=== PATIENT | male | born 1975 ===

== ENCOUNTER 2025-06-23 18:39 | Outpatient (REF) | payer MEDICAID, SELFPAY ==
--- OUTSIDE RECORDS SUMMARY | 2025-06-17 12:46 | XMS_ITS | Encounter Summary ---
Author Organization [facility] Address [address] [place] [address] Care Team Providers Care Industrial Electrical Technician Name Role Phone Roger Walker MD Primary Care Provider [phone] Reason for Visit * Diagnostic Imaging (Routine) - Authorized Specialty Diagnoses / Procedures Referred By Issa t Referred To Contact Radiology Diagnoses Acute hematogenous osteomyelitis of left foot (HCC) 06/15- Bkd apt w/pt. Confirmed camille/ Elmo @ [phone] that [address] services are in place-dd Procedures IR PICC IR PICC Agustín Chauhan MD [address] [place] [address] Phone: tel: fax: [facility] [address] [place] [address] Phone: tel: fax: Referral ID Status Reason Start Date Expiration Date V isits Requested Visits Authorized [id number] Authorized 06/17/2025 12/17/2026 6 6 Encounter Details Date Type Department Care Team (Latest Contact Info) Description 06/17/2025 12:46 PM EDT - 06/17/2025 11:59 PM EDT Hospital Encounter [facility] [address] [place] [address] Acute hematogenous osteomyelitis of left foot (HCC) Discharge Disposition: Home or Self Care () Social History Tobacco Use Types Packs/Day Years Used Date Smoking Tobacco: Never Smokeless Tobacco: Never Alcohol Use Standard Drinks/Week Comments Never 0 (1 standard drink = 0.6 oz pur e alcohol) [facility] Utilities Answer Date Recorded In the past 12 months has th e electric, gas, oil, or water company threatened to shut off services in your home? No 11/12/2024 Hunger Vital Sign Answer Date Recorded Within the past 12 months, y ou worried that your food would run out before you got the money to buy more. Never true 11/12/19 25 Within the past 12 months, t he food you bought just didn't last and you didn't have money to get more. Never true 11/12/2024 Transportation Answer Date Recorded In the past 12 months, has l ack of reliable transportation kept you from medical appointments, meetings, work or from getting things needed for daily living? No 11/12/2024 Housing Answer Date Recorded Housing Risk Low 2 11/12/2024 Housing Risk Medium Not on file 11/12/2024 Housing Risk High Not on file 11/12/2024 What is your living situation today? LSSTEADY 11/12/2024 Sex and Gender Information Value Date Recorded Sex Assigned at Male 11/11/2024 2:37 PM EST Legal Sex Male 8:23 AM EDT Gender Identity Not on file Sexual Orientation Not on file documented as of this encounter Discharge Instructions * Attachments The following attachments cannot be sent through Care Everywhere. * How to care for a peripherally inserted central catheter (PICC) (Persian) documented in this encounter Medications at Time of Discharge acetaminophen (TYLENOL) 325 mg tablet Take 2 tablets (650 mg total) by mouth every 6 hours as needed for fever or pain. 11/19/2024 amLODIPine (NORVASC) 10 mg tablet Take 0.5 tablets (5 mg total) by mouth once a day. 03/10/2025 rrwbm-wdpj-MqMHE- xgjcex-hx-gso (JASON WITH COLLAGEN) 7-7-1.5 gram powder in packet Take 1 packet by mouth 2 times a day. 03/10/2025 ascorbic acid (VITAMIN C) 500 mg tablet Take 1 tablet (500 mg total) by mouth 2 times a day. 11/19/2024 clopidogreL (PLAVIX) 75 mg tablet Take 75 mg by mouth once a day. clopidogreL (PLAVIX) 75 mg tablet 1 tablet DAILY (route: oral) 12/29/2024 collagenase (SantyL) ointment Apply topically to the affected area once a day. Wound dimensions: 0.8 x 0.6 x 0.5 cm 30 g 3 05/22/2025 dextrose (GLUTOSE) 40% gel Take 37.5 mL (15 g total) by mouth every 15 minutes as needed (For a blood glucose less than 70, in a conscious patient taking PO; May alternatively give 4 oz of non-diabetic juice.). 11/19/2024 enoxaparin (LOVENOX) 40 mg/0.4 mL subcutaneous injection Inject 0.4 mL (40 mg total) under the skin daily. 11/19/2024 ferrous sulfate 325 mg (65 mg iron) EC tablet Take 1 tablet (325 mg total) by mouth every other day. 03/11/2025 hydrALAZINE (APRESOLINE) 25 mg tablet Take 1 tablet (25 mg total) by mouth every 8 hours. 03/10/2025 insulin glargine-yfgn (SEMGLEE) injection 100 units/mL vial Inject 18 Units under the skin nightly. 03/10/2025 insulin lispro injection 100 units/mL vial Inject 1-4 Units under the skin nightly. 03/10/2025 insulin lispro injection 100 units/mL vial Inject 1-5 Units under the skin 3 times a day with meals. 03/10/2025 insulin lispro injection 100 units/mL vial Inject 3 Units under the skin 3 times a day with meals. 03/10/2025 labetaloL (NORMODYNE) 300 mg tablet Take 1 tablet (300 mg total) by mouth every 8 hours. 11/19/2024 labetaloL (NORMODYNE) 300 mg tablet Take 300 mg by mouth 3 times daily. 01/28/2025 lactobacillus acidophilus-L. bulgaricus (FLORANEX) 1 million cell tablet Take 1 tablet by mouth 3 times a day. 11/19/2024 loperamide (IMODIUM) 2 mg capsule Take 1 capsule (2 mg total) by mouth 4 times a day as needed for diarrhea. 03/10/2025 losartan (COZAAR) 100 mg tablet Take 1 tablet (100 mg total) by mouth once a day. 11/19/2024 multivitamin tablet Take 1 tablet by mouth once a day. 11/20/2024 sodium chloride 0.9% injection Infuse 10-20 mL intravenously See admin instructions. 03/10/2025 sodium chloride 0.9% injection Infuse 10-20 mL intravenously once a day. 03/11/2025 sodium chloride 0.9% injection Infuse 10-30 mL intravenously See admin instructions. 03/10/2025 sodium chloride 0.9% injection Infuse 10-30 mL intravenously once a day. 03/11/2025 documented as of this encounter Nursing Notes * Martha Cox RN - 06/17/2025 1:34 PM EDT Double Lumen Power PICC placed to right basilic by Tania CAICEDO. Pt tolerated well. Pt stating he has VNA set up already to help w/ PICC care. Both ports flushed w/ NS w/ out difficulty w/ + bloodreturn. CHG DSG applied to site & remains CDI. 2 wires on table pre & post procedure.Site ready to be used. AVS given to Pt & all questions answered.Pt denies pain/ discomfort 2 site. Pt d enies feeling light headed or dizzy@ dc to home. documented in this encounter Miscellaneous Notes * Post-Procedure Note - SASCHA Schmid - 06/17/2025 1:00 PM EDT PROCEDURE: Placement of peripherally inserted central venous catheter (PICC) under sonographic and fluoroscopic guidance. INDICATION: 50-year-old male presenting with osteomyelitis. Central venous access requested for long-term IV antibiotics. INSIGHT LEADER: Tania Mcmanus PA-C ATTENDING: Dr. Valeriano Mcgraw MEDICATIONS: Local anesthesia with 1% lidocaine. CONTRAST: No. Fluoro Time: 0.4 minutes CD: 2.2 mGy DEVICE: Nexsan PowerPICC 5 Fr x 36 cm double lumen polyurethane catheter, lot #[id number]. COMPLICATIONS: None. TECHNIQUE: Informed consent was obtained from the patient/proxy after discussion of risks, benefits, and alternatives. The patient was prepped and draped in a sterile fashion. Maximal Sterile Barrierand Sterile Ultrasound Techniques were utilized. A timeout was performed. After local anesthesia with 1% lidocaine, the right basilic vein was accessed with a 21 gauge needle under sonographic guidanc e. An ultrasound image was stored for the permanent record. Access needle was exchanged for a peel-away sheath over a 0.018 marking wire, which was used to measure appropriate catheter length. The PICC was cut to length and inserted through the sheath into the superior vena cava. After confirming proper placement of the catheter tip under fluoroscopy, the peel-away sheath was removed. The lumensaspirated blood briskly and were terminally flushed. Catheter was secured with a StatLock adhesive device and covered with a sterile dressing. The patient tolerated the procedure well. FINDINGS: 1. Patent right basilic vein accessed under sonographic guidance. 2. Placement of Bard 5 Fr x 36 cm double lumen polyurethane catheter 3. Postprocedure chest radiograph showed the catheter tip overlying the distal SVC and no kinks along the course of the catheter. IMPRESSION: Successful placement of double lumen power PICC. Catheter is ready for use. documented in this encounter Plan of Treatment Upcoming Encounters Date Type Department Care Team (Late st Contact Info) Description 06/24/2025 11:40 AM EDT Follow-Up [facility] [address] [place] [address] Emily Toussaint PA [address] [place] [address] 08/16/2025 11:15 AM EST Office Visit [address] Medical [facility] [place] [address] Josh Kraft MD [address] [place] [address] documented as of this encounter Procedures * Due to [place] [employer] law, this organization might not be sharing negative HIV tests. Procedure Name Priority Date/Time Associated Diagnosis Comments IR PICC Routine 06/17/2025 1:47 PM EDT Acute hematogenous osteomyelitis of left foot (HCC) documented in this encounter Results * Due to [place] [employer] law, this organization might not be sharing negative HIV tests. * IR PICC (06/17/2025 1:47 PM EDT) Anatomical Region Laterality Modality Lower Extremities, Upper Extremities Radio Fluoroscopy Impressions 06/20/2025 3:52 PM EDT Successful placement of double lumen power PICC. Catheter is ready for use. Narrative 06/20/2025 3:52 PM EDT PROCEDURE: Placement of peripherally inserted central venous catheter (PICC) under sonographic and fluoroscopic guidance. INDICATION: 50-year-old male presenting with osteomyelitis. Central venous access requested for long-term IV antibiotics. INSIGHT LEADER: Tania Mcmanus PA-C ATTENDING: Dr. Valeriano Mcgraw MEDICATIONS: Local anesthesia with 1% lidocaine. CONTRAST: No. Fluoro Time: 0.4 minutes CD: 2.2 mGy DEVICE: Bard PowerPICC 5 Fr x 36 cm double lumen polyurethane catheter, lot #[id number]. COMPLICATIONS: None. TECHNIQUE: Informed consent was obtained from the patient/proxy after discussion of risks, benefits, and alternatives. The patient was prepped and draped in a sterile fashion. Maximal Sterile Barrier and Sterile Ultrasound Techniques were utilized. A timeout was performed. After local anesthesia with 1% lidocaine, the right basilic vein was accessed with a 21 gauge needle under sonographic guidance. An ultrasound image was stored for the permanent record. Access needle was exchanged for a peel-away sheath over a 0.018 marking wire, which was used to measure appropriate catheter length. The PICC was cut to length and inserted through the sheath into the superior vena cava. After confirming proper placement of the catheter tip under fluoroscopy, the peel-away sheath was removed. The lumens aspirated blood briskly and were terminally flushed. Catheter was secured with a StatLock adhesive device and covered with a sterile dressing. The patient tolerated the procedure well. FINDINGS: 1. Patent right basilic vein accessed under sonographic guidance. 2. Placement of Bard 5 Fr x 36 cm double lumen polyurethane catheter 3. Postprocedure chest radiograph showed the catheter tip overlying the distal SVC and no kinks along the course of the catheter. Agustín Chauhan MD IMG IR PROCEDURES Final Result documented in this encounter Visit Diagnoses Diagnosis Acute hematogenous osteomyelitis of left foot (HCC) documented in this encounter Administered Medications Inactive Administered Medications - up to 3 most recent administrations Medication Order MAR Action Action Date Dose Rate Site lidocaine PF (XYLOCAINE) 1% (10 mg/mL) injection As needed, Starting on Fri06/17/25 at 1323, Until Fri06/17/25 at 1323, Intra-op Given 06/17/2025 1:23 PM EDT 4 mL Right Upper Arm documented in this encounter Additional Health Concerns Infection Onset Date Last Indicated Resolved Time 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2024 documented as of this encounter Care Teams Industrial Electrical Technician Relationship Specialty Start Date End Date Roger Walker MD [address] [place] [address] PCP - General Family Medicine 05/04/25 documented as of this encounter
[2025-06-23 18:45] LABS: MANUAL DIFF FLAG NO
--- OUTSIDE RECORDS SUMMARY | 2025-06-23 19:03 | XMS_ITS | Encounter Summary ---
Author Organization [facility] Address [address] [place] [address] Care Team Providers Care Fur Remodeler Name Role Phone Maria Dolores Shearer MD Primary Care Provider [phone] Andreea Herron OD Unavailable Roger Walker MD Primary Care Provider [phone] Encounter Details Date Type Department Care Team (Late st Contact Info) Description 11/27/2012 Orders Only [facility] Endocrinology [address] [place] [address] Stacy Mora MSN HELMET COVERER Social History Tobacco Use Types Packs/Day Years Used Date Smoking Tobacco: Never Smokeless Tobacco: Never Comments:nonsmoker Alcohol Use Standard Drinks/Week Comments No 0 (1 standard drink = 0.6 oz pur e alcohol) Sex and Gender Information Value Date Recorded Sex Assigned at Not on file Legal Sex Male 7:05 PM EDT Gender Identity Not on file Sexual Orientation Not on file documented as of this encounter Plan of Treatment Upcoming Encounters Date Type Department Care Team (Latest Contact Info) Description 07/15/2025 12:25 PM EDT Consult (Initial) [facility] [address] [place] [address] Edi Flaherty MD [address] [place] [address] - consult for Hypertension, benign 07/19/2025 1:30 PM EDT Office Visit [facility] [address] [place] [address] Roger Walker MD [address] [place] [address] diabetic follow up 10/24/2025 9:00 AM EST Office Visit [facility]. Optometry [address] [place] [address] Olya Schultz, OD [address] [place] [address] new pt,DM,noCL,verifie d via EM,elig 10/13/24,10/24,$0copa y,aodv,aoir 01/17/2026 2:00 PM EDT CPE - Comprehensive Physical Exam [address] [address] Roger Walker MD [address] [place] [address] CPE documented as of this encounter Procedures * Due to [place] [employer] law, this organization might not be sharing negative HIV tests. Procedure Name Priority Date/Time Associated Diagnosis Comments ALANINE AMINOTRANSFERASE (ALT), SERUM Routine 11/27/2012 7:10 AM EST Uncontrolled type II diabetes mellitus Elevated blood pressure Mixed hyperlipidemia Overweight ASPARTATE AMINOTRANSFERASE (AST), SERUM Routine 11/27/2012 7:10 AM EST Uncontrolled type II diabetes mellitus Elevated blood pressure Mixed hyperlipidemia Overweight documented in this encounter Results * Due to [place] [employer] law, this organization might not be sharing negative HIV tests. * ALANINE AMINOTRANSFERASE (ALT), SERUM (11/27/2012 7:10 AM EST) ALT (SGPT) 39 9 - 60 U/L [facility] Comment:{ALT {[id number]) 11/27/2012 7:10 AM EST 11/27/2012 12:04 PM EST Narrative Resulting Agency Comment [id number] us Stacy Mora MSN HELMET COVERER LAB SAME DAY RESULT Final Res ult Performing Organization Address City/[facility]/ZIP Co de Phone Number [facility] [address] [place] [address] * ASPARTATE AMINOTRANSFERASE (AST), SERUM (11/27/2012 7:10 AM EST) AST (SGOT) 22 10 - 40 U/L [facility] Comment:{AST {[id number]) 11/27/2012 7:10 AM EST 11/27/2012 12:04 PM EST Narrative Resulting Agency Comment [id number] us Stacy Mora MSN HELMET COVERER LAB SAME DAY RESULT Final Res ult Performing Organization Address [facility] Co de Phone Number [facility] [address] [place] [address] documented in this encounter Visit Diagnoses Diagnosis Uncontrolled type II diabetes mellitus Type II or unspecified type diabetes mellitus without mention of complication, uncontrolled Elevated blood pressure Elevated blood pressure reading without diagnosis of hypertension Mixed hyperlipidemia Overweight(278.02) Overweight documented in this encounter Additional Health Concerns Infection Onset Date Last Indicated Resolved Time COVID-19 Rule-Out 07/18/2020 07/18/2020 07/20/2020 11:31 AM EDT COVID-19 Rule-Out 09/18/2020 09/18/2020 09/21/2020 1:43 PM EST COVID-19 Confirmed 09/18/2020 09/18/2020 1 8:12 PM EST documented as of this encounter Care Teams Fur Remodeler Relationship Specialty Start Date End Date Maria Dolores Shearer MD PCP - General Internal Medicine 10/25/12 10/29/23 Roger Walker MD [address] [place] [address] PCP - General Family Medicine 10/30/23 Andreea Herron OD Subsea Engineer Optometry 02/20/17 documented as of this encounter
--- OUTSIDE RECORDS SUMMARY | 2025-06-23 19:04 | XMS_ITS | Encounter Summary ---
Author Organization [facility] Address [address] [place] [address] Care Team Providers Care Pulper Name Role Phone Maria Dolores Shearer MD Primary Care Provider [phone] Gopal Andreea OD Unavailable Roger Walker MD Primary Care Provider [phone] Encounter Details Date Type Department Care Team (Late Contact Info) Description 12/05/2018 Orders Only [facility] [address] [place] [address] Maria Dolores Shearer MD [address] [place] [address] Medications Social History Tobacco Use Types Packs/Day Years Used Date Smoking Tobacco: Never Smokeless Tobacco: Never Comments:nonsmoker Alcohol Use Standard Drinks/Week Comments Yes 0 (1 standard drink = 0.6 oz pure alcohol) Very very rarely - only 1 if drinking Sex and Gender Information Value Date Recorded Sex Assigned at Not on file Legal Sex Male 7:05 PM EDT Gender Identity Not on file Sexual Orientation Not on file documented as of this encounter Progress Notes * Lela Saxena LPN - 12/09/2018 9:36 AM EST See TM from 12/09/18 * Maria Dolores Shearer - 12/09/2018 8:11 AM EST Pls let pt know that hormone check was normal, I will start Viagra PRN. Thanks. documented in this encounter Plan of Treatment Upcoming Encounters Date Type Department Care Team (Latest Contact Info) Description 07/15/2025 12:25 PM EDT Consult (Initial) [facility] [address] [place] [address] Edi Flaherty MD [address] [address] - consult for Hypertension, benign 07/19/2025 1:30 PM EDT Office Visit [address] [address] Roger Walker MD [address] [place] [address] diabetic follow up 10/24/2025 9:00 AM EST Office Visit [facility]. Optometry [address] [place] [phone] Olya Schultz, OD [address] [place] [address] new pt,DM,noCL,verifie d via EM,elig 10/13/24,10/24,$0copa y,aodv,aoir 01/17/2026 2:00 PM EDT CPE - Comprehensive Physical Exam [address] [phone] Roger Walker MD [address] [place] [address] CPE documented as of this encounter Goals Goal Patient Goal Type Associated Problems Recent Progress Patient-Stated? Author Blood Pressure < 140/80 Blood Pressure 94/62( 025 11:51 AM EDT) No Maria Dolores Shearer HEMOGLOBIN A1C % < 7 Result Component 8.6( 5 1:13 PM EDT) No Jolene Tristan CMA documented as of this encounter Procedures * Due to [place] [employer] law, this organization might not be sharing negative HIV tests. Procedure Name Priority Date/Time Associated Diagnosis Comments THYROID STIMULATING HORMONE (TSH) WITH FREE T4 REFLEX, SERUM Routine 12/05/2018 9:07 AM EST Erectile dysfunction, unspecified erectile dysfunction type TESTOSTERONE, FREE(DIALYSIS) AND TOTAL, MS Routine 12/05/2018 9:07 AM EST Erectile dysfunction, unspecified erectile dysfunction type SEX HORMONE BINDING GLOBULIN Routine 12/05/2018 9:07 AM EST Erectile dysfunction, unspecified erectile dysfunction type PROLACTIN Routine 12/05/2018 9:07 AM EST Erectile dysfunction, unspecified erectile dysfunction type LUTEINIZING HORMONE (LH), SERUM Routine 12/05/2018 9:07 AM EST Erectile dysfunction, unspecified erectile dysfunction type FSH Routine 12/05/2018 9:07 AM EST Erectile dysfunction, unspecified erectile dysfunction type documented in this encounter Results * Due to [place] [employer] law, this organization might not be sharing negative HIV tests. * TESTOSTERONE, FREE AND TOTAL, LC/MS/MS (12/05/2018 9:07 AM EST) Testosterone 502 250 - 1100 ng/dL [facility] Comment: For additional information, please refer to http://education.[employer]Summize/faq/ [email or web address] (This link is being provided for informational/ educational purposes only.) This test was developed and its analytical performance characteristics have been determined by [employer] [place], [place]. It has not been cleared or approved by the U.S. Food and Drug Administration. This assay has been validated pursuant to the CLIA regulations and is used for clinical purposes. Testosterone, Free 71.8 35.0 - 155.0 pg/mL [facility] Comment: This test was developed and its analytical performance characteristics have been determined by [employer] [place], [place]. It has not been cleared or approved by the U.S. Food and Drug Administration. This assay has been validated pursuant to the CLIA regulations and is used for clinical purposes. 12/05/2018 9:07 AM EST 12/05/2018 5:42 PM EST Narrative Resulting Agency Comment [id number] Maria Dolores Shearer MD LABORATORY Final Result Performing Organization Address [facility] Co de Phone Number [facility] [address] [place] [address] * SEX HORMONE BINDING GLOBULIN (12/05/2018 9:07 AM EST) Sex hormone binding globulin 31 10 - 50 nmol/L [facility] 12/05/2018 9:07 AM EST 12/05/2018 5:42 PM EST Narrative Resulting Agency Comment [id number] Maria Dolores Shearer MD LABORATORY Final Result Performing Organization Address [facility] de Phone Number [facility] [address] [place] [phone] * FSH (12/05/2018 9:07 AM EST) FSH 4.1 1.6 - 8.0 mIU/mL [facility] 12/05/2018 9:07 AM EST 12/05/2018 5:42 PM EST Narrative Resulting Agency Comment [id number] Maria Dolores Shearer MD LAB SAME DAY RESULT Final Result Performing Organization Address [facility] Co de Phone Number [facility] [address] [place] [address] * LUTEINIZING HORMONE (LH), SERUM (12/05/2018 9:07 AM EST) Luteinizing Hormone (LH) 2.1 1.5 - 9.3 mIU/mL [facility] 12/05/2018 9:07 AM EST 12/05/2018 5:42 PM EST Narrative Resulting Agency Comment [id number] us Maria Dolores Shearer MD LAB SAME DAY RESULT Final Result Performing Organization Address [facility] Co de Phone Number [facility] [address] [place] [address] * PROLACTIN (12/05/2018 9:07 AM EST) Prolactin 5.2 2.0 - 18.0 ng/mL [facility] 12/05/2018 9:07 AM EST 12/05/2018 5:42 PM EST Narrative Resulting Agency Comment [id number] Maria Dolores Shearer MD LAB SAME DAY RESULT Final Result Performing Organization Address [facility] Co de Phone Number [facility] [address] [place] [address] * THYROID STIMULATING HORMONE (TSH) WITH FREE T4 REFLEX, SERUM (12/05/2018 9:07 AM EST) TSH 0.65 0.40 - 4.50 mIU/L [facility] 12/05/2018 9:07 AM EST 12/05/2018 5:42 PM EST Narrative Resulting Agency Comment [id number] Result [facility] Maria Dolores Shearer MD LABORATORY Final Result Performing Organization Address [facility] de Phone Number [facility] [address] [place] [address] documented in this encounter Visit Diagnoses Diagnosis Erectile dysfunction, unspecified erectile dysfunction type documented in this encounter Additional Health Concerns Infection Onset Date Last Indicated Resolved Time COVID-19 Rule-Out 07/18/2020 07/18/2020 07/20/2020 11:31 AM EDT COVID-19 Rule-Out 09/18/2020 09/18/2020 09/21/2020 1:43 PM EST COVID-19 Confirmed 09/18/2020 09/18/2020 1 8:12 PM EST documented as of this encounter Care Teams Pulper Relationship Specialty Start Date End Date Maria Dolores Shearer MD PCP - General Internal Medicine 10/25/12 10/29/23 Roger Walker MD [address] [place] [phone] PCP - General Family Medicine 10/30/23 Andreea Herron OD Bulldozer Engineer Optometry 02/20/17 documented as of this encounter
--- OUTSIDE RECORDS SUMMARY | 2025-06-23 19:04 | XMS_ITS | Encounter Summary ---
Author Organization [facility] Address [address] [place] [address] Care Team Providers Care Business Rules Analyst Name Role Phone Huber Acosta DO Primary Care Provider [phone] Maria Dolores Shearer MD Primary Care Provider Andreea Herron OD Unavailable Roger Walker MD Primary Care Provider [phone] Encounter Details Date Type Department Care Team (Late st Contact Info) Description 05/14/2007 Orders Only [facility] [address] [place] [phone] Huber Acosta DO [facility] [address] [place] [address] Social History Tobacco Use Types Packs/Day Years Used Date Smoking Tobacco: Never Comments:nonsmoker Alcohol Use Standard Drinks/Week [...] Description 07/15/2025 12:25 PM EDT Consult (Initial) [facility] [address] [place] [address] Edi Flaherty MD [address] [address] - consult for Hypertension, benign 07/19/2025 1:30 PM EDT Office Visit [address] [address] Roger Walker MD [address] [place] [address] diabetic follow up 10/24/2025 9:00 AM EST Office Visit [facility]. Optometry [address] [place] [address] UnderOlya carlton, OD [address] [place] [address] new pt,DM,noCL,verifie d via EM,elig 10/13/24,10/24,$0copa y,aodv,aoir 01/17/2026 2:00 PM EDT CPE - Comprehensive Physical Exam [address] [address] Roger Walker MD [address] [place] [address] CPE documented as of this encounter Procedures * Due to [place] state law, this organization might not be sharing negative HIV tests. Procedure Name Priority Date/Time Associated Diagnosis Comments COMP METABOLIC PANEL Routine 05/14/2007 HYPERLIPIDEMIA MICROALBUMIN (RANDOM URINE) Routine 05/14/2007 HYPERLIPIDEMIA CBC 5 PART DIFF Routine 05/14/2007 HYPERLIPIDEMIA HEMOGLOBIN A1C Routine 05/14/2007 HYPERLIPIDEMIA CK, CREATINE KINASE (CPK, TOTAL) Routine 05/14/2007 HYPERLIPIDEMIA CARDIAC RISK/LIPID PROFILE I Routine 05/14/2007 HYPERLIPIDEMIA documented in this encounter Results * Due to [place] state law, this organization might not be sharing negative HIV tests. * (ABNORMAL) CARDIAC RISK/LIPID PROFILE I (05/14/2007) CHOLESTEROL, TOTAL 229(H) 125 - 200 MG/DL [facility] (CLIA# [id number]) TRIGLYCERIDES 167(H) 30 - 149 MG/DL [facility] (CLIA# [id number]) HDL-CHOLESTEROL 34(L) 40 - 77 MG/DL [facility] (CLIA# [id number]) LDL-CHOLESTEROL 162(H) 62 - 130 MG/DL [facility] (CLIA# [id number]) Comment: RISK CATEGORY: LDL-CHOLESTEROL GOAL CHD AND CHD RISK EQUIVALENTS: <100 MULTIPLE (2+) FACTORS: <130 ZERO TO ONE RISK FACTOR: <160 CHD RELATIVE RISK RATIO (TOTAL/HDL) 6.74(H) 0.0 - 5.0 [facility] (CL[facility]# [id number]) Comment:(1.4 X AVERAGE) 05/14/2007 05/14/2007 2:5 5 PM EDT us Huber Acosta DO LABORATORY Final Result [facility] (CLIA# [id number]) [address] [place] [address] * (ABNORMAL) COMP METABOLIC PANEL (05/14/2007) CALCIUM 9.7 8.6 - 10.2 MG/DL [facility] (CLIA# [id number]) BUN 17 7 - 25 MG/DL [facility] (CLIA# [id number]) CREATININE 1.2 0.5 - 1.3 MG/DL [facility] (CLIA# [id number]) BUN/Creatinine Ratio 14 6 - 25 [facility] (CLIA# [id number]) Total Protein 6.9 6.2 - 8.3 G/DL [facility] (CLIA# [id number]) ALBUMIN 4.6 3.7 - 5.1 G/DL [facility] (CLIA# [id number]) GLOBULIN 2.3 2.1 - 3.7 G/DL [facility] (CLIA# [id number]) ALBUMIN/GLOBULIN RATIO 2.0 1.0 - 2.1 [facility] (CLIA# [id number]) BILIRUBIN TOTAL 0.4 0.2 - 1.2 MG/DL [facility] (CLIA# [id number]) Glucose 118(H) 65 - 99 MG/DL [facility] (CLIA# [id number]) ALKALINE PHOSPHATASE 54 40 - 115 U/L [facility] (CLIA# [id number]) AST (SGOT) 16 10 - 40 U/L [facility] (CLIA# [id number]) ALT (SGPT) 16 9 - 60 U/L [facility] (CLIA# [id number]) SODIUM 138 135 - 146 MMOL/L [facility] (CLIA# [id number]) POTASSIUM 4.1 3.5 - 5.3 MMOL/L [facility] (CLIA# [id number]) CHLORIDE 104 98 - 110 MMOL/L [facility] (CLIA# [id number]) CARBON DIOXIDE 26 21 - 33 MMOL/L [facility] (CLIA# [id number]) 05/14/2007 05/14/2007 2:5 5 PM EDT us Huber Acosta DO LABORATORY Final Result [facility] (CLIA# [id number]) [address] [place] [address] * MICROALBUMIN (RANDOM URINE) (05/14/2007) CREATININE (URINE) 142 20 - 370 MG/DL [facility] (CLIA# [id number]) Microalbumin (Urine) < 5 0 - 29 UG/ML [facility] (CLIA# [id number]) MICROALBUMIN/CREA T RATIO (URINE) SEE TEXT 0 - 29 [facility] (CLIA# [id number]) Comment: UNITS: UG/MG CREATININE MICROALBUMIN <5, CANNOT CALCULATE RATIO 05/14/2007 05/14/2007 2:5 5 PM EDT us Huber G Farb DO LABORATORY Final Result Performing Organization Address [facility] Co de Phone Number [facility] (CLIA# [id number]) [address] [place] [address] * CK, CREATINE KINASE (CPK, TOTAL) (05/14/2007) CK (CREATINE KINASE) 197 0 - 200 IU/L [facility] (CLIA# [id number]) 05/14/2007 05/14/2007 2:5 5 PM EDT us Huber G Farb DO LAB SAME DAY RESULT Final Result Performing Organization Address [facility] de Phone Number [facility] (CLIA# [id number]) [address] [place] [address] * (ABNORMAL) HEMOGLOBIN A1C (05/14/2007) Pathologist [facility] Hemoglobin A1C 8.9(H) 0.0 - 5.9 % [facility] (CLIA# [id number]) Comment: WELL-CONTROLLED OR NON-DIABETIC: < 6.0% DIABETIC HEMOGLOBIN A1C: THERAPEUTIC GOAL: < 7% RE-EVALUATE THERAPY: > 8% GLUCOSE MEAN VALUE 240 MG/DL [facility] (CLIA# [id number]) 05/14/2007 05/14/2007 2:5 5 PM EDT us Huber G Farb DO LABORATORY Final Result Performing Organization Address [facility] Co de Phone Number [facility] (CLIA# [id number]) [address] [place] [address] * (ABNORMAL) CBC 5 PART DIFF (05/14/2007) WHITE BLOOD COUNT 5.7 3.8 - 10.8 THOUS/UL [facility] (CLIA# [id number]) RBC 5.29 4.20 - 5.80 MIL/UL [facility] (CLIA# [id number]) Hemoglobin 13.0(L) 13.2 - 17.1 G/DL [facility] (CLIA# [id number]) HCT (HEMATOCRIT) 40 38.5 - 50.0 % [facility] (CLIA# [id number]) MCV 76(L) 80.0 - 100.0 FL [facility] (CLIA# [id number]) MCH 25(L) 27.0 - 33.0 PG [facility] (CLIA# [id number]) MCHC 32 32.0 - 36.0 G/DL [facility] (CLIA# [id number]) BAND % 0 0 - 5 % [facility] (CLIA# [id number]) NEUTROPHIL % 58 48 - 75 % [facility] (CLIA# [id number]) LYMPHOCYTE % 30 17 - 40 % [facility] (CLIA# [id number]) MONOCYTE % 8 0 - 14 % [facility] (CLIA# [id number]) EOSINOPHIL % 4 0 - 5 % [facility] (CLIA# [id number]) BASOPHIL % 0 0 - 3 % [facility] (CLIA# [id number]) ATYPICAL LYMPHOCYTE % 0 0 - 5 % [facility] (CLIA# [id number]) PLATELETS 242 140 - 400 THOUS/UL [facility] (CLIA# [id number]) BANDS # 0 0 - 750 CELLS/MCL [facility] (CLIA# [id number]) NEUTROPHILS # 3306 1500 - 7800 CELLS/MCL [facility] (CLIA# [id number]) LYMPHOCYTES # 1710 850 - 3900 CELLS/MCL [facility] (CLIA# [id number]) MONOCYTES # 456 200 - 950 CELLS/MCL [facility] (CLIA# [id number]) EOSINOPHILS # 228 15 - 550 CELLS/MCL [facility] (CLIA# [id number]) BASOPHILS # 0 0 - 200 CELLS/MCL [facility] (CLIA# [id number]) ATYPICAL LYMPHOCYTES # 0 0 - 200 /UL [facility] (CLIA# [id number]) RDW 15.1(H) 11.0 - 15.0 % [facility] (CLIA# [id number]) MPV 9.2 7.5 - 11.5 FL [facility] (CLIA# [id number]) 05/14/2007 05/14/2007 2:5 5 PM EDT us Huber Acosta DO LAB SAME DAY RESULT Final Result [facility] (CLIA# [id number]) [address] [place] [address] documented in this encounter Visit Diagnoses Diagnosis HYPERLIPIDEMIA Other and unspecified hyperlipidemia documented in this encounter Additional Health Concerns Infection Onset Date Last Indicated Resolved Time COVID-19 Rule-Out 07/18/2020 07/18/2020 07/20/2020 11:31 AM EDT COVID-19 Rule-Out 09/18/2020 09/18/2020 09/21/2020 1:43 PM EST COVID-19 Confirmed 09/18/2020 09/18/2020 1 8:12 PM EST documented as of this encounter Care Teams Business Rules Analyst Relationship Specialty Start Date End Date Huber Acosta DO PCP - General 07/08/06 10/24/12 Maria Dolores Shearer MD PCP - General Internal Medicine 10/25/12 10/29/23 Roger Walker MD [address] [place] [address] PCP - General Family Medicine 10/30/23 Andreea Herron OD [employer] [facility] 02/20/17 documented as of this encounter
--- OUTSIDE RECORDS SUMMARY | 2025-06-23 19:04 | XMS_ITS | Encounter Summary ---
Author Organization [facility] Address [address] [place] [address] Care Team Providers Care Pairer Substandard Name Role Phone Huber Acosta DO Primary Care Provider [phone] Maria Dolores Shearer MD Primary Care Provider [phone] Andreea Herron OD Unavailable Roger Walker MD Primary Care Provider [phone] Encounter Details Date Type Department Care Team (Late st Contact Info) Description 06/02/2008 Orders Only [facility] Endocrinology [address] [place] [phone] Mariangel Lou MD Social History Tobacco Use Types Packs/Day Years [...] Description 07/15/2025 12:25 PM EDT Consult (Initial) [facility] [address] [place] [address] Edi Flaherty MD [address] [address] - consult for Hypertension, benign 07/19/2025 1:30 PM EDT Office Visit [address] [address] Roger Walker MD [address] [place] [address] diabetic follow up 10/24/2025 9:00 AM EST Office Visit [facility]. Optometry [address] [place] [address] UnderOlya carlton, OD [address] [place] [address] new pt,DM,noCL,verifie d via EM,elig 10/13/24,10/24,$0copa y,aodv,aoir 01/17/2026 2:00 PM EDT CPE - Comprehensive Physical Exam [address] [address] Roger Walker MD [address] [place] [address] CPE documented as of this encounter Procedures * Due to [place] state law, this organization might not be sharing negative HIV tests. Procedure Name Priority Date/Time Associated Diagnosis Comments HEMOGLOBIN A1C Routine 06/02/2008 DM w/o Complication Type II DM w/o Complication Type II BASIC METABOLIC PANEL Routine 06/02/2008 DM w/o Complication Type II DM w/o Complication Type II MICROALBUMIN (RANDOM URINE) Routine 06/02/2008 DM w/o Complication Type II DM w/o Complication Type II ALANINE AMINOTRANSFERASE (ALT), SERUM Routine 06/02/2008 DM w/o Complication Type II DM w/o Complication Type II ASPARTATE AMINOTRANSFERASE (AST), SERUM Routine 06/02/2008 DM w/o Complication Type II DM w/o Complication Type II documented in this encounter Results * Due to [place] state law, this organization might not be sharing negative HIV tests. * MICROALBUMIN (RANDOM URINE) (06/02/2008) CREATININE (URINE) 231 20 - 370 MG/DL Microalbumin (Urine) 13 0 - 29 UG/ML MICROALBUMIN/CREA T RATIO (URINE) 6 0 - 29 Comment:UNITS: UG/MG CREATIN INE 06/02/2008 06/02/2008 3:4 3 PM EDT Mariangel Lou MD LABORATORY Final Result * (ABNORMAL) HEMOGLOBIN A1C (06/02/2008) Pathologist [facility] Hemoglobin A1C 6.5(H) 0.0 - 5.9 % GLUCOSE MEAN VALUE 154 MG/DL 06/02/2008 06/02/2008 3:4 3 PM EDT Mariangel Lou MD LABORATORY Final Result * (ABNORMAL) BASIC METABOLIC PANEL (06/02/2008) Pathologist [facility] CALCIUM 9.7 8.6 - 10.2 MG/DL BUN 18 7 - 25 MG/DL CREATININE 1.19 0.50 - 1.30 MG/DL Glucose 109(H) 65 - 99 MG/DL SODIUM 139 135 - 146 MMOL/L POTASSIUM 4.1 3.5 - 5.3 MMOL/L CHLORIDE 103 98 - 110 MMOL/L CARBON DIOXIDE 25 21 - 33 MMOL/L 06/02/2008 06/02/2008 3:4 3 PM EDT Mariangel Lou MD LAB SAME DAY RESULT Final Result * ASPARTATE AMINOTRANSFERASE (AST), SERUM (06/02/2008) Pathologist [facility] AST (SGOT) 19 10 - 40 U/L 06/02/2008 06/02/2008 3:4 3 PM EDT Mariangel Lou MD LAB SAME DAY RESULT Final Result * ALANINE AMINOTRANSFERASE (ALT), SERUM (06/02/2008) ALT (SGPT) 23 9 - 60 U/L 06/02/2008 06/02/2008 3:4 3 PM EDT us Mariangel Lou MD LAB SAME DAY RESULT Final Result documented in this encounter Visit Diagnoses Diagnosis Type II or unspecified type diabetes mellitus without mention of complication, not stated as uncontrolled documented in this encounter Additional Health Concerns Infection Onset Date Last Indicated Resolved Time COVID-19 Rule-Out 07/18/2020 07/18/2020 07/20/2020 11:31 AM EDT COVID-19 Rule-Out 09/18/2020 09/18/2020 09/21/2020 1:43 PM EST COVID-19 Confirmed 09/18/2020 09/18/2020 1 8:12 PM EST documented as of this encounter Care Teams Pairer Substandard Relationship Specialty Start Date End Date Huber Acosta DO PCP - General 07/08/06 10/24/12 Maria Dolores Shearer MD PCP - General Internal Medicine 10/25/12 10/29/23 Roger Walker MD [address] [place] [address] PCP - General Family Medicine 10/30/23 Andreea Herron OD [facility] [employer] [facility] 02/20/17 documented as of this encounter
--- OUTSIDE RECORDS SUMMARY | 2025-06-23 19:04 | XMS_ITS | Encounter Summary ---
Author Organization [facility] Address [address] [place] [address] Care Team Providers Care Composition Roofer Name Role Phone Andreea Herron OD Unavailable Roger Walker MD Primary Care Provider [phone] Encounter Details Date Type Department Care Team ([facility] Contact Info) Description 05/26/2025 Orders Only [facility] Practice [address] [place] [address] Roger Walker MD [address] [place] [address] Social History Tobacco Use Types Packs/Day Years Used Date Smoking Tobacco: Never Passive Smoke Exposure: Never Smokeless Tobacco: Never Comments:nonsmoker Alcohol Use Standard Drinks/Week Comments Yes 0 (1 standard drink = 0.6 oz pure alcohol) Very very rarely - only 1 if drinking PHQ-2 Answer Date Recorded Patient Health Questionnaire-2 Score 0 01/25/2025 [facility] - Occupational Stress Questionnaire Answer Date Recorded Do you feel stress - tense, restless, nervous, or anxious, or unable to sleep at night because your mind is troubled all the time - these days? Only a little 01/25/2025 Exercise Vital Sign Answer Date Recorde d On average, how many days pe r week do you engage in moderate to strenuous exercise (like a brisk walk)? 0 days 01/25/2025 On average, how many minutes do you engage in exercise at this level? 0 min 01/25/2025 Intimate Partner Violence Answer Date R ecorded Fear of Current or Ex-Partner Not on file Emotionally Abused Not on file 01/25/2025 Physically Abused Not on file 01/25/2025 Sexually Abused Not on file 01/25/2025 Do you feel physically and e motionally safe where you currently live? Yes 01/25/2025 Social Connections Answer Date Recorded Phone Communication More than three times a week 01/25/2025 Get together with friends / family More than thr ee times a week 01/25/2025 Attend hoahaoism services Never 2024 Club Membership No 01/25/2025 Club Attendance Never 01/25/2025 Marital Status Not on file 01/25/2025 Financial Resource Strain Answer Date R ecorded Difficulty paying for basics Not very hard How hard is it for you to pa y for utilities (electricity, gas, water)? Not very hard 01/25/2025 Food Insecurity Answer Date Recorded Worry that food will run out Never true Inability to get food Never true 01/25/2025 Transportation Needs Answer Date Record ed Lacking transport to medical appts No 01/25/2025 Lacking transport to non-medical No 01/25/2025 Housing Stability Answer Date Recorded Unable to Pay for Housing in the Last Year No 01/25/2025 Number of Places Lived in the Last Year 1 01/25/2025 Unstable Housing in the Last Year No 01/25/2025 Do you have housing? Not on file 01/25/2025 Are you worried about losing your housing? Not o n file 01/25/2025 Are you worried about losing your housing? Not o n file 01/25/2025 Adolescent Education and Socialization Answer Date Recorded Getting School Help Needed Not on file 01/25 How often do you get together with friends or re latives? 5 01/25/2025 Do you belong to any clubs o r organizations such as zoroastrian groups, unions, athletic groups, or school groups? 2 How often do you attend meet ings of the clubs or organizations you belong to? 1 01/25/2025 Sex and Gender Information Value Date Recorded Sex Assigned at Not on file Legal Sex Male 7:05 PM EDT Gender Identity Not on file Sexual Orientation Not on file documented as of this encounter Plan of Treatment Upcoming Encounters Date Type Department Care Team (Latest Contact Info) Description 07/15/2025 12:25 PM EDT Consult (Initial) [facility] [address] [place] [address] Edi Flaherty MD 123 [facility] [address] [place] [address] - consult for Hypertension, benign 07/19/2025 1:30 PM EDT Office Visit [address] [phone] Rogre Walker MD [address] [place] [address] diabetic follow up 10/24/2025 9:00 AM EST Office Visit [facility]. Optometry [address] [place] [address] UnderOlya carlton, OD [address] [place] [address] new pt,DM,noCL,verifie d via EM,elig 10/13/24,10/24,$0copa y,aodv,aoir 01/17/2026 2:00 PM EDT CPE - Comprehensive Physical Exam [address] [phone] Roger Walker MD [address] [place] [address] CPE documented as of this encounter Goals Goal Patient Goal Type Associated Problems Recent Progress Patient-Stated? Author Blood Pressure < 140/80 Blood Pressure 94/62( 025 11:51 AM EDT) Maria Dolores Mcmanus HEMOGLOBIN A1C % < 7 Result Component 8.6( 1:13 PM EDT) No Jolene Tristan CMA documented as of this encounter Procedures * Due to [place] state law, this organization might not be sharing negative HIV tests. 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, with long-term current use of insulin (HCC) FOLATE, SERUM Routine 05/26/2025 1:13 PM EDT Weakness Microcytic anemia FERRITIN Routine 05/26/2025 1:13 PM EDT Weakness Microcytic anemia VITAMIN B12 (CYANOCOBALAMIN), SERUM Routine 05/26/2025 1:13 PM EDT Weakness VITAMIN D, 25-HYDROXY, TOTAL, IMMUNOASSAY Routine 05/26/2025 1:13 PM EDT Weakness ALBUMIN (MICROALBUMIN), RANDOM URINE, WITH CREATININE Routine 05/26/2025 1:13 PM EDT Diabetes mellitus, stable (HCC) LIPID PANEL WITH REFLEX TO DIRECT LDL Routine 05/26/2025 1:13 PM EDT 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 * VITAMIN D, 25-HYDROXY, TOTAL, IMMUNOASSAY (05/26/2025 1:13 PM EDT) Vitamin D, 25-OH, Total 34 30 - 100 ng/mL [facility] Comment: Vitamin D Status 25-OH Vitamin D: Deficiency: <20 ng/mL Insufficiency: 20 - 29 ng/mL Optimal: > or = 30 ng/mL For 25-OH Vitamin D testing on patients on D2-supplementation and patients for whom quantitation of D2 and D3 fractions is required, the QuestAssureD(TM) 25-OH VIT D, (D2,D3), LC/MS/MS is recommended: order code [id number] (patients >2yrs). See Note 1 Note 1 For additional information, please refer to http://education.[employer]/faq/JOT309 (This link is being provided for informational/ educational purposes only.) 05/26/2025 1:13 PM EDT 05/27/2025 2:10 AM EDT Narrative Resulting Agency Comment [id number] Roger Walker MD LABORATORY Final Resu lt Performing Organization Address [facility] Co de Phone Number [facility] [address] [place] [address] * VITAMIN B12 (CYANOCOBALAMIN), SERUM (05/26/2025 1:13 PM EDT) Vitamin B12 (Cobalamins) 428 200 - 1100 pg/mL [facility] 05/26/2025 1:13 PM EDT 05/27/2025 2:10 AM EDT Narrative Resulting Agency Comment [id number] Roger Walker MD LABORATORY Final Resu lt Performing Organization Address [facility] Co de Phone Number [facility] [address] [place] [address] * THYROID CASCADING REFLEX (05/26/2025 1:13 PM EDT) TSH 1.06 0.40 - 4.50 mIU/L [facility] 05/26/2025 1:13 PM EDT 05/27/2025 2:10 AM EDT Narrative Resulting Agency Comment [id number] Roger Walker MD LABORATORY Final Resu lt Performing Organization Address [facility] Co de Phone Number [facility] [address] [place] [address] * (ABNORMAL) RETICULOCYTE COUNT (05/26/2025 1:13 PM EDT) [facility] Reticulocytes/100 erythrocytes (RBC) 0.5 % [facility] Reticulocytes (RBC) 89902(L) 14577 - 82298 cells/uL [facility] 05/26/2025 1:13 PM EDT 05/27/2025 2:10 AM EDT Narrative Resulting Agency Comment [id number] Roger Walker MD LABORATORY Final Resu lt Performing Organization Address [facility] de Phone Number [facility] [address] [place] [address] * (ABNORMAL) LIPID PANEL WITH REFLEX TO DIRECT LDL (05/26/2025 1:13 PM EDT) Pathologist [facility] Cholesterol 174 <200 mg/dL [facility] HDL Cholesterol 47 > OR = 40 mg/dL [facility] Triglyceride 170(H) <150 mg/dL [facility] LDL Cholesterol 100(H) mg/dL (calc) [facility] Comment: Reference range: <100 Desirable range <100 mg/dL for primary prevention; <70 mg/dL for patients with CHD or diabetic patients with > or = 2 CHD risk factors. LDL-C is now calculated using the Eliazar calculation, which is a validated novel method providing better accuracy than the Friedewald equation in the estimation of LDL-C. Surya FARLEY et al. MIYA. 2013;310(19): 6982-5261 (http://education.[employer]/faq/JBK137) CHOL/HDL Ratio 3.7 <5.0 (calc) [facility] Cholesterol Non-HDL 127 <130 mg/dL (calc) [facility] Comment: For patients with diabetes plus 1 major ASCVD risk factor, treating to a non-HDL-C goal of <100 mg/dL (LDL-C of <70 mg/dL) is considered a therapeutic option. 05/26/2025 1:13 PM EDT 05/27/2025 2:10 AM EDT Narrative Resulting Agency Comment [id number] Roger Walker MD LABORATORY Final Resu lt Performing Organization Address [facility] de Phone Number [facility] [address] [place] [address] * IRON PROFILE (IRON/TIBC), SERUM (05/26/2025 1:13 PM EDT) Iron 113 50 - 180 mcg/dL [facility] Iron binding capacity 286 250 - 425 mcg/dL (calc) [facility] Iron saturation 40 20 - 48 % (calc) [facility] 05/26/2025 1:13 PM EDT 05/27/2025 2:10 AM EDT Narrative Resulting Agency Comment [id number] Roger Walker MD LABORATORY Final Resu lt Performing Organization Address [facility] de Phone Number [facility] [address] [place] [address] * (ABNORMAL) HEMOGLOBIN A1C (05/26/2025 1:13 PM EDT) Hemoglobin A1C 8.6(H) <5.7 % [facility] Comment: For someone without known diabetes, a hemoglobin A1c value of 6.5% or greater indicates that they may have diabetes and this should be confirmed with a follow-up test. For someone with known diabetes, a value <7% indicates that their diabetes is well controlled and a value greater than or equal to 7% indicates suboptimal control. A1c targets should be individualized based on duration of diabetes, age, comorbid conditions, and other considerations. Currently, no consensus exists regarding use of hemoglobin A1c for diagnosis of diabetes for children. Estimated Average Glucose 229 mg/dL (calc) [facility] 05/26/2025 1:13 PM EDT 05/27/2025 2:10 AM EDT Narrative Resulting Agency Comment [id number] Roger Walker MD LABORATORY Final Resu lt Performing Organization Address [facility] de Phone Number [facility] [address] [place] [address] * FOLATE, SERUM (05/26/2025 1:13 PM EDT) Pathologist [facility] Folate 12.9 ng/mL [facility] Comment: Reference Range Low: <3.4 Borderline: 3.4-5.4 Normal: >5.4 05/26/2025 1:13 PM EDT 05/27/2025 2:10 AM EDT Narrative Resulting Agency Comment [id number] Roger Walker MD LABORATORY Final Resu lt Performing Organization Address [facility] de Phone Number [facility] [address] [place] [address] * FERRITIN (05/26/2025 1:13 PM EDT) Pathologist [facility] Ferritin 169 38 - 380 ng/mL [facility] 05/26/2025 1:13 PM EDT 05/27/2025 2:10 AM EDT Narrative Resulting Agency Comment [id number] Roger Walker MD LABORATORY Final Resu lt Performing Organization Address [facility] de Phone Number [facility] [address] [place] [address] * (ABNORMAL) COMPREHENSIVE METABOLIC PANEL WITH GFR (05/26/2025 1:13 PM EDT) Glucose 249(H) 65 - 99 mg/dL [facility] Comment: Fasting reference interval For someone without known diabetes, a glucose value >125 mg/dL indicates that they may have diabetes and this should be confirmed with a follow-up test. Urea Nitrogen Blood (BUN) 25 7 - 25 mg/dL [facility] Creatinine 1.54(H) 0.70 - 1.30 mg/dL [facility] EGFR 55(L) > OR = 60 mL/min/1. 73m2 [facility] BUN/Creatinine Ratio 16 6 - 22 (calc) [facility] Sodium 134(L) 135 - 146 mmol/L [facility] Potassium 5.1 3.5 - 5.3 mmol/L [facility] Chloride 102 98 - 110 mmol/L [facility] Carbon dioxide 26 20 - 32 mmol/L [facility] Calcium 10.2 8.6 - 10.3 mg/dL [facility] Protein Total (Serum) 7.5 6.1 - 8.1 g/dL [facility] Albumin 4.4 3.6 - 5.1 g/dL [facility] Globulin 3.1 1.9 - 3.7 g/dL (calc) [facility] Albumin/Globulin 1.4 1.0 - 2.5 (calc) [facility] Bilirubin Total 0.3 0.2 - 1.2 mg/dL [facility] Alkaline phosphatase 87 35 - 144 U/L [facility] AST (SGOT) 14 10 - 35 U/L [facility] ALT (SGPT) 18 9 - 46 U/L [facility] 05/26/2025 1:13 PM EDT 05/27/2025 2:10 AM EDT Narrative [facility] - 05/27/2025 4:49 PM EDT Please note that this estimated GFR does not include an adjustment for the patient's height or weight, and can therefore, be viewed as reliable only for patients with heights between 60 and 72 . More precise quantification using a 24-hour urine sample or height-based algorithm is recommended for patients outside of this range of height and for those individuals with more precise needs for GFR calculation. Resulting Agency Comment [id number] Roger Walker MD LABORATORY Final Resu lt [facility] [address] [place] [address] * (ABNORMAL) CBC INCLUDES DIFFERENTIAL AND PLATELET COUNT (05/26/2025 1:13 PM EDT) WBC 7.5 3.8 - 10.8 Thousand/ uL [facility] RBC 4.71 4.20 - 5.80 Million/u L [facility] Hemoglobin 10.5(L) 13.2 - 17.1 g/dL [facility] Hematocrit 36.1(L) 38.5 - 50.0 % [facility] MCV 76.6(L) 80.0 - 100.0 fL [facility] MCH 22.3(L) 27.0 - 33.0 pg [facility] MCHC 29.1(L) 32.0 - 36.0 g/dL [facility] Comment: For adults, a slight decrease in the calculated MCHC value (in the range of 30 to 32 g/dL) is most likely not clinically significant; however, it should be interpreted with caution in correlation with other red cell parameters and the patient's clinical condition. RDW 17.1(H) 11.0 - 15.0 % [facility] PLT 258 140 - 400 Thousand/ uL [facility] MPV 10.3 7.5 - 12.5 fL [facility] Neutrophils # 5460 1500 - 7800 cells/uL [facility] Lymphocytes # 1515 850 - 3900 cells/uL [facility] Monocytes # 480 200 - 950 cells/uL [facility] Eosinophils # 38 15 - 500 cells/uL [facility] Basophils # 8 0 - 200 cells/uL [facility] Neutrophils % 72.8 % [facility] Lymphocytes % 20.2 % [facility] Monocytes % 6.4 % [facility] Eosinophils % 0.5 % [facility] Basophils % 0.1 % [facility] 05/26/2025 1:13 PM EDT 05/27/2025 2:10 AM EDT Narrative Resulting Agency Comment [id number] Roger Walker MD LAB SAME DAY RESULT Final Result Performing Organization Address City/State/[facility] Co de Phone Number [facility] [address] [place] [address] * (ABNORMAL) ALBUMIN (MICROALBUMIN), RANDOM URINE, WITH CREATININE (05/26/2025 1:13 PM EDT) Creatinine (Urine) 105 20 - 320 mg/dL [facility] Albumin (Urine) 3.1 mg/dL [facility] Comment: Reference Range Not established Albumin/Creatinine (Urine) 30(H) <30 mg/g creat [facility] Comment: The ADA defines abnormalities in albumin excretion as follows: Albuminuria Category Result (mg/g creatinine) Normal to Mildly increased <30 Moderately increased 30-299 Severely increased > OR = 300 The ADA recommends that at least two of three specimens collected within a 3-6 month period be abnormal before considering a patient to be within a diagnostic category. 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
--- OUTSIDE RECORDS SUMMARY | 2025-06-23 19:04 | XMS_ITS | Encounter Summary ---
Author Organization [facility] Address [address] [place] [address] Care Team Providers Care Quarantine Officer Name Role Phone Huber Acosta DO Primary Care Provider Maria Dolores Shearer MD Primary Care Provider [phone] Andreea Herron OD Unavailable Roger Walker MD Primary Care Provider [phone] Encounter Details Date Type Department Care Team (Late st Contact Info) Description 03/15/2009 Orders Only [facility] Endocr[facility]ology [address] [place] [id number] Stacy Mora MSN NP Social History Tobacco Use Types Packs/Day Years [...] Description 07/15/2025 12:25 PM EDT Consult (Initial) [facility] [address] [place] [address] Edi Flaherty MD [address] [address] - consult for Hypertension, benign 07/19/2025 1:30 PM EDT Office Visit [address] [phone] Roger Walker MD [address] [place] [address] diabetic follow up 10/24/2025 9:00 AM EST Office Visit [facility]. Optometry [address] [place] [address] UnderOlya carlton, OD [address] [place] [address] new pt,DM,noCL,verifie d via EM,elig 10/13/24,10/24,$0copa y,aodv,aoir 01/17/2026 2:00 PM EDT CPE - Comprehensive Physical Exam [address] [address] Roger Walker MD [address] [place] [address] CPE documented as of this encounter Procedures * Due to [email or web address] law, this organization might not be sharing negative HIV tests. Procedure Name Priority Date/Time Associated Diagnosis Comments HEMOGLOBIN A1C Routine 03/15/2009 DM w/o Complication Type II BASIC METABOLIC PANEL Routine 03/15/2009 DM w/o Complication Type II MICROALBUMIN (RANDOM URINE) Routine 03/15/2009 DM w/o Complication Type II documented in this encounter Results * Due to [email or web address] law, this organization might not be sharing negative HIV tests. * MICROALBUMIN (RANDOM URINE) (03/15/2009) CREATININE (URINE) 360 20 - 370 MG/DL Microalbumin (Urine) 14 NOT ESTABLISHED MICROALBUMIN/CRE AT RATIO (URINE) 4 0 - 29 Comment:UNITS: MCG/MG CREATI NINE 03/15/2009 03/15/2009 4:5 7 PM EDT tSacy Mora [facility] Final Result * (ABNORMAL) HEMOGLOBIN A1C (03/15/2009) Hemoglobin A1C 7.4(H) 0.0 - 5.9 % GLUCOSE MEAN VALUE 186 MG/DL 03/15/2009 03/15/2009 4:5 7 PM EDT Stacy Mora [facility] Final Result * (ABNORMAL) BASIC METABOLIC PANEL (03/15/2009) Pathologist [facility] CALCIUM 9.7 8.6 - 10.2 MG/DL BUN 14 7 - 25 MG/DL CREATININE 1.19 0.79 - 1.33 MG/DL Glucose 118(H) 65 - 99 MG/DL SODIUM 139 135 - 146 MMOL/L POTASSIUM 4.2 3.5 - 5.3 MMOL/L CHLORIDE 103 98 - 110 MMOL/L CARBON DIOXIDE 28 21 - 33 MMOL/L 03/15/2009 03/15/2009 4:5 7 PM EDT Satcy Mora [facility] SAME DAY RESULT Final Res ult documented in this encounter Visit Diagnoses Diagnosis [...] documented as of this encounter Care Teams Quarantine Officer Relationship Specialty Start Date End Date Huber Acosta DO PCP - General 07/08/06 10/24/12 Maria Dolores Shearer MD PCP - General Internal Medicine 10/25/12 10/29/23 Roger Walker MD [address] [place] [address] PCP - General Family Medicine 10/30/23 Andreea Herron OD [facility] 02/20/17 documented as of this encounter
--- OUTSIDE RECORDS SUMMARY | 2025-06-23 19:04 | XMS_ITS | Encounter Summary ---
Author Organization [facility] Address [address] [place] [address] Care Team Providers Care White Goods Appliance Tech Name Role Phone Maria Dolores Shearer MD Primary Care Provider [phone] Andreea Herron OD Unavailable Roger Walker MD Primary Care Provider [phone] Encounter Details Date Type Department Care Team (Late st Contact Info) Description 07/21/2014 Orders Only [facility] Endocrinology [address] [place] [phone] Stacy Mora, ABEL CABLE WORKER HELPER Social History Tobacco Use Types Packs/Day Years [...] as of this encounter Progress Notes * Angela Joe - 08/05/2014 8:15 AM EDTQuick Note: lmom for pt to return call. Sent unable to reach letter. * Angela Joe - 08/01/2014 3:27 PM EDTQuick Note: lmom for pt to return call. * Micki Rolon - 07/26/2014 11:53 AM EDTQuick Note: Lmom for pt to return call. Pt was placed on wait list for sooner appointment. * Stacy Mora - 07/26/2014 10:35 AM EDTQuick Note: Please put pt on cxl list for a sooner appt w/ me & remind him to bring sugars to appt w/ DNE next month. documented in this encounter Plan of Treatment Upcoming Encounters Date Type Department Care Team (Latest Contact Info) Description 07/15/2025 12:25 PM EDT Consult (Initial) [facility] [address] [place] [address] Edi Flaherty MD 123 [facility] [address] [place] [address] - consult for Hypertension, benign 07/19/2025 1:30 PM EDT Office Visit [address] [phone] Roger Walker MD [address] [place] [address] diabetic follow up 10/24/2025 9:00 AM EST Office Visit [facility]. Optometry [address] [place] [address] Olya Schultz, OD [address] [place] [address] new pt,DM,noCL,verifie d via EM,elig 10/13/24,10/24,$0copa y,aodv,aoir 01/17/2026 2:00 PM EDT CPE - Comprehensive Physical Exam [address] [address] Roger Walker MD [address] [place] [address] CPE documented as of this encounter Goals Goal Patient Goal Type Associated Problems Recent Progress Patient-Stated? Author Blood Pressure < 140/80 Blood Pressure 94/62( 025 11:51 AM EDT) No Maria Dolores Shearer HEMOGLOBIN A1C % < 7 Result Component 8.6( 5 1:13 PM EDT) No Jolene Tristan, OWEN documented as of this encounter Procedures * Due to [place] [employer] law, this organization might not be sharing negative HIV tests. Procedure Name Priority Date/Time Associated Diagnosis Comments ALANINE AMINOTRANSFERASE (ALT), SERUM Routine 07/21/2014 7:14 AM EDT Uncontrolled type II diabetes mellitus Dysmetabolic syndrome X Hypertension Mixed hyperlipidemia Overweight(278.02) ASPARTATE AMINOTRANSFERASE (AST), SERUM Routine 07/21/2014 7:14 AM EDT Uncontrolled type II diabetes mellitus Dysmetabolic syndrome X Hypertension Mixed hyperlipidemia Overweight(278.02) HEMOGLOBIN A1C Routine 07/21/2014 7:14 AM EDT Uncontrolled type II diabetes mellitus Dysmetabolic syndrome X Hypertension Mixed hyperlipidemia Overweight(278.02) FRUCTOSAMINE, SERUM Routine 07/21/2014 7 :14 AM EDT Type 1 diabetes mellitus CREATININE WITH GLOMERULAR FILTRATION RATE, ESTIMATED (EGFR) Routine 07/21/2014 7:14 AM EDT Uncontrolled type II diabetes mellitus Dysmetabolic syndrome X Hypertension Mixed hyperlipidemia Overweight(278.02) documented in this encounter Results * Due to [place] [employer] law, this organization might not be sharing negative HIV tests. * (ABNORMAL) FRUCTOSAMINE, SERUM (07/21/2014 7:14 AM EDT) Fructosamine 386(H) 190 - 270 umol/L [facility] Comment:{FRUCTOSAMINE {[id number]) 07/21/2014 7:14 AM EDT 07/21/2014 1:51 PM EDT Narrative Resulting Agency Comment [id number] Stacy Mora MSN CABLE WORKER HELPER LABORATORY Final Result Performing Organization Address [facility] Co de Phone Number [facility] [address] [place] [address] * ALANINE AMINOTRANSFERASE (ALT), SERUM (07/21/2014 7:14 AM EDT) ALT (SGPT) 43 9 - 46 U/L [facility] Comment:{ALT {[id number]) 07/21/2014 7:14 AM EDT 07/21/2014 1:51 PM EDT Narrative Resulting Agency Comment [id number] Stacy ROMAN CABLE WORKER HELPER LAB SAME DAY RESULT Final Res ult Performing Organization Address [facility] de Phone Number [facility] [address] [place] [address] * ASPARTATE AMINOTRANSFERASE (AST), SERUM (07/21/2014 7:14 AM EDT) AST (SGOT) 34 10 - 40 U/L [facility] Comment:{AST {[id number]) 07/21/2014 7:14 AM EDT 07/21/2014 1:51 PM EDT Narrative Resulting Agency Comment [id number] Stacy Mora MSN CABLE WORKER HELPER LAB SAME DAY RESULT Final Res ult Performing Organization Address [facility] de Phone Number [facility] [address] [place] [address] * CREATININE WITH GLOMERULAR FILTRATION RATE, ESTIMATED (EGFR) (07/21/2014 7:14 AM EDT) Creatinine 1.01 0.60 - 1.35 mg/dL [facility] Comment:{CREATININE {[id number]) GFR 93 > OR = 60 mL/min/1.7 3m2 [facility] Comment:{eGFR NON-AFR. AMERI CAN {[id number]) GFR () 108 > OR = 60 mL/min/1.7 3m2 [facility] Comment:{eGFR AMERIC AN {[id number]) 07/21/2014 7:14 AM EDT 07/21/2014 1:51 PM EDT Narrative [facility] - 07/22/2014 12:47 AM EDT Please note that this estimated GFR [...] needs for GFR calculation. Resulting Agency Comment [id number] us Stacy ROMAN CABLE WORKER HELPER LAB SAME DAY RESULT Final Res ult Performing Organization Address City/State/[facility] Co de Phone Number [facility] [address] [place] [address] * (ABNORMAL) HEMOGLOBIN A1C (07/21/2014 7:14 AM EDT) Hemoglobin A1C 10.1(H) <5.7 % of total Hgb [facility] Comment: {HEMOGLOBIN A1c {[id number]) According to ADA guidelines, hemoglobin A1c <7.0% represents optimal control in non- diabetic patients. Different metrics may apply to specific patient populations. Standards of Medical Care in Diabetes-2013. Diabetes Care. 2013;36:s11-s66 For the purpose of screening for the presence of diabetes <5.7% Consistent with the absence of diabetes 5.7-6.4% Consistent with increased risk for diabetes (prediabetes) >or=6.5% Consistent with diabetes This assay result is consistent with diabetes mellitus. Currently, no consensus exists for use of hemoglobin A1c for diagnosis of diabetes for children. Estimated Average Glucose 282 mg/dL (calc) [facility] Comment:{MEAN PLASMA GLUCOSE {[id number]) 07/21/2014 7:14 AM EDT 07/21/2014 1:51 PM EDT Narrative Resulting Agency Comment [id number] us Stacy ROMAN CABLE WORKER HELPER LABORATORY Final Result [facility] [address] [place] [address] documented in this encounter Visit Diagnoses Diagnosis Uncontrolled type II diabetes mellitus- Primary Type II or unspecified type diabetes mellitus without mention of complication, uncontrolled Dysmetabolic syndrome X Dysmetabolic Syndrome X Hypertension Unspecified essential hypertension Mixed hyperlipidemia Overweight(278.02) Overweight Type 1 diabetes mellitus (HCC) Type I (juvenile type) diabetes mellitus without mention of complication, not stated as uncontrolled documented in this encounter Additional Health Concerns Infection Onset Date Last Indicated Resolved Time COVID-19 Rule-Out 07/18/2020 07/18/2020 07/20/2020 11:31 AM EDT COVID-19 Rule-Out 09/18/2020 09/18/2020 09/21/2020 1:43 PM EST COVID-19 Confirmed 09/18/2020 09/18/2020 1 8:12 PM EST documented as of this encounter Care Teams White Goods Appliance Tech Relationship Specialty Start Date End Date Maria Dolores Shearer MD PCP - General Internal Medicine 10/25/12 10/29/23 Roger Walker MD [address] [place] [address] PCP - General Family Medicine 10/30/23 Andreea Herron OD Car Framer Optometry 02/20/17 documented as of this encounter
--- OUTSIDE RECORDS SUMMARY | 2025-06-23 19:04 | XMS_ITS | Encounter Summary ---
Author Organization [facility] Address [address] [place] [address] Care Team Providers Care Database Marketing Analyst Name Role Phone Maria Dolores Shearer MD Primary Care Provider [phone] Andreea Herron OD Unavailable Roger Walker MD Primary Care Provider [phone] Encounter Details Date Type Department Care Team (Late st Contact Info) Description 01/03/2014 Orders Only [facility] Endocrinology [address] [place] [address] Stacy Mora MSN SOFTWARE QUALITY TEST ENGINEER Social History Tobacco Use Types Packs/Day Years [...] Description 07/15/2025 12:25 PM EDT Consult (Initial) [facility] [address] [place] [address] Edi Flaherty MD [address] [place] [address] - consult for Hypertension, benign 07/19/2025 1:30 PM EDT Office Visit [facility] [address] [place] [address] Roger Walker MD [address] [place] [address] diabetic follow up 10/24/2025 9:00 AM EST Office Visit [facility]. Optometry [address] [place] [address] UnderOlya carlton, OD [address] [place] [address] new pt,DM,noCL,verifie d via EM,elig 10/13/24,10/24,$0copa y,aodv,aoir 01/17/2026 2:00 PM EDT CPE - Comprehensive Physical Exam [address] [address] Roger Walker MD [address] [place] [address] CPE documented as of this encounter Results * Due to [place] state law, this organization might not be sharing negative HIV tests. * (ABNORMAL) FRUCTOSAMINE, SERUM (07/21/2014 7:14 AM EDT) Fructosamine 386(H) 190 - 270 umol/L [facility] Comment:{FRUCTOSAMINE {[id number]) 07/21/2014 7:14 AM EDT 07/21/2014 1:51 PM EDT Narrative Resulting Agency Comment [id number] us Stacy Mora MSN SOFTWARE QUALITY TEST ENGINEER LABORATORY Final Result [facility] [address] [place] [address] documented in this encounter Visit Diagnoses Diagnosis Type 1 diabetes mellitus (HCC)- Primary Type I (juvenile type) diabetes mellitus without mention of complication, not stated as uncontrolled documented in this encounter Additional Health Concerns Infection Onset Date Last Indicated Resolved Time COVID-19 Rule-Out 07/18/2020 07/18/2020 07/20/2020 11:31 AM EDT COVID-19 Rule-Out 09/18/2020 09/18/2020 09/21/2020 1:43 PM EST COVID-19 Confirmed 09/18/2020 09/18/2020 1 8:12 PM EST documented as of this encounter Care Teams Database Marketing Analyst Relationship Specialty Start Date End Date Maria Dolores Shearer MD PCP - General Internal Medicine 10/25/12 10/29/23 Roger Walker MD [address] [place] [address] PCP - General Family Medicine 10/30/23 Andreea Herron OD Operational Test Mechanic Optometry 02/20/17 documented as of this encounter
--- OUTSIDE RECORDS SUMMARY | 2025-06-23 19:04 | XMS_ITS | Encounter Summary ---
Author Organization [facility] Address [address] [place] [address] Care Team Providers Care Traffic Expert Name Role Phone Andreea Herron OD Unavailable Roger Walker MD Primary Care Provider [phone] Reason for Visit * Reason Comments Med Change Request Encounter Details Date Type Department Care Team (Late st Contact Info) Description 12/27/2024 Refill [facility] [address] [place] [phone] Digna Estrada, NESTOR Med Change Request Social History Tobacco Use Types Packs/Day Years Used Date Smoking Tobacco: Never Smokeless Tobacco: Never Comments:nonsmoker Alcohol Use Standard Drinks/Week Comments Yes 0 (1 standard drink = 0.6 oz pure alcohol) Very very rarely - only 1 if drinking Intimate Partner Violence Answer Date R ecorded Fear of Current or Ex-Partner Not on file Emotionally Abused Not on file 05/28/2023 Physically Abused Not on file 05/28/2023 Sexually Abused Not on file 05/28/2023 Feel Safe at Home Not on file 05/28/2023 Sex and Gender Information Value Date Recorded Sex Assigned at Not on file Legal Sex Male 7:05 PM EDT Gender Identity Not on file Sexual Orientation Not on file documented as of this encounter Miscellaneous Notes * Telephone Encounter - Hortencia Kilgore LVN LPN - 12/30/2024 4:36 PM EDT New patient, not seen in office, has new patient visit coming up. Has not seen an Rock Wool Applicator in some time. * Telephone Encounter - Roger Walker MD - 12/30/2024 4:15 PM EDT Who is the customer service teller? This patient has never been seen in pneumonia and has an customer service teller on complex insulin regimen why they are not doing their own orders. They should be reaching out in general for the customer service teller for this reason for diabetes medications. * Telephone Encounter - Kia Ortiz, Pharmacy Navigator - 12/30/2024 2:49 PM EDT Provider: SNF provider called in [facility] diabetic testing supplies for patient. [facility] not covered, insurance prefers [employer]. [facility] supplies pended, please review, add frequency, and send. documented in this encounter Plan of Treatment Upcoming Encounters Date Type Department Care Team (Latest Contact Info) Description 07/15/2025 12:25 PM EDT Consult (Initial) [facility] [address] [place] [address] Edi Flaherty MD 123 [facility] [address] [place] [address] - consult for Hypertension, benign 07/19/2025 1:30 PM EDT Office Visit [facility] [address] [place] [phone] Roger Walker MD [address] [place] [address] diabetic follow up 10/24/2025 9:00 AM EST Office Visit [facility]. Optometry [address] [place] [address] Olya Schultz OD [address] [place] [address] new pt,DM,noCLcésar via EM,elig 10/13/24,10/24,$0copa y,aodv,aoir 01/17/2026 2:00 PM EDT CPE - Comprehensive Physical Exam [facility] [address] [place] [address] Roger Walker MD [address] [place] [address] CPE documented as of this encounter Goals Goal Patient Goal Type Associated Problems Recent Progress Patient-Stated? 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
--- OUTSIDE RECORDS SUMMARY | 2025-06-23 19:04 | XMS_ITS | Encounter Summary ---
Author Organization [facility] Address [address] [place] [address] Care Team Providers Care Education Spec Name Role Phone Andreea Herron OD Unavailable Roger Walker MD Primary Care Provider [phone] Encounter Details Date Type Department Care Team ( Contact Info) Description 12/27/2024 Orders Only [facility] [address] [place] [address] Digna Estrada, BIOFUELS PLANT OPERATIONS ENGINEER Medications Social History Tobacco Use Types Packs/Day [...] Description 07/15/2025 12:25 PM EDT Consult (Initial) [facility] [address] [place] [address] Edi Flaherty MD [address] [place] [address] - consult for Hypertension, benign 07/19/2025 1:30 PM EDT Office Visit [address] [address] Roger Walker MD [address] [place] [address] diabetic follow up 10/24/2025 9:00 AM EST Office Visit [facility]. Optometry [address] [place] [phone] UnderOlya carlton, OD [address] [place] [address] new pt,DM,noCL,verifie d via EM,elig 10/13/24,10/24,$0copa y,aodv,aoir 01/17/2026 2:00 PM EDT CPE - Comprehensive Physical Exam [address] [phone] Roger Walker MD [address] [place] [address] CPE documented as of this encounter Goals Goal Patient Goal Type Associated Problems Recent Progress Patient-Stated? Author Blood Pressure < 140/80 Blood Pressure 94/62( 025 11:51 AM EDT) No Maria Dolores Shearer HEMOGLOBIN A1C % < 7 Result Component 8.6( 1:13 PM EDT) No Jolene Tristan CMA documented as of this encounter Visit Diagnoses Not on filedocumented in this encounter Care Teams Education Spec Relationship Specialty Start Date End Date Roger Walker MD [address] [place] [address] PCP - General Family Medicine 10/30/23 Andreea Herron OD Canvas Goods Supervisor Optometry 02/20/17 documented as of this encounter
--- OUTSIDE RECORDS SUMMARY | 2025-06-23 19:04 | XMS_ITS | Encounter Summary ---
Author Organization [facility] Address [address] [place] [address] Care Team Providers Care Trip Follower Name Role Phone Huber Acosta DO Primary Care Provider [phone] Maria Dolores Shearer MD Primary Care Provider [phone] Andreea Herron OD Unavailable Roger Walker MD Primary Care Provider [phone] Encounter Details Date Type Department Care Team (Late st Contact Info) Description 12/04/2007 Orders Only [facility] Endocrinology [address] [place] [phone] Mariangel Lou MD Social History Tobacco Use [...] Description 07/15/2025 12:25 PM EDT Consult (Initial) [facility] [address] [place] [address] Edi Flaherty MD [address] [address] - consult for Hypertension, benign 07/19/2025 1:30 PM EDT Office Visit [address] [address] Roger Walker MD [address] [place] [address] diabetic follow up 10/24/2025 9:00 AM EST Office Visit [facility]. Optometry [address] [place] [address] UnderOlya carlton, OD [address] [place] [address] new pt,DM,noCL,verifie d via EM,elig 10/13/24,10/24,$0copa y,aodv,aoir 01/17/2026 2:00 PM EDT CPE - Comprehensive Physical Exam [address] [address] Roger Walker MD [address] [place] [address] CPE documented as of this encounter Procedures * Due to [place] [employer]' law, this organization might not be sharing negative HIV tests. Procedure Name Priority Date/Time Associated Diagnosis Comments HEMOGLOBIN A1C Routine 12/04/2007 MIXED HYPERLIPIDEMIA DM W/O COMPLICATION TYPE II, UNCONTROLLED CARDIAC RISK/LIPID PROFILE I Routine 12/04/2007 MIXED HYPERLIPIDEMIA DM W/O COMPLICATION TYPE II, UNCONTROLLED MICROALBUMIN (RANDOM URINE) Routine 12/04/2007 MIXED HYPERLIPIDEMIA DM W/O COMPLICATION TYPE II, UNCONTROLLED ALBUMIN Routine 12/04/2007 MIXED HYPERLIPIDEMIA DM W/O COMPLICATION TYPE II, UNCONTROLLED documented in this encounter Results * Due to [place] SNAPP' law, this organization might not be sharing negative HIV tests. * MICROALBUMIN (RANDOM URINE) (12/04/2007) CREATININE (URINE) 167 20 - 370 MG/DL [facility] (CLIA# [id number]) Microalbumin (Urine) 17 0 - 29 UG/ML [facility] (CLIA# [id number]) MICROALBUMIN/CREA T RATIO (URINE) 10 0 - 29 [facility] (CLIA# [id number]) Comment:UNITS: UG/MG CREATIN INE 12/04/2007 12/04/2007 3:4 4 PM EST us Mariangel Lou MD LABORATORY Final Result Performing Organization Address City/[facility]/ZIP Co de Phone Number [facility] (CLIA# [id number]) [address] [place] [address] * ALBUMIN (12/04/2007) Pathologist [facility] ALBUMIN 4.7 3.7 - 5.1 G/DL [facility] (CLIA# [id number]) 12/04/2007 12/04/2007 3:4 4 PM EST us Mariangel Lou MD LAB SAME DAY RESULT Final Result Performing Organization Address [facility] Co de Phone Number [facility] (CLIA# [id number]) [address] [place] [address] * (ABNORMAL) HEMOGLOBIN A1C (12/04/2007) Pathologist [facility] Hemoglobin A1C 7.0(H) 0.0 - 5.9 % [facility] (CLIA# [id number]) GLUCOSE MEAN VALUE 172 MG/DL [facility] (CLIA# [id number]) 12/04/2007 12/04/2007 3:4 4 PM EST Mariangel Lou MD LABORATORY Final Result Performing Organization Address City/[facility]/ZIP Co de Phone Number [facility] (CLIA# [id number]) [address] [place] [address] * (ABNORMAL) CARDIAC RISK/LIPID PROFILE I (12/04/2007) CHOLESTEROL, TOTAL 220(H) 125 - 200 MG/DL [facility] (CLIA# [id number]) TRIGLYCERIDES 205(H) 30 - 149 MG/DL [facility] (CLIA# [id number]) HDL-CHOLESTEROL 40 40 - 77 MG/DL [facility] (CLIA# [id number]) LDL-CHOLESTEROL 139(H) 62 - 130 MG/DL [facility] (CLIA# [id number]) Comment: RISK CATEGORY: LDL-CHOLESTEROL GOAL CHD AND CHD RISK EQUIVALENTS: <100 MULTIPLE (2+) FACTORS: <130 ZERO TO ONE RISK FACTOR: <160 CHD RELATIVE RISK RATIO (TOTAL/HDL) 5.50(H) 0.0 - 5.0 [facility] (CLIA# [id number]) Comment:(1.1 X AVERAGE) 12/04/2007 12/04/2007 3:4 4 PM EST Mariangel Lou MD LABORATORY Final Result [facility] (CLIA# [id number]) [address] [place] [address] documented in this encounter Visit Diagnoses Diagnosis MIXED HYPERLIPIDEMIA Mixed hyperlipidemia DM W/O COMPLICATION TYPE II, UNCONTROLLED Type II or unspecified type diabetes mellitus without mention of complication, uncontrolled documented in this encounter Additional Health Concerns Infection Onset Date Last Indicated Resolved Time COVID-19 Rule-Out 07/18/2020 07/18/2020 07/20/2020 11:31 AM EDT COVID-19 Rule-Out 09/18/2020 09/18/2020 09/21/2020 1:43 PM EST COVID-19 Confirmed 09/18/2020 09/18/2020 1 8:12 PM EST documented as of this encounter Care Teams Trip Follower Relationship Specialty Start Date End Date Huber Acosta DO PCP - General 07/08/06 10/24/12 Maria Dolores Shearer MD PCP - General Internal Medicine 10/25/12 10/29/23 Roger Walker MD [address] [place] [address] PCP - General Family Medicine 10/30/23 Andreea Herron OD Manager Language Optometry 02/20/17 documented as of this encounter
--- OUTSIDE RECORDS SUMMARY | 2025-06-23 19:04 | XMS_ITS | Encounter Summary ---
Author Organization [facility] Address [address] [place] [address] Care Team Providers Care Handkerchief Folder Name Role Phone Huber Acosta DO Primary Care Provider [phone] Maria Dolores Shearer MD Primary Care Provider [phone] Andreea Herron OD Unavailable Roger Walker MD Primary Care Provider [phone] Encounter Details Date Type Department Care Team (Late st Contact Info) Description 01/09/2011 Orders Only [facility] [address] [place] [phone] Huber Acosta DO [facility] [address] [place] [address] Social History Tobacco Use Types Packs/Day Years [...] as of this encounter Progress Notes * Eva Rowley - 01/10/2011 9:05 AM EDTQuick Note: Letter printed * Juana Ríos CRNP - 01/10/2011 7:59 AM EDTQuick Note: PCP to discuss at appt today- note triglycerides and glucose documented in this encounter Plan of Treatment Upcoming Encounters Date Type Department Care Team (Latest Contact Info) Description 07/15/2025 12:25 PM EDT Consult (Initial) [facility] [address] [place] [address] Edi Flaherty MD [address] [address] - consult for Hypertension, benign 07/19/2025 1:30 PM EDT Office Visit [address] [phone] Roger Walker MD [address] [place] [address] diabetic follow up 10/24/2025 9:00 AM EST Office Visit [facility]. Optometry [address] [place] [phone] Olya Schultz, OD [address] [place] [address] new pt,DM,noCL,verifie d via EM,elig 10/13/24,10/24,$0copa y,aodv,aoir 01/17/2026 2:00 PM EDT CPE - Comprehensive Physical Exam [address] [phone] Roger Walker MD [address] [place] [address] CPE documented as of this encounter Procedures * Due to [place] state law, this organization might not be sharing negative HIV tests. Procedure Name Priority Date/Time Associated Diagnosis Comments BASIC METABOLIC PANEL W/GLOMERULAR FILTRATION RATE (EGFR) Routine 01/09/2011 Hyperlipidemia HEMOGLOBIN A1C Routine 01/09/2011 Diabetes mellitus type I CHOLESTEROL, LDL (DIRECT) Routine 01/09/2011 LIPID PANEL + CARDIAC RISK WITH REFLEX TO LDL DIRECT Routine 01/09/2011 Hyperlipidemia CBC 5 PART DIFF Routine 01/09/2011 Hyperlipidemia CK, CREATINE KINASE (CPK, TOTAL) Routine 01/09/2011 Hyperlipidemia VITAMIN D, 25-HYDROXY, LC/MS/MS Routine 01/09/2011 Hypovitaminosis D HEPATIC FUNCTION PANEL Routine 01/09/2011 Hyperlipidemia documented in this encounter Results * Due to [place] state law, this organization might not be sharing negative HIV tests. * (ABNORMAL) CHOLESTEROL, LDL (DIRECT) (01/09/2011) LDL Cholesterol, Direct 45(L) 62 - 130 MG/DL [facility] 01/09/2011 01/09/2011 4:3 5 PM EDT us Huber Acosta DO LABORATORY Final Result Performing Organization Address City/State/[facility] Co de Phone Number [facility] [address] [place] [address] * VITAMIN D, 25-HYDROXY, LC/MS/MS (01/09/2011) Vitamin D, 25-OH, Total 37 30 - 100 NG/ML [facility] VITAMIN D, 25-OH, D3 (CHOLECALCIFEROL ) 6 NG/ML [facility] VITAMIN D, 25-OH, D2 (CALCIFEROL) 31 NG/ML [facility] Comment: 25-OHD3 INDICATES BOTH ENDOGENOUS PRODUCTION AND SUPPLEMENTATION. 25-OHD2 IS AN INDICATOR OF EXOGENOUS SOURCES SUCH DIET OR SUPPLEMENTATION. THERAPY IS BASED ON MEASUREMENT OF TOTAL 25-OHD, WITH LEVELS <20 NG/ML INDICATIVE OF VITAMIN D DEFICIENCY WHILE LEVELS BETWEEN 20 NG/ML AND 30 NG/ML SUGGEST INSUFFICIENCY. OPTIMAL LEVELS ARE > OR = 30NG/ML. 01/09/2011 01/09/2011 4:3 5 PM EDT us Huber G Farb DO LABORATORY Final Result Performing Organization Address [facility] de Phone Number [facility] [address] [place] [address] * HEPATIC FUNCTION PANEL (01/09/2011) Total Protein 7.3 6.2 - 8.3 G/DL [facility] ALBUMIN 4.9 3.7 - 5.1 G/DL [facility] GLOBULIN 2.4 2.1 - 3.7 G/DL [facility] ALBUMIN/GLOBULIN RATIO 2.0 1.0 - 2.1 [facility] BILIRUBIN TOTAL 0.6 0.2 - 1.2 MG/DL [facility] BILIRUBIN DIRECT 0.1 0 - 0.3 MG/DL [facility] ALKALINE PHOSPHATASE 73 40 - 115 U/L [facility] AST (SGOT) 30 10 - 40 U/L [facility] ALT (SGPT) 47 9 - 60 U/L [facility] 01/09/2011 01/09/2011 4:3 5 PM EDT us Huber G Fernandob DO LABORATORY Final Result Performing Organization Address [facility] de Phone Number [facility] [address] [place] [address] * (ABNORMAL) CK, CREATINE KINASE (CPK, TOTAL) (01/09/2011) Pathologist [facility] CK (CREATINE KINASE) 221(H) 44 - 196 U/L [facility] 01/09/2011 01/09/2011 4:3 5 PM EDT us Huber G Farb DO LAB SAME DAY RESULT Final Result Performing Organization Address [facility] de Phone Number [facility] [address] [place] [address] * (ABNORMAL) CBC 5 PART DIFF (01/09/2011) WHITE BLOOD COUNT 5.2 3.8 - 10.8 THOUS/UL [facility] RBC 5.55 4.20 - 5.80 MIL/UL [facility] Hemoglobin 13.3 13.2 - 17.1 G/DL [facility] HCT (HEMATOCRIT) 42.3 38.5 - 50.0 % [facility] MCV 76.3(L) 80.0 - 100.0 FL [facility] MCH 24.0(L) 27.0 - 33.0 PG [facility] MCHC 31.5(L) 32.0 - 36.0 G/DL [facility] BAND % 0 0 - 5 % [facility] NEUTROPHIL % 61 48 - 75 % [facility] LYMPHOCYTE % 30 17 - 40 % [facility] MONOCYTE % 7 0 - 14 % [facility] EOSINOPHIL % 2 0 - 5 % [facility] BASOPHIL % 0 0 - 3 % [facility] ATYPICAL LYMPHOCYTE % 0 0 - 5 % [facility] PLATELETS 184 140 - 400 THOUS/UL [facility] BANDS # 0 0 - 750 CELLS/MCL [facility] NEUTROPHILS # 3172 1500 - 7800 CELLS/MCL [facility] LYMPHOCYTES # 1560 850 - 3900 CELLS/MCL [facility] MONOCYTES # 364 200 - 950 CELLS/MCL [facility] EOSINOPHILS # 104 15 - 550 CELLS/MCL [facility] BASOPHILS # 0 0 - 200 CELLS/MCL [facility] ATYPICAL LYMPHOCYTES # 0 0 - 200 CELLS/MCL [facility] RDW 13.6 11.0 - 15.0 % [facility] MPV 10.3 7.5 - 11.5 FL [facility] 01/09/2011 01/09/2011 4:3 5 PM EDT us Huber Acosta DO LAB SAME DAY RESULT Final Result Performing Organization Address City/State/[facility] Co de Phone Number [facility] [address] [place] [address] * (ABNORMAL) BASIC METABOLIC PANEL W/GLOMERULAR FILTRATION RATE (EGFR) (01/09/2011) CALCIUM 10.1 8.6 - 10.2 MG/DL [facility] BUN 11 7 - 25 MG/DL [facility] CREATININE 1.02 0.79 - 1.33 MG/DL [facility] Glucose 285(H) 65 - 99 MG/DL [facility] SODIUM 139 135 - 146 MMOL/L [facility] POTASSIUM 4.1 3.5 - 5.3 MMOL/L [facility] CHLORIDE 100 98 - 110 MMOL/L [facility] CARBON DIOXIDE 29 21 - 33 MMOL/L [facility] GFR > 60 60 AND ABOVE [facility] Comment:UNITS: ML/MIN/1.73 S Q METERS EGFR > 60 60 AND ABOVE [facility] Comment:UNITS: ML/MIN/1.73 S Q METERS 01/09/2011 01/09/2011 4:3 5 PM EDT Narrative [facility] - 01/10/2011 4:54 AM EDT Please note that this estimated [...] with more precise needs for GFR calculation. us Huber Acosta DO LABORATORY Final Result Performing Organization Address [facility] de Phone Number [facility] [address] [place] [address] * (ABNORMAL) LIPID PANEL + CARDIAC RISK WITH REFLEX TO LDL DIRECT (01/09/2011) CHOLESTEROL, TOTAL 178 125 - 200 MG/DL [facility] TRIGLYCERIDES 557(H) 30 - 149 MG/DL [facility] HDL-CHOLESTEROL 26(L) 40 - 77 MG/DL [facility] LDL-CHOLESTEROL SEE TEXT 62 - 130 MG/DL [facility] Comment: INVALID, TRIG GREATER THAN 400 RISK CATEGORY: LDL-CHOLESTEROL GOAL CHD AND CHD RISK EQUIVALENTS: <100 MULTIPLE (2+) FACTORS: <130 ZERO TO ONE RISK FACTOR: <160 CHD RELATIVE RISK RATIO (TOTAL/HDL) 6.85(H) 0.0 - 5.0 [facility] Comment:(1.4 X AVERAGE) 01/09/2011 01/09/2011 4:3 5 PM EDT us Huber Acosta DO LABORATORY Final Result Performing Organization Address [facility] Co de Phone Number [facility] [address] [place] [address] * (ABNORMAL) HEMOGLOBIN A1C (01/09/2011) Hemoglobin A1C 11.7(H) 0.0 - 5.7 % [facility] GLUCOSE MEAN VALUE 339 MG/DL [facility] 01/09/2011 01/09/2011 4:3 5 PM EDT us Huber Acosta DO LABORATORY Final Result [facility] [address] [place] [address] documented in this encounter Visit Diagnoses Diagnosis Diabetes mellitus type I (HCC) Type I (juvenile type) diabetes mellitus without mention of complication, not stated as uncontrolled Hyperlipidemia Other and unspecified hyperlipidemia Hypovitaminosis D Unspecified vitamin D deficiency documented in this encounter Additional Health Concerns Infection Onset Date Last Indicated Resolved Time COVID-19 Rule-Out 07/18/2020 07/18/2020 07/20/2020 11:31 AM EDT COVID-19 Rule-Out 09/18/2020 09/18/2020 09/21/2020 1:43 PM EST COVID-19 Confirmed 09/18/2020 09/18/2020 1 8:12 PM EST documented as of this encounter Care Teams Handkerchief Folder Relationship Specialty Start Date End Date Huber Acosta DO PCP - General 07/08/06 10/24/12 Maria Dolores Shearer MD PCP - General Internal Medicine 10/25/12 10/29/23 Roger Walker MD [address] [place] [address] PCP - General Family Medicine 10/30/23 Andreea Herron OD Steam [employer] Supervisor Optometry 02/20/17 documented as of this encounter
--- OUTSIDE RECORDS SUMMARY | 2025-06-23 19:04 | XMS_ITS | Encounter Summary ---
Author Organization [facility] Address [address] [place] [address] Care Team Providers Care Mainframe Systems Programmer Name Role Phone Maria Dolores Shearer MD Primary Care Provider Andreea Herron OD Unavailable Roger Walker MD Primary Care Provider [phone] Encounter Details Date Type Department Care Team (Late st Contact Info) Description 12/27/2013 Orders Only [facility] Endocrinology [address] [place] [address] Stacy Mora MSN [facility] Social History Tobacco Use Types Packs/Day Years [...] as of this encounter Progress Notes * Venessa Shah - 01/07/2014 9:31 AM EDTQuick Note: Pt returned call and informed of the message. Pt accepts * Venessa Shah - 01/06/2014 1:36 PM EDTQuick Note: lmom for pt to return call Sent pt unable to reach letter * Micki Pineda - 01/05/2014 10:47 AM EDTQuick Note: Lmom for pt to return call. * Talisha Way - 01/04/2014 10:40 AM EDTQuick Note: LMOM for pt to return call. * Sherry Jose - 01/03/2014 1:48 PM EDTQuick Note: LMOM for pt to return phone call. Fructosamine has been ordered. * Stacy Mora - 01/03/2014 10:11 AM EDTQuick Note: Please have pt redrawn. * Sherry Jose - 01/03/2014 9:12 AM EDTQuick Note: Spoke with [facility], they are unable to add on the lab as the specimen has already been discarded. * Stacy Mora - 12/31/2013 4:55 PM EDTQuick Note: Please add on a fructosamine. documented in this encounter Plan of Treatment Upcoming Encounters Date Type Department Care Team (Latest Contact Info) Description 07/15/2025 12:25 PM EDT Consult (Initial) [facility] [address] [place] [address] Eid Flaherty MD [address] [place] [address] - consult for Hypertension, benign 07/19/2025 1:30 PM EDT Office Visit [address] [address] Roger Walker MD [address] [place] [address] diabetic follow up 10/24/2025 9:00 AM EST Office Visit [facility]. Optometry [address] [place] [address] UnderOlya carlton, OD [address] [place] [address] new pt,DM,noCL,verifie d via EM,elig 10/13/24,10/24,$0copa y,aodv,aoir 01/17/2026 2:00 PM EDT CPE - Comprehensive Physical Exam [address] [address] Roger Walker MD [address] [place] [address] CPE documented as of this encounter Procedures * Due to [place] state law, this organization might not be sharing negative HIV tests. Procedure Name Priority Date/Time Associated Diagnosis Comments ALANINE AMINOTRANSFERASE (ALT), SERUM Routine 12/27/2013 7:20 AM EDT Uncontrolled type II diabetes mellitus Dysmetabolic syndrome X Hypertension Mixed hyperlipidemia Overweight(278.02) ASPARTATE AMINOTRANSFERASE (AST), SERUM Routine 12/27/2013 7:20 AM EDT Uncontrolled type II diabetes mellitus Dysmetabolic syndrome X Hypertension Mixed hyperlipidemia Overweight(278.02) HEMOGLOBIN A1C Routine 12/27/2013 7:20 AM EDT Uncontrolled type II diabetes mellitus Dysmetabolic syndrome X Hypertension Mixed hyperlipidemia Overweight(278.02) HEMOGLOBINOPATHY EVALUATION, BLOOD Routine 12/27/2013 7:20 AM EDT Uncontrolled type II diabetes mellitus Dysmetabolic syndrome X Hypertension Mixed hyperlipidemia Overweight(278.02) CREATININE WITH GLOMERULAR FILTRATION RATE, ESTIMATED (EGFR) Routine 12/27/2013 7:20 AM EDT Uncontrolled type II diabetes mellitus Dysmetabolic syndrome X Hypertension Mixed hyperlipidemia Overweight(278.02) documented in this encounter Results * Due to [place] state law, this organization might not be sharing negative HIV tests. * (ABNORMAL) HEMOGLOBINOPATHY EVALUATION, BLOOD (12/27/2013 7:20 AM EDT) RBC 5.52 4.20 - 5.80 Million/u L [facility] Comment:{RED BLOOD CELL COUN T {[id number]) Hemoglobin 12.6(L) 13.2 - 17.1 g/dL [facility] Comment:{HEMOGLOBIN {[id number]) Hematocrit 41.0 38.5 - 50.0 % [facility] Comment:{HEMATOCRIT {[id number]) MCV 74.4(L) 80.0 - 100.0 fL [facility] Comment:{MCV {[id number]) MCH 22.9(L) 27.0 - 33.0 pg [facility] Comment:{MCH {[id number]) RDW 14.3 11.0 - 15.0 % [facility] Comment:{RDW {[id number]) Hemoglobin A/Hemoglobin.to morena 96.8 >96.0 % [facility] Comment:{HEMOGLOBIN A {[id number]) Hemoglobin F % <1.0 <2.0 % [facility] Comment:{HEMOGLOBIN F {[id number]) Hemoglobin A2 % 2.2 1.8 - 3.5 % [facility] Comment:{HEMOGLOBIN A2 (TAMIKA T) {[id number]) Hemoglobin pattern SEE NOTE [facility] Comment: {INTERPRETATION {[id number]) Possible alpha thalassemia trait. Rule out iron deficiency anemia. 12/27/2013 7:20 AM EDT 12/27/2013 12:39 PM EDT Narrative Resulting Agency Comment [id number] Stacy Mora MSN [facility] LABORATORY Final Result Performing Organization Address [facility] Co de Phone Number [facility] [address] [place] [address] * ALANINE AMINOTRANSFERASE (ALT), SERUM (12/27/2013 7:20 AM EDT) ALT (SGPT) 21 9 - 46 U/L [facility] Comment:{ALT {[id number]) 12/27/2013 7:20 AM EDT 12/27/2013 12:39 PM EDT Narrative Resulting Agency Comment [id number] Stacy ROMAN [facility] LAB SAME DAY RESULT Final Res ult Performing Organization Address [facility] de Phone Number [facility] [address] [place] [address] * ASPARTATE AMINOTRANSFERASE (AST), SERUM (12/27/2013 7:20 AM EDT) AST (SGOT) 16 10 - 40 U/L [facility] Comment:{AST {[id number]) 12/27/2013 7:20 AM EDT 12/27/2013 12:39 PM EDT Narrative Resulting Agency Comment [id number] Stacy Mora MSN [facility] LAB SAME DAY RESULT Final Res ult Performing Organization Address [facility] de Phone Number [facility] [address] [place] [address] * CREATININE WITH GLOMERULAR FILTRATION RATE, ESTIMATED (EGFR) (12/27/2013 7:20 AM EDT) Creatinine 1.05 0.60 - 1.35 mg/dL [facility] Comment:{CREATININE {[id number]) GFR 90 > OR = 60 mL/min/1.7 3m2 [facility] Comment:{eGFR NON-AFR. AMERI CAN {[id number]) GFR () 104 > OR = 60 mL/min/1.7 3m2 [facility] Comment:{eGFR AMERIC AN {[id number]) 12/27/2013 7:20 AM EDT 12/27/2013 12:39 PM EDT Narrative [facility] - 12/27/2013 2:37 PM EDT Please note that this estimated [...] needs for GFR calculation. Resulting Agency Comment [id number] Stacy ROMAN [facility] LAB SAME DAY RESULT Final Res ult Performing Organization Address [facility] Co de Phone Number [facility] [address] [place] [address] * (ABNORMAL) HEMOGLOBIN A1C (12/27/2013 7:20 AM EDT) Hemoglobin A1C 13.2(H) <5.7 % of total Hgb [facility] Comment: {HEMOGLOBIN A1c {[id number]) According to ADA guidelines, hemoglobin A1c <7.0% [...] of diabetes for children. Estimated Average Glucose 393 mg/dL (calc) [facility] Comment:{MEAN PLASMA GLUCOSE {[id number]) 12/27/2013 7:20 AM EDT 12/27/2013 12:39 PM EDT Narrative Resulting Agency Comment [id number] us Stacy ROMAN [facility] LABORATORY Final Result Performing Organization Address [facility] Co de Phone Number [facility] [address] [place] [address] documented in this encounter Visit Diagnoses Diagnosis Uncontrolled type II diabetes mellitus Type II or unspecified type diabetes mellitus without mention of complication, uncontrolled Dysmetabolic syndrome X Dysmetabolic Syndrome X Hypertension Unspecified essential hypertension Mixed hyperlipidemia Overweight(278.02) Overweight documented in this encounter Additional Health Concerns Infection Onset Date Last Indicated Resolved Time COVID-19 Rule-Out 07/18/2020 07/18/2020 07/20/2020 11:31 AM EDT COVID-19 Rule-Out 09/18/2020 09/18/2020 09/21/2020 1:43 PM EST COVID-19 Confirmed 09/18/2020 09/18/2020 1 8:12 PM EST documented as of this encounter Care Teams Mainframe Systems Programmer Relationship Specialty Start Date End Date Maria Dolores Shearer MD PCP - General Internal Medicine 10/25/12 10/29/23 Roger Walker MD [address] [place] [address] PCP - General Family Medicine 10/30/23 Andreea Herron OD Sales Floor Manager Optometry 02/20/17 documented as of this encounter
--- OUTSIDE RECORDS SUMMARY | 2025-06-23 19:04 | XMS_ITS | Encounter Summary ---
Author Organization [facility] Address [address] [place] [address] Care Team Providers Care Drapery Rod Assembler Name Role Phone Huber Acosta DO Primary Care Provider [phone] Maria Dolores Shearer MD Primary Care Provider [phone] Andreea Herron OD Unavailable Roger Walker MD Primary Care Provider [phone] Encounter Details Date Type Department Care Team (Late st Contact Info) Description 02/22/2011 Orders Only [facility] Endocrinology [address] [place] [phone] Stacy Mora MSN NP Social History Tobacco [...] Description 07/15/2025 12:25 PM EDT Consult (Initial) [facility] [address] [place] [address] Edi Flaherty MD [address] [address] - consult for Hypertension, benign 07/19/2025 1:30 PM EDT Office Visit [address] [phone] Roger Walker MD [address] [place] [address] diabetic follow up 10/24/2025 9:00 AM EST Office Visit [facility]. Optometry [address] [place] [address] UnderOlya carlton, OD [address] [place] [address] new pt,DM,noCL,verifie d via EM,elig 10/13/24,10/24,$0copa y,aodv,aoir 01/17/2026 2:00 PM EDT CPE - Comprehensive Physical Exam [address] [address] Roger Walker MD [address] [place] [address] CPE documented as of this encounter Procedures * Due to [place] law, this organization might not be sharing negative HIV tests. Procedure Name Priority Date/Time Associated Diagnosis Comments HEMOGLOBIN A1C Routine 02/22/2011 DM w/o complication type II, uncontrolled (HCC) CREATININE WITH GLOMERULAR FILTRATION RATE, ESTIMATED (EGFR) Routine 02/22/2011 DM w/o complication type II, uncontrolled (HCC) ALANINE AMINOTRANSFERASE (ALT), SERUM Routine 02/22/2011 DM w/o complication type II, uncontrolled (HCC) ASPARTATE AMINOTRANSFERASE (AST), SERUM Routine 02/22/2011 DM w/o complication type II, uncontrolled (HCC) documented in this encounter Results * Due to [place] law, this organization might not be sharing negative HIV tests. * CREATININE WITH GLOMERULAR FILTRATION RATE, ESTIMATED (EGFR) (02/22/2011) CREATININE 1.16 0.79 - 1.33 MG/DL [facility] GFR > 60 60 AND ABOVE [facility] Comment:UNITS: ML/MIN/1.73 S Q METERS EGFR > 60 60 AND ABOVE [facility] Comment:UNITS: ML/MIN/1.73 S Q METERS 02/22/2011 02/22/2011 4:1 7 PM EDT Narrative [facility] - 02/23/2011 3:26 AM EDT Please note that this estimated [...] with more precise needs for GFR calculation. Report Comments: UNABLE TO VOID us Stacy Mora [facility] SAME DAY RESULT Final Res ult Performing Organization Address [facility] [[email or web address]] Co de Phone Number [facility] [address] [place] [address] * ASPARTATE AMINOTRANSFERASE (AST), SERUM (02/22/2011) AST (SGOT) 19 10 - 40 U/L [facility] 02/22/2011 02/22/2011 4:1 7 PM EDT Narrative [facility] - 02/23/2011 3:26 AM EDT Report Comments: UNABLE TO VOID Stacy Mora [facility] SAME DAY RESULT Final Res ult Performing Organization Address [facility] [[email or web address]] Co de Phone Number [facility] [address] [place] [address] * ALANINE AMINOTRANSFERASE (ALT), SERUM (02/22/2011) ALT (SGPT) 32 9 - 60 U/L [facility] 02/22/2011 02/22/2011 4:1 7 PM EDT Narrative [facility] - 02/23/2011 3:26 AM EDT Report Comments: UNABLE TO VOID Stacy Mora MSN CALL CENTER RECRUITER LAB SAME DAY RESULT Final Res ult [facility] [address] [place] [address] * (ABNORMAL) HEMOGLOBIN A1C (02/22/2011) Hemoglobin A1C 12.7(H) 0.0 - 5.7 % [facility] GLUCOSE MEAN VALUE 375 MG/DL [facility] 02/22/2011 02/22/2011 4:1 7 PM EDT Narrative [facility] - 02/23/2011 4:03 PM EDT Report Comments: UNABLE TO VOID Stacy Mora MSN CALL CENTER RECRUITER LABORATORY Final Result Performing Organization Address [facility] [[email or web address]] Co de Phone Number [facility] [address] [place] [address] documented in this encounter Visit Diagnoses Diagnosis [...] documented as of this encounter Care Teams Drapery Rod Assembler Relationship Specialty Start Date End Date Huber Acosta DO PCP - General 07/08/06 10/24/12 Maria Dolores Shearer MD PCP - General Internal Medicine 10/25/12 10/29/23 Roger Walker MD [address] [place] [address] PCP - General Family Medicine 10/30/23 Andreea Herron OD Home Service Consultant Optometry 02/20/17 documented as of this encounter
--- OUTSIDE RECORDS SUMMARY | 2025-06-23 19:04 | XMS_ITS | Encounter Summary ---
Author Organization [facility] Address [address] [place] [address] Care Team Providers Care Survey Questionnaire Designer Name Role Phone Huber Acosta DO Primary Care Provider [phone] Maria Dolores Shearer MD Primary Care Provider [phone] Andreea Herron OD Unavailable Roger Walker MD Primary Care Provider [phone] Encounter Details Date Type Department Care Team (Late st Contact Info) Description 08/21/2007 Orders Only [facility] Endocrinology [address] [place] [id number] Mariangel Lou MD Social History Tobacco Use [...] Description 07/15/2025 12:25 PM EDT Consult (Initial) [facility] [address] [place] [address] Edi Flaherty MD [address] [address] - consult for Hypertension, benign 07/19/2025 1:30 PM EDT Office Visit [address] [address] Roger Walker MD [address] [place] [address] diabetic follow up 10/24/2025 9:00 AM EST Office Visit [facility]. Optometry 5 [place] [address] UnderOlya carlton, OD [address] [place] [address] new pt,DM,noCL,verifie d via EM,elig 10/13/24,10/24,$0copa y,aodv,aoir 01/17/2026 2:00 PM EDT CPE - Comprehensive Physical Exam [address] [address] Roger Walker MD [address] [place] [address] CPE documented as of this encounter Procedures * Due to [place] state law, this organization might not be sharing negative HIV tests. Procedure Name Priority Date/Time Associated Diagnosis Comments BASIC METABOLIC PANEL Routine 08/21/2007 DM W/O COMPLICATION TYPE II MICROALBUMIN (RANDOM URINE) Routine 08/21/2007 DM W/O COMPLICATION TYPE II HEMOGLOBIN ELECTROPHORESIS Routine 08/21/2007 DM W/O COMPLICATION TYPE II DM W/O COMPLICATION TYPE II, UNCONTROLLED ALANINE AMINOTRANSFERASE (ALT), SERUM Routine 08/21/2007 DM W/O COMPLICATION TYPE II ASPARTATE AMINOTRANSFERASE (AST), SERUM Routine 08/21/2007 DM W/O COMPLICATION TYPE II THYROID CASCADE Routine 08/21/2007 DM W/O COMPLICATION TYPE II HEMOGLOBIN A1C Routine 08/21/2007 DM W/O COMPLICATION TYPE II GLYCATED ALBUMIN Routine 08/21/2007 DM W/O COMPLICATION TYPE II documented in this encounter Results * Due to [place] state law, this organization might not be sharing negative HIV tests. * GLYCATED ALBUMIN (08/21/2007) GLYCATED ALBUMIN 1.2 % [facility] (CLIA# [id number]) Comment: REFERENCE RANGE: CHILDREN AND ADULTS: 0.8-1.4 08/21/2007 08/21/2007 2:5 9 PM EST us Mariangel Lou MD LABORATORY Final Result [facility] (CLIA# [id number]) [address] [place] [address] * (ABNORMAL) HEMOGLOBIN ELECTROPHORESIS (08/21/2007) RBC 5.56 4.20 - 5.80 MIL/UL [facility] (CLIA# [id number]) Hemoglobin 13.2 13.2 - 17.1 G/DL [facility] (CLIA# [id number]) HCT (HEMATOCRIT) 40.6 38.5 - 50.0 % [facility] (CLIA# [id number]) MCV 72.9(L) 80.0 - 100.0 FL FC [facility] (CLIA# [id number]) MCH 23.8(L) 27.0 - 33.0 PG FC [facility] (CLIA# [id number]) RDW 14.4 11.0 - 15.0 % [facility] (CLIA# [id number]) HEMOGLOBIN A1 % 97.7 96.1 - 100 % [facility] ([facility]# [id number]) Comment:NOTE: HEMOGLOBIN A R EFERENCE RANGE IS FOR NORMAL ADULT. HEMOGLOBIN A2 % 2.1 1.8 - 3.5 % [facility] (CLIA# [id number]) HEMOGLOBIN F % 0.2 0 - 1.9 % [facility] (CLIA# [id number]) HGB PHENOTYPE A [facility] (CLIA# [id number]) INTERPRETATION: SEE TEXT [facility] (CLIA# [id number]) Comment:POSSIBLE ALPHA-THALA SSEMIA TRAIT. 08/21/2007 08/21/2007 2:5 9 PM EST us Mariangel Lou MD LABORATORY Final Result [facility] (CLIA# [id number]) [address] [place] [address] * ALANINE AMINOTRANSFERASE (ALT), SERUM (08/21/2007) ALT (SGPT) 21 9 - 60 U/L [facility] (CLIA# [id number]) 08/21/2007 08/21/2007 2:5 9 PM EST us Mariangel Lou MD LAB SAME DAY RESULT Final Result Performing Organization Address [facility] Co de Phone Number [facility] (CLIA# [id number]) [address] [place] [address] * ASPARTATE AMINOTRANSFERASE (AST), SERUM (08/21/2007) AST (SGOT) 17 10 - 40 U/L [facility] (CLIA# [id number]) 08/21/2007 08/21/2007 2:5 9 PM EST us Mariangel Lou MD LAB SAME DAY RESULT Final Result Performing Organization Address City/[facility] Co de Phone Number [facility] (CLIA# [id number]) [address] [place] [address] * (ABNORMAL) BASIC METABOLIC PANEL (08/21/2007) CALCIUM 9.7 8.6 - 10.2 MG/DL [facility] (CLIA# [id number]) BUN 17 7 - 25 MG/DL [facility] (CLIA# [id number]) CREATININE 1.2 0.5 - 1.3 MG/DL [facility] (CLIA# [id number]) BUN/Creatinine Ratio 14 6 - 25 [facility] (CLIA# [id number]) Glucose 114(H) 65 - 99 MG/DL [facility] (CLIA# [id number]) SODIUM 140 135 - 146 MMOL/L [facility] (CLIA# [id number]) POTASSIUM 4.3 3.5 - 5.3 MMOL/L [facility] (CLIA# [id number]) CHLORIDE 103 98 - 110 MMOL/L [facility] (CLIA# [id number]) CARBON DIOXIDE 24 21 - 33 MMOL/L [facility] (CLIA# [id number]) 08/21/2007 08/21/2007 2:5 9 PM EST us Mariangel Lou MD LAB SAME DAY RESULT Final Result [facility] (CLIA# [id number]) [address] [place] [address] * (ABNORMAL) HEMOGLOBIN A1C (08/21/2007) Hemoglobin A1C 7.6(H) 0.0 - 5.9 % [facility] (CLIA# [id number]) Comment: WELL-CONTROLLED OR NON-DIABETIC: < 6.0% DIABETIC HEMOGLOBIN A1C: THERAPEUTIC GOAL: < 7% RE-EVALUATE THERAPY: > 8% GLUCOSE MEAN VALUE 193 MG/DL [facility] (CLIA# [id number]) 08/21/2007 08/21/2007 2:5 9 PM EST us Mariangel Lou MD LABORATORY Final Result [facility] (CLIA# [id number]) [address] [place] [address] * THYROID CASCADE (08/21/2007) TSH, THYROTROPIN 1.33 0.40 - 4.50 UIU/ML [facility] (CLIA# [id number]) 08/21/2007 08/21/2007 2:5 9 PM EST Mariangel Lou MD LABORATORY Final Result Performing Organization Address [facility] de Phone Number [facility] (CLIA# [id number]) [address] [place] [address] * MICROALBUMIN (RANDOM URINE) (08/21/2007) CREATININE (URINE) 155 20 - 370 MG/DL [facility] (CLIA# [id number]) Microalbumin (Urine) < 5 0 - 29 UG/ML [facility] (CLIA# [id number]) MICROALBUMIN/CREA T RATIO (URINE) SEE TEXT 0 - 29 [facility] (CLIA# [id number]) Comment: UNITS: UG/MG CREATININE MICROALBUMIN <5, CANNOT CALCULATE RATIO 08/21/2007 08/21/2007 2:5 9 PM EST Mariangel Lou MD LABORATORY Final Result Performing Organization Address [facility] de Phone Number [facility] (CLIA# [id number]) [address] [place] [address] documented in this encounter Visit Diagnoses Diagnosis DM W/O COMPLICATION TYPE II Type II or unspecified type diabetes mellitus without mention of complication, not stated as uncontrolled DM W/O COMPLICATION TYPE II, UNCONTROLLED Type II or unspecified type diabetes mellitus without mention of complication, uncontrolled documented in this encounter Additional Health Concerns Infection Onset Date Last Indicated Resolved Time COVID-19 Rule-Out 07/18/2020 07/18/2020 07/20/2020 11:31 AM EDT COVID-19 Rule-Out 09/18/2020 09/18/2020 09/21/2020 1:43 PM EST COVID-19 Confirmed 09/18/2020 09/18/2020 1 8:12 PM EST documented as of this encounter Care Teams Survey Questionnaire Designer Relationship Specialty Start Date End Date Huber Acosta DO PCP - General 07/08/06 10/24/12 Maria Dolores Shearer MD PCP - General Internal Medicine 10/25/12 10/29/23 Roger Walker MD [address] [place] [address] PCP - General Family Medicine 10/30/23 Andreea Herron OD Foundry Finisher Optometry 02/20/17 documented as of this encounter
--- OUTSIDE RECORDS SUMMARY | 2025-06-23 19:04 | XMS_ITS | Encounter Summary ---
Author Organization [facility] Address [address] [place] [address] Care Team Providers Care Technical Delivery Manager Name Role Phone Maria Dolores Shearer MD Primary Care Provider [phone] Andreea Herron OD Unavailable Roger Walker MD Primary Care Provider [phone] Encounter Details Date Type Department Care Team (Late st Contact Info) Description 06/01/2013 Orders Only [facility] [address] [place] [address] Maria Dolores Shearer MD [address] [place] [address] Social History Tobacco Use Types Packs/Day Years [...] as of this encounter Progress Notes * Maria Dolores Shearer - 06/01/2013 9:08 PM EDTQuick Note: Please send a stable blood work to pt. documented in this encounter Plan of Treatment Upcoming Encounters Date Type Department Care Team (Latest Contact Info) Description 07/15/2025 12:25 PM EDT Consult (Initial) [facility] [address] [place] [address] Edi Flaherty MD [address] [place] [address] - consult for Hypertension, benign 07/19/2025 1:30 PM EDT Office Visit [address] [address] Roger Walker MD [address] [place] [address] diabetic follow up 10/24/2025 9:00 AM EST Office Visit [facility]. Optometry [address] [place] [address] UnderOlya carlton, OD [address] [place] [address] new pt,DM,noCL,verifie d via EM,elig 10/13/24,10/24,$0copa y,aodv,aoir 01/17/2026 2:00 PM EDT CPE - Comprehensive Physical Exam [address] [address] Roger Walker MD [address] [place] [address] CPE documented as of this encounter Procedures * Due to [place] state law, this organization might not be sharing negative HIV tests. Procedure Name Priority Date/Time Associated Diagnosis Comments IRON PROFILE (IRON/TIBC), SERUM Routine 06/01/2013 7:11 AM EDT Microcytosis FERRITIN Routine 06/01/2013 7:11 AM EDT Microcytosis LIPID PANEL WITH REFLEX TO DIRECT LDL Routine 06/01/2013 7:11 AM EDT Mixed hyperlipidemia documented in this encounter Results * Due to [place] state law, this organization might not be sharing negative HIV tests. * FERRITIN (06/01/2013 7:11 AM EDT) Ferritin 261 20 - 345 ng/mL [facility] Comment:{FERRITIN {[id number]) 06/01/2013 7:11 AM EDT 06/01/2013 12:02 PM EDT Narrative Resulting Agency Comment [id number] us Maria Dolores Shearer MD LABORATORY Final Result Performing Organization Address City/[facility]/ZIP Co de Phone Number [facility] [address] [place] [address] * IRON PROFILE (IRON/TIBC), SERUM (06/01/2013 7:11 AM EDT) Iron 80 45 - 170 mcg/dL [facility] Comment:{IRON, TOTAL {[id number]) Iron binding capacity 286 250 - 425 mcg/dL [facility] Comment:{IRON BINDING CAPACI TY {[id number]) Iron saturation 28 20 - 50 % (calc) [facility] Comment:{% SATURATION {[id number]) 06/01/2013 7:11 AM EDT 06/01/2013 12:02 PM EDT Narrative Resulting Agency Comment [id number] us Maria Dolores Shearer MD LABORATORY Final Result Performing Organization Address City/[facility] Co de Phone Number [facility] [address] [place] [address] * (ABNORMAL) LIPID PANEL WITH REFLEX TO DIRECT LDL (06/01/2013 7:11 AM EDT) Cholesterol 162 125 - 200 mg/dL [facility] Comment:{CHOLESTEROL, TOTAL {[id number]) HDL Cholesterol 25(L) > OR = 40 mg/dL [facility] Comment:{HDL CHOLESTEROL {[id number]) Triglyceride 236(H) <150 mg/dL [facility] Comment:{TRIGLYCERIDES {[id number]) LDL Cholesterol 90 <130 mg/dL (calc) [facility] Comment: {LDL-CHOLESTEROL {[id number]) Desirable range <100 mg/dL for patients with CHD or diabetes and <70 mg/dL for diabetic patients with known heart disease. CHOL/HDL Ratio 6.5(H) < OR = 5.0 (calc) [facility] Comment:{CHOL/HDLC RATIO {[id number]) Cholesterol Non-HDL 137 mg/dL (calc) [facility] Comment: {NON HDL CHOLESTEROL {[id number]) Target for non-HDL cholesterol is 30 mg/dL higher than LDL cholesterol target. 06/01/2013 7:11 AM EDT 06/01/2013 12:02 PM EDT Narrative Resulting Agency Comment [id number] us Maria Dolores Shearer MD LABORATORY Final Result Performing Organization Address City/State/[facility] Co de Phone Number [facility] [address] [place] [address] documented in this encounter Visit Diagnoses Diagnosis Mixed hyperlipidemia Microcytosis Other abnormality of red blood cells documented in this encounter Additional Health Concerns Infection Onset Date Last Indicated Resolved Time COVID-19 Rule-Out 07/18/2020 07/18/2020 07/20/2020 11:31 AM EDT COVID-19 Rule-Out 09/18/2020 09/18/2020 09/21/2020 1:43 PM EST COVID-19 Confirmed 09/18/2020 09/18/2020 1 8:12 PM EST documented as of this encounter Care Teams Technical Delivery Manager Relationship Specialty Start Date End Date Maria Dolores Shearer MD PCP - General Internal Medicine 10/25/12 10/29/23 Roger Walker MD [address] [place] [address] PCP - General Family Medicine 10/30/23 Andreea Herron OD Hearing Aid Mechanic Optometry 02/20/17 documented as of this encounter
--- OUTSIDE RECORDS SUMMARY | 2025-06-23 19:04 | XMS_ITS | Encounter Summary ---
Author Organization [facility] Address [address] [place] [address] Care Team Providers Care Hop Trainer Name Role Phone Maria Dolores Shearer MD Primary Care Provider [phone] Andreea Herron OD Unavailable Roger Walker MD Primary Care Provider [phone] Encounter Details Date Type Department Care Team (Late st Contact Info) Description 06/01/2013 Orders Only [facility] Endocrinology [address] [place] [address] Stacy Mora MSN LEVELER Social History Tobacco Use Types Packs/Day Years [...] Description 07/15/2025 12:25 PM EDT Consult (Initial) [facility] [address] [place] [address] Edi Flaherty MD [address] [place] [address] - consult for Hypertension, benign 07/19/2025 1:30 PM EDT Office Visit [facility] [address] [place] [address] Roger Walker MD [address] [place] [address] diabetic follow up 10/24/2025 9:00 AM EST Office Visit [facility]. Optometry [address] [place] [address] Olya Schultz, OD [address] [place] [address] new pt,DM,noCL,verifie d via EM,elig 10/13/24,10/24,$0copa y,aodv,aoir 01/17/2026 2:00 PM EDT CPE - Comprehensive Physical Exam [address] [address] oRger Walker MD [address] [place] [address] CPE documented as of this encounter Procedures * Due to [place] law, this organization might not be sharing negative HIV tests. Procedure Name Priority Date/Time Associated Diagnosis Comments ALANINE AMINOTRANSFERASE (ALT), SERUM Routine 06/01/2013 7:11 AM EDT Uncontrolled type II diabetes mellitus Dysmetabolic syndrome X Hypertension Mixed hyperlipidemia Overweight ASPARTATE AMINOTRANSFERASE (AST), SERUM Routine 06/01/2013 7:11 AM EDT Uncontrolled type II diabetes mellitus Dysmetabolic syndrome X Hypertension Mixed hyperlipidemia Overweight HEMOGLOBIN A1C Routine 06/01/2013 7:11 AM EDT Uncontrolled type II diabetes mellitus Dysmetabolic syndrome X Hypertension Mixed hyperlipidemia Overweight CREATININE WITH GLOMERULAR FILTRATION RATE, ESTIMATED (EGFR) Routine 06/01/2013 7:11 AM EDT Uncontrolled type II diabetes mellitus Dysmetabolic syndrome X Hypertension Mixed hyperlipidemia Overweight documented in this encounter Results * Due to [place] state law, this organization might not be sharing negative HIV tests. * ALANINE AMINOTRANSFERASE (ALT), SERUM (06/01/2013 7:11 AM EDT) ALT (SGPT) 35 9 - 46 U/L [facility] Comment:{ALT {[id number]) 06/01/2013 7:11 AM EDT 06/01/2013 12:02 PM EDT Narrative Resulting Agency Comment [id number] Stacy Mora MSN LEVELER LAB SAME DAY RESULT Final Res ult Performing Organization Address City/[facility]/ZIP Co de Phone Number [facility] [address] [place] [address] * ASPARTATE AMINOTRANSFERASE (AST), SERUM (06/01/2013 7:11 AM EDT) AST (SGOT) 22 10 - 40 U/L [facility] Comment:{AST {[id number]) 06/01/2013 7:11 AM EDT 06/01/2013 12:02 PM EDT Narrative Resulting Agency Comment [id number] Stacy Mora MSN LEVELER LAB SAME DAY RESULT Final Res ult Performing Organization Address [facility] Co de Phone Number [facility] [address] [place] [address] * CREATININE WITH GLOMERULAR FILTRATION RATE, ESTIMATED (EGFR) (06/01/2013 7:11 AM EDT) Creatinine 0.98 0.60 - 1.35 mg/dL [facility] Comment:{CREATININE {[id number]) GFR 97 > OR = 60 mL/min/1.7 3m2 [facility] Comment:{eGFR NON-AFR. AMERI CAN {[id number]) GFR () 113 > OR = 60 mL/min/1.7 3m2 [facility] Comment:{eGFR AMERIC AN {[id number]) 06/01/2013 7:11 AM EDT 06/01/2013 12:02 PM EDT Narrative [facility] - 06/01/2013 1:45 PM EDT Please note that this estimated [...] needs for GFR calculation. Resulting Agency Comment [id number] Stacy ROMAN LEVELER LAB SAME DAY RESULT Final Res ult Performing Organization Address [facility] Co de Phone Number [facility] [address] [place] [address] * (ABNORMAL) HEMOGLOBIN A1C (06/01/2013 7:11 AM EDT) Hemoglobin A1C 9.4(H) <5.7 % of total Hgb [facility] Comment: {HEMOGLOBIN A1c {[id number]) Consistent with diabetes <5.7 Decreased risk of diabetes 5.7-6.0 Increased risk of diabetes 6.1-6.4 Higher risk of diabetes > or = 6.5 Consistent with diabetes These Reference Intervals are supported by the current Standards of Medical Care in Diabetes published in October of the current year in Diabetes Care, the Journal of the [place] Diabetes Association. Estimated Average Glucose 257 mg/dL (calc) [facility] Comment:{MEAN PLASMA GLUCOSE {[id number]) 06/01/2013 7:11 AM EDT 06/01/2013 12:02 PM EDT Narrative Resulting Agency Comment [id number] Stacy ROMAN LEVELER LABORATORY Final Result Performing Organization Address [facility] Co de Phone Number [facility] [address] [place] [address] documented in this encounter Visit Diagnoses Diagnosis [...] documented as of this encounter Care Teams Hop Trainer Relationship Specialty Start Date End Date Maria Dolores Shearer MD PCP - General Internal Medicine 10/25/12 10/29/23 Roger Walker MD [address] [place] [address] PCP - General Family Medicine 10/30/23 Andreea Herron OD Quitline Counselor Optometry 02/20/17 documented as of this encounter
--- OUTSIDE RECORDS SUMMARY | 2025-06-23 19:04 | XMS_ITS | Encounter Summary ---
Author Organization [facility] Address [address] [place] [address] Care Team Providers Care Customer Service Sales Consultant Name Role Phone Maria Dolores Shearer MD Primary Care Provider [phone] Andreea Herron OD Unavailable Roger Walker MD Primary Care Provider [phone] Encounter Details Date Type Department Care Team (Late st Contact Info) Description 02/26/2013 Orders Only [facility] Endocrinology [address] [place] [address] Stacy Mora MSN EMBOSSING MACHINE OPERATOR Social History Tobacco Use Types Packs/Day Years [...] Description 07/15/2025 12:25 PM EDT Consult (Initial) [facility] [address] [place] [address] Edi Flaherty MD [address] [place] [address] - consult for Hypertension, benign 07/19/2025 1:30 PM EDT Office Visit [facility] [address] [place] [address] Roger Walker MD [address] [place] [address] diabetic follow up 10/24/2025 9:00 AM EST Office Visit [facility]. Optometry [address] [place] [address] Olya Schultz, OD [address] [place] [address] new pt,DM,noCL,verifie d via EM,elig 10/13/24,10/24,$0copa y,aodv,aoir 01/17/2026 2:00 PM EDT CPE - Comprehensive Physical Exam [address] [address] Roger Walker MD [address] [place] [address] CPE documented as of this encounter Procedures * Due to [facility] law, this organization might not be sharing negative HIV tests. Procedure Name Priority Date/Time Associated Diagnosis Comments HEMOGLOBIN A1C Routine 02/26/2013 7:10 AM EDT Uncontrolled type II diabetes mellitus Mixed hyperlipidemia Overweight documented in this encounter Results * Due to [facility] law, this organization might not be sharing negative HIV tests. * (ABNORMAL) HEMOGLOBIN A1C (02/26/2013 7:10 AM EDT) Hemoglobin A1C 8.0(H) <5.7 % of total Hgb [facility] Comment: {HEMOGLOBIN A1c {[id number]) Consistent with diabetes <5.7 Decreased risk of diabetes 5.7-6.0 Increased risk of diabetes 6.1-6.4 Higher risk of diabetes > or = 6.5 Consistent with diabetes Standards of Medical Care in Diabetes-2010. Diabetes Care, 33(Supp 1): S1-S61,2010. Estimated Average Glucose 208 mg/dL (calc) [facility] Comment:{MEAN PLASMA GLUCOSE {[id number]) 02/26/2013 7:10 AM EDT 02/26/2013 12:28 PM EDT Narrative Resulting Agency Comment [id number] us Stacy Mora MSN EMBOSSING MACHINE OPERATOR LABORATORY Final Result Performing Organization Address City/State/[facility] Co de Phone Number [facility] [address] [place] [address] documented in this encounter Visit Diagnoses Diagnosis Uncontrolled type II diabetes mellitus- Primary Type II or unspecified type diabetes mellitus without mention of complication, uncontrolled Mixed hyperlipidemia Overweight(278.02) Overweight documented in this encounter Additional Health Concerns Infection Onset Date Last Indicated Resolved Time COVID-19 Rule-Out 07/18/2020 07/18/2020 07/20/2020 11:31 AM EDT COVID-19 Rule-Out 09/18/2020 09/18/2020 09/21/2020 1:43 PM EST COVID-19 Confirmed 09/18/2020 09/18/2020 1 8:12 PM EST documented as of this encounter Care Teams Customer Service Sales Consultant Relationship Specialty Start Date End Date Maria Dolores Shearer MD PCP - General Internal Medicine 10/25/12 10/29/23 Roger Walker MD [address] [place] [address] PCP - General Family Medicine 10/30/23 Andreea Herron OD Squash Centre Manager Optometry 02/20/17 documented as of this encounter
--- OUTSIDE RECORDS SUMMARY | 2025-06-23 19:04 | XMS_ITS | Encounter Summary ---
Author Organization [facility] Address [address] [place] [address] Care Team Providers Care Premium Representative Name Role Phone Maria Dolores Shearer MD Primary Care Provider [phone] Andreea Herron OD Unavailable Roger Walker MD Primary Care Provider [phone] Encounter Details Date Type Department Care Team (Late st Contact Info) Description 11/27/2012 Orders Only [facility] [address] [place] [phone] Temitope Nagel NP Social History Tobacco Use Types Packs/Day [...] as of this encounter Progress Notes * Temitope Wade NP - 02/26/2013 9:46 AM EDTQuick Note: Forwarded to Dr. Shearer for upcoming appointment. Temitope Wade NP * Judie Johnston DNP - 12/25/2012 10:17 AM EDTQuick Note: Will refer back to Temitope-has been working to have patient schedule appt and PSS has not been able to get in touch with him. Osmar culver * Jolene Tristan - 12/25/2012 9:21 AM EDTQuick Note: [place] [id number] in basket. * Temitope Wade NP - 12/03/2012 11:07 AM ESTQuick Note: Patient has no followup. TMS to PSS pool to advise reschedule Temitope Wade NP . documented in this encounter Plan of Treatment Upcoming Encounters Date Type Department Care Team (Latest Contact Info) Description 07/15/2025 12:25 PM EDT Consult (Initial) [facility] [address] [place] [address] Edi Flaherty MD 123 [facility] [address] [place] [address] - consult for Hypertension, benign 07/19/2025 1:30 PM EDT Office Visit [address] [phone] Roger Walker MD [address] [place] [address] diabetic follow up 10/24/2025 9:00 AM EST Office Visit [facility]. Optometry [address] [place] [address] Olya Schultz, OD [address] [place] [address] new pt,DM,noCL,verifie d via EM,elig 10/13/24,10/24,$0copa y,aodv,aoir 01/17/2026 2:00 PM EDT CPE - Comprehensive Physical Exam [facility] [address] [place] [address] Roger Walker MD [address] [place] [address] CPE documented as of this encounter Procedures * Due to [facility] law, this organization might not be sharing negative HIV tests. Procedure Name Priority Date/Time Associated Diagnosis Comments CHOLESTEROL, LDL (DIRECT) Routine 11/27/2012 7:09 AM EST CBC INCLUDES DIFFERENTIAL AND PLATELET COUNT Routine 11/27/2012 7:09 AM EST Other and unspecified hyperlipidemia HEMOGLOBIN A1C Routine 11/27/2012 7:09 AM EST Type I (juvenile type) diabetes mellitus without mention of complication, not stated as uncontrolled (HCC) CREATINE KINASE (CK), SERUM Routine 11/27/2012 7:09 AM EST Other and unspecified hyperlipidemia VITAMIN D, 25-HYDROXY, TOTAL, IMMUNOASSAY Routine 11/27/2012 7:09 AM EST Unspecified vitamin D deficiency HEPATIC FUNCTION PANEL (ALT,AST,ALK PH,BILI'S,TP,ALB) Routine 11/27/2012 7:09 AM EST Other and unspecified hyperlipidemia LIPID PANEL WITH REFLEX TO DIRECT LDL Routine 11/27/2012 7:09 AM EST Other and unspecified hyperlipidemia BASIC METABOLIC PANEL WITH (GFR) Routine 11/27/2012 7:09 AM EST Other and unspecified hyperlipidemia documented in this encounter Results * Due to [place] [employer] law, this organization might not be sharing negative HIV tests. * CHOLESTEROL, LDL (DIRECT) (11/27/2012 7:09 AM EST) LDL, Direct Measure 100 <130 mg/dL [facility] Comment: {DIRECT LDL {[id number]) Desirable range <100 mg/dL for patients with CHD or diabetes and <70 mg/dL for diabetic patients with known heart disease. 11/27/2012 7:09 AM EST 11/27/2012 12:06 PM EST Temitope Ngael NP LABORATORY Final Result Performing Organization Address [facility]/ZIP Co de Phone Number [facility] [address] [place] [address] * (ABNORMAL) HEMOGLOBIN A1C (11/27/2012 7:09 AM EST) Hemoglobin A1C 9.7(H) <5.7 % of total Hgb [facility] Comment: {HEMOGLOBIN A1c {[id number]) Consistent with diabetes <5.7 Decreased risk of diabetes 5.7-6.0 Increased risk of diabetes 6.1-6.4 Higher risk of diabetes > or = 6.5 Consistent with diabetes Standards of Medical Care in Diabetes-2010. Diabetes Care, 33(Supp 1): S1-S61,2010. Estimated Average Glucose 268 mg/dL (calc) [facility] Comment:{MEAN PLASMA GLUCOSE {[id number]) 11/27/2012 7:09 AM EST 11/27/2012 12:06 PM EST Narrative Resulting Agency Comment [id number] Temitope Nagel NP LABORATORY Final Result Performing Organization Address City/[facility]/ZIP Co de Phone Number [facility] [address] [place] [address] * (ABNORMAL) VITAMIN D, 25-HYDROXY, LC/MS/MS (11/27/2012 7:09 AM EST) Vitamin D, 25-OH, Total 18(L) 30 - 100 ng/mL [facility] Comment:{VITAMIN D, 25 OH, T OTAL {[id number]) Vitamin D, D3 (Cholecalciferol ) 9 ng/mL [facility] Comment:{VITAMIN D, 25 OH, D 3 {[id number]) Vitamin D, 25-OH, D2 (Calciferol) 9 ng/mL [facility] Comment: {VITAMIN D, 25 OH, D2 {[id number]) 25-OHD3 indicates both endogenous production and supplementation. 25-OHD2 is an indicator of exogenous sources such as diet or supplementation. Therapy is based on measurement of Total 25-OHD, with levels <20 ng/mL indicative of Vitamin D deficiency, while levels between 20 ng/mL and 30 ng/mL suggest insufficiency. Optimal levels are > or = 30 ng/mL. 11/27/2012 7:09 AM EST 11/27/2012 12:06 PM EST Narrative Resulting Agency Comment [id number] us Temitope Nagel NP LABORATORY Final Result [facility] [address] [place] [address] * HEPATIC FUNCTION PANEL (11/27/2012 7:09 AM EST) Protein Total (Serum) 7.1 6.1 - 8.1 g/dL [facility] Comment:{PROTEIN, TOTAL {[id number]) Albumin 4.6 3.6 - 5.1 g/dL [facility] Comment:{ALBUMIN {[id number]) Globulin 2.5 1.9 - 3.7 g/dL (calc) [facility] Comment:{GLOBULIN {[id number]) Albumin/Globulin 1.8 1.0 - 2.5 (calc) [facility] Comment:{ALBUMIN/GLOBULIN RA ROSALINA {[id number]) Bilirubin Total 0.4 0.2 - 1.2 mg/dL [facility] Comment:{BILIRUBIN, TOTAL {[id number]) Bilirubin Direct 0.1 < OR = 0.2 mg/dL [facility] Comment:{BILIRUBIN, DIRECT { [id number]) Bilirubin Indirect 0.3 0.2 - 1.2 mg/dL (calc) [facility] Comment:{BILIRUBIN, INDIRECT {[id number]) Alkaline phosphatase 62 40 - 115 U/L [facility] Comment:{ALKALINE PHOSPHATAS E {[id number]) AST (SGOT) 23 10 - 40 U/L [facility] Comment:{AST {[id number]) ALT (SGPT) 40 9 - 60 U/L [facility] Comment:{ALT {[id number]) 11/27/2012 7:09 AM EST 11/27/2012 12:06 PM EST Narrative Resulting Agency Comment [id number] Temitope Robe RESEARCH CLERK LABORATORY Final Result Performing Organization Address City/[facility]/ZIP Co de Phone Number [facility] [address] [place] [address] * CREATINE KINASE (CK), SERUM (11/27/2012 7:09 AM EST) CPK 186 44 - 196 U/L [facility] Comment:{CREATINE KINASE, TO LU {[id number]) 11/27/2012 7:09 AM EST 11/27/2012 12:06 PM EST Narrative Resulting Agency Comment [id number] Temitope Nagel RESEARCH CLERK LAB SAME DAY RESULT Final Re sult Performing Organization Address [facility] Co de Phone Number [facility] [address] [place] [address] * (ABNORMAL) CBC INCLUDES DIFFERENTIAL AND PLATELET COUNT (11/27/2012 7:09 AM EST) WBC 5.1 3.8 - 10.8 Thousand/ uL [facility] Comment:{WHITE BLOOD CELL CO UNT {[id number]) RBC 5.76 4.20 - 5.80 Million/u L [facility] Comment:{RED BLOOD CELL COUN T {[id number]) Hemoglobin 13.4 13.2 - 17.1 g/dL [facility] Comment:{HEMOGLOBIN {[id number]) Hematocrit 43.2 38.5 - 50.0 % [facility] Comment:{HEMATOCRIT {[id number]) MCV 75.0(L) 80.0 - 100.0 fL [facility] Comment:{MCV {[id number]) MCH 23.2(L) 27.0 - 33.0 pg [facility] Comment:{MCH {[id number]) MCHC 30.9(L) 32.0 - 36.0 g/dL [facility] Comment:{MCHC {[id number]) RDW 14.6 11.0 - 15.0 % [facility] Comment:{RDW {[id number]) PLT 230 140 - 400 Thousand/ uL [facility] Comment:{PLATELET COUNT {[id number]) MPV 9.5 7.5 - 11.5 fL [facility] Comment:{MPV {[id number]) Neutrophils # 2718 1500 - 7800 cells/uL [facility] Comment:{ABSOLUTE NEUTROPHIL S {[id number]) Lymphocytes # 1673 850 - 3900 cells/uL [facility] Comment:{ABSOLUTE LYMPHOCYTE S {[id number]) Monocytes # 638 200 - 950 cells/uL [facility] Comment:{ABSOLUTE MONOCYTES {[id number]) Eosinophils # 51 15 - 500 cells/uL [facility] Comment:{ABSOLUTE EOSINOPHIL S {[id number]) Basophils # 20 0 - 200 cells/uL [facility] Comment:{ABSOLUTE BASOPHILS {[id number]) Neutrophils % 53.3 % [facility] Comment:{NEUTROPHILS {[id number]) Lymphocytes % 32.8 % [facility] Comment:{LYMPHOCYTES {[id number]) Monocytes % 12.5 % [facility] Comment:{MONOCYTES {[id number]) Eosinophils % 1.0 % [facility] Comment:{EOSINOPHILS {[id number]) Basophils % 0.4 % [facility] Comment:{BASOPHILS {[id number]) 11/27/2012 7:09 AM EST 11/27/2012 12:06 PM EST Narrative Resulting Agency Comment [id number] us Temitope Nagel RESEARCH CLERK LAB SAME DAY RESULT Final Re sult [facility] [address] [place] [address] * (ABNORMAL) BASIC METABOLIC PANEL WITH (GFR) (11/27/2012 7:09 AM EST) Glucose 142(H) 65 - 99 mg/dL [facility] Comment: {GLUCOSE {[id number]) Fasting reference interval Urea Nitrogen Blood (BUN) 14 7 - 25 mg/dL [facility] Comment:{UREA NITROGEN (BUN) {[id number]) Creatinine 0.93 0.60 - 1.35 mg/dL [facility] Comment:{CREATININE {[id number]) GFR 105 > OR = 60 mL/min/1. 73m2 [facility] Comment:{eGFR NON-AFR. AMERI CAN {[id number]) GFR () 121 > OR = 60 mL/min/1. 73m2 [facility] Comment:{eGFR AMERIC AN {[id number]) BUN/Creatinine Ratio NOT APPLICABLE 6 - (calc) [facility] Comment:{BUN/CREATININE RATI O {[id number]) Sodium 136 135 - 146 mmol/L [facility] Comment:{SODIUM {[id number]) Potassium 4.2 3.5 - 5.3 mmol/L [facility] Comment:{POTASSIUM {[id number]) Chloride 100 98 - 110 mmol/L [facility] Comment:{CHLORIDE {[id number]) Carbon dioxide 28 19 - 30 mmol/L [facility] Comment:{CARBON DIOXIDE {[id number]) Calcium 9.7 8.6 - 10.3 mg/dL [facility] Comment:{CALCIUM {[id number]) 11/27/2012 7:09 AM EST 11/27/2012 12:06 PM EST Narrative [facility] - 11/27/2012 1:52 PM EST Please note that this estimated GFR does [...] needs for GFR calculation. Resulting Agency Comment [id number] us Temitope Nagel NP LABORATORY Final Result [facility] [address] [place] [address] * (ABNORMAL) LIPID PANEL WITH REFLEX TO DIRECT LDL (11/27/2012 7:09 AM EST) Cholesterol 252(H) 125 - 200 mg/dL [facility] Comment:{CHOLESTEROL, TOTAL {[id number]) HDL Cholesterol 28(L) > OR = 40 mg/dL [facility] Comment:{HDL CHOLESTEROL {[id number]) Triglyceride 497(H) <150 mg/dL [facility] Comment:{TRIGLYCERIDES {[id number]) LDL Cholesterol SEE NOTE <130 mg/dL (calc) [facility] Comment: {LDL-CHOLESTEROL {[id number]) LDL cholesterol not calculated. Triglyceride levels greater than 400 mg/dL invalidate calculated LDL results. Desirable range <100 mg/dL for patients with CHD or diabetes and <70 mg/dL for diabetic patients with known heart disease. CHOL/HDL Ratio 9.0(H) < OR = 5.0 (calc) [facility] Comment:{CHOL/HDLC RATIO {[id number]) Cholesterol Non-HDL 224(H) mg/dL (calc) [facility] Comment: {NON HDL CHOLESTEROL {[id number]) Target for non-HDL cholesterol is 30 mg/dL higher than LDL cholesterol target. 11/27/2012 7:09 AM EST 11/27/2012 12:06 PM EST Narrative Resulting Agency Comment [id number] us Temitope Nagel NP LABORATORY Final Result Performing Organization Address City/State/[facility] Co de Phone Number [facility] [address] [place] [address] documented in this encounter Visit Diagnoses Diagnosis Other and unspecified hyperlipidemia Unspecified vitamin D deficiency Type I (juvenile type) diabetes mellitus without mention of complication, not stated as uncontrolled documented in this encounter Additional Health Concerns Infection Onset Date Last Indicated Resolved Time COVID-19 Rule-Out 07/18/2020 07/18/2020 07/20/2020 11:31 AM EDT COVID-19 Rule-Out 09/18/2020 09/18/2020 09/21/2020 1:43 PM EST COVID-19 Confirmed 09/18/2020 09/18/2020 1 8:12 PM EST documented as of this encounter Care Teams Premium Representative Relationship Specialty Start Date End Date Maria Dolores Shearer MD PCP - General Internal Medicine 10/25/12 10/29/23 Roger Walker MD [address] [place] [address] PCP - General Family Medicine 10/30/23 Andreea Herron OD Supply Service Worker Optometry 02/20/17 documented as of this encounter
--- OUTSIDE RECORDS SUMMARY | 2025-06-23 19:04 | XMS_ITS | Encounter Summary ---
Author Organization [facility] Address [address] [place] [address] Care Team Providers Care Paint Mixer Name Role Phone Andreea Herron OD Unavailable Roger Walker MD Primary Care Provider [phone]- [phone] Encounter Details Date Type Department Care Team ([facility] Contact Info) Description 01/24/2025 Orders Only [facility] [address] [place] [address] Roger Walker MD [address] [place] [address] Social History Tobacco Use Types Packs/Day Years Used Date Smoking Tobacco: Never Smokeless Tobacco: Never Comments:nonsmoker Alcohol Use Standard Drinks/Week Comments Yes 0 (1 standard drink = 0.6 oz pure alcohol) Very very rarely - only 1 if drinking PHQ-2 Answer Date Recorded Patient Health Questionnaire-2 Score 0 01/25/2025 [facility] [place] of Occupat ional Health - Occupational Stress [...] thr ee times a week 01/25/2025 Attend christianity services Never 2024 Club Membership No 01/25/2025 [...] any clubs o r organizations such as buddhism groups, unions, athletic groups, or school groups? 2 How often do you attend meet ings of the clubs or organizations you belong to? 1 01/25/2025 Sex and Gender Information Value Date Recorded Sex Assigned at Not on file Legal Sex Male 7:05 PM EDT Gender Identity Not on file Sexual Orientation Not on file documented as of this encounter Functional Status * Over the past 2 weeks, how often have you been bothered by any of the following problems? Question Answer Date of Assessment Author Little interest or pleasure in doing things Not at all 01/25/2025 10:05 AM EDT Anna Stuart i, ELIZABETH Feeling down, depressed, or hopeless Not at all 01/25/2025 10:05 AM EDT Jenna Nuñez RN Patient Health Questionnaire-2 Score 0 01/25/2025 10:05 AM EDT Anna Nuñez, ELIZABETH documented as of this encounter Plan of Treatment Upcoming Encounters Date Type Department Care Team (Latest Contact Info) Description 07/15/2025 12:25 PM EDT Consult (Initial) [facility] [address] [place] [address] Edi Flaherty MD [address] [address] - consult for Hypertension, benign 07/19/2025 1:30 PM EDT Office Visit [address] [phone] Roger Walker MD [address] [place] [address] diabetic follow up 10/24/2025 9:00 AM EST Office Visit [facility]. Optometry [address] [place] [address] Olya Schultz, OD [address] [place] [address] new pt,DM,noCL,verruperto d via EM,elig 10/13/24,10/24,$0copa y,aodv,aoir 01/17/2026 2:00 PM EDT CPE - Comprehensive Physical Exam [address] [phone] Roger Walker MD [address] [place] [address] CPE documented as of this encounter Goals Goal Patient Goal Type Associated Problems Recent Progress Patient-Stated? Author Blood Pressure < 140/80 Blood Pressure 94/62( 025 11:51 AM EDT) No Maria Dolores Shearer HEMOGLOBIN A1C % < 7 Result Component 8.6( 1:13 PM EDT) No Jolene Tristan CMA documented as of this encounter Procedures * Due to [place] [employer] law, this organization might not be sharing negative HIV tests. Procedure Name Priority Date/Time Associated Diagnosis Comments HEPATITIS C AB WITH REFLEX TO RNA PCR, SERUM Routine 01/24/2025 10:56 AM EDT Need for hepatitis C screening test HEMOGLOBIN A1C Routine 01/24/2025 10:56 AM EDT Diabetes mellitus, stable (HCC) VITAMIN D, 25-HYDROXY, TOTAL, IMMUNOASSAY Routine 01/24/2025 10:56 AM EDT Vitamin D deficiency LIPID PANEL WITH REFLEX TO DIRECT LDL Routine 01/24/2025 10:56 AM EDT Lipids blood increased documented in this encounter Results * Due to [place] [employer] law, this organization might not be sharing negative HIV tests. * (ABNORMAL) ALBUMIN (MICROALBUMIN), RANDOM URINE, WITH [...] 2:10 AM EDT Narrative Resulting Agency Comment [id number] Roger Walker MD LABORATORY Final Resu lt Performing Organization Address [facility] de Phone Number [facility] [address] [place] [address] * HEPATITIS C AB WITH REFLEX TO RNA PCR, SERUM (01/24/2025 10:56 AM EDT) Pathologist [facility] Hepatitis C virus Ab NON-REACT MATTHEW NON-REACT MATTHEW [facility] Comment: HCV antibody was non-reactive. There is no laboratory evidence of HCV infection. In most cases, no further action is required. However, if recent HCV exposure is suspected, a test for HCV RNA (test code 94197) is suggested. For additional information please refer to http://[employer]faq/YFG25c2 (This link is being provided for informational/ educational purposes only.) 01/24/2025 10:5 6 AM EDT 01/25/2025 2:08 AM EDT Narrative Resulting Agency Comment [id number] Roger Walker MD LABORATORY Final Resu lt Performing Organization Address [facility] de Phone Number [facility] [address] [place] [address] * (ABNORMAL) LIPID PANEL WITH REFLEX TO DIRECT LDL (01/24/2025 10:56 AM EDT) Pathologist [facility] Cholesterol 169 <200 mg/dL [facility] HDL Cholesterol 34(L) > OR = 40 mg/dL [facility] Triglyceride 112 <150 mg/dL [facility] LDL Cholesterol 113(H) mg/dL (calc) [facility] Comment: Reference range: <100 Desirable range <100 mg/dL for primary prevention; <70 mg/dL for patients with CHD or diabetic patients with > or = 2 CHD risk factors. LDL-C is now calculated using the Surya-Jasmyne calculation, which is a validated novel method providing better accuracy than the Friedewald equation in the estimation of LDL-C. Surya FARLEY et al. MIYA. 2013;310(19): 8221-2185 (http://education.[employer]/faq/NEY400) CHOL/HDL Ratio 5.0(H) <5.0 (calc) [facility] Cholesterol Non-HDL 135(H) <130 mg/dL (calc) [facility] Comment: For patients with diabetes plus 1 major ASCVD risk factor, treating to a non-HDL-C goal of <100 mg/dL (LDL-C of <70 mg/dL) is considered a therapeutic option. 01/24/2025 10:5 6 AM EDT 01/25/2025 2:08 AM EDT Narrative Resulting Agency Comment [id number] Roger Walker MD LABORATORY Final Resu lt Performing Organization Address City/[facility] Co de Phone Number [facility] [address] [place] [address] * (ABNORMAL) HEMOGLOBIN A1C (01/24/2025 10:56 AM EDT) Hemoglobin A1C 11.1(H) <5.7 % [facility] Comment: For someone [...] of diabetes for children. Estimated Average Glucose 318 mg/dL (calc) [facility] 01/24/2025 10:5 6 AM EDT 01/25/2025 2:08 AM EDT Narrative Resulting Agency Comment [id number] Roger Walker MD LABORATORY Final Resu lt Performing Organization Address City/[facility]/ZIP Co de Phone Number [facility] [address] [place] [address] * VITAMIN D, 25-HYDROXY, TOTAL, IMMUNOASSAY (01/24/2025 10:56 AM EDT) Vitamin D, 25-OH, Total 34 30 - 100 ng/mL [facility] Comment: Vitamin D Status 25-OH Vitamin D: Deficiency: <20 ng/mL Insufficiency: 20 - 29 ng/mL Optimal: > or = 30 ng/mL For 25-OH Vitamin D testing on patients on D2-supplementation and patients for whom quantitation of D2 and D3 fractions is required, the [facility](TM) 25-OH VIT D, (D2,D3), LC/MS/MS is recommended: order code 04859 (patients >2yrs). See Note 1 Note 1 For additional information, please refer to http://education.eBuddy/faq/EGQ164 (This link is being provided for informational/ educational purposes only.) 01/24/2025 10:5 6 AM EDT 01/25/2025 2:08 AM EDT Narrative Resulting Agency Comment [id number] Roger Walker MD LABORATORY Final Resu lt Performing Organization Address City/State/[facility] Co de Phone Number [facility] [address] [place] [address] documented in this encounter Visit Diagnoses Diagnosis Vitamin D deficiency Diabetes mellitus, stable (HCC) Type II or unspecified type diabetes mellitus without mention of complication, not stated as uncontrolled Lipids blood increased Other and unspecified hyperlipidemia Need for hepatitis C screening test Special screening examination for other specified viral diseases documented in this encounter Care Teams Paint Mixer Relationship Specialty Start Date End Date Roger Walker MD [address] [place] [address] PCP - General Family Medicine 10/30/23 Andreea Herron OD Watch Repairer Optometry 02/20/17 documented as of this encounter
--- OUTSIDE RECORDS SUMMARY | 2025-06-23 19:04 | XMS_ITS | Encounter Summary ---
Author Organization [facility] Address [address] [place] [address] Care Team Providers Care Marine Underwriter Name Role Phone Maria Dolores Shearer MD Primary Care Provider [phone] Andreea Herron OD Unavailable Roger Walker MD Primary Care Provider [phone] Encounter Details Date Type Department Care Team (Late st Contact Info) Description 11/06/2012 Orders Only [facility] [address] [place] [phone] Temitope Nagel NP Social History Tobacco Use [...] Description 07/15/2025 12:25 PM EDT Consult (Initial) [facility] [address] [place] [address] Edi Flaherty MD [address] [address] - consult for Hypertension, benign 07/19/2025 1:30 PM EDT Office Visit [facility] [address] [place] [address] Roger Walker MD [address] [place] [address] diabetic follow up 10/24/2025 9:00 AM EST Office Visit [facility]. Optometry [address] [place] [address] Olya Schultz, OD [address] [place] [address] new pt,DM,noCL,verifie d via EM,elig 10/13/24,10/24,$0copa y,aodv,aoir 01/17/2026 2:00 PM EDT CPE - Comprehensive Physical Exam [facility] [address] [place] [phone] Roger Walker MD [address] [place] [address] CPE documented as of this encounter Results * Due to [place] state law, this organization might not be sharing negative HIV tests. * (ABNORMAL) VITAMIN D, 25-HYDROXY, LC/MS/MS (11/27/2012 7:09 AM EST) Vitamin D, 25-OH, Total 18(L) 30 - 100 ng/mL [facility] Comment:{VITAMIN D, 25 OH, T OTAL {[id number]) Vitamin D, D3 (Cholecalciferol ) 9 ng/mL [facility] Comment:{VITAMIN D, 25 OH, D 3 {[id number]) Vitamin D, 25-OH, D2 (Calciferol) 9 ng/mL [facility] Comment: {VITAMIN D, 25 OH, D2 {[id number]) 25-OHD3 indicates both endogenous production and supplementation. [...] 12:06 PM EST Narrative Resulting Agency Comment [id number] us Temitope Nagel NP LABORATORY Final Result Performing Organization Address City/State/[facility] Co de Phone Number [facility] [address] [place] [address] * HEPATIC FUNCTION PANEL (11/27/2012 7:09 AM EST) Protein Total (Serum) 7.1 6.1 - 8.1 g/dL [facility] Comment:{PROTEIN, TOTAL {[id number]) Albumin 4.6 3.6 - 5.1 g/dL [facility] Comment:{ALBUMIN {[id number]) Globulin 2.5 1.9 - 3.7 g/dL (calc) [facility] Comment:{GLOBULIN {[id number]) Albumin/Globulin 1.8 1.0 - 2.5 (calc) [facility] Comment:{ALBUMIN/GLOBULIN RA ROSALINA {[id number]) Bilirubin Total 0.4 0.2 - 1.2 mg/dL [facility] Comment:{BILIRUBIN, TOTAL {[id number]) Bilirubin Direct 0.1 < OR = 0.2 mg/dL [facility] Comment:{BILIRUBIN, DIRECT { [id number]) Bilirubin Indirect 0.3 0.2 - 1.2 mg/dL (calc) [facility] Comment:{BILIRUBIN, INDIRECT {[id number]) Alkaline phosphatase 62 40 - 115 U/L [facility] Comment:{ALKALINE PHOSPHATAS E {[id number]) AST (SGOT) 23 10 - 40 U/L [facility] Comment:{AST {[id number]) ALT (SGPT) 40 9 - 60 U/L [facility] Comment:{ALT {[id number]) 11/27/2012 7:09 AM EST 11/27/2012 12:06 PM EST Narrative Resulting Agency Comment [id number] Temitope Nagel REGISTERED NURSE MATERNAL CHILD LABORATORY Final Result [facility] [address] [place] [id number] * CREATINE KINASE (CK), SERUM (11/27/2012 7:09 AM EST) CPK 186 44 - 196 U/L [facility] Comment:{CREATINE KINASE, TO LU {[id number]) 11/27/2012 7:09 AM EST 11/27/2012 12:06 PM EST Narrative Resulting Agency Comment [id number] Temitope Nagel REGISTERED NURSE MATERNAL CHILD LAB SAME DAY RESULT Final Re sult Performing Organization Address [facility] Co de Phone Number [facility] [address] [place] [address] * (ABNORMAL) CBC INCLUDES DIFFERENTIAL AND PLATELET COUNT (11/27/2012 7:09 AM EST) WBC 5.1 3.8 - 10.8 Thousand/ uL [facility] Comment:{WHITE BLOOD CELL CO UNT {[id number]) RBC 5.76 4.20 - 5.80 Million/u L [facility] Comment:{RED BLOOD CELL COUN T {[id number]) Hemoglobin 13.4 13.2 - 17.1 g/dL [facility] Comment:{HEMOGLOBIN {[id number]) Hematocrit 43.2 38.5 - 50.0 % [facility] Comment:{HEMATOCRIT {[id number]) MCV 75.0(L) 80.0 - 100.0 fL [facility] Comment:{MCV {[id number]) MCH 23.2(L) 27.0 - 33.0 pg [facility] Comment:{MCH {[id number]) MCHC 30.9(L) 32.0 - 36.0 g/dL [facility] Comment:{MCHC {[id number]) RDW 14.6 11.0 - 15.0 % [facility] Comment:{RDW {[id number]) PLT 230 140 - 400 Thousand/ uL [facility] Comment:{PLATELET COUNT {[id number]) MPV 9.5 7.5 - 11.5 fL [facility] Comment:{MPV {[id number]) Neutrophils # 2718 1500 - 7800 cells/uL [facility] Comment:{ABSOLUTE NEUTROPHIL S {[id number]) Lymphocytes # 1673 850 - 3900 cells/uL [facility] Comment:{ABSOLUTE LYMPHOCYTE S {[id number]) Monocytes # 638 200 - 950 cells/uL [facility] Comment:{ABSOLUTE MONOCYTES {[id number]) Eosinophils # 51 15 - 500 cells/uL [facility] Comment:{ABSOLUTE EOSINOPHIL S {[id number]) Basophils # 20 0 - 200 cells/uL [facility] Comment:{ABSOLUTE BASOPHILS {[id number]) Neutrophils % 53.3 % [facility] Comment:{NEUTROPHILS {[id number]) Lymphocytes % 32.8 % [facility] Comment:{LYMPHOCYTES {[id number]) Monocytes % 12.5 % [facility] Comment:{MONOCYTES {[id number]) Eosinophils % 1.0 % [facility] Comment:{EOSINOPHILS {[id number]) Basophils % 0.4 % [facility] Comment:{BASOPHILS {[id number]) 11/27/2012 7:09 AM EST 11/27/2012 12:06 PM EST Narrative Resulting Agency Comment [id number] us Temitope Nagel REGISTERED NURSE MATERNAL CHILD LAB SAME DAY RESULT Final Re sult [facility] [address] [place] [address] * (ABNORMAL) BASIC METABOLIC PANEL WITH (GFR) (11/27/2012 7:09 AM EST) Glucose 142(H) 65 - 99 mg/dL [facility] Comment: {GLUCOSE {[id number]) Fasting reference interval Urea Nitrogen Blood (BUN) 14 7 - 25 mg/dL [facility] Comment:{UREA NITROGEN (BUN) {[id number]) Creatinine 0.93 0.60 - 1.35 mg/dL [facility] Comment:{CREATININE {[id number]) GFR 105 > OR = 60 mL/min/1. 73m2 [facility] Comment:{eGFR NON-AFR. AMERI CAN {[id number]) GFR () 121 > OR = 60 mL/min/1. 73m2 [facility] Comment:{eGFR AMERIC AN {[id number]) BUN/Creatinine Ratio NOT APPLICABLE (calc) [facility] Comment:{BUN/CREATININE RATI O {[id number]) Sodium 136 135 - 146 mmol/L [facility] Comment:{SODIUM {[id number]) Potassium 4.2 3.5 - 5.3 mmol/L [facility] Comment:{POTASSIUM {[id number]) Chloride 100 98 - 110 mmol/L [facility] Comment:{CHLORIDE {[id number]) Carbon dioxide 28 19 - 30 mmol/L [facility] Comment:{CARBON DIOXIDE {[id number]) Calcium 9.7 8.6 - 10.3 mg/dL [facility] Comment:{CALCIUM {[id number]) 11/27/2012 7:09 AM EST 11/27/2012 12:06 [...] needs for GFR calculation. Resulting Agency Comment [id number] us Temitope Nagel NP LABORATORY Final Result [facility] [address] [place] [address] * (ABNORMAL) LIPID PANEL WITH REFLEX TO DIRECT LDL (11/27/2012 7:09 AM EST) Cholesterol 252(H) 125 - 200 mg/dL [facility] Comment:{CHOLESTEROL, TOTAL {[id number]) HDL Cholesterol 28(L) > OR = 40 mg/dL [facility] Comment:{HDL CHOLESTEROL {[id number]) Triglyceride 497(H) <150 mg/dL [facility] Comment:{TRIGLYCERIDES {[id number]) LDL Cholesterol SEE NOTE <130 mg/dL (calc) [facility] Comment: {LDL-CHOLESTEROL {[id number]) LDL cholesterol not calculated. Triglyceride levels greater than 400 mg/dL invalidate calculated LDL results. Desirable range <100 mg/dL for patients with CHD or diabetes and <70 mg/dL for diabetic patients with known heart disease. CHOL/HDL Ratio 9.0(H) < OR = 5.0 (calc) [facility] Comment:{CHOL/HDLC RATIO {[id number]) Cholesterol Non-HDL 224(H) mg/dL (calc) [facility] Comment: {NON HDL CHOLESTEROL {[id number]) Target for non-HDL cholesterol is 30 mg/dL higher than LDL cholesterol target. 11/27/2012 7:09 AM EST 11/27/2012 12:06 PM EST Narrative Resulting Agency Comment [id number] Temitope Nagel NP LABORATORY Final Result [facility] [address] [place] [address] documented in this encounter Visit Diagnoses Diagnosis Type I (juvenile type) diabetes mellitus without mention of complication, not stated as uncontrolled Other and unspecified hyperlipidemia Unspecified vitamin D deficiency Other and unspecified hyperlipidemia Unspecified vitamin D [...] documented as of this encounter Care Teams Marine Underwriter Relationship Specialty Start Date End Date Maria Dolores Shearer MD PCP - General Internal Medicine 10/25/12 10/29/23 Roger Walker MD [address] [place] [address] PCP - General Family Medicine 10/30/23 Andreea Herron OD Applied Anthropologist Optometry 02/20/17 documented as of this encounter
--- OUTSIDE RECORDS SUMMARY | 2025-06-23 19:04 | XMS_ITS | Encounter Summary ---
Author Organization [facility] Address [address] [place] [address] Care Team Providers Care Shell Shop Supervisor Name Role Phone Maria Dolores Shearer MD Primary Care Provider [phone] Andreea Herron OD Unavailable Roger Walker MD Primary Care Provider [phone] Encounter Details Date Type Department Care Team (Late st Contact Info) Description 11/24/2018 Orders Only [facility] [address] [place] [address] Maria Dolores Shearer MD [address] [place] [phone] Social History Tobacco Use Types Packs/Day Years [...] Progress Notes * Maria Dolores Shearer - 12/04/2018 9:20 AM EST Discussed at visit documented in this encounter Plan of Treatment Upcoming Encounters Date Type Department Care Team (Latest Contact Info) Description 07/15/2025 12:25 PM EDT Consult (Initial) [facility] [address] [place] [address] Edi Flaherty MD [address] [place] [address] - consult for Hypertension, benign 07/19/2025 1:30 PM EDT Office Visit [address] [phone] Roger Walker MD [address] [place] [address] diabetic follow up 10/24/2025 9:00 AM EST Office Visit [facility] [address] [place] [phone] Olya Schultz, OD [address] [place] [address] new pt,DM,noCL,verifie d via EM,elig 10/13/24,10/24,$0copa y,aodv,aoir 01/17/2026 2:00 PM EDT CPE - Comprehensive Physical Exam [address] [phone] Roger Walker MD [address] [place] [address] CPE documented as of this encounter Goals Goal Patient Goal Type Associated Problems Recent Progress Patient-Stated? Author Blood Pressure < 140/80 Blood Pressure 94/62( 025 11:51 AM EDT) No Maria Dolores Shearer HEMOGLOBIN A1C % < 7 Result Component 8.6( 1:13 PM EDT) No Jolene Tristan CMA documented as of this encounter Procedures * Due to [place] state law, this organization might not be sharing negative HIV tests. Procedure Name Priority Date/Time Associated Diagnosis Comments HEMOGLOBIN A1C Routine 11/24/2018 7:18 AM EST Type 2 diabetes mellitus with complication, with long-term current use of insulin ALBUMIN (MICROALBUMIN), RANDOM URINE, WITH CREATININE Routine 11/24/2018 7:18 AM EST Diabetes mellitus without complication HEPATIC FUNCTION PANEL (ALT,AST,ALK PH,BILI'S,TP,ALB) Routine 11/24/2018 7:18 AM EST Mixed hyperlipidemia LIPID PANEL WITH REFLEX TO DIRECT LDL Routine 11/24/2018 7:18 AM EST Mixed hyperlipidemia BASIC METABOLIC PANEL WITH (GFR) Routine 11/24/2018 7:18 AM EST HTN (hypertension) documented in this encounter Results * Due to [place] state law, this organization might not be sharing negative HIV tests. * ALBUMIN (MICROALBUMIN), RANDOM URINE, WITH CREATININE (11/24/2018 7:18 AM EST) Creatinine (Urine) 192 20 - 320 mg/dL [facility] Albumin (Urine) 0.9 mg/dL [facility] Comment: Reference Range Not established Albumin/Creatinine (Urine) 5 <30 mcg/mg creat [facility] Comment: The ADA defines abnormalities in albumin excretion as follows: Category Result (mcg/mg creatinine) Normal <30 Microalbuminuria 30-299 Clinical albuminuria > OR = 300 The ADA recommends that at least two of three specimens collected within a 3-6 month period be abnormal before considering a patient to be within a diagnostic category. 11/24/2018 7:18 AM EST 11/24/2018 4:09 PM EST Narrative Resulting Agency Comment [id number] us Maria Dolores Shearer MD LABORATORY Final Result [facility] [address] [place] [address] * HEPATIC FUNCTION PANEL (ALT,AST,ALK PH,BILI'S,TP,ALB) (11/24/2018 7:18 AM EST) Protein Total (Serum) 6.9 6.1 - 8.1 g/dL [facility] Albumin 4.7 3.6 - 5.1 g/dL [facility] Globulin 2.2 1.9 - 3.7 g/dL (calc) [facility] Albumin/Globulin 2.1 1.0 - 2.5 (calc) [facility] Bilirubin Total 0.5 0.2 - 1.2 mg/dL [facility] Bilirubin Direct 0.1 < OR = 0.2 mg/dL [facility] Bilirubin Indirect 0.4 0.2 - 1.2 mg/dL (calc) [facility] Alkaline phosphatase 54 40 - 115 U/L [facility] AST (SGOT) 15 10 - 40 U/L [facility] ALT (SGPT) 14 9 - 46 U/L [facility] 11/24/2018 7:18 AM EST 11/24/2018 4:09 PM EST Narrative Resulting Agency Comment [id number] us Maria Dolores Shearer MD LABORATORY Final Result Performing Organization Address [facility] de Phone Number [facility] [address] [place] [address] * (ABNORMAL) HEMOGLOBIN A1C (11/24/2018 7:18 AM EST) Hemoglobin A1C 7.4(H) <5.7 % of total Hgb [facility] Comment: For someone without known [...] of diabetes for children. Estimated Average Glucose 186 mg/dL (calc) [facility] 11/24/2018 7:18 AM EST 11/24/2018 4:09 PM EST Narrative Resulting Agency Comment [id number] us Maria Dolores Shearer MD LABORATORY Final Result Performing Organization Address [facility] de Phone Number [facility] [address] [place] [address] * (ABNORMAL) LIPID PANEL WITH REFLEX TO DIRECT LDL (11/24/2018 7:18 AM EST) Cholesterol 194 <200 mg/dL [facility] HDL Cholesterol 42 >40 mg/dL [facility] Triglyceride 120 <150 mg/dL [facility] LDL Cholesterol 129(H) mg/dL (calc) [facility] Comment: Reference range: <100 Desirable range <100 mg/dL for primary prevention; <70 mg/dL for patients with CHD or diabetic patients with > or = 2 CHD risk factors. LDL-C is now calculated using the Surya-Medley calculation, which is a validated novel method providing better accuracy than the Friedewald equation in the estimation of LDL-C. Surya SS et al. MIYA. 2013;310(19): 2522-6582 (http://education.AFreeze/faq/WUG651) CHOL/HDL Ratio 4.6 <5.0 (calc) [facility] Cholesterol Non-HDL 152(H) <130 mg/dL (calc) [facility] Comment: For patients with diabetes plus 1 major ASCVD risk factor, treating to a non-HDL-C goal of <100 mg/dL (LDL-C of <70 mg/dL) is considered a therapeutic option. 11/24/2018 7:18 AM EST 11/24/2018 4:09 PM EST Narrative Resulting Agency Comment [id number] us Maria Dolores Shearer MD LABORATORY Final Result [facility] [address] [place] [address] * (ABNORMAL) BASIC METABOLIC PANEL WITH (GFR) (11/24/2018 7:18 AM EST) Glucose 136(H) 65 - 99 mg/dL [facility] Comment: Fasting reference interval For someone without known diabetes, a glucose value >125 mg/dL indicates that they may have diabetes and this should be confirmed with a follow-up test. Urea Nitrogen Blood (BUN) 14 7 - 25 mg/dL [facility] Creatinine 0.85 0.60 - 1.35 mg/dL [facility] EGFR 107 > OR = 60 mL/min/1. 73m2 [facility] GFR () 124 > OR = 60 mL/min/1. 73m2 [facility] BUN/Creatinine Ratio NOT APPLICABLE 6 - 22 (calc) [facility] Sodium 141 135 - 146 mmol/L [facility] Potassium 4.1 3.5 - 5.3 mmol/L [facility] Chloride 102 98 - 110 mmol/L [facility] Carbon dioxide 27 20 - 32 mmol/L [facility] Calcium 9.6 8.6 - 10.3 mg/dL [facility] 11/24/2018 7:18 AM EST 11/24/2018 4:09 PM EST Narrative [facility] - 11/24/2018 5:59 PM EST Please note that this estimated [...] needs for GFR calculation. Resulting Agency Comment [id number] us Maria Dolores Shearer MD LABORATORY Final Result Performing Organization Address City/State/[facility] Co de Phone Number [facility] [address] [place] [address] documented in this encounter Visit Diagnoses Diagnosis HTN (hypertension) Essential hypertension, benign Mixed hyperlipidemia Type 2 diabetes mellitus with complication, with long-term current use of insulin (HCC) Diabetes mellitus without complication (HCC) Type II or unspecified type diabetes mellitus without mention of complication, not stated as uncontrolled documented in this encounter Additional Health Concerns Infection Onset Date Last Indicated Resolved Time COVID-19 Rule-Out 07/18/2020 07/18/2020 07/20/2020 11:31 AM EDT COVID-19 Rule-Out 09/18/2020 09/18/2020 09/21/2020 1:43 PM EST COVID-19 Confirmed 09/18/2020 09/18/2020 1 8:12 PM EST documented as of this encounter Care Teams Shell Shop Supervisor Relationship Specialty Start Date End Date Maria Dolores Shearer MD PCP - General Internal Medicine 10/25/12 10/29/23 Roger Walker MD [address] [place] [address] PCP - General Family Medicine 10/30/23 Andreea Herron OD Manager Store Optometry 02/20/17 documented as of this encounter
--- OUTSIDE RECORDS SUMMARY | 2025-06-23 19:04 | XMS_ITS | Clinical Summary ---
Author Organization [facility] Address [address] [place] [address] Care Team Providers Care Commercial Food Instructor Name Role Phone Roger Walker MD Primary Care Provider + [phone] Allergies No known active allergies Medications acetaminophen (TYLENOL) 325 mg tablet Take 2 tablets (650 mg total) by mouth every 6 hours as needed for fever or pain. 11/19/19 Active dextrose (GLUTOSE) 40% gel Take 37.5 mL (15 g total) by mouth every 15 minutes as needed (For a blood glucose less than 70, in a conscious patient taking PO; May alternatively give 4 oz of non-diabetic juice.). 11/19/19 Active Additional Information Patient not taking.Reported on 06/03/2025 enoxaparin (LOVENOX) 40 mg/0.4 mL subcutaneous injection Inject 0.4 mL (40 mg total) under the skin daily. 11/19/19 25 Active Additional Information Patient not taking.Reported on 06/03/2025 labetaloL (NORMODYNE) 300 mg tablet Take 1 tablet (300 mg total) by mouth every 8 hours. 11/19/19 25 Active lactobacillus acidophilus-L. bulgaricus (FLORANEX) 1 million cell tablet Take 1 tablet by mouth 3 times a day. 11/19/19 25 Active losartan (COZAAR) 100 mg tablet Take 1 tablet (100 mg total) by mouth once a day. 11/19/19 Active Additional Information Patient not taking.Reported on 06/03/2025 ascorbic acid (VITAMIN C) 500 mg tablet Take 1 tablet (500 mg total) by mouth 2 times a day. 11/19/19 Active Additional Information Patient not taking.Reported on 06/03/2025 multivitamin tablet Take 1 tablet by mouth once a day. 11/20/19 Active clopidogreL (PLAVIX) 75 mg tablet Take 75 mg by mouth once a day. Active amLODIPine (NORVASC) 10 mg tablet Take 0.5 tablets (5 mg total) by mouth once a day. 03/10/20 Active spucp-flbn-LfOXV -rqqokl-cc-yqh (JASON WITH COLLAGEN) 7-7-1.5 gram powder in packet Take 1 packet by mouth 2 times a day. 03/10/20 Active Additional Information Patient not taking.Reported on 06/03/2025 ferrous sulfate 325 mg (65 mg iron) EC tablet Take 1 tablet (325 mg total) by mouth every other day. 03/11/20 Active hydrALAZINE (APRESOLINE) 25 mg tablet Take 1 tablet (25 mg total) by mouth every 8 hours. 03/10/20 Active insulin glargine-yfgn (SEMGLEE) injection 100 units/mL vial Inject 18 Units under the skin nightly. 03/10/20 Active insulin lispro injection 100 units/mL vial Inject 1-4 Units under the skin nightly. 03/10/20 Active insulin lispro injection 100 units/mL vial Inject 1-5 Units under the skin 3 times a day with meals. 03/10/20 Active insulin lispro injection 100 units/mL vial Inject 3 Units under the skin 3 times a day with meals. 03/10/20 Active loperamide (IMODIUM) 2 mg capsule Take 1 capsule (2 mg total) by mouth 4 times a day as needed for diarrhea. 03/10/20 Active Additional Information Patient not taking.Reported on 06/03/2025 sodium chloride 0.9% injection Infuse 10-20 mL intravenously See admin instructions. 03/10/20 Active sodium chloride 0.9% injection Infuse 10-20 mL intravenously once a day. 03/11/20 Active sodium chloride 0.9% injection Infuse 10-30 mL intravenously See admin instructions. 03/10/20 Active sodium chloride 0.9% injection Infuse 10-30 mL intravenously once a day. 03/11/20 Active clopidogreL (PLAVIX) 75 mg tablet 1 tablet DAILY (route: oral) 12/30/19 Active labetaloL (NORMODYNE) 300 mg tablet Take 300 mg by mouth 3 times daily. 01/29/20 Active collagenase (SantyL) ointment Apply topically to the affected area once a day. Wound dimensions: 0.8 x 0.6 x 0.5 cm 30 g 3 05/22/20 Active Additional Information Patient not taking.Reported on 06/03/2025 sulfamethoxazole -trimethoprim (BACTRIM DS) 800-160 mg tablet Take 1 tablet by mouth 2 times a day. 60 tablet 05/05/20 025 Additional Information Patient not taking.Reported on 06/03/2025 levoFLOXacin (LEVAQUIN) 500 mg tablet Take 1 tablet (500 mg total) by mouth once a day. 30 tablet 05/05/20 025 Active Problems Problem Noted Date Diagnosed Date MRSA (methicillin resistant Staphylococcus aureus) infection 03/23/2025 Enterococcus faecalis infection 03/23/2025 Sequela of Corynebacterium infection 03/23/2025 Polymicrobial bacterial infection 03/23/2025 Acute hematogenous osteomyelitis of left foot Assessment & Plan (03/10/2025 3:03 PM EDT): Patient with history of longstanding poorly controlled type diabetes mellitus with recent amputation of 4th and 5th left foot metatarsals who presented with discoloration of the left third toe. Left foot x-ray status post transmetatarsal amputation for the fifth digits. Irregularity of the fourth metatarsal osteotomy as well as erosion of the 2nd and 3rd metatarsal head, the third digit and the base of second digit concerning for osteomyelitis. He was evaluated by vascular surgery who recommended CTA left lower extremity and MRI of the left foot. CTA showed osseous erosions of third metatarsal head and third proximal phalanx with soft tissue gas, subtle erosion of 2nd metatarsal head. MRI left foot not yet performed. S/p 1st metatarsal toe amputation on 5/5 with podiatry. MRSA positive 02/13. X-ray foot and ankle left 3+ views on 02/15. GRETEL/TBI 02/16 wnl. -Continue vancomycin and Zosyn IV to complete 6 week course -vascular surgery and podiatry consulted, discussed with the team 02/23 daily wound dressing by nursing and follow up as outpatient. Please schedule follow up appt within next 1-2 weeks. - blood cultures x2 02/12, 02/13 negative. - 02/14 intra-op cultures, +MRSA and +arcanobacterium haemolyticum,anaerococcus enterococcus faecalis and corynebacterium striatum -ID consulted for Abx guidance, given intra op Bone biopsy showing acute osteomyelitis of the bone proximal to the 3rd digit -> recc 6 wk IV abx - monitor vanco trough weekly on Friday, monitor renal function weekly on Friday DISCHARGE INSTRUCTIONS: Indication for IV/PO antibiotics: Foot Osteo Continue Parenteral Piperacillin/Tazobactam 4.5 g three times daily & Parenteral Vancomycin with target trough of 15-20 Plan is to complete 6 weeks of antimicrobial therapy from 02/21. Pending results: None End date of antimicrobial therapy: 04/04 Suppressive antibiotic therapy?: No Line: It can be removed at the completion of therapy unless necessary for another speciality. Please remove PICC line after completion of antibiotic therapy, if not needed by other services. Please call to verify removal beforehand. Outpatient labs to be drawn weekly (Please have results faxed attention outpatient ID team CBC w/ diff, CMP, and Vanco Trough every Friday Assessment & Plan (03/09/2025 7:15 PM EDT): Patient with history of longstanding poorly controlled type diabetes mellitus with recent amputation of 4th and 5th left foot metatarsals who presented with discoloration of the left third toe. Left foot x-ray status post transmetatarsal amputation for the fifth digits. Irregularity of the fourth metatarsal osteotomy as well as erosion of the 2nd and 3rd metatarsal head, the third digit and the base of second digit concerning for osteomyelitis. He was evaluated by vascular surgery who recommended CTA left lower extremity and MRI of the left foot. CTA showed osseous erosions of third metatarsal head and third proximal phalanx with soft tissue gas, subtle erosion of 2nd metatarsal head. MRI left foot not yet performed. S/p 1st metatarsal toe amputation on 02/14 with podiatry. MRSA positive 02/13. X-ray foot and ankle left 3+ views on 02/15. GRETEL/TBI 02/16 wnl. -Continue vancomycin and Zosyn IV to complete 6 week course -vascular surgery and podiatry consulted, discussed with the team 02/23 daily wound dressing by nursing and follow up as outpatient - blood cultures x2 02/12, 02/13 negative. - 02/14 intra-op cultures, +MRSA and +arcanobacterium haemolyticum,anaerococcus enterococcus faecalis and corynebacterium striatum -ID consulted for Abx guidance, given intra op Bone biopsy showing acute osteomyelitis of the bone proximal to the 3rd digit -> recc 6 wk IV abx - monitor vanco trough weekly on Friday, monitor renal function weekly on Friday DISCHARGE INSTRUCTIONS: Indication for IV/PO antibiotics: Foot Osteo Continue Parenteral Piperacillin/Tazobactam 4.5 g three times daily & Parenteral Vancomycin with target trough of 15-20 Plan is to complete 6 weeks of antimicrobial therapy from 02/21. Pending results: None End date of antimicrobial therapy: 04/04 Suppressive antibiotic therapy?: No Line: It can be removed at the completion of therapy unless necessary for another speciality. Please remove PICC line after completion of antibiotic therapy, if not needed by other services. Please call to verify removal beforehand. Outpatient labs to be drawn weekly (Please have results faxed attention outpatient ID team CBC w/ diff, CMP, and Vanco Trough every Friday Assessment & Plan (2025 11:03 AM EDT): Patient with history of longstanding poorly controlled type diabetes mellitus with recent amputation of 4th and 5th left foot metatarsals who presented with discoloration of the left third toe. Left foot x-ray status post transmetatarsal amputation for the fifth digits. Irregularity of the fourth metatarsal osteotomy as well as erosion of the 2nd and 3rd metatarsal head, the third digit and the base of second digit concerning for osteomyelitis. He was evaluated by vascular surgery who recommended CTA left lower extremity and MRI of the left foot. CTA showed osseous erosions of third metatarsal head and third proximal phalanx with soft tissue gas, subtle erosion of 2nd metatarsal head. MRI left foot not yet performed. S/p 1st metatarsal toe amputation on 02/14 with podiatry. MRSA positive 02/13. X-ray foot and ankle left 3+ views on 02/15. GRETEL/TBI 02/16 wnl. -monitor CBC closely -Continue vancomycin and Zosyn IV -vascular surgery and podiatry consulted, discussed with the team 02/23 daily wound dressing by nursing and follow up as outpatient -Follow-up blood cultures x2 02/12, 02/13 negative. -Follow up 02/14 intra-op cultures, +MRSA and +arcanobacterium haemolyticum,anaerococcus enterococcus faecalis and corynebacterium striatum -ID consulted for Abx guidance, with recommendation to continue IV vanc and IV zosyn and if surgical pathology show resection margins free of inflammation, then Abx could be stopped. Bone biopsy showing acute osteomyelitis of the bone proximal to the 3rd digit - monitor vanco trough, monitor renal function closely. Vanco trough scheduled for 03/07. s/p TMP amputation 1-4 on 02/21 and secondary closure of surgical wound. Biopsy from 02/21 showed osteomyelitis. PICC line ordered and since podiatry does not plan for any surgical intervention, ID recommended total of 6 weeks of vancomycin and zosyn.. DISCHARGE INSTRUCTIONS: Indication for IV/PO antibiotics: Foot Osteo Continue Parenteral Piperacillin/Tazobactam 4.5 g three times daily & Parenteral Vancomycin with target trough of 15-20 Plan is to complete 6 weeks of antimicrobial therapy from 02/21. Pending results: None End date of antimicrobial therapy: 04/04 Suppressive antibiotic therapy?: No Line: It can be removed at the completion of therapy unless necessary for another speciality. Please remove PICC line after completion of antibiotic therapy, if not needed by other services. Please call to verify removal beforehand. Is follow-up imaging/EKG indicated?: No follow-up imaging indicated. Outpatient labs to be drawn weekly (Please have results faxed attention outpatient team identified below). CBC w/ diff, CMP, and Vanco Trough Last Creatinine: 1.22 mg/dL Assessment & Plan (03/07/2025 11:30 AM EDT): Patient with history of longstanding poorly controlled type diabetes mellitus with recent amputation of 4th and 5th left foot metatarsals who presented with discoloration of the left third toe. Left foot x-ray status post transmetatarsal amputation for the fifth digits. Irregularity of the fourth metatarsal osteotomy as well as erosion of the 2nd and 3rd metatarsal head, the third digit and the base of second digit concerning for osteomyelitis. He was evaluated by vascular surgery who recommended CTA left lower extremity and MRI of the left foot. CTA showed osseous erosions of third metatarsal head and third proximal phalanx with soft tissue gas, subtle erosion of 2nd metatarsal head. MRI left foot not yet performed. S/p 1st metatarsal toe amputation on 02/14 with podiatry. MRSA positive 02/13. X-ray foot and ankle left 3+ views on 02/15. GRETEL/TBI 02/16 wnl. -monitor CBC closely -Continue vancomycin and Zosyn IV -vascular surgery and podiatry consulted, discussed with the team 02/23 daily wound dressing by nursing and follow up as outpatient -Follow-up blood cultures x2 02/12, 02/13 negative. -Follow up 02/14 intra-op cultures, +MRSA and +arcanobacterium haemolyticum,anaerococcus enterococcus faecalis and corynebacterium striatum -ID consulted for Abx guidance, with recommendation to continue IV vanc and IV zosyn and if surgical pathology show resection margins free of inflammation, then Abx could be stopped. Bone biopsy showing acute osteomyelitis of the bone proximal to the 3rd digit - monitor vanco trough, monitor renal function closely. Vanco trough scheduled for 03/07. s/p TMP amputation 1-4 on 02/21 and secondary closure of surgical wound. Biopsy from 02/21 showed osteomyelitis. PICC line ordered and since podiatry does not plan for any surgical intervention, ID recommended total of 6 weeks of vancomycin and zosyn.. DISCHARGE INSTRUCTIONS: Indication for IV/PO antibiotics: Foot Osteo Continue Parenteral Piperacillin/Tazobactam 4.5 g three times daily & Parenteral Vancomycin with target trough of 15-20 Plan is to complete 6 weeks of antimicrobial therapy from 02/21. Pending results: None End date of antimicrobial therapy: 04/04 Suppressive antibiotic therapy?: No Line: It can be removed at the completion of therapy unless necessary for another speciality. Please remove PICC line after completion of antibiotic therapy, if not needed by other services. Please call to verify removal beforehand. Is follow-up imaging/EKG indicated?: No follow-up imaging indicated. Outpatient labs to be drawn weekly (Please have results faxed attention outpatient team identified below). CBC w/ diff, CMP, and Vanco Trough Assessment & Plan (03/06/2025 5:01 PM EDT): Patient with history of longstanding poorly controlled type diabetes mellitus with recent amputation of 4th and 5th left foot metatarsals who presented with discoloration of the left third toe. Left foot x-ray status post transmetatarsal amputation for the fifth digits. Irregularity of the fourth metatarsal osteotomy as well as erosion of the 2nd and 3rd metatarsal head, the third digit and the base of second digit concerning for osteomyelitis. He was evaluated by vascular surgery who recommended CTA left lower extremity and MRI of the left foot. CTA showed osseous erosions of third metatarsal head and third proximal phalanx with soft tissue gas, subtle erosion of 2nd metatarsal head. MRI left foot not yet performed. S/p 1st metatarsal toe amputation on 02/14 with podiatry. MRSA positive 02/13. X-ray foot and ankle left 3+ views on 02/15. GRETEL/TBI 02/16 wnl. -monitor CBC closely -Continue vancomycin and Zosyn IV -vascular surgery and podiatry consulted, discussed with the team 02/23 daily wound dressing by nursing and follow up as outpatient -Follow-up blood cultures x2 02/12, 02/13 negative. -Follow up 02/14 intra-op cultures, +MRSA and +arcanobacterium haemolyticum,anaerococcus enterococcus faecalis and corynebacterium striatum -ID consulted for Abx guidance, with recommendation to continue IV vanc and IV zosyn and if surgical pathology show resection margins free of inflammation, then Abx could be stopped. Bone biopsy showing acute osteomyelitis of the bone proximal to the 3rd digit - monitor vanco trough, monitor renal function closely. Vanco trough scheduled for 03/07. s/p TMP amputation 1-4 on 02/21 and secondary closure of surgical wound. Biopsy from 02/21 showed osteomyelitis. PICC line ordered and since podiatry does not plan for any surgical intervention, ID recommended total of 6 weeks of vancomycin and zosyn.. DISCHARGE INSTRUCTIONS: Indication for IV/PO antibiotics: Foot Osteo Continue Parenteral Piperacillin/Tazobactam 4.5 g three times daily & Parenteral Vancomycin with target trough of 15-20 Plan is to complete 6 weeks of antimicrobial therapy from 02/21. Pending results: None End date of antimicrobial therapy: 04/04 Suppressive antibiotic therapy?: No Line: It can be removed at the completion of therapy unless necessary for another speciality. Please remove PICC line after completion of antibiotic therapy, if not needed by other services. Please call to verify removal beforehand. Is follow-up imaging/EKG indicated?: No follow-up imaging indicated. Outpatient labs to be drawn weekly (Please have results faxed attention outpatient team identified below). CBC w/ diff, CMP, and Vanco Trough Assessment & Plan (03/05/2025 3:44 PM EDT): Assessment & Plan (03/04/2025 3:42 PM EDT): Assessment & Plan (03/03/2025 2:30 PM EDT): Assessment & Plan (03/02/2025 3:08 PM EDT): Assessment & Plan (03/01/2025 4:06 PM EDT): Assessment & Plan (02/28/2025 5:11 PM EDT): Assessment & Plan (02/27/2025 2:22 PM EDT): Assessment & Plan (02/26/2025 12:09 PM EDT): Assessment & Plan (02/25/2025 12:42 PM EDT): Assessment & Plan (02/24/2025 2:51 PM EDT): Assessment & Plan (02/23/2025 4:08 PM EDT): Assessment & Plan (02/22/2025 2:32 PM EDT): Diabetic infection of left foot 02/13/2025 Assessment & Plan (03/10/2025 3:03 PM EDT): Patient with history of longstanding poorly controlled type diabetes mellitus with recent amputation of 4th and 5th left foot metatarsals who presented with discoloration of the left third toe. Left foot x-ray status post transmetatarsal amputation for the fifth digits. Irregularity of the fourth metatarsal osteotomy as well as erosion of the 2nd and 3rd metatarsal head, the third digit and the base of second digit concerning for osteomyelitis. He was evaluated by vascular surgery who recommended CTA left lower extremity and MRI of the left foot. CTA showed osseous erosions of third metatarsal head and third proximal phalanx with soft tissue gas, subtle erosion of 2nd metatarsal head. MRI left foot not yet performed. S/p 1st metatarsal toe amputation on 02/14 with podiatry. MRSA positive 02/13. X-ray foot and ankle left 3+ views on 02/15. GRETEL/TBI 02/16 wnl. -Continue vancomycin and Zosyn IV to complete 6 week course -vascular surgery and podiatry consulted, discussed with the team 02/23 daily wound dressing by nursing and follow up as outpatient. Please schedule follow up appt within next 1-2 weeks. - blood cultures x2 02/12, 02/13 negative. - 02/14 intra-op cultures, +MRSA and +arcanobacterium haemolyticum,anaerococcus enterococcus faecalis and corynebacterium striatum -ID consulted for Abx guidance, given intra op Bone biopsy showing acute osteomyelitis of the bone proximal to the 3rd digit -> recc 6 wk IV abx - monitor vanco trough weekly on Friday, monitor renal function weekly on Friday DISCHARGE INSTRUCTIONS: Indication for IV/PO antibiotics: Foot Osteo Continue Parenteral Piperacillin/Tazobactam 4.5 g three times daily & Parenteral Vancomycin with target trough of 15-20 Plan is to complete 6 weeks of antimicrobial therapy from 02/21. Pending results: None End date of antimicrobial therapy: 04/04 Suppressive antibiotic therapy?: No Line: It can be removed at the completion of therapy unless necessary for another speciality. Please remove PICC line after completion of antibiotic therapy, if not needed by other services. Please call to verify removal beforehand. Outpatient labs to be drawn weekly (Please have results faxed attention outpatient ID team CBC w/ diff, CMP, and Vanco Trough every Friday Assessment & Plan (03/09/2025 7:15 PM EDT): Patient with history of longstanding poorly controlled type diabetes mellitus with recent amputation of 4th and 5th left foot metatarsals who presented with discoloration of the left third toe. Left foot x-ray status post transmetatarsal amputation for the fifth digits. Irregularity of the fourth metatarsal osteotomy as well as erosion of the 2nd and 3rd metatarsal head, the third digit and the base of second digit concerning for osteomyelitis. He was evaluated by vascular surgery who recommended CTA left lower extremity and MRI of the left foot. CTA showed osseous erosions of third metatarsal head and third proximal phalanx with soft tissue gas, subtle erosion of 2nd metatarsal head. MRI left foot not yet performed. S/p 1st metatarsal toe amputation on 02/14 with podiatry. MRSA positive 02/13. X-ray foot and ankle left 3+ views on 02/15. GRETEL/TBI 02/16 wnl. -Continue vancomycin and Zosyn IV to complete 6 week course -vascular surgery and podiatry consulted, discussed with the team 02/23 daily wound dressing by nursing and follow up as outpatient - blood cultures x2 02/12, 02/13 negative. - 02/14 intra-op cultures, +MRSA and +arcanobacterium haemolyticum,anaerococcus enterococcus faecalis and corynebacterium striatum -ID consulted for Abx guidance, given intra op Bone biopsy showing acute osteomyelitis of the bone proximal to the 3rd digit -> recc 6 wk IV abx - monitor vanco trough weekly on Friday, monitor renal function weekly on Friday DISCHARGE INSTRUCTIONS: Indication for IV/PO antibiotics: Foot Osteo Continue Parenteral Piperacillin/Tazobactam 4.5 g three times daily & Parenteral Vancomycin with target trough of 15-20 Plan is to complete 6 weeks of antimicrobial therapy from 02/21. Pending results: None End date of antimicrobial therapy: 04/04 Suppressive antibiotic therapy?: No Line: It can be removed at the completion of therapy unless necessary for another speciality. Please remove PICC line after completion of antibiotic therapy, if not needed by other services. Please call to verify removal beforehand. Outpatient labs to be drawn weekly (Please have results faxed attention outpatient ID team CBC w/ diff, CMP, and Vanco Trough every Friday Assessment & Plan (2025 11:03 AM EDT): Patient with history of longstanding poorly controlled type diabetes mellitus with recent amputation of 4th and 5th left foot metatarsals who presented with discoloration of the left third toe. Left foot x-ray status post transmetatarsal amputation for the fifth digits. Irregularity of the fourth metatarsal osteotomy as well as erosion of the 2nd and 3rd metatarsal head, the third digit and the base of second digit concerning for osteomyelitis. He was evaluated by vascular surgery who recommended CTA left lower extremity and MRI of the left foot. CTA showed osseous erosions of third metatarsal head and third proximal phalanx with soft tissue gas, subtle erosion of 2nd metatarsal head. MRI left foot not yet performed. S/p 1st metatarsal toe amputation on 02/14 with podiatry. MRSA positive 02/13. X-ray foot and ankle left 3+ views on 02/15. GRETEL/TBI 02/16 wnl. -monitor CBC closely -Continue vancomycin and Zosyn IV -vascular surgery and podiatry consulted, discussed with the team 02/23 daily wound dressing by nursing and follow up as outpatient -Follow-up blood cultures x2 02/12, 02/13 negative. -Follow up 02/14 intra-op cultures, +MRSA and +arcanobacterium haemolyticum,anaerococcus enterococcus faecalis and corynebacterium striatum -ID consulted for Abx guidance, with recommendation to continue IV vanc and IV zosyn and if surgical pathology show resection margins free of inflammation, then Abx could be stopped. Bone biopsy showing acute osteomyelitis of the bone proximal to the 3rd digit - monitor vanco trough, monitor renal function closely. Vanco trough scheduled for 03/07. s/p TMP amputation 1-4 on 02/21 and secondary closure of surgical wound. Biopsy from 02/21 showed osteomyelitis. PICC line ordered and since podiatry does not plan for any surgical intervention, ID recommended total of 6 weeks of vancomycin and zosyn.. DISCHARGE INSTRUCTIONS: Indication for IV/PO antibiotics: Foot Osteo Continue Parenteral Piperacillin/Tazobactam 4.5 g three times daily & Parenteral Vancomycin with target trough of 15-20 Plan is to complete 6 weeks of antimicrobial therapy from 02/21. Pending results: None End date of antimicrobial therapy: 04/04 Suppressive antibiotic therapy?: No Line: It can be removed at the completion of therapy unless necessary for another speciality. Please remove PICC line after completion of antibiotic therapy, if not needed by other services. Please call to verify removal beforehand. Is follow-up imaging/EKG indicated?: No follow-up imaging indicated. Outpatient labs to be drawn weekly (Please have results faxed attention outpatient team identified below). CBC w/ diff, CMP, and Vanco Trough Last Creatinine: 1.22 mg/dL Assessment & Plan (03/07/2025 11:30 AM EDT): Patient with history of longstanding poorly controlled type diabetes mellitus with recent amputation of 4th and 5th left foot metatarsals who presented with discoloration of the left third toe. Left foot x-ray status post transmetatarsal amputation for the fifth digits. Irregularity of the fourth metatarsal osteotomy as well as erosion of the 2nd and 3rd metatarsal head, the third digit and the base of second digit concerning for osteomyelitis. He was evaluated by vascular surgery who recommended CTA left lower extremity and MRI of the left foot. CTA showed osseous erosions of third metatarsal head and third proximal phalanx with soft tissue gas, subtle erosion of 2nd metatarsal head. MRI left foot not yet performed. S/p 1st metatarsal toe amputation on 02/14 with podiatry. MRSA positive 02/13. X-ray foot and ankle left 3+ views on 02/15. GRETEL/TBI 02/16 wnl. -monitor CBC closely -Continue vancomycin and Zosyn IV -vascular surgery and podiatry consulted, discussed with the team 02/23 daily wound dressing by nursing and follow up as outpatient -Follow-up blood cultures x2 02/12, 02/13 negative. -Follow up 02/14 intra-op cultures, +MRSA and +arcanobacterium haemolyticum,anaerococcus enterococcus faecalis and corynebacterium striatum -ID consulted for Abx guidance, with recommendation to continue IV vanc and IV zosyn and if surgical pathology show resection margins free of inflammation, then Abx could be stopped. Bone biopsy showing acute osteomyelitis of the bone proximal to the 3rd digit - monitor vanco trough, monitor renal function closely. Vanco trough scheduled for 03/07. s/p TMP amputation 1-4 on 02/21 and secondary closure of surgical wound. Biopsy from 02/21 showed osteomyelitis. PICC line ordered and since podiatry does not plan for any surgical intervention, ID recommended total of 6 weeks of vancomycin and zosyn.. DISCHARGE INSTRUCTIONS: Indication for IV/PO antibiotics: Foot Osteo Continue Parenteral Piperacillin/Tazobactam 4.5 g three times daily & Parenteral Vancomycin with target trough of 15-20 Plan is to complete 6 weeks of antimicrobial therapy from 02/21. Pending results: None End date of antimicrobial therapy: 04/04 Suppressive antibiotic therapy?: No Line: It can be removed at the completion of therapy unless necessary for another speciality. Please remove PICC line after completion of antibiotic therapy, if not needed by other services. Please call to verify removal beforehand. Is follow-up imaging/EKG indicated?: No follow-up imaging indicated. Outpatient labs to be drawn weekly (Please have results faxed attention outpatient team identified below). CBC w/ diff, CMP, and Vanco Trough Assessment & Plan (03/06/2025 5:01 PM EDT): Patient with history of longstanding poorly controlled type diabetes mellitus with recent amputation of 4th and 5th left foot metatarsals who presented with discoloration of the left third toe. Left foot x-ray status post transmetatarsal amputation for the fifth digits. Irregularity of the fourth metatarsal osteotomy as well as erosion of the 2nd and 3rd metatarsal head, the third digit and the base of second digit concerning for osteomyelitis. He was evaluated by vascular surgery who recommended CTA left lower extremity and MRI of the left foot. CTA showed osseous erosions of third metatarsal head and third proximal phalanx with soft tissue gas, subtle erosion of 2nd metatarsal head. MRI left foot not yet performed. S/p 1st metatarsal toe amputation on 02/14 with podiatry. MRSA positive 02/13. X-ray foot and ankle left 3+ views on 02/15. GRETEL/TBI 02/16 wnl. -monitor CBC closely -Continue vancomycin and Zosyn IV -vascular surgery and podiatry consulted, discussed with the team 02/23 daily wound dressing by nursing and follow up as outpatient -Follow-up blood cultures x2 02/12, 02/13 negative. -Follow up 02/14 intra-op cultures, +MRSA and +arcanobacterium haemolyticum,anaerococcus enterococcus faecalis and corynebacterium striatum -ID consulted for Abx guidance, with recommendation to continue IV vanc and IV zosyn and if surgical pathology show resection margins free of inflammation, then Abx could be stopped. Bone biopsy showing acute osteomyelitis of the bone proximal to the 3rd digit - monitor vanco trough, monitor renal function closely. Vanco trough scheduled for 03/07. s/p TMP amputation 1-4 on 02/21 and secondary closure of surgical wound. Biopsy from 02/21 showed osteomyelitis. PICC line ordered and since podiatry does not plan for any surgical intervention, ID recommended total of 6 weeks of vancomycin and zosyn.. DISCHARGE INSTRUCTIONS: Indication for IV/PO antibiotics: Foot Osteo Continue Parenteral Piperacillin/Tazobactam 4.5 g three times daily & Parenteral Vancomycin with target trough of 15-20 Plan is to complete 6 weeks of antimicrobial therapy from 02/21. Pending results: None End date of antimicrobial therapy: 04/04 Suppressive antibiotic therapy?: No Line: It can be removed at the completion of therapy unless necessary for another speciality. Please remove PICC line after completion of antibiotic therapy, if not needed by other services. Please call to verify removal beforehand. Is follow-up imaging/EKG indicated?: No follow-up imaging indicated. Outpatient labs to be drawn weekly (Please have results faxed attention outpatient team identified below). CBC w/ diff, CMP, and Vanco Trough Assessment & Plan (03/05/2025 3:44 PM EDT): Patient with history of longstanding poorly controlled type diabetes mellitus with recent amputation of 4th and 5th left foot metatarsals who presented with discoloration of the left third toe. Left foot x-ray status post transmetatarsal amputation for the fifth digits. Irregularity of the fourth metatarsal osteotomy as well as erosion of the 2nd and 3rd metatarsal head, the third digit and the base of second digit concerning for osteomyelitis. He was evaluated by vascular surgery who recommended CTA left lower extremity and MRI of the left foot. CTA showed osseous erosions of third metatarsal head and third proximal phalanx with soft tissue gas, subtle erosion of 2nd metatarsal head. MRI left foot not yet performed. S/p 1st metatarsal toe amputation on 02/14 with podiatry. MRSA positive 02/13. X-ray foot and ankle left 3+ views on 02/15. GRETEL/TBI 02/16 wnl. -monitor CBC closely -Continue vancomycin and Zosyn IV -vascular surgery and podiatry consulted, discussed with the team 02/23 daily wound dressing by nursing and follow up as outpatient -Follow-up blood cultures x2 02/12, 02/13 negative. -Follow up 02/14 intra-op cultures, +MRSA and +arcanobacterium haemolyticum,anaerococcus enterococcus faecalis and corynebacterium striatum -ID consulted for Abx guidance, with recommendation to continue IV vanc and IV zosyn and if surgical pathology show resection margins free of inflammation, then Abx could be stopped. Bone biopsy showing acute osteomyelitis of the bone proximal to the 3rd digit - monitor vanco trough, monitor renal function closely s/p TMP amputation 1-4 on 02/21 and secondary closure of surgical wound. Biopsy from 02/21 showed osteomyelitis. PICC line ordered and since podiatry does not plan for any surgical intervention, ID recommended total of 6 weeks of vancomycin and zosyn.. DISCHARGE INSTRUCTIONS: Indication for IV/PO antibiotics: Foot Osteo Continue Parenteral Piperacillin/Tazobactam 4.5 g three times daily & Parenteral Vancomycin with target trough of 15-20 Plan is to complete 6 weeks of antimicrobial therapy from 02/21. Pending results: None End date of antimicrobial therapy: 04/04 Suppressive antibiotic therapy?: No Line: It can be removed at the completion of therapy unless necessary for another speciality. Please remove PICC line after completion of antibiotic therapy, if not needed by other services. Please call to verify removal beforehand. Is follow-up imaging/EKG indicated?: No follow-up imaging indicated. Outpatient labs to be drawn weekly (Please have results faxed attention outpatient team identified below). CBC w/ diff, CMP, and Vanco Trough Assessment & Plan (03/04/2025 3:42 PM EDT): Patient with history of longstanding poorly controlled type diabetes mellitus with recent amputation of 4th and 5th left foot metatarsals who presented with discoloration of the left third toe. Left foot x-ray status post transmetatarsal amputation for the fifth digits. Irregularity of the fourth metatarsal osteotomy as well as erosion of the 2nd and 3rd metatarsal head, the third digit and the base of second digit concerning for osteomyelitis. He was evaluated by vascular surgery who recommended CTA left lower extremity and MRI of the left foot. CTA showed osseous erosions of third metatarsal head and third proximal phalanx with soft tissue gas, subtle erosion of 2nd metatarsal head. MRI left foot not yet performed. S/p 1st metatarsal toe amputation on 02/14 with podiatry. MRSA positive 02/13. X-ray foot and ankle left 3+ views on 02/15. GRETEL/TBI 02/16 wnl. -monitor CBC closely -Continue vancomycin and Zosyn IV -vascular surgery and podiatry consulted, discussed with the team 02/23 daily wound dressing by nursing and follow up as outpatient -Follow-up blood cultures x2 02/12, 02/13 negative. -Follow up 02/14 intra-op cultures, +MRSA and +arcanobacterium haemolyticum,anaerococcus enterococcus faecalis and corynebacterium striatum -ID consulted for Abx guidance, with recommendation to continue IV vanc and IV zosyn and if surgical pathology show resection margins free of inflammation, then Abx could be stopped. Bone biopsy showing acute osteomyelitis of the bone proximal to the 3rd digit - monitor vanco trough, monitor renal function closely s/p TMP amputation 1-4 on 02/21 and secondary closure of surgical wound. Biopsy from 02/21 showed osteomyelitis. PICC line ordered and since podiatry does not plan for any surgical intervention, ID recommended total of 6 weeks of vancomycin and zosyn.. DISCHARGE INSTRUCTIONS: Indication for IV/PO antibiotics: Foot Osteo Continue Parenteral Piperacillin/Tazobactam 4.5 g three times daily & Parenteral Vancomycin with target trough of 15-20 Plan is to complete 6 weeks of antimicrobial therapy from 02/21. Pending results: None End date of antimicrobial therapy: 04/04 Suppressive antibiotic therapy?: No Line: It can be removed at the completion of therapy unless necessary for another speciality. Please remove PICC line after completion of antibiotic therapy, if not needed by other services. Please call to verify removal beforehand. Is follow-up imaging/EKG indicated?: No follow-up imaging indicated. Outpatient labs to be drawn weekly (Please have results faxed attention outpatient team identified below). CBC w/ diff, CMP, and Vanco Trough Assessment & Plan (03/03/2025 2:30 PM EDT): Patient with history of longstanding poorly controlled type diabetes mellitus with recent amputation of 4th and 5th left foot metatarsals who presented with discoloration of the left third toe. Left foot x-ray status post transmetatarsal amputation for the fifth digits. Irregularity of the fourth metatarsal osteotomy as well as erosion of the 2nd and 3rd metatarsal head, the third digit and the base of second digit concerning for osteomyelitis. He was evaluated by vascular surgery who recommended CTA left lower extremity and MRI of the left foot. CTA showed osseous erosions of third metatarsal head and third proximal phalanx with soft tissue gas, subtle erosion of 2nd metatarsal head. MRI left foot not yet performed. S/p 1st metatarsal toe amputation on 02/14 with podiatry. MRSA positive 02/13. X-ray foot and ankle left 3+ views on 02/15. GRETEL/TBI 02/16 wnl. -monitor CBC closely -Continue vancomycin and Zosyn IV -vascular surgery and podiatry consulted, discussed with the team 02/23 daily wound dressing by nursing and follow up as outpatient -Follow-up blood cultures x2 02/12, 02/13 negative. -Follow up 02/14 intra-op cultures, +MRSA and +arcanobacterium haemolyticum,anaerococcus enterococcus faecalis and corynebacterium striatum -ID consulted for Abx guidance, with recommendation to continue IV vanc and IV zosyn and if surgical pathology show resection margins free of inflammation, then Abx could be stopped. Bone biopsy showing acute osteomyelitis of the bone proximal to the 3rd digit - monitor vanco trough, monitor renal function closely s/p TMP amputation 1-4 on 02/21 and secondary closure of surgical wound. Biopsy from 02/21 showed osteomyelitis. PICC line ordered and since podiatry does not plan for any surgical intervention, ID recommended total of 6 weeks of vancomycin and zosyn.. DISCHARGE INSTRUCTIONS: Indication for IV/PO antibiotics: Foot Osteo Continue Parenteral Piperacillin/Tazobactam 4.5 g three times daily & Parenteral Vancomycin with target trough of 15-20 Plan is to complete 6 weeks of antimicrobial therapy from 02/21. Pending results: None End date of antimicrobial therapy: 04/04 Suppressive antibiotic therapy?: No Line: It can be removed at the completion of therapy unless necessary for another speciality. Please remove PICC line after completion of antibiotic therapy, if not needed by other services. Please call to verify removal beforehand. Is follow-up imaging/EKG indicated?: No follow-up imaging indicated. Outpatient labs to be drawn weekly (Please have results faxed attention outpatient team identified below). CBC w/ diff, CMP, and Vanco Trough Assessment & Plan (03/02/2025 3:08 PM EDT): Patient with history of longstanding poorly controlled type diabetes mellitus with recent amputation of 4th and 5th left foot metatarsals who presented with discoloration of the left third toe. Left foot x-ray status post transmetatarsal amputation for the fifth digits. Irregularity of the fourth metatarsal osteotomy as well as erosion of the 2nd and 3rd metatarsal head, the third digit and the base of second digit concerning for osteomyelitis. He was evaluated by vascular surgery who recommended CTA left lower extremity and MRI of the left foot. CTA showed osseous erosions of third metatarsal head and third proximal phalanx with soft tissue gas, subtle erosion of 2nd metatarsal head. MRI left foot not yet performed. S/p 1st metatarsal toe amputation on 02/14 with podiatry. MRSA positive 02/13. X-ray foot and ankle left 3+ views on 02/15. GRETEL/TBI 02/16 wnl. -monitor CBC closely -Continue vancomycin and Zosyn IV -vascular surgery and podiatry consulted, discussed with the team 02/23 daily wound dressing by nursing and follow up as outpatient -Follow-up blood cultures x2 02/12, 02/13 negative. -Follow up 02/14 intra-op cultures, +MRSA and +arcanobacterium haemolyticum,anaerococcus enterococcus faecalis and corynebacterium striatum -ID consulted for Abx guidance, with recommendation to continue IV vanc and IV zosyn and if surgical pathology show resection margins free of inflammation, then Abx could be stopped. Bone biopsy showing acute osteomyelitis of the bone proximal to the 3rd digit - monitor vanco trough, monitor renal function closely s/p TMP amputation 1-4 on 02/21 and secondary closure of surgical wound. Biopsy from 02/21 showed osteomyelitis. PICC line ordered and since podiatry does not plan for any surgical intervention, ID recommended total of 6 weeks of vancomycin and zosyn.. DISCHARGE INSTRUCTIONS: Indication for IV/PO antibiotics: Foot Osteo Continue Parenteral Piperacillin/Tazobactam 4.5 g three times daily & Parenteral Vancomycin with target trough of 15-20 Plan is to complete 6 weeks of antimicrobial therapy from 02/21. Pending results: None End date of antimicrobial therapy: 04/04 Suppressive antibiotic therapy?: No Line: It can be removed at the completion of therapy unless necessary for another speciality. Please remove PICC line after completion of antibiotic therapy, if not needed by other services. Please call to verify removal beforehand. Is follow-up imaging/EKG indicated?: No follow-up imaging indicated. Outpatient labs to be drawn weekly (Please have results faxed attention outpatient team identified below). CBC w/ diff, CMP, and Vanco Trough Assessment & Plan (03/01/2025 4:06 PM EDT): Patient with history of longstanding poorly controlled type diabetes mellitus with recent amputation of 4th and 5th left foot metatarsals who presented with discoloration of the left third toe. Left foot x-ray status post transmetatarsal amputation for the fifth digits. Irregularity of the fourth metatarsal osteotomy as well as erosion of the 2nd and 3rd metatarsal head, the third digit and the base of second digit concerning for osteomyelitis. He was evaluated by vascular surgery who recommended CTA left lower extremity and MRI of the left foot. CTA showed osseous erosions of third metatarsal head and third proximal phalanx with soft tissue gas, subtle erosion of 2nd metatarsal head. MRI left foot not yet performed. S/p 1st metatarsal toe amputation on 02/14 with podiatry. MRSA positive 02/13. X-ray foot and ankle left 3+ views on 02/15. GRETEL/TBI 02/16 wnl. -monitor CBC closely -Continue vancomycin and Zosyn IV -vascular surgery and podiatry consulted, discussed with the team 02/23 daily wound dressing by nursing and follow up as outpatient -Follow-up blood cultures x2 02/12, 02/13 negative. -Follow up 02/14 intra-op cultures, +MRSA and +arcanobacterium haemolyticum,anaerococcus enterococcus faecalis and corynebacterium striatum -ID consulted for Abx guidance, with recommendation to continue IV vanc and IV zosyn and if surgical pathology show resection margins free of inflammation, then Abx could be stopped. Bone biopsy showing acute osteomyelitis of the bone proximal to the 3rd digit - monitor vanco trough, monitor renal function closely -s/p TMP amputation 1-4 on 02/21 and secondary closure of surgical wound/ - Biopsy from 02/21 showed osteomyelitis -PT consult recommending inpatient rehab -PICC line ordered and since podiatry does not plan for any surgical intervention, ID recommended total of 6 weeks of vancomycin and zosyn. Assessment & Plan (02/28/2025 5:11 PM EDT): Patient with history of longstanding poorly controlled type diabetes mellitus with recent amputation of 4th and 5th left foot metatarsals who presented with discoloration of the left third toe. Left foot x-ray status post transmetatarsal amputation for the fifth digits. Irregularity of the fourth metatarsal osteotomy as well as erosion of the 2nd and 3rd metatarsal head, the third digit and the base of second digit concerning for osteomyelitis. He was evaluated by vascular surgery who recommended CTA left lower extremity and MRI of the left foot. CTA showed osseous erosions of third metatarsal head and third proximal phalanx with soft tissue gas, subtle erosion of 2nd metatarsal head. MRI left foot not yet performed. S/p 1st metatarsal toe amputation on 02/14 with podiatry. MRSA positive 02/13. X-ray foot and ankle left 3+ views on 02/15. GRETEL/TBI 02/16 wnl. -monitor CBC closely -Continue vancomycin and Zosyn IV -vascular surgery and podiatry consulted, discussed with the team 02/23 daily wound dressing by nursing and follow up as outpatient -Follow-up blood cultures x2 02/12, 02/13 negative. -Follow up 02/14 intra-op cultures, +MRSA and +arcanobacterium haemolyticum,anaerococcus enterococcus faecalis and corynebacterium striatum -ID consulted for Abx guidance, with recommendation to continue IV vanc and IV zosyn and if surgical pathology show resection margins free of inflammation, then Abx could be stopped. Bone biopsy showing acute osteomyelitis of the bone proximal to the 3rd digit - monitor vanco trough, monitor renal function closely -s/p TMP amputation 1-4 on 02/21 and secondary closure of surgical wound/ - Biopsy from 02/21 showed osteomyelitis - discussed with ID 02/26 to continue IV antibiotics and podiatry follow up -PT consult recommending inpatient rehab -PICC line ordered Assessment & Plan (02/27/2025 2:22 PM EDT): Patient with history of longstanding poorly controlled type diabetes mellitus with recent amputation of 4th and 5th left foot metatarsals who presented with discoloration of the left third toe. Left foot x-ray status post transmetatarsal amputation for the fifth digits. Irregularity of the fourth metatarsal osteotomy as well as erosion of the 2nd and 3rd metatarsal head, the third digit and the base of second digit concerning for osteomyelitis. He was evaluated by vascular surgery who recommended CTA left lower extremity and MRI of the left foot. CTA showed osseous erosions of third metatarsal head and third proximal phalanx with soft tissue gas, subtle erosion of 2nd metatarsal head. MRI left foot not yet performed. S/p 1st metatarsal toe amputation on 02/14 with podiatry. MRSA positive 02/13. X-ray foot and ankle left 3+ views on 02/15. GRETEL/TBI 02/16 wnl. -monitor CBC closely -Continue vancomycin and Zosyn IV -vascular surgery and podiatry consulted, discussed with the team 02/23 daily wound dressing by nursing and follow up as outpatient -Follow-up blood cultures x2 02/12, 02/13 negative. -Follow up 02/14 intra-op cultures, +MRSA and +arcanobacterium haemolyticum,anaerococcus enterococcus faecalis and corynebacterium striatum -ID consulted for Abx guidance, with recommendation to continue IV vanc and IV zosyn and if surgical pathology show resection margins free of inflammation, then Abx could be stopped. Bone biopsy showing acute osteomyelitis of the bone proximal to the 3rd digit - monitor vanco trough, monitor renal function closely -s/p TMP amputation 1-4 on 02/21 and secondary closure of surgical wound/ - Biopsy from 02/21 showed osteomyelitis - discussed with ID 02/26 to continue IV antibiotics and podiatry follow up -PT consult recommending inpatient rehab -PICC line ordered Assessment & Plan (02/26/2025 12:09 PM EDT): Patient with history of longstanding poorly controlled type diabetes mellitus with recent amputation of 4th and 5th left foot metatarsals who presented with discoloration of the left third toe. Left foot x-ray status post transmetatarsal amputation for the fifth digits. Irregularity of the fourth metatarsal osteotomy as well as erosion of the 2nd and 3rd metatarsal head, the third digit and the base of second digit concerning for osteomyelitis. He was evaluated by vascular surgery who recommended CTA left lower extremity and MRI of the left foot. CTA showed osseous erosions of third metatarsal head and third proximal phalanx with soft tissue gas, subtle erosion of 2nd metatarsal head. MRI left foot not yet performed. S/p 1st metatarsal toe amputation on 02/14 with podiatry. MRSA positive 02/13. X-ray foot and ankle left 3+ views on 02/15. GRETEL/TBI 02/16 wnl. -monitor CBC closely -Continue vancomycin and Zosyn IV -vascular surgery and podiatry consulted, discussed with the team 02/23 daily wound dressing by nursing and follow up as outpatient -Follow-up blood cultures x2 02/12, 02/13 negative. -Follow up 02/14 intra-op cultures, +MRSA and +arcanobacterium haemolyticum,anaerococcus enterococcus faecalis and corynebacterium striatum -ID consulted for Abx guidance, with recommendation to continue IV vanc and IV zosyn and if surgical pathology show resection margins free of inflammation, then Abx could be stopped. Bone biopsy showing acute osteomyelitis of the bone proximal to the 3rd digit - monitor vanco trough, monitor renal function closely -s/p TMP amputation 1-4 on 02/21 and secondary closure of surgical wound/ - Biopsy from 02/21 showed osteomyelitis - discussed with ID 02/26 to continue IV antibiotics and podiatry follow up -PT consult recommending inpatient rehab Assessment & Plan (02/25/2025 12:42 PM EDT): Patient with history of longstanding poorly controlled type diabetes mellitus with recent amputation of 4th and 5th left foot metatarsals who presented with discoloration of the left third toe. Left foot x-ray status post transmetatarsal amputation for the fifth digits. Irregularity of the fourth metatarsal osteotomy as well as erosion of the 2nd and 3rd metatarsal head, the third digit and the base of second digit concerning for osteomyelitis. He was evaluated by vascular surgery who recommended CTA left lower extremity and MRI of the left foot. CTA showed osseous erosions of third metatarsal head and third proximal phalanx with soft tissue gas, subtle erosion of 2nd metatarsal head. MRI left foot not yet performed. S/p 1st metatarsal toe amputation on 02/14 with podiatry. MRSA positive 02/13. X-ray foot and ankle left 3+ views on 02/15. GRETEL/TBI 02/16 wnl. -monitor CBC closely -Continue vancomycin and Zosyn IV -vascular surgery and podiatry consulted, discussed with the team 02/23 daily wound dressing by nursing and follow up as outpatient -Follow-up blood cultures x2 02/12, 02/13 negative. -Follow up 02/14 intra-op cultures, +MRSA and +arcanobacterium haemolyticum,anaerococcus enterococcus faecalis and corynebacterium striatum -ID consulted for Abx guidance, with recommendation to continue IV vanc and IV zosyn and if surgical pathology show resection margins free of inflammation, then Abx could be stopped. Bone biopsy showing acute osteomyelitis of the bone proximal to the 3rd digit - monitor vanco trough, monitor renal function closely -s/p TMP amputation 1-4 on 02/21 and secondary closure of surgical wound/ - Biopsy from 02/21 pending report and culture - discussed with ID 02/23 to continue IV antibiotics for now and wait for biopsy report -PT consulted Assessment & Plan (02/24/2025 2:51 PM EDT): Patient with history of longstanding poorly controlled type diabetes mellitus with recent amputation of 4th and 5th left foot metatarsals who presented with discoloration of the left third toe. Left foot x-ray status post transmetatarsal amputation for the fifth digits. Irregularity of the fourth metatarsal osteotomy as well as erosion of the 2nd and 3rd metatarsal head, the third digit and the base of second digit concerning for osteomyelitis. He was evaluated by vascular surgery who recommended CTA left lower extremity and MRI of the left foot. CTA showed osseous erosions of third metatarsal head and third proximal phalanx with soft tissue gas, subtle erosion of 2nd metatarsal head. MRI left foot not yet performed. S/p 1st metatarsal toe amputation on 02/14 with podiatry. MRSA positive 02/13. X-ray foot and ankle left 3+ views on 02/15. GRETEL/TBI 02/16 wnl. -monitor CBC closely -Continue vancomycin and Zosyn IV -vascular surgery and podiatry consulted, discussed with the team 02/23 daily wound dressing by nursing and follow up as outpatient -Follow-up blood cultures x2 02/12, 02/13 negative. -Follow up 02/14 intra-op cultures, +MRSA and +arcanobacterium haemolyticum,anaerococcus enterococcus faecalis and corynebacterium striatum -ID consulted for Abx guidance, with recommendation to continue IV vanc and IV zosyn and if surgical pathology show resection margins free of inflammation, then Abx could be stopped. Bone biopsy showing acute osteomyelitis of the bone proximal to the 3rd digit - monitor vanco trough, monitor renal function closely -s/p TMP amputation 1-4 on 02/21 and secondary closure of surgical wound/ - Biopsy from 02/21 pending report and culture - discussed with ID 02/23 to continue IV antibiotics for now and wait for biopsy report -PT consulted Assessment & Plan (02/23/2025 4:08 PM EDT): Patient with history of longstanding poorly controlled type diabetes mellitus with recent amputation of 4th and 5th left foot metatarsals who presented with discoloration of the left third toe. Left foot x-ray status post transmetatarsal amputation for the fifth digits. Irregularity of the fourth metatarsal osteotomy as well as erosion of the 2nd and 3rd metatarsal head, the third digit and the base of second digit concerning for osteomyelitis. He was evaluated by vascular surgery who recommended CTA left lower extremity and MRI of the left foot. CTA showed osseous erosions of third metatarsal head and third proximal phalanx with soft tissue gas, subtle erosion of 2nd metatarsal head. MRI left foot not yet performed. S/p 1st metatarsal toe amputation on 02/14 with podiatry. MRSA positive 02/13. X-ray foot and ankle left 3+ views on 02/15. GRETEL/TBI 02/16 wnl. -monitor CBC closely -Continue vancomycin and Zosyn IV -vascular surgery and podiatry consulted, discussed with the team 02/23 daily wound dressing by nursing and follow up as outpatient -Follow-up blood cultures x2 02/12, 02/13 negative. -Follow up 02/14 intra-op cultures, +MRSA and +arcanobacterium haemolyticum,anaerococcus enterococcus faecalis and corynebacterium striatum -ID consulted for Abx guidance, with recommendation to continue IV vanc and IV zosyn and if surgical pathology show resection margins free of inflammation, then Abx could be stopped. Bone biopsy showing acute osteomyelitis of the bone proximal to the 3rd digit -s/p TMP amputation 1-4 on 02/21 and secondary closure of surgical wound/ - Biopsy from 02/21 pending report and culture - discussed with ID 02/23 to continue IV antibiotics for now and wait for biopsy report -PT consulted Assessment & Plan (02/22/2025 2:32 PM EDT): Patient with history of longstanding poorly controlled type diabetes mellitus with recent amputation of 4th and 5th left foot metatarsals who presented with discoloration of the left third toe. Left foot x-ray status post transmetatarsal amputation for the fifth digits. Irregularity of the fourth metatarsal osteotomy as well as erosion of the 2nd and 3rd metatarsal head, the third digit and the base of second digit concerning for osteomyelitis. He was evaluated by vascular surgery who recommended CTA left lower extremity and MRI of the left foot. CTA showed osseous erosions of third metatarsal head and third proximal phalanx with soft tissue gas, subtle erosion of 2nd metatarsal head. MRI left foot not yet performed. S/p 1st metatarsal toe amputation on 02/14 with podiatry. MRSA positive 02/13. X-ray foot and ankle left 3+ views on 02/15. GRETEL/TBI 02/16 wnl. -monitor CBC closely -Continue vancomycin and Zosyn IV -vascular surgery and podiatry consulted, appreciate recommendations -Follow-up blood cultures x2 02/12, 02/13 negative. -Follow up 02/14 intra-op cultures, prelim +MRSA and +arcanobacterium haemolyticum, enterococcus faecalis and corynebacterium striatum -ID consulted for Abx guidance, with recommendation to continue IV vanc and IV zosyn and if surgical pathology show resection margins free of inflammation, then Abx could be stopped. Bone biopsy showing acute osteomyelitis of the bone proximal to the 3rd digit -Podiatry to clarify with Pathology about the results. -s/p TMP amputation 1-4 on 02/21 and secondary closure of surgical wound/ - Biopsy from 02/21 pending report -PT consulted Assessment & Plan (02/21/2025 1:01 PM EDT): Patient with history of longstanding poorly controlled type diabetes mellitus with recent amputation of 4th and 5th left foot metatarsals who presented with discoloration of the left third toe. Left foot x-ray status post transmetatarsal amputation for the fifth digits. Irregularity of the fourth metatarsal osteotomy as well as erosion of the 2nd and 3rd metatarsal head, the third digit and the base of second digit concerning for osteomyelitis. He was evaluated by vascular surgery who recommended CTA left lower extremity and MRI of the left foot. CTA showed osseous erosions of third metatarsal head and third proximal phalanx with soft tissue gas, subtle erosion of 2nd metatarsal head. MRI left foot not yet performed. S/p 1st metatarsal toe amputation on 02/14 with podiatry. MRSA positive 02/13. X-ray foot and ankle left 3+ views on 02/15. GRETEL/TBI 02/16 wnl. -CBC w/ diff daily -Continue vancomycin and Zosyn IV -vascular surgery and podiatry consulted, appreciate recommendations -Follow-up blood cultures x2 02/12, 02/13 negative. -Follow up 02/14 intra-op cultures, prelim +MRSA and +arcanobacterium haemolyticum, enterococcus faecalis and corynebacterium striatum -ID consulted for Abx guidance, with recommendation to continue IV vanc and IV zosyn and if surgical pathology show resection margins free of inflammation, then Abx could be stopped. Bone biopsy showing acute osteomyelitis of the bone proximal to the 3rd digit -Podiatry to clarify with Pathology about the results. -Podiatry plans to perform secondary closure of surgical wound/dehiscence surgery of left foot on 02/21 - will keep npo after midnight -PT consulted Assessment & Plan (02/19/2025 2:08 PM EDT): Patient with history of longstanding poorly controlled type diabetes mellitus with recent amputation of 4th and 5th left foot metatarsals who presented with discoloration of the left third toe. Left foot x-ray status post transmetatarsal amputation for the fifth digits. Irregularity of the fourth metatarsal osteotomy as well as erosion of the 2nd and 3rd metatarsal head, the third digit and the base of second digit concerning for osteomyelitis. He was evaluated by vascular surgery who recommended CTA left lower extremity and MRI of the left foot. CTA showed osseous erosions of third metatarsal head and third proximal phalanx with soft tissue gas, subtle erosion of 2nd metatarsal head. MRI left foot not yet performed. S/p 1st metatarsal toe amputation on 02/14 with podiatry. MRSA positive 02/13. X-ray foot and ankle left 3+ views on 02/15. GRETEL/TBI 02/16 wnl. -CBC w/ diff daily -Continue vancomycin and Zosyn IV -vascular surgery and podiatry consulted, appreciate recommendations -Follow-up blood cultures x2 02/12, 02/13 negative. -Follow up 02/14 intra-op cultures, prelim +MRSA and +arcanobacterium haemolyticum -ID consulted for Abx guidance, with recommendation to continue IV vanc and IV zosyn and if surgical pathology show resection margins free of inflammation, then Abx could be stopped. Podiatry will clarify with Pathology on 02/21 about the results. -Podiatry plans to perform secondary closure of surgical wound/dehiscence surgery of left foot on 02/21 -wound care consulted Assessment & Plan (02/18/2025 2:20 PM EDT): Patient with history of longstanding poorly controlled type diabetes mellitus with recent amputation of 4th and 5th left foot metatarsals who presented with discoloration of the left third toe. Left foot x-ray status post transmetatarsal amputation for the fifth digits. Irregularity of the fourth metatarsal osteotomy as well as erosion of the 2nd and 3rd metatarsal head, the third digit and the base of second digit concerning for osteomyelitis. He was evaluated by vascular surgery who recommended CTA left lower extremity and MRI of the left foot. CTA showed osseous erosions of third metatarsal head and third proximal phalanx with soft tissue gas, subtle erosion of 2nd metatarsal head. MRI left foot not yet performed. S/p 1st metatarsal toe amputation on 02/14 with podiatry. MRSA positive 02/13. X-ray foot and ankle left 3+ views on 02/15. GRETEL/TBI 02/16 wnl. -CBC w/ diff daily -Continue vancomycin and Zosyn IV, OR culture +MRSA -vascular surgery and podiatry consulted, appreciate recommendations -Follow-up blood cultures x2 02/12- NGTD -Follow up 02/14 intra-op cultures, + MRSA -ID consulted for Abx guidance -wound care consulted Assessment & Plan (02/17/2025 10:18 AM EDT): Patient with history of longstanding poorly controlled type diabetes mellitus with recent amputation of 4th and 5th left foot metatarsals who presented with discoloration of the left third toe. Left foot x-ray status post transmetatarsal amputation for the fifth digits. Irregularity of the fourth metatarsal osteotomy as well as erosion of the 2nd and 3rd metatarsal head, the third digit and the base of second digit concerning for osteomyelitis. He was evaluated by vascular surgery who recommended CTA left lower extremity and MRI of the left foot. CTA showed osseous erosions of third metatarsal head and third proximal phalanx with soft tissue gas, subtle erosion of 2nd metatarsal head. MRI left foot not yet performed. S/p 1st metatarsal toe amputation on 02/14 with podiatry. MRSA positive 02/13. X-ray foot and ankle left 3+ views on 02/15. GRETEL/TBI 02/16 wnl. -CBC w/ diff daily -Continue vancomycin and Zosyn IV -vascular surgery and podiatry consulted, appreciate recommendations -Follow-up blood cultures x2 02/12- NGTD -Follow up 02/14 intra-op cultures- Staph aureus -ID consulted for Abx guidance -wound care consulted Assessment & Plan (02/16/2025 4:14 PM EDT): Patient with history of longstanding poorly controlled type diabetes mellitus with recent amputation of 4th and 5th left foot metatarsals who presented with discoloration of the left third toe. Left foot x-ray status post transmetatarsal amputation for the fifth digits. Irregularity of the fourth metatarsal osteotomy as well as erosion of the 2nd and 3rd metatarsal head, the third digit and the base of second digit concerning for osteomyelitis. He was evaluated by vascular surgery who recommended CTA left lower extremity and MRI of the left foot. CTA showed osseous erosions of third metatarsal head and third proximal phalanx with soft tissue gas, subtle erosion of 2nd metatarsal head. MRI left foot not yet performed. S/p 1st metatarsal toe amputation on 02/14 with podiatry. MRSA positive 02/13. X-ray foot and ankle left 3+ views on 02/15. GRETEL/TBI 02/16 wnl. -CBC w/ diff daily -Continue vancomycin and Zosyn IV -vascular surgery and podiatry consulted, appreciate recommendations -Follow-up blood cultures x2 02/12- NGTD -Follow up intra-op cultures -ID consulted for Abx guidance -wound care consulted Assessment & Plan (02/15/2025 2:09 PM EDT): Patient with history of longstanding poorly controlled type diabetes mellitus with recent amputation of 4th and 5th left foot metatarsals who presented with discoloration of the left third toe. Left foot x-ray status post transmetatarsal amputation for the fifth digits. Irregularity of the fourth metatarsal osteotomy as well as erosion of the 2nd and 3rd metatarsal head, the third digit and the base of second digit concerning for osteomyelitis. He was evaluated by vascular surgery who recommended CTA left lower extremity and MRI of the left foot. CTA showed osseous erosions of third metatarsal head and third proximal phalanx with soft tissue gas, subtle erosion of 2nd metatarsal head. MRI left foot not yet performed. S/p 1st metatarsal toe amputation on 02/14 with podiatry. MRSA positive 02/13. X-ray foot and ankle left 3+ views on 02/15. -CBC w/ diff daily -Continue vancomycin and Zosyn IV -vascular surgery and podiatry consulted, appreciate recommendations -Follow-up blood cultures x2 02/12- NGTD -Follow up intra-op cultures -ID consulted for Abx guidance PVD (peripheral vascular disease) 02/13/2025 Assessment & Plan (03/10/2025 3:03 PM EDT): Patient underwent angiogram with arthrectomy with balloon angioplasty to the left proximal popliteal artery and left posterior tibial artery on 12/14/24 and was started on Plavix for 45 days postprocedure. He was evaluated by vascular surgery, no acute vascular intervention. -GRETEL/TBI 5/7 wnl -per podiatry, pt to follow up in clinic and no vascular consult needed at this time. -PT consult recommend inpatient rehab Assessment & Plan (03/09/2025 7:15 PM EDT): Patient underwent angiogram with arthrectomy with balloon angioplasty to the left proximal popliteal artery and left posterior tibial artery on 12/14/24 and was started on Plavix for 45 days postprocedure. He was evaluated by vascular surgery, no acute vascular intervention. -GRETEL/TBI 5/7 wnl -per podiatry, pt to follow up in clinic and no vascular consult needed at this time. -PT consult recommend inpatient rehab Assessment & Plan (2025 11:03 AM EDT): Patient underwent angiogram with arthrectomy with balloon angioplasty to the left proximal popliteal artery and left posterior tibial artery on 12/14/24 and was started on Plavix for 45 days postprocedure. He was evaluated by vascular surgery, no acute vascular intervention. -GRETEL/TBI 5/7 wnl -per podiatry, pt to follow up in clinic and no vascular consult needed at this time. -PT consult recommend inpatient rehab Assessment & Plan (03/07/2025 11:30 AM EDT): Patient underwent angiogram with arthrectomy with balloon angioplasty to the left proximal popliteal artery and left posterior tibial artery on 12/14/24 and was started on Plavix for 45 days postprocedure. He was evaluated by vascular surgery, no acute vascular intervention. -GRETEL/TBI 5/7 wnl -per podiatry, pt to follow up in clinic and no vascular consult needed at this time. -PT consult recommend inpatient rehab Assessment & Plan (03/06/2025 5:01 PM EDT): Patient underwent angiogram with arthrectomy with balloon angioplasty to the left proximal popliteal artery and left posterior tibial artery on 12/14/24 and was started on Plavix for 45 days postprocedure. He was evaluated by vascular surgery, no acute vascular intervention. -GRETEL/TBI 5/7 wnl -per podiatry, pt to follow up in clinic and no vascular consult needed at this time. -PT consult recommend inpatient rehab Assessment & Plan (03/05/2025 3:44 PM EDT): Patient underwent angiogram with arthrectomy with balloon angioplasty to the left proximal popliteal artery and left posterior tibial artery on 12/14/24 and was started on Plavix for 45 days postprocedure. He was evaluated by vascular surgery, no acute vascular intervention. -GRETEL/TBI 5/7 wnl -per podiatry, pt to follow up in clinic and no vascular consult needed at this time. -PT consult recommend inpatient rehab Assessment & Plan (03/04/2025 3:42 PM EDT): Patient underwent angiogram with arthrectomy with balloon angioplasty to the left proximal popliteal artery and left posterior tibial artery on 12/14/24 and was started on Plavix for 45 days postprocedure. He was evaluated by vascular surgery, no acute vascular intervention. -GRETEL/TBI 5/7 wnl -per podiatry, pt to follow up in clinic and no vascular consult needed at this time. -PT consult recommend inpatient rehab Assessment & Plan (03/03/2025 2:30 PM EDT): Patient underwent angiogram with arthrectomy with balloon angioplasty to the left proximal popliteal artery and left posterior tibial artery on 12/14/24 and was started on Plavix for 45 days postprocedure. He was evaluated by vascular surgery, no acute vascular intervention. -GRETEL/TBI 5/7 wnl -per podiatry, pt to follow up in clinic and no vascular consult needed at this time. -PT consult recommend inpatient rehab Assessment & Plan (03/02/2025 3:08 PM EDT): Patient underwent angiogram with arthrectomy with balloon angioplasty to the left proximal popliteal artery and left posterior tibial artery on 12/14/24 and was started on Plavix for 45 days postprocedure. He was evaluated by vascular surgery, no acute vascular intervention. -GRETEL/TBI 5/7 wnl -per podiatry, pt to follow up in clinic and no vascular consult needed at this time. -PT consult recommend inpatient rehab Assessment & Plan (03/01/2025 4:06 PM EDT): Patient underwent angiogram with arthrectomy with balloon angioplasty to the left proximal popliteal artery and left posterior tibial artery on 12/14/24 and was started on Plavix for 45 days postprocedure. He was evaluated by vascular surgery, no acute vascular intervention. -GRETEL/TBI 5/7 wnl -per podiatry, pt to follow up in clinic and no vascular consult needed at this time. -PT consult recommend inpatient rehab Assessment & Plan (02/28/2025 5:11 PM EDT): Patient underwent angiogram with arthrectomy with balloon angioplasty to the left proximal popliteal artery and left posterior tibial artery on 12/14/24 and was started on Plavix for 45 days postprocedure. He was evaluated by vascular surgery, no acute vascular intervention. -GRETEL/TBI 5/7 wnl -per podiatry, pt to follow up in clinic and no vascular consult needed at this time. -PT consult recommend inpatient rehab Assessment & Plan (02/27/2025 2:22 PM EDT): Patient underwent angiogram with arthrectomy with balloon angioplasty to the left proximal popliteal artery and left posterior tibial artery on 12/14/24 and was started on Plavix for 45 days postprocedure. He was evaluated by vascular surgery, no acute vascular intervention. -GRETEL/TBI 5/7 wnl -per podiatry, pt to follow up in clinic and no vascular consult needed at this time. -PT consult recommend inpatient rehab Assessment & Plan (02/26/2025 12:09 PM EDT): Patient underwent angiogram with arthrectomy with balloon angioplasty to the left proximal popliteal artery and left posterior tibial artery on 12/14/24 and was started on Plavix for 45 days postprocedure. He was evaluated by vascular surgery, no acute vascular intervention. -GRETEL/TBI 5/7 wnl -per podiatry, pt to follow up in clinic and no vascular consult needed at this time. -PT consult recommend inpatient rehab Assessment & Plan (02/25/2025 12:42 PM EDT): Patient underwent angiogram with arthrectomy with balloon angioplasty to the left proximal popliteal artery and left posterior tibial artery on 12/14/24 and was started on Plavix for 45 days postprocedure. He was evaluated by vascular surgery, no acute vascular intervention. -GRETEL/TBI 5/7 wnl -per podiatry, pt to follow up in clinic and no vascular consult needed at this time. -PT consult recommend inpatient rehab Assessment & Plan (02/24/2025 2:51 PM EDT): Patient underwent angiogram with arthrectomy with balloon angioplasty to the left proximal popliteal artery and left posterior tibial artery on 12/14/24 and was started on Plavix for 45 days postprocedure. He was evaluated by vascular surgery, no acute vascular intervention. -GRETEL/TBI 5/7 wnl -per podiatry, pt to follow up in clinic and no vascular consult needed at this time. -PT consult recommend inpatient rehab Assessment & Plan (02/23/2025 4:08 PM EDT): Patient underwent angiogram with arthrectomy with balloon angioplasty to the left proximal popliteal artery and left posterior tibial artery on 12/14/24 and was started on Plavix for 45 days postprocedure. He was evaluated by vascular surgery, no acute vascular intervention. -GRETEL/TBI 5/7 wnl -per podiatry, pt to follow up in clinic and no vascular consult needed at this time. -PT consult recommend inpatient rehab Assessment & Plan (02/22/2025 2:32 PM EDT): Patient underwent angiogram with arthrectomy with balloon angioplasty to the left proximal popliteal artery and left posterior tibial artery on 12/14/24 and was started on Plavix for 45 days postprocedure. He was evaluated by vascular surgery, no acute vascular intervention. -GRETEL/TBI 5/7 wnl -per podiatry, pt to follow up in clinic and no vascular consult needed at this time. -PT consult Assessment & Plan (02/21/2025 1:01 PM EDT): Patient underwent angiogram with arthrectomy with balloon angioplasty to the left proximal popliteal artery and left posterior tibial artery on 12/14/24 and was started on Plavix for 45 days postprocedure. He was evaluated by vascular surgery, no acute vascular intervention. -GRETEL/TBI 5/7 wnl -per podiatry, pt to follow up in clinic and no vascular consult needed at this time. -PT consulted Assessment & Plan (02/19/2025 2:08 PM EDT): Patient underwent angiogram with arthrectomy with balloon angioplasty to the left proximal popliteal artery and left posterior tibial artery on 12/14/24 and was started on Plavix for 45 days postprocedure. He was evaluated by vascular surgery, no acute vascular intervention. -GRETEL/TBI 5/7 wnl -per podiatry, pt to follow up in clinic and no vascular consult needed at this time. -PT consulted Assessment & Plan (02/18/2025 2:20 PM EDT): Patient underwent angiogram with arthrectomy with balloon angioplasty to the left proximal popliteal artery and left posterior tibial artery on 12/14/24 and was started on Plavix for 45 days postprocedure. He was evaluated by vascular surgery, no acute vascular intervention. -GRETEL/TBI 5/7 wnl -per podiatry, pt to follow up in clinic and no vascular consult needed at this time. Assessment & Plan (02/17/2025 10:26 AM EDT): Patient underwent angiogram with arthrectomy with balloon angioplasty to the left proximal popliteal artery and left posterior tibial artery on 12/14/24 and was started on Plavix for 45 days postprocedure. He was evaluated by vascular surgery, no acute vascular intervention. -GRETEL/TBI 5/7 wnl -per podiatry, pt to follow up in clinic and no vascular consult needed at this time. Assessment & Plan (02/16/2025 4:14 PM EDT): Patient underwent angiogram with arthrectomy with balloon angioplasty to the left proximal popliteal artery and left posterior tibial artery on 12/14/24 and was started on Plavix for 45 days postprocedure. He was evaluated by vascular surgery, no acute vascular intervention. -GRETEL/TBI 02/16 wnl -per podiatry, pt to follow up in clinic and no vascular consult needed at this time. Assessment & Plan (02/15/2025 9:10 AM EDT): Patient underwent angiogram with arthrectomy with balloon angioplasty to the left proximal popliteal artery and left posterior tibial artery on 12/14/24 and was started on Plavix for 45 days postprocedure. He was evaluated by vascular surgery, no acute vascular intervention. -Continue to monitor Primary hypertension 02/13/2025 Assessment & Plan (03/10/2025 3:03 PM EDT): Home medications : Labetalol 300 mg every 8 hours, hydralazine 25 mg every 8 hours, losartan 100 mg daily and amlodipine 5 mg daily. Continued and BP has remained stable. Monitor. Assessment & Plan (03/09/2025 7:15 PM EDT): Home medications : Labetalol 300 mg every 8 hours, hydralazine 25 mg every 8 hours, losartan 100 mg daily and amlodipine 5 mg daily. Continued and BP has remained stable. Monitor. Assessment & Plan (2025 11:03 AM EDT): Home medications : Labetalol 300 mg every 8 hours, hydralazine 25 mg every 8 hours, losartan 100 mg daily and amlodipine 5 mg daily. Continued Monitor. Assessment & Plan (03/07/2025 11:30 AM EDT): Home medications : Labetalol 300 mg every 8 hours, hydralazine 25 mg every 8 hours, losartan 100 mg daily and amlodipine 5 mg daily. Continued Monitor. Assessment & Plan (03/06/2025 5:01 PM EDT): Home medications labetalol 300 mg every 8 hours, hydralazine 25 mg every 8 hours, losartan 100 mg daily and amlodipine 5 mg daily. -Continue hydralazine 25 mg every 8 hours, labetalol 300 mg every 8 hours -Continue home amlodipine 5 mg -continue losartan, renal function has been stable Assessment & Plan (03/05/2025 3:44 PM EDT): Home medications labetalol 300 mg every 8 hours, hydralazine 25 mg every 8 hours, losartan 100 mg daily and amlodipine 5 mg daily. -Continue hydralazine 25 mg every 8 hours, labetalol 300 mg every 8 hours -Continue home amlodipine 5 mg -continue losartan, renal function has been stable Assessment & Plan (03/04/2025 3:42 PM EDT): Home medications labetalol 300 mg every 8 hours, hydralazine 25 mg every 8 hours, losartan 100 mg daily and amlodipine 5 mg daily. -Continue hydralazine 25 mg every 8 hours, labetalol 300 mg every 8 hours -Continue home amlodipine 5 mg -continue losartan, renal function has been stable Assessment & Plan (03/03/2025 2:30 PM EDT): Home medications labetalol 300 mg every 8 hours, hydralazine 25 mg every 8 hours, losartan 100 mg daily and amlodipine 5 mg daily. -Continue hydralazine 25 mg every 8 hours, labetalol 300 mg every 8 hours -Continue home amlodipine 5 mg -continue losartan, renal function has been stable Assessment & Plan (03/02/2025 3:08 PM EDT): Home medications labetalol 300 mg every 8 hours, hydralazine 25 mg every 8 hours, losartan 100 mg daily and amlodipine 5 mg daily. -Continue hydralazine 25 mg every 8 hours, labetalol 300 mg every 8 hours -Continue home amlodipine 5 mg -continue losartan, renal function has been stable Assessment & Plan (03/01/2025 4:06 PM EDT): Home medications labetalol 300 mg every 8 hours, hydralazine 25 mg every 8 hours, losartan 100 mg daily and amlodipine 5 mg daily. -Continue hydralazine 25 mg every 8 hours, labetalol 300 mg every 8 hours -Continue home amlodipine 5 mg -continue losartan, renal function has been stable Assessment & Plan (02/28/2025 5:11 PM EDT): Home medications labetalol 300 mg every 8 hours, hydralazine 25 mg every 8 hours, losartan 100 mg daily and amlodipine 5 mg daily. -Continue hydralazine 25 mg every 8 hours, labetalol 300 mg every 8 hours -Continue home amlodipine 5 mg -continue losartan, renal function has been stable Assessment & Plan (02/27/2025 2:22 PM EDT): Home medications labetalol 300 mg every 8 hours, hydralazine 25 mg every 8 hours, losartan 100 mg daily and amlodipine 5 mg daily. -Continue hydralazine 25 mg every 8 hours, labetalol 300 mg every 8 hours -Continue home amlodipine 5 mg -continue losartan, renal function has been stable Assessment & Plan (02/26/2025 12:09 PM EDT): Home medications labetalol 300 mg every 8 hours, hydralazine 25 mg every 8 hours, losartan 100 mg daily and amlodipine 5 mg daily. -Continue hydralazine 25 mg every 8 hours, labetalol 300 mg every 8 hours -Continue home amlodipine 5 mg -continue losartan, renal function has been stable Assessment & Plan (02/25/2025 12:42 PM EDT): Home medications labetalol 300 mg every 8 hours, hydralazine 25 mg every 8 hours, losartan 100 mg daily and amlodipine 5 mg daily. -Continue hydralazine 25 mg every 8 hours, labetalol 300 mg every 8 hours -Continue home amlodipine 5 mg -continue losartan, renal function has been stable Assessment & Plan (02/24/2025 2:51 PM EDT): Home medications labetalol 300 mg every 8 hours, hydralazine 25 mg every 8 hours, losartan 100 mg daily and amlodipine 5 mg daily. -Continue hydralazine 25 mg every 8 hours, labetalol 300 mg every 8 hours -Continue home amlodipine 5 mg - restart losartan, renal function has been stable Assessment & Plan (02/23/2025 4:08 PM EDT): Home medications labetalol 300 mg every 8 hours, hydralazine 25 mg every 8 hours, losartan 100 mg daily and amlodipine 5 mg daily. -Continue hydralazine 25 mg every 8 hours, labetalol 300 mg every 8 hours -Hold home losartan 100 mg daily, serum creatinine elevated -Continue home amlodipine 5 mg Assessment & Plan (02/22/2025 2:32 PM EDT): Home medications labetalol 300 mg every 8 hours, hydralazine 25 mg every 8 hours, losartan 100 mg daily and amlodipine 5 mg daily. -Continue hydralazine 25 mg every 8 hours, labetalol 300 mg every 8 hours -Hold home losartan 100 mg daily, serum creatinine elevated -Continue home amlodipine 5 mg Assessment & Plan (02/21/2025 1:01 PM EDT): Patient apparently has history of untreated hypertension and during recent hospitalization at [facility] he was started on antihypertensive which was titrated at rehab. His regimen at discharge from rehab was labetalol 300 mg every 8 hours, hydralazine 25 mg every 8 hours, losartan 100 mg daily and amlodipine 5 mg daily. On arrival, pt states he was not taking any of his antihypertensives for the past few days. On arrival, he was initially hypotensive but then normotensive. After fluid resuscitation he was noted to be hypertensive with systolic between 180 and 190. -Continue hydralazine 25 mg every 8 hours, labetalol 300 mg every 8 hours -Hold home losartan 100 mg daily -Continue home amlodipine 5 mg Assessment & Plan (02/19/2025 7:15 AM EDT): Patient apparently has history of untreated hypertension and during recent hospitalization at [facility] he was started on antihypertensive which was titrated at rehab. His regimen at discharge from rehab was labetalol 300 mg every 8 hours, hydralazine 25 mg every 8 hours, losartan 100 mg daily and amlodipine 5 mg daily. On arrival, pt states he was not taking any of his antihypertensives for the past few days. On arrival, he was initially hypotensive but then normotensive. After fluid resuscitation he was noted to be hypertensive with systolic between 180 and 190. -Continue hydralazine 25 mg every 8 hours, labetalol 300 mg every 8 hours -Hold home losartan 100 mg daily -Continue home amlodipine 5 mg Assessment & Plan (02/18/2025 2:20 PM EDT): Patient apparently has history of untreated hypertension and during recent hospitalization at [facility] he was started on antihypertensive which was titrated at rehab. His regimen at discharge from rehab was labetalol 300 mg every 8 hours, hydralazine 25 mg every 8 hours, losartan 100 mg daily and amlodipine 5 mg daily. On arrival, pt states he was not taking any of his antihypertensives for the past few days. On arrival, he was initially hypotensive but then normotensive. After fluid resuscitation he was noted to be hypertensive with systolic between 180 and 190. -Continue hydralazine 25 mg every 8 hours, labetalol 300 mg every 8 hours -Hold home losartan 100 mg daily -Continue home amlodipine 5 mg Assessment & Plan (02/17/2025 10:26 AM EDT): Patient apparently has history of untreated hypertension and during recent hospitalization at [facility] he was started on antihypertensive which was titrated at rehab. His regimen at discharge from rehab was labetalol 300 mg every 8 hours, hydralazine 25 mg every 8 hours, losartan 100 mg daily and amlodipine 5 mg daily. On arrival, pt states he was not taking any of his antihypertensives for the past few days. On arrival, he was initially hypotensive but then normotensive. After fluid resuscitation he was noted to be hypertensive with systolic between 180 and 190. -Continue hydralazine 25 mg every 8 hours, labetalol 300 mg every 8 hours -Hold home losartan 100 mg daily -Continue home amlodipine 5 mg Assessment & Plan (02/16/2025 10:12 AM EDT): Patient apparently has history of untreated hypertension and during recent hospitalization at [facility] he was started on antihypertensive which was titrated at rehab. His regimen at discharge from rehab was labetalol 300 mg every 8 hours, hydralazine 25 mg every 8 hours, losartan 100 mg daily and amlodipine 5 mg daily. On arrival, pt states he was not taking any of his antihypertensives for the past few days. On arrival, he was initially hypotensive but then normotensive. After fluid resuscitation he was noted to be hypertensive with systolic between 180 and 190. -Continue hydralazine 25 mg every 8 hours, labetalol 300 mg every 8 hours -Hold home losartan 100 mg daily -resume home amlodipine 5 mg Assessment & Plan (02/15/2025 9:50 AM EDT): Patient apparently has history of untreated hypertension and during recent hospitalization at [facility] he was started on antihypertensive which was titrated at rehab. His regimen at discharge from rehab was labetalol 300 mg every 8 hours, hydralazine 25 mg every 8 hours, losartan 100 mg daily and amlodipine 5 mg daily. On arrival, pt states he was not taking any of his antihypertensives for the past few days. On arrival, he was initially hypotensive but then normotensive. After fluid resuscitation he was noted to be hypertensive with systolic between 180 and 190. -Continue hydralazine 25 mg every 8 hours, labetalol 300 mg every 8 hours -Hold losartan 100 mg daily -resume home amlodipine 5 mg Type 2 diabetes mellitus wit h diabetic polyneuropathy, with long-term current use of insulin 02/13/2025 Assessment & Plan (03/10/2025 3:03 PM EDT): Home medications Lantus 30 units nightly, lispro 3- 4 units with meals and metformin 500 mg BID. . A1c 02/16/25 was 10.2 -home metformin stopped outpatient prior to community [facility] due to side effect of diarrhea. Metformin removed from home med list. -diabetes team followed patient during admission. On discharge: - continue glargine 18 units nightly - continue lispro 3 units before meals - low dose insulin sliding scale - low carb diet Assessment & Plan (03/09/2025 7:15 PM EDT): Home medications Lantus 30 units nightly, lispro 3- 4 units with meals and metformin 500 mg BID. . A1c 02/16/25 was 10.2. -HOLDING home metformin -> restarted 03/09 -diabetes team appreciate recs - continue glargine 18 units nightly - continue lispro 3 units before meals - low dose insulin sliding scale - low carb diet Assessment & Plan (2025 11:03 AM EDT): Home medications Lantus 30 units nightly, lispro 3- 4 units with meals and metformin 500 mg BID. . A1c 02/16/25 was 10.2. -HOLDING metformin -diabetes team appreciate recs - continue glargine 18 units nightly - continue lispro 3 units before meals - low dose insulin sliding scale - low carb diet Assessment & Plan (03/07/2025 11:30 AM EDT): Home medications Lantus 30 units nightly, lispro 3- 4 units with meals and metformin 500 mg BID. . A1c 02/16/25 was 10.2. -HOLDING metformin -diabetes team appreciate recs - continue glargine 18 units nightly - continue lispro 3 units before meals - low dose insulin sliding scale - low carb diet Assessment & Plan (03/06/2025 5:01 PM EDT): Home medications Lantus 30 units nightly, lispro 3- 4 units with meals and metformin 500 mg BID. . A1c 02/16/25 was 10.2. -HOLDING metformin -diabetes team appreciate recs - continue glargine 18 units nightly - continue lispro 5 units before meals - low dose insulin sliding scale - low carb diet Assessment & Plan (03/05/2025 3:44 PM EDT): Home medications Lantus 30 units nightly, lispro 3- 4 units with meals and metformin 500 mg BID. . A1c 02/16/25 was 10.2. -HOLDING metformin -diabetes team appreciate recs - continue glargine 18 units nightly - continue lispro 5 units before meals - low dose insulin sliding scale - low carb diet Assessment & Plan (03/04/2025 3:42 PM EDT): Home medications Lantus 30 units nightly, lispro 3- 4 units with meals and metformin 500 mg BID. . A1c 02/16/25 was 10.2. -HOLDING metformin -diabetes team appreciate recs - continue glargine 18 units nightly - continue lispro 5 units before meals - low dose insulin sliding scale - low carb diet Assessment & Plan (03/03/2025 2:30 PM EDT): Home medications Lantus 30 units nightly, lispro 3- 4 units with meals and metformin 500 mg BID. . A1c 02/16/25 was 10.2. -HOLDING metformin -diabetes team appreciate recs - continue glargine 18 units nightly - continue lispro 5 units before meals - low dose insulin sliding scale - low carb diet Assessment & Plan (03/02/2025 3:08 PM EDT): Home medications Lantus 30 units nightly, lispro 3- 4 units with meals and metformin 500 mg BID. . A1c 02/16/25 was 10.2. -HOLDING metformin -diabetes team appreciate recs - continue glargine 18 units nightly - continue lispro 5 units before meals - low dose insulin sliding scale - low carb diet Assessment & Plan (03/01/2025 4:06 PM EDT): Home medications Lantus 30 units nightly, lispro 3- 4 units with meals and metformin 500 mg BID. . A1c 02/16/25 was 10.2. -HOLDING metformin -diabetes team appreciate recs - continue glargine 22 units nightly - continue lispro 6 units before meals - low dose insulin sliding scale - low carb diet Assessment & Plan (02/28/2025 5:11 PM EDT): Home medications Lantus 30 units nightly, lispro 3- 4 units with meals and metformin 500 mg BID. . A1c 02/16/25 was 10.2. -HOLDING metformin -diabetes team appreciate recs - continue glargine 24 units nightly - continue lispro 7 units before meals - low dose insulin sliding scale - low carb diet Assessment & Plan (02/27/2025 2:22 PM EDT): Home medications Lantus 30 units nightly, lispro 3- 4 units with meals and metformin 500 mg BID. . A1c 02/16/25 was 10.2. -HOLDING metformin -diabetes team appreciate recs - continue glargine 24 units nightly - continue lispro 7 units before meals - low dose insulin sliding scale - low carb diet Assessment & Plan (02/26/2025 12:09 PM EDT): Home medications Lantus 30 units nightly, lispro 3- 4 units with meals and metformin 500 mg BID. . A1c 02/16/25 was 10.2. -HOLDING metformin -diabetes team appreciate recs - continue glargine 24 units nightly - continue lispro 7 units before meals - low dose insulin sliding scale - low carb diet Assessment & Plan (02/25/2025 12:42 PM EDT): Home medications Lantus 30 units nightly, lispro 3- 4 units with meals and metformin 500 mg BID. . A1c 02/16/25 was 10.2. -HOLDING metformin -diabetes team appreciate recs - continue glargine 24 units nightly - continue lispro 7 units before meals - low dose insulin sliding scale - low carb diet Assessment & Plan (02/24/2025 2:51 PM EDT): Home medications Lantus 30 units nightly, lispro 3- 4 units with meals and metformin 500 mg BID. . A1c 02/16/25 was 10.2. -HOLDING metformin -diabetes team appreciate recs - continue glargine 24 units nightly - continue lispro 7 units before meals - low dose insulin sliding scale - low carb diet Assessment & Plan (02/23/2025 4:08 PM EDT): Home medications Lantus 30 units nightly, lispro 3- 4 units with meals and metformin 500 mg BID. . A1c 02/16/25 was 10.2. -HOLDING metformin -diabetes team appreciate recs - increase glargine 24 units nightly - increase lispro 7 units before meals - low dose insulin sliding scale - low carb diet Assessment & Plan (02/22/2025 2:32 PM EDT): Home medications Lantus 30 units nightly, lispro 3- 4 units with meals and metformin 500 mg BID. . A1c 02/16/25 was 10.2. -HOLDING metformin -diabetes team appreciate recs - continue glargine 22 units nightly - continue lispro 6 units before meals - low dose insulin sliding scale - low carb diet Assessment & Plan (02/21/2025 1:01 PM EDT): At the time of discharge from rehab patient was on Lantus 20 units nightly, lispro 4 units with meals and metformin 500 mg BID. He states he currently takes Lantus 30 units nightly and lispro 3 to 4 units with meals. A1c 02/16/25 was 10.2. -HOLDING metformin -diabetes consulted, appreciate recs - glargine 22 units nightly - lispro 6 units before meals - ldiss -nutrition consulted on 02/15, appreciate recs -carb consistent diet ordered -pt will need endocrinology follow up outpatient, he does not currently have an computer operations technician. Assessment & Plan (02/19/2025 2:08 PM EDT): At the time of discharge from rehab patient was on Lantus 20 units nightly, lispro 4 units with meals and metformin 500 mg BID. He states he currently takes Lantus 30 units nightly and lispro 3 to 4 units with meals. A1c 02/16/25 was 10.2. -HOLDING metformin -diabetes consulted, appreciate recs - glargine 22 units nightly - lispro 6 units before meals - ldiss -nutrition consulted on 02/15, appreciate recs -carb consistent diet ordered -pt will need endocrinology follow up outpatient, he does not currently have an computer operations technician. Assessment & Plan (02/18/2025 2:20 PM EDT): At the time of discharge from rehab patient was on Lantus 20 units nightly, lispro 4 units with meals and metformin 500 mg BID. He states he currently takes Lantus 30 units nightly and lispro 3 to 4 units with meals. A1c 02/16/25 was 10.2. -HOLDING metformin -diabetes consulted, appreciate recs - glargine 22 units nightly - lispro 6 units with meals - ldiss -nutrition consulted on 02/15, appreciate recs -post-op on 02/15, carb consistent diet ordered -pt will need endocrinology follow up outpatient, he does not currently have an computer operations technician. Assessment & Plan (02/17/2025 10:18 AM EDT): At the time of discharge from rehab patient was on Lantus 20 units nightly, lispro 4 units with meals and metformin 500 mg BID. He states he currently takes Lantus 30 units nightly and lispro 3 to 4 units with meals. A1c 02/16/25 was 10.2. -HOLDING metformin -diabetes consulted, appreciate recs - glargine 18 units daily - lispro 6 units with meals - ldiss -nutrition consulted on 02/15, appreciate recs -post-op on 02/15, carb consistent diet ordered -pt will need endocrinology follow up outpatient, he does not currently have an computer operations technician. Assessment & Plan (02/16/2025 4:14 PM EDT): At the time of discharge from rehab patient was on Lantus 20 units nightly, lispro 4 units with meals and metformin 500 mg BID. He states he currently takes Lantus 30 units nightly and lispro 3 to 4 units with meals. A1c 02/16/25 was 10.2. -HOLDING metformin -diabetes consulted, appreciate recs - glargine 18 units daily - lispro 6 units with meals - ldiss -nutrition consulted on 02/15, appreciate recs -post-op on 02/15, carb consistent diet ordered -pt will need endocrinology follow up outpatient, he does not currently have an computer operations technician. Assessment & Plan (02/15/2025 2:09 PM EDT): At the time of discharge from rehab patient was on Lantus 20 units nightly, lispro 4 units with meals and metformin 500 mg BID. He states he currently takes Lantus 30 units nightly and lispro 3 to 4 units with meals. -HOLDING metformin -While NPO, pt was on Lantus 10 units nightly, medium dose regular insulin sliding scale every 6 hours -while eating, lantus 20 units nightly -While eating, medium dose sliding scale -nutrition consulted on 02/15. -post-op on 02/15, carb consistent diet ordered High blood pressure 11/11/2024 Leukocytosis 11/11/2024 Iron deficiency anemia 11/11/2024 Assessment & Plan (03/10/2025 3:03 PM EDT): Pt has iron deficiency anemia with %sat of 7, iron concentration of 11. Last Hgb 7.4 g/dL - ferrous sulfate 325 mg every other day - monitor CBC w/ diff q Friday Assessment & Plan (03/09/2025 7:15 PM EDT): Pt has iron deficiency anemia with %sat of 7, iron concentration of 11. Last Hgb 7.4 g/dL - ferrous sulfate 325 mg every other day - monitor CBC w/ diff q Friday Assessment & Plan (2025 11:03 AM EDT): Pt has iron deficiency anemia with %sat of 7, iron concentration of 11. Last Hgb 7.4 g/dL - ferrous sulfate 325 mg every other day - monitor CBC w/ diff Assessment & Plan (03/07/2025 11:30 AM EDT): Pt has iron deficiency anemia with %sat of 7, iron concentration of 11. Last Hgb 7.4 g/dL - ferrous sulfate 325 mg every other day - monitor CBC w/ diff Assessment & Plan (03/06/2025 5:01 PM EDT): Pt has iron deficiency anemia with %sat of 7, iron concentration of 11. Last hemoglobin level 7.4 (03/02) - ferrous sulfate 325 mg every other day - monitor CBC w/ diff Assessment & Plan (03/05/2025 3:44 PM EDT): Pt has iron deficiency anemia with %sat of 7, iron concentration of 11. - ferrous sulfate 325 mg every other day - monitor CBC w/ diff Assessment & Plan (03/04/2025 3:42 PM EDT): Pt has iron deficiency anemia with %sat of 7, iron concentration of 11. - ferrous sulfate 325 mg every other day - monitor CBC w/ diff Assessment & Plan (03/03/2025 2:30 PM EDT): Pt has iron deficiency anemia with %sat of 7, iron concentration of 11. - ferrous sulfate 325 mg every other day - monitor CBC w/ diff Assessment & Plan (03/02/2025 3:08 PM EDT): Pt has iron deficiency anemia with %sat of 7, iron concentration of 11. - ferrous sulfate 325 mg every other day - monitor CBC w/ diff Assessment & Plan (03/01/2025 4:06 PM EDT): Pt has iron deficiency anemia with %sat of 7, iron concentration of 11. - ferrous sulfate 325 mg every other day - monitor CBC w/ diff Assessment & Plan (02/28/2025 5:11 PM EDT): Pt has iron deficiency anemia with %sat of 7, iron concentration of 11. - ferrous sulfate 325 mg every other day - daily CBC w/ diff Assessment & Plan (02/27/2025 2:22 PM EDT): Pt has iron deficiency anemia with %sat of 7, iron concentration of 11. - ferrous sulfate 325 mg every other day - daily CBC w/ diff Assessment & Plan (02/26/2025 12:09 PM EDT): Pt has iron deficiency anemia with %sat of 7, iron concentration of 11. - ferrous sulfate 325 mg every other day - daily CBC w/ diff Assessment & Plan (02/25/2025 12:42 PM EDT): Pt has iron deficiency anemia with %sat of 7, iron concentration of 11. - ferrous sulfate 325 mg every other day - daily CBC w/ diff Assessment & Plan (02/24/2025 2:51 PM EDT): Pt has iron deficiency anemia with %sat of 7, iron concentration of 11. - ferrous sulfate 325 mg every other day - daily CBC w/ diff Assessment & Plan (02/23/2025 4:08 PM EDT): Pt has iron deficiency anemia with %sat of 7, iron concentration of 11. - ferrous sulfate 325 mg every other day - daily CBC w/ diff Assessment & Plan (02/22/2025 2:32 PM EDT): Pt has iron deficiency anemia with %sat of 7, iron concentration of 11. - ferrous sulfate 325 mg every other day - daily CBC w/ diff Assessment & Plan (02/21/2025 1:01 PM EDT): Pt has iron deficiency anemia with %sat of 7, iron concentration of 11. - ferrous sulfate 325 mg every other day - daily CBC w/ diff Assessment & Plan (02/19/2025 2:08 PM EDT): Pt has iron deficiency anemia with %sat of 7, iron concentration of 11. - ferrous sulfate 325 mg every other day - daily CBC w/ diff Assessment & Plan (02/18/2025 2:20 PM EDT): Pt has iron deficiency anemia with %sat of 7, iron concentration of 11. - ferrous sulfate 325 mg every other day ordered Assessment & Plan (02/17/2025 10:18 AM EDT): Pt has iron deficiency anemia with %sat of 7, iron concentration of 11. - ferrous sulfate 325 mg every other day ordered Assessment & Plan (02/16/2025 10:12 AM EDT): Pt has iron deficiency anemia with %sat of 7, iron concentration of 11. - ferrous sulfate 325 mg every other day ordered Diabetic foot infection 11/11/2024 Diabetes mellitus Resolved Problems Problem Noted Date Diagnosed Date Resolved Date Tachyarrhythmia 11/11/2024 11/14/2024 Tachypnea 11/11/2024 11/14/2024 Hyponatremia 11/11/2024 11/14/2024 High anion gap metabolic acidosis 11/11/2024 11/14/2024 Severe sepsis 11/11/2024 02/16/2025 Assessment & Plan (02/16/2025 7:34 AM EDT): SIRS Criteria Patient met the following SIRS Criteria: Tachycardia >90, Respiratory Rate >20, and WBC >12 Sepsis Criteria Sepsis was present on admission. Source of infection is Osteomyelitis. Blood cultures were drawn prior to antibiotics given. Initial lactic acid was drawn and value was greater than or equal to 2 and repeat was ordered. Patient was ordered the following Antibiotics: Vancomycin and Zosyn Full Sepsis bolus given. Patient received 2.5 Liters of fluid bolus. Goal: 2.4 Liters (30ml/kg). Severe Sepsis Patient has organ dysfunction that meets criteria for severe sepsis. Patient has Lactate > 2. Sepsis secondary to diabetic foot infection. Lactate normalized on 02/13. Source control with 1st metatarsal amputation on 02/14. -Continue vancomycin and Zosyn IV Assessment & Plan (02/15/2025 9:10 AM EDT): SIRS Criteria Patient met the following SIRS Criteria: Tachycardia >90, Respiratory Rate >20, and WBC >12 Sepsis Criteria Sepsis was present on admission. Source of infection is Osteomyelitis. Blood cultures were drawn prior to antibiotics given. Initial lactic acid was drawn and value was greater than or equal to 2 and repeat was ordered. Patient was ordered the following Antibiotics: Vancomycin and Zosyn Full Sepsis bolus given. Patient received 2.5 Liters of fluid bolus. Goal: 2.4 Liters (30ml/kg). Severe Sepsis Patient has organ dysfunction that meets criteria for severe sepsis. Patient has Lactate > 2. Sepsis secondary to diabetic foot infection. Lactate normalized on 02/13. Source control with 1st metatarsal amputation on 02/14. -Continue vancomycin and Zosyn IV Encounters Date Type Department Care Team Description 06/20/2025 Telephone [facility] [address] [place], [place] [phone] Die Storage Worker: Melva Arnold Telephone Intake, Staff PAC Clinical Questions 06/17/2025 12:46 PM EDT - 06/17/2025 11:59 PM EDT Hospital Encounter [facility] Entrance B Xray [address] [place] [address] Acute hematogenous osteomyelitis of left foot (HCC) Discharge Disposition: Home or Self Care (01) 06/17/2025 Telephone [facility] [address] [place] [phone] [employer] Storage Worker: Melva Arnold Telephone Intake, Staff PAC Clinical Questions 06/14/2025 Orders Only [facility] Entrance B Interventional Radiology [address] [place] [phone] Tania Mcmanus PA 06/14/2025 Orders Only [facility] [address] [place] [phone] [employer] Storage Worker: Agustín Jamison MD Acute hematogenous osteomyelitis of left foot (HCC) (Primary Dx) 06/07/2025 Telephone [facility] [address] [place] [id number] Die Storage Worker: Hanny Deleon PCA PAC Patient Request Call Back 06/03/2025 1:00 PM EDT Follow-Up [facility] Infectious Disease [address] [id number] Die Storage Worker: Agustín Jamison MD Acute hematogenous osteomyelitis of left foot (HCC) (Primary Dx) 06/01/2025 Telephone [facility] Pod[facility] [address] [place] [phone] Die Storage Worker: Emily Fernandes PA 05/30/2025 Telephone [facility] Pod[facility] [address] [place] [phone] Die Storage Worker: Emily Fernandes PA 05/26/2025 Telephone [facility] [address] [place] [phone] Telephone Intake, Staff PAC Order Request_Leonard 05/22/2025 Telephone [facility] Emergency Department [address] [place] [phone] Marcy Ashby RN Left Without Being Seen; Results 05/21/2025 7:33 PM EDT - 05/22/2025 12:28 AM EDT Emergency [facility] Emergency Department [address] [place] [phone] Discharge Disposition: Left Without Being Seen (07) 05/20/2025 8:40 AM EDT Follow-Up [facility] Pod[facility] [address] [place] [phone] [employer] Storage Worker: Val Lowe DPM S/P transmetatarsal amputation of foot, left (HCC) (Primary Dx); Diabetic ulcer of left midfoot associated with type 2 diabetes mellitus, with fat layer exposed (HCC) 05/13/2025 4:00 PM EDT Follow-Up [facility] [address] [place] [phone] [employer] Storage Worker: Emily Fernandes PA Diabetic ulcer of left midfoot associated with type 2 diabetes mellitus, with fat layer exposed (HCC) (Primary Dx); Diabetic foot infection (HCC); S/P transmetatarsal amputation of foot, left (HCC) 05/09/2025 Telephone [facility] [address] [place] [phone] Die Storage Worker: Emily Fernandes PA 05/05/2025 10:00 AM EDT Follow-Up [facility] [address] [place] [address] Die Storage Worker: Agustín Jamison MD Polymicrobial bacterial infection (Primary Dx); Diabetic foot infection (HCC); MRSA (methicillin resistant Staphylococcus aureus) infection; Enterococcus faecalis infection; Sequela of Corynebacterium infection; Toe osteomyelitis, left (HCC) 04/28/2025 11:40 AM EDT Follow-Up [facility] [address] [place] [phone] [employer] Storage Worker: Emily Fernandes PA Diabetic ulcer of left midfoot associated with type 2 diabetes mellitus, with fat layer exposed (HCC) (Primary Dx); Diabetic foot infection (HCC); S/P transmetatarsal amputation of foot, left (HCC); Uncontrolled type 2 diabetes mellitus with hyperglycemia (HCC); Type 2 diabetes mellitus with peripheral neuropathy (HCC) 04/27/2025 Orders Only [facility] [address] [place] [phone] Bren Henry CMA S/P transmetatarsal amputation of foot, left (HCC) (Primary Dx) 04/07/2025 10:20 AM EDT Follow-Up [facility] [address] [place] [phone] [employer] Storage Worker: Emily Fernandes PA S/P transmetatarsal amputation of foot, left (HCC) (Primary Dx); Uncontrolled type 2 diabetes mellitus with hyperglycemia (HCC); Type 2 diabetes mellitus with peripheral neuropathy (HCC) 04/06/2025 3:49 PM EDT - 04/07/2025 1:19 AM EDT Emergency [facility] Emergency Department [address] [place] [phone] Hortencia Rosales MD Generalized weakness (Primary Dx) Discharge Disposition: Home or Self Care () 04/06/2025 3:00 PM EDT Follow-Up [facility] [address] [place] [phone] [employer] Storage Worker: Agustín Jamison MD Diabetic foot infection (HCC) (Primary Dx); Acute hematogenous osteomyelitis of left foot (HCC) 03/29/2025 Orders Only [facility] [address] [place] [address] Die Storage Worker: Peyton Dillard MD from Last 3 Months Social History Tobacco Use Types Packs/Day Years Used Date Smoking Tobacco: Never Smokeless Tobacco: Never Tobacco Cessation:Counseling Given: Not Answered Alcohol Use Standard Drinks/Week Comments Never 0 (1 standard drink = 0.6 oz pur e alcohol) [facility] Utilities Answer Date Recorded In the [...] on file Sexual Orientation Not on file Last Filed Vital Signs Vital Sign Reading Time Taken Comments Blood Pressure 120/74 06/03/2025 1:13 PM EDT Pulse 99 06/03/2025 1:13 PM EDT Temperature 36.4 C (97.6 F) 06/03/2025 1:13 PM EDT Respiratory Rate 18 06/03/2025 1:13 PM EDT Oxygen Saturation 97% 06/03/2025 1:13 PM EDT Inhaled Oxygen Concentration - - Weight 79.1 kg (174 lb 6.4 oz) 06/03/2025 1:13 P M EDT Height 170 cm (5' 6.93 ) 04/06/2025 3:35 PM EDT Body Mass Index 27.37 04/06/2025 3:35 PM EDT Plan of Treatment Upcoming Encounters Date Type Department Care Team (Late st Contact Info) Description 06/24/2025 11:40 AM EDT Follow-Up [facility] [address] [place] [address] Emily Toussaint PA [address] [place] [address] 08/16/2025 11:15 AM EST Office Visit [facility] Neurology [address] [place] [address] Josh Kraft MD [address] [place] [phone] Health Maintenance Due Date Last Done Comments Cologuard 1975 Colon Cancer Screening 1975 Colonoscopy 1975 FOBT / Fit Test 1975 HIV Screening 1975 Sigmoidoscopy 1975 Foot Exam 1985 Hepatitis B Vaccines (1 of 3 - 19+ 3-dose series) 1994 Pneumococcal Vaccine: 50+ Ye ars (2 of 2 - PCV) 08/22/2010 08/22/2009 Ophthalmology Exam 06/11/2019 06/11/2018, 0 02/20/2017, 02/15/2016, Additional history exists Alcohol/Substance Use Screening 10/13/2024 Depression Screening and Follow-Up 10/13/2024 Oral Health Screening 10/13/2024 Zoster Vaccines (1 of 2) 2025 COVID-19 Vaccine (2 - 2024-2 6 season) 2025 02/22/2021 Influenza Vaccine (#1) 2025 8, 08/03/2017, 07/22/2014, Additional history exists Hemoglobin A1C 08/26/2025 05/26/2025, 05/13, 02/16/2025, Additional history exists Basic Metabolic Panel 05/26/2026 05/26/2025 , 05/21/2025, 04/06/2025, Additional history exists Urine Microalbumin 05/26/2026 05/26/2025 DTaP,Tdap,and Td Vaccines (2 - Td or Tdap) 07/20/2028 07/20/2018 RSV Vaccine (60+ years old a nd patients) (1 - 1-dose 75+ series) 2050 Hepatitis C Screening Completed 01/24/2025, 025 Procedures * Due to [place] state law, this organization might not be sharing negative HIV tests. Procedure Name Priority Date/Time Associated Diagnosis Comments IR PICC Routine 06/17/2025 1:47 PM EDT Acute hematogenous osteomyelitis of left foot (HCC) TOBAR TOP Routine 05/21/2025 8:26 PM EDT EXTRA TUBES Routine 05/21/2025 8:26 PM EDT ECG 12-LEAD STAT 05/21/2025 8:06 PM EDT BLOOD CULTURE HOLD BOTTLES SET #1 STAT 05/21/2025 8:02 PM EDT BASIC METABOLIC PANEL STAT 05/21/2025 8:02 PM EDT CBC AUTO DIFFERENTIAL STAT 05/21/2025 8:02 PM EDT BLOOD CULTURE HOLD (EAP PANEL FOR BLOOD CULTURE BOTTLES) STAT 05/21/2025 8:02 PM EDT HEART & VASCULAR - SCANNED 05/21/2025 XR FOOT 3+ VW LEFT WEIGHT BEARING Routine 05/20/2025 8:54 AM EDT S/P transmetatarsal amputation of foot, left (HCC) MRI FOOT LEFT WO CONTRAST STAT 05/10/2025 5:30 PM EDT Toe osteomyelitis, left (HCC) XR FOOT 3+ VW LEFT WEIGHT BEARING Routine 04/28/2025 12:05 PM EDT S/P transmetatarsal amputation of foot, left (HCC) TOBAR TOP, URN Routine 04/06/2025 11:27 PM EDT UA/CULTURE REFLEX Routine 04/06/2025 11: 27 PM EDT URINALYSIS W/REFLEX TO MICROSCOPIC & CULTURE Routine 04/06/2025 11:27 PM EDT BASIC METABOLIC PANEL STAT 04/06/2025 11:09 PM EDT TOBAR TOP Routine 04/06/2025 5:35 PM EDT EXTRA TUBES Routine 04/06/2025 5:35 PM EDT CBC AUTO DIFFERENTIAL STAT 04/06/2025 5:27 PM EDT COMPREHENSIVE METABOLIC PANEL STAT 04/06/2025 5:27 PM EDT XR CHEST 2 VW STAT 04/06/2025 4:25 PM EDT POCT GLUCOSE Routine 04/06/2025 4:04 PM EDT ECG 12-LEAD STAT 04/06/2025 3:57 PM EDT HEART & VASCULAR - SCANNED 04/06/2025 CBC AUTO DIFFERENTIAL, OUTSIDE LAB Routine 03/28/2025 8:22 AM EDT VANCOMYCIN, TROUGH, OUTSIDE LAB Routine 03/28/2025 8:22 AM EDT COMPREHENSIVE METABOLIC PANEL, OUTSIDE LAB Routine 03/28/2025 8:22 AM EDT HEMOGLOBIN A1C Routine 02/16/2025 7:31 AM EDT from Last 3 Months or Most Recently Relevant to Health Maintenance Results * Due to [place] state law, this organization might not be [...] venous access requested for long-term IV antibiotics. MACHINE OILER: Tania Mcmanus PA-C ATTENDING: Dr. Valeriano Mcgraw MEDICATIONS: Local anesthesia with 1% lidocaine. CONTRAST: No. Fluoro Time: 0.4 minutes CD: 2.2 mGy DEVICE: Bard PowerPICC 5 Fr x 36 cm double lumen polyurethane catheter, lot #[id number]. COMPLICATIONS: None. TECHNIQUE: Informed consent was obtained [...] Chauhan MD IMG IR PROCEDURES Final Result * Tobar Top (05/21/2025 8:26 PM EDT) Only the most recent of2 resultswithin the time period is included. Extra Tube Hold for add-ons. 05/22/2025 1:06 AM EDT [facility] Comment:Auto resulted. Blood Structure of peripheral vein / Unknown 05/21/2025 8:26 PM EDT 05/21/2025 8:26 PM EDT us Protocol Unv Adult Treatment MD LAB BLOOD ORDERA BLES Final Result [facility] [address] [place] [address], [place] * ECG 12 lead (05/21/2025 8:06 PM EDT) Only the most recent of2 resultswithin the time period is included. Ventricular Rate EKG 85 BPM MUSE EKG Atrial Rate 85 BPM MUSE EKG GA Interval 170 ms MUSE EKG QRS Interval 98 ms MUSE EKG QT Interval 352 ms MUSE EKG QTC Interval 418 ms MUSE EKG P Cl[place] 76 degrees MUSE EKG R [place] -46 degrees MUSE EKG T Wave Cl[place] 51 degrees MUSE EKG 05/21/2025 8:06 PM EDT 06/03/2025 1:19 PM EDT Impressions MUSE EKG - 06/03/2025 1:19 PM EDT NORMAL SINUS RHYTHM INCOMPLETE RIGHT BUNDLE BRANCH BLOCK LEFT ANTERIOR FASCICULAR BLOCK CANNOT RULE OUT ANTERIOR INFARCT , AGE UNDETERMINED ABNORMAL ECG WHEN COMPARED WITH ECG OF 06-Apr-2025 15:57, LEFT ANTERIOR FASCICULAR BLOCK IS NOW PRESENT INCOMPLETE RIGHT BUNDLE BRANCH BLOCK IS NOW PRESENT Confirmed by Brian Dior ([id number]) on 06/03/2025 1:19:51 PM Narrative Procedure Note Brian Dior MD - 06/03/2025 IMPRESSION: NORMAL SINUS RHYTHM INCOMPLETE RIGHT BUNDLE BRANCH BLOCK LEFT ANTERIOR FASCICULAR BLOCK CANNOT RULE OUT ANTERIOR INFARCT , AGE UNDETERMINED ABNORMAL ECG WHEN COMPARED WITH ECG OF 06-Apr-2025 15:57, LEFT ANTERIOR FASCICULAR BLOCK IS NOW PRESENT INCOMPLETE RIGHT BUNDLE BRANCH BLOCK IS NOW PRESENT Confirmed by Brian Dior ([id number]) on 06/03/2025 1:19:51 PM us Protocol Unv Adult Treatment ECG ORDERABLES Final Result Performing Organization Address City/[facility]/ZIP Co de Phone Number MUSE EKG * Blood Culture Hold Bottles Set #1 (05/21/2025 8:02 PM EDT) Blood Structure of peripheral vein / Unknown Venipuncture / Unknown 05/21/2025 8:02 PM EDT 05/21/2025 8:24 PM EDT us Protocol Unv Adult Treatment LAB BLOOD ORDERA BLES Final Result Performing Organization Address City/[facility] Co de Phone Number [facility] [address] [place] [address], * (ABNORMAL) CBC Auto Differential (05/21/2025 8:02 PM EDT) Only the most recent of2 resultswithin the time period is included. WBC 7.9 3.8 - 10.8 10*3/uL 05/21/2025 8:33 PM EDT [facility] RBC 4.98 4.20 - 5.80 10*6/uL 05/21/2025 8:33 PM EDT [facility] Hemoglobin 10.8(L) 13.2 - 17.1 g/dL 05/21/2025 8:33 PM EDT [facility] Hematocrit 35.0(L) 38.5 - 50.0 % 05/21/2025 8:33 PM EDT [facility] MCV 70.3(L) 80.0 - 100.0 fL 05/21/2025 8:33 PM EDT [facility] MCH 21.7(L) 27.0 - 33.0 pg 05/21/2025 8:33 PM EDT [facility] MCHC 30.9(L) 32.0 - 36.0 g/dL 05/21/2025 8:33 PM EDT [facility] RDW 17.2(H) 11.0 - 15.0 % 05/21/2025 8:33 PM EDT [email or web address] Platelets 312 140 - 400 10*3/uL 05/21/2025 8:33 PM EDT [email or web address] MPV 10.0 7.5 - 12.5 fL 05/21/2025 8:33 PM EDT [email or web address] Neutrophil % 72.1 % 05/21/2025 8:33 PM EDT [email or web address] Immature Grans % 0.1 0.0 - 0.9 % 05/21/2025 8:33 PM EDT [facility] Lymphocyte % 20.0 % 05/21/2025 8:33 PM EDT [facility] Monocyte % 6.7 % 05/21/2025 8:33 PM EDT [facility] Eosinophil % 0.8 % 05/21/2025 8:33 PM EDT [email or web address] Basophil % 0.3 % 05/21/2025 8:33 PM EDT [facility] Neutrophil # 5.70 1.50 - 7.80 10*3/uL 05/21/2025 8:33 PM EDT [facility] Immature Grans # <0.03 <=0.03 10*3/uL 05/21/2025 8:33 PM EDT [facility] Lymphocyte # 1.60 0.85 - 3.90 10*3/uL 05/21/2025 8:33 PM EDT [email or web address] Monocyte # 0.50 0.20 - 0.95 10*3/uL 05/21/2025 8:33 PM EDT [email or web address] Eosinophil # 0.10 0.02 - 0.50 10*3/uL 05/21/2025 8:33 PM EDT [facility] Basophil # <0.03 0.00 - 0.20 10*3/uL 05/21/2025 8:33 PM EDT [facility] nRBC % 0.0 /100 WBCs 05/21/2025 8:33 PM EDT [facility] [employer] [facility] nRBC # <0.01 <0.01 10*3/uL 05/21/2025 8:33 PM EDT [facility] [employer] [facility] Blood Structure of peripheral vein / Unknown Venipuncture / Unknown 05/21/2025 8:02 PM EDT 05/21/2025 8:24 PM EDT us Protocol Unv Adult Treatment MD LAB BLOOD ORDERA BLES Final Result [facility] [address] [place] [phone], * (ABNORMAL) Basic Metabolic Panel (05/21/2025 8:02 PM EDT) Only the most recent of2 resultswithin the time period is included. NA 133(L) 135 - 145 mmol/L 05/21/2025 8:55 PM EDT [email or web address] [employer] [facility] K 5.9(H) 3.5 - 5.3 mmol/L 05/21/2025 8:55 PM EDT [email or web address] [employer] [facility] Cl 99 98 - 107 mmol/L 05/21/2025 8:55 PM EDT [email or web address] [employer] [facility] CO2 20(L) 22 - 32 mmol/L 05/21/2025 8:55 PM EDT [facility] [employer] [facility] BUN 31(H) 7 - 23 mg/dL 05/21/2025 8:55 PM EDT [facility] [employer] [facility] Creatinine 1.68(H) 0.60 - 1.30 mg/dL 05/21/2025 8:55 PM EDT [email or web address] [employer] [facility] Glucose 179(H) 65 - 99 mg/dL 05/21/2025 8:55 PM EDT [facility] Calcium 10.4 8.6 - 10.5 mg/dL 05/21/2025 8:55 PM EDT [facility] Anion Gap 14 5 - 15 05/21/2025 8:55 PM EDT [facility] eGFR 49(L) >=60 mL/min/1 .73m2 05/21/2025 8:55 PM EDT [facility] Comment:The estimated glomer ular filtration rate (eGFR) is calculated using a new formula developed by the NKF-ASN task force to eliminate race-based correction factors. The new formula uses serum/plasma creatinine, age, and gender to determine eGFR. A value below 60mls/min might indicate kidney disease and will be flagged. For additional information, see Lundberg et al, Am J Kidney Dis. 2021;79(2):268- 288, A Unifying Approach for GFR estimation: Recommendations of the NKF-ASN Task Force on Reassessing the Inclusion of Race in Diagnosing Kidney Disease . Blood Structure of peripheral vein / Unknown Venipuncture / Unknown 05/21/2025 8:02 PM EDT 05/21/2025 8:24 PM EDT us Protocol Unv Adult Treatment LAB BLOOD ORDERA BLES Final Result [facility] [address] [place] [address], [place] * HEART & VASCULAR - SCANNED (05/21/2025) Only the most recent of2 resultswithin the time period is included. Anatomical Region Laterality Modality Other us Onbase Scan Michelle SCANNED PROCEDURES Final Resu lt * XR Foot 3+ vw Left Weight Bearing (05/20/2025 8:54 AM EDT) Only the most recent of2 resultswithin the time period is included. Anatomical Region Laterality Modality Lower Extremities, Foot Left Computed Radiography 05/20/2025 6:23 PM EDT Impressions 05/20/2025 6:27 PM EDT FINDINGS/IMPRESSION: Changes related to lung the impression margin of the fifth of prior transmetatarsal amputation. Minimal cortical irregularity at the impression margin of the first second and third rays is for osteomyelitis or related to postsurgical change. Correlate clinically. If clinically warranted consider MRI. ([place] alert finding). Soft tissue swelling overlying impression slight. No acute fracture. Mild hindfoot osteoarthritis. Dorsal and plantar calcaneal spurs. A(n) [place] actionable finding has been communicated to the ordering or responsible provider via the [employer] system on 05/20/2025 6:27 PM. Receipt of this communication by the responsible provider will be documented in [employer] upon receiving acknowledgement if applicable, Message ID [id number]. If this radiology report contains a blank impression section, it is an incomplete radiology report. Please contact the interpreting radiologist or applicable radiology division as soon as possible to obtain the completed interpretation. Workstation ID: [id number] Narrative 05/20/2025 6:27 PM EDT COMPARISON: 05/10/2025 Resulting Agency Comment [id number] Procedure Note Sam Bucio MD - 05/20/2025 COMPARISON: 05/10/2025 IMPRESSION: FINDINGS/IMPRESSION: Changes related to lung the impression margin of the fifth of priortransmetatarsal amputation. Minimal cortical irregularity at theimpression margin of the first second and third rays is for osteomyelitisor related to postsurgical change. Correlate clinically. If clinicallywarranted consider MRI. ([place] alert finding). Soft tissue swelling overlying impression slight. No acute fracture.Mild hindfoot osteoarthritis. Dorsal and plantar calcaneal spurs. A(n) [place] actionable finding has been communicated to the ordering orresponsible provider via the [employer] system on05/20/2025 6:27 PM. Receipt of this communication by the responsibleprovider will be documented in [employer] uponreceiving acknowledgement if applicable, Message ID [id number]. If this radiology report contains a blank impression section, it is anincomplete radiology report. Please contact the interpreting radiologistor applicable radiology division as soon as possible to obtain thecompleted interpretation. Workstation ID: [id number] us Val Bond DPM IMG XR PROCEDURES Final Re sult * MRI Foot Left without Contrast (05/10/2025 5:30 PM EDT) Anatomical Region Laterality Modality Lower Extremities, Foot Left Magnetic Resonance 05/10/2025 5:00 PM EDT Impressions 05/11/2025 9:19 PM EDT 1. Soft tissue ulceration along the lateral plantar aspect of the foot, with underlying marrow signal changes concerning for comparison osteomyelitis involving the fifth metatarsal stump. 2. Extensive postsurgical changes related to prior transmetatarsal amputations across all 5 rays. Mild residual bone marrow edema along the amputation margins of the first through fourth metatarsal stumps and small residual fluid collection abutting the first metatarsal stump. COMMUNICATION: *A(n) Yellow actionable finding has been communicated to the ordering or responsible provider via the [employer] system on 05/11/2025 9:19 PM. Receipt of this communication by the responsible provider will be documented in [employer] upon receiving acknowledgement if applicable, Message ID [id number]. If this radiology report contains a blank impression section, it is an incomplete radiology report. Please contact the interpreting radiologist or applicable radiology division as soon as possible to obtain the completed interpretation. Workstation ID: [id number] Narrative 05/11/2025 9:19 PM EDT INDICATION: draining sinus in the left foot concerning for new osteomyelitis M86.9 - I10 - Osteomyelitis, unspecified TECHNIQUE: Multiplanar, multisequence MRI of the left foot was performed without contrast using standard departmental protocol. COMPARISON: Foot radiographs: 04/27/2025. FINDINGS: There are extensive postsurgical changes related to transmetatarsal amputation across all 5 rays. At the lateral plantar aspect of the foot, there is a soft tissue ulceration, with underlying subcutaneous edema extending toward the lateral base of the fifth metatarsal stump. At this location, there is focal T2 hyperintense bone marrow edema with accompanying hypointense T1 marrow signal. No discrete osseous erosion. There is also T2 hyperintense marrow edema at the amputation margins of the first through fourth metatarsal stumps and there is a small fluid collection abutting the first metatarsal stump, spanning 1.2 x 1.9 x 0.7 cm. There is circumferential subcutaneous edema throughout the soft tissues at the amputation stump. Resulting Agency Comment [id number] Agustín Chauhan MD IMG MRI PROCEDURES Edite d Result - Final * Tobar Top, Urine (04/06/2025 11:27 PM EDT) Pathologist [facility] Extra Tube Hold for add-ons. 04/07/2025 4:05 AM EDT [facility] Comment:Auto resulted. Urine Urine specimen collection, clean catch / Unknown Non-Blood Collection / Unknown 04/06/2025 11:27 PM EDT 04/06/2025 11:27 PM EDT Hortencia Rosales MD LAB URINE ORDERABLES Final R esult [facility] [address] [place] [address], [place] * (ABNORMAL) Urinalysis W/Reflex to Microscopic & Culture (04/06/2025 11:27 PM EDT) Color, Urine Light Yellow Colorless, Light Yellow, Yellow, Dark Yellow 04/07/2025 12:00 AM EDT [facility] Clarity, Urine Clear Clear 04/07/2025 12:00 AM EDT [facility] Specific [place], Urine 1.016 <1.030 04/07/2025 12:00 AM EDT [facility] pH, Urine 6.0 4.6 - 8.0 04/07/2025 12:00 AM EDT [facility] Protein, Urine Trace(A) Negative 04/07/2025 12:00 AM T [facility] Glucose, Urine Normal Normal 04/07/2025 12:00 AM EDT [facility] Ketones, Urine Negative Negative 04/07/2025 12:00 AM EDT [facility] Bilirubin, Urine Negative Negative 04/07/2025 12:00 AM T [facility] Blood, Urine Negative Negative 04/07/2025 12:00 AM EDT [facility] Nitrite, Urine Negative Negative 04/07/2025 12:00 AM EDT [facility] Urobilinogen, Urine Normal Normal 04/07/2025 12:00 AM T [facility] Leukocyte Esterase, Urine Negative Negative 04/07/2025 12:00 AM [facility] WBC, Urine 1 0 - 2 /HPF 04/07/2025 12:00 AM T [facility] RBC, Urine 3(H) 0 - 2 /HPF 04/07/2025 12:00 AM T [facility] Hyaline Casts, Urine 12(H) 0 - 2 /LPF 04/07/2025 12:00 AM [facility] Squamous Epithelial Cells, Urine <1 /HPF 04/07/2025 12:00 AM T [facility] Bacteria, Urine None Seen None /HPF /HPF 04/07/2025 12:00 AM T [facility] Mucus, Urine Rare /LPF 04/07/2025 12:00 AM T [facility] Urine Urine specimen collection, clean catch / Unknown Non-Blood Collection / Unknown 04/06/2025 11:27 PM EDT 04/06/2025 11:27 PM EDT Hortencia Rosales MD LAB URINE ORDERABLES Final R esult [facility] [address] [place] [address], * (ABNORMAL) Comprehensive Metabolic Panel (04/06/2025 5:27 PM EDT) NA 138 135 - 145 mmol/L 04/06/2025 6:02 PM EDT [facility] K 5.5(H) 3.5 - 5.3 mmol/L 04/06/2025 6:02 PM EDT [facility] Cl 103 98 - 107 mmol/L 04/06/2025 6:02 PM EDT [facility] CO2 19(L) 22 - 32 mmol/L 04/06/2025 6:02 PM EDT [facility] Anion Gap 16(H) 5 - 15 04/06/2025 6:02 PM EDT [facility] Glucose 213(H) 65 - 99 mg/dL 04/06/2025 6:02 PM EDT [facility] Creatinine 1.46(H) 0.60 - 1.30 mg/dL 04/06/2025 6:02 PM EDT [facility] Calcium 10.8(H) 8.6 - 10.5 mg/dL 04/06/2025 6:02 PM EDT [facility] Total Protein 8.1(H) 6.0 - 8.0 g/dL 04/06/2025 6:02 PM EDT [facility] Albumin 4.2 3.5 - 5.2 g/dL 04/06/2025 6:02 PM EDT [facility] Bilirubin, Total 0.3 0.2 - 1.2 mg/dL 04/06/2025 6:02 PM EDT [facility] Alkaline Phosphatase 146(H) 35 - 129 U/L 04/06/2025 6:02 PM EDT [facility] AST 33 10 - 40 U/L 04/06/2025 6:02 PM EDT [facility] ALT 44(H) 10 - 40 U/L 04/06/2025 6:02 PM EDT [facility] BUN 24(H) 7 - 23 mg/dL 04/06/2025 6:02 PM EDT [facility] eGFR 58(L) >=60 mL/min/1 .73m2 04/06/2025 6:02 PM EDT [facility] Comment:The estimated glomer ular filtration rate (eGFR) is calculated using a new formula developed by the NKF-ASN task force to eliminate race-based correction factors. The new formula uses serum/plasma creatinine, age, and gender to determine eGFR. A value below 60mls/min might indicate kidney disease and will be flagged. For additional information, see Lundberg et al, Am J Kidney Dis. 2021;79(2):268- 288, A Unifying Approach for GFR estimation: Recommendations of the NKF-ASN Task Force on Reassessing the Inclusion of Race in Diagnosing Kidney Disease . Globulin, Total 3.9 2.1 - 4.2 g/dL 04/06/2025 6:02 PM EDT [facility] A/G Ratio 1.1(L) 1.5 - 3.0 04/06/2025 6:02 PM EDT [facility] Blood Structure of peripheral vein / Unknown Venipuncture / Unknown 04/06/2025 5:27 PM EDT 04/06/2025 5:34 PM EDT us Hortencia Rosales MD LAB BLOOD ORDERABLES Final R esult [facility] [address] [place] [address], [place] * XR Chest 2 vw. Standard (04/06/2025 4:25 PM EDT) Anatomical Region Laterality Modality Body Computed Radiogr aphy 04/06/2025 4:34 PM EDT Impressions 04/06/2025 4:35 PM EDT No pneumonia or interstitial edema If this radiology report contains a blank impression section, it is an incomplete radiology report. Please contact the interpreting radiologist or applicable radiology division as soon as possible to obtain the completed interpretation. Workstation ID: [id number] Narrative 04/06/2025 4:35 PM EDT COMPARISON: Chest radiograph dated 02/13/2025 FINDINGS: Lines/Tubes: None. Lungs: The lungs are well-aerated without evidence of pneumonia or pulmonary edema. Pleura: No pleural effusion or pneumothorax. Heart and Mediastinum: The cardiac and mediastinal contours are normal. Bones: The included skeleton is unremarkable. Resulting Agency Comment [id number] Procedure Note Sapphire Howard MD - 04/06/2025 COMPARISON: Chest radiograph dated 02/13/2025 FINDINGS: Lines/Tubes: None. Lungs: The lungs are well-aerated without evidence of pneumonia orpulmonary edema. Pleura: No pleural effusion or pneumothorax. Heart and Mediastinum: The cardiac and mediastinal contours are normal. Bones: The included skeleton is unremarkable. IMPRESSION: No pneumonia or interstitial edema If this radiology report contains a blank impression section, it is anincomplete radiology report. Please contact the interpreting radiologistor applicable radiology division as soon as possible to obtain thecompleted interpretation. Workstation ID: [id number] Hortencia Rosales MD IMG XR PROCEDURES Final Resu lt * (ABNORMAL) POCT Glucose, interfaced (04/06/2025 4:04 PM EDT) [facility] Signature Glucose, POCT 227(H) 70 - 99 mg/dL 04/06/2025 4:06 PM EDT [facility] Comment: The barrel ribs solderer has not determined the efficacy of this test in Critically ill patients. [facility] defines Critically ill patients for the purpose of blood glucose monitoring (BGM) by glucometer, as patients meeting one or more of the following criteria: Hypotension- non-ICU patients (systolic blood pressure Less than 90 mmHg) due to shock Hypotension -ICU patients (Mean Arterial Pressure (MAP) <60 mmHg or systolic blood pressure < 90 mmHg due to shock Patients receiving Vasopressors (phenylephrine, vasopressin or norepinephrine) Anasarca In all locations, BGM test results should not be relied upon in the above situations, unless these results confirmed with lab-based glucose values. Blood 04/06/2025 4:04 PM EDT 04/06/2025 4:06 PM EDT Hortencia Rosales MD LAB POCT ORDERABLES - DEVICE Final Result [facility] [address] [place] [address], [place] * Comprehensive Metabolic Panel, Outside Lab (03/28/2025 8:22 AM EDT) Blood Structure of peripheral vein / Unknown Peyton Franco MD LAB BLOOD ORDERABLES Final Resu lt * CBC Auto Differential, Outside Lab (03/28/2025 8:22 AM EDT) Blood Structure of peripheral vein / Unknown Peyton Franco MD LAB BLOOD ORDERABLES Final Resu lt * Vancomycin, Trough, Outside Lab (03/28/2025 8:22 AM EDT) Blood Structure of peripheral vein / Unknown Peyton Franco MD LAB BLOOD ORDERABLES Final Resu lt from Last 3 Months Additional Health Concerns Infection Onset Date Last Indicated 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 02/14/[address] [place] [address] [facility] Advance Directives Documents on File Type Date Recorded Patient Rn Traveling Expl anation Health Care Proxy 02/15/2025 11:34 AM Chayo Monte 02-15-2025 * Full Code (Latest Code Status on File) Date Activated Date Inactivated Comments 02/13/2025 9:16 PM 03/10/2025 9:04 PM * Full Code Date Activated Date Inactivated Comments 11/11/2024 8:21 PM 11/19/2024 5:51 PM Healthcare Agents on File Name Relationship Healthcare Agent Relationship Communication Chayo Monte Sister Alternate Healt Care Agent Bethany Monte Sister Health Care Agent Care Teams Commercial Food Instructor Relationship Specialty Start Date End Date Roger Walker MD [address] [place] [address] PCP - General Family Medicine 05/04/25
--- OUTSIDE RECORDS SUMMARY | 2025-06-23 19:04 | XMS_ITS | Encounter Summary ---
Author Organization [facility] Address [address] [place] [address] Care Team Providers Care Rodding Machine Tender Name Role Phone Huber Acosta DO Primary Care Provider [phone] Maria Dolores Shearer MD Primary Care Provider [phone] Andreea Herron OD Unavailable Roger Walker MD Primary Care Provider [phone] Encounter Details Date Type Department Care Team (Late st Contact Info) Description 03/15/2009 Orders Only [facility] [address] [place] [phone] Huber Acosta DO [facility] [address] [place] [address] Social History Tobacco Use Types Packs/Day Years [...] Description 07/15/2025 12:25 PM EDT Consult (Initial) [facility] [address] [place] [address] Edi Flaherty MD [address] [address] - consult for Hypertension, benign 07/19/2025 1:30 PM EDT Office Visit [address] [phone] Roger Walker MD [address] [place] [address] diabetic follow up 10/24/2025 9:00 AM EST Office Visit [facility]. Optometry [address] [place] [address] UnderOlya carlton, OD [address] [place] [address] new pt,DM,noCL,verifie d via EM,elig 10/13/24,10/24,$0copa y,aodv,aoir 01/17/2026 2:00 PM EDT CPE - Comprehensive Physical Exam [address] [address] Roger Walker MD [address] [place] [address] CPE documented as of this encounter Procedures * Due to [place] [employer] law, this organization might not be sharing negative HIV tests. Procedure Name Priority Date/Time Associated Diagnosis Comments CARDIAC RISK/LIPID PROFILE I Routine 03/15/2009 Hyperlipidemia CK, CREATINE KINASE (CPK, TOTAL) Routine 03/15/2009 HYPERLIPIDEMIA DIABETES HEPATIC FUNCTION PANEL Routine 03/15/2009 HYPERLIPIDEMIA DIABETES documented in this encounter Results * Due to [place] [employer] law, this organization might not be sharing negative HIV tests. * HEPATIC FUNCTION PANEL (03/15/2009) Total Protein 7.1 6.2 - 8.3 G/DL ALBUMIN 4.7 3.7 - 5.1 G/DL GLOBULIN 2.4 2.1 - 3.7 G/DL ALBUMIN/GLOBULIN RATIO 2.0 1.0 - 2.1 BILIRUBIN TOTAL 0.7 0.2 - 1.2 MG/DL BILIRUBIN DIRECT 0.1 0 - 0.3 MG/DL ALKALINE PHOSPHATASE 57 40 - 115 U/L AST (SGOT) 27 10 - 40 U/L ALT (SGPT) 34 9 - 60 U/L 03/15/2009 03/15/2009 4:5 6 PM EDT Narrative 03/15/2009 11:07 PM EDT Report Comments: ORIGINALLY EXPECTED: 08/12/07 CK, CREATINE KINASE (CPK, TOTAL) ORIGINALLY EXPECTED: 08/12/07 HEPATIC FUNCTION PANEL us Huber G Farb DO LABORATORY Final Result * (ABNORMAL) CK, CREATINE KINASE (CPK, TOTAL) (03/15/2009) CK (CREATINE KINASE) 262(H) 44 - 196 U/L 03/15/2009 03/15/2009 4:5 6 PM EDT Narrative 03/15/2009 11:07 PM EDT Report Comments: ORIGINALLY EXPECTED: 08/12/07 CK, CREATINE KINASE (CPK, TOTAL) ORIGINALLY EXPECTED: 08/12/07 HEPATIC FUNCTION PANEL us Huber G Farb DO LAB SAME DAY RESULT Final Result * (ABNORMAL) CARDIAC RISK/LIPID PROFILE I (03/15/2009) CHOLESTEROL, TOTAL 207(H) 125 - 200 MG/DL TRIGLYCERIDES 275(H) 30 - 149 MG/DL HDL-CHOLESTEROL 32(L) 40 - 77 MG/DL LDL-CHOLESTEROL 120 62 - 130 MG/DL Comment: RISK CATEGORY: LDL-CHOLESTEROL GOAL CHD AND CHD RISK EQUIVALENTS: <100 MULTIPLE (2+) FACTORS: <130 ZERO TO ONE RISK FACTOR: <160 CHD RELATIVE RISK RATIO (TOTAL/HDL) 6.47(H) 0.0 - 5.0 Comment:(1.3 X AVERAGE) 03/15/2009 03/15/2009 4:5 6 PM EDT Narrative 03/15/2009 11:07 PM EDT Report Comments: ORIGINALLY EXPECTED: 08/12/07 CK, CREATINE KINASE (CPK, TOTAL) ORIGINALLY EXPECTED: 08/12/07 HEPATIC FUNCTION PANEL us Huber Acosta DO LABORATORY Final Result documented in this encounter Visit Diagnoses Diagnosis HYPERLIPIDEMIA Other and unspecified hyperlipidemia DIABETES Type II or unspecified type diabetes mellitus without mention of complication, not stated as uncontrolled documented in this encounter Additional Health Concerns Infection Onset Date Last Indicated Resolved Time COVID-19 Rule-Out 07/18/2020 07/18/2020 07/20/2020 11:31 AM EDT COVID-19 Rule-Out 09/18/2020 09/18/2020 09/21/2020 1:43 PM EST COVID-19 Confirmed 09/18/2020 09/18/2020 1 8:12 PM EST documented as of this encounter Care Teams Rodding Machine Tender Relationship Specialty Start Date End Date Huber Acosta DO PCP - General 07/08/06 10/24/12 Maria Dolores Shearer MD PCP - General Internal Medicine 10/25/12 10/29/23 Roger Walker MD [address] [place] [address] PCP - General Family Medicine 10/30/23 Andreea Herron OD [employer] Chief Optometry 02/20/17 documented as of this encounter
--- OUTSIDE RECORDS SUMMARY | 2025-06-23 19:05 | XMS_ITS | Encounter Summary ---
Author Organization [facility] Address [address] [place] [address] Care Team Providers Care Auto Washer Name Role Phone Huber Acosta DO Primary Care Provider [phone] Maria Dolores Shearer MD Primary Care Provider [phone] Andreea Herron OD Unavailable Roger Walker MD Primary Care Provider [phone] Encounter Details Date Type Department Care Team (Late st Contact Info) Description 04/02/2010 Orders Only [facility] Endocrinology [address] [place] [phone] Stacy Mora MSN NP Social History Tobacco [...] Description 07/15/2025 12:25 PM EDT Consult (Initial) [facility] [address] [place] [address] Edi Flaherty MD [address] [address] - consult for Hypertension, benign 07/19/2025 1:30 PM EDT Office Visit [address] [phone] Roger Walker MD [address] [place] [address] diabetic follow up 10/24/2025 9:00 AM EST Office Visit [facility]. Optometry [address] [place] [address] UnderOlya carlton, OD [address] [place] [address] new pt,DM,noCL,verifie d via EM,elig 10/13/24,10/24,$0copa y,aodv,aoir 01/17/2026 2:00 PM EDT CPE - Comprehensive Physical Exam [address] [phone] Roger Walker MD [address] [place] [address] CPE documented as of this encounter Procedures * Due to [place] [employer] law, this organization might not be sharing negative HIV tests. Procedure Name Priority Date/Time Associated Diagnosis Comments HEMOGLOBIN A1C Routine 04/02/2010 DM w/o complication type II, uncontrolled (HCC) MICROALBUMIN (RANDOM URINE) Routine 04/02/2010 DM w/o complication type II, uncontrolled (HCC) documented in this encounter Results * Due to [place] [employer] law, this organization might not be sharing negative HIV tests. * (ABNORMAL) MICROALBUMIN (RANDOM URINE) (04/02/2010) CREATININE (URINE) 550(H) 20 - 370 MG/DL [facility] Microalbumin (Urine) 40 NOT ESTABLISHED [facility] MICROALBUMIN/CRE AT RATIO (URINE) 7 0 - 29 [facility] Comment:UNITS: MCG/MG CREATI NINE 04/02/2010 04/02/2010 6:0 0 PM EDT Stacy Mora MSN CNC SUPERVISOR LABORATORY Final Result Performing Organization Address City/[facility]/ZIP Co de Phone Number [facility] [address] [place] [address] * (ABNORMAL) HEMOGLOBIN A1C (04/02/2010) Hemoglobin A1C 7.9(H) 0.0 - 5.7 % [facility] GLUCOSE MEAN VALUE 204 MG/DL [facility] 04/02/2010 04/02/2010 6:0 0 PM EDT Stacy Mora MSN CNC SUPERVISOR LABORATORY Final Result Performing Organization Address [facility] Co de Phone Number [facility] [address] [place] [address] documented in this encounter Visit Diagnoses Diagnosis [...] documented as of this encounter Care Teams Auto Washer Relationship Specialty Start Date End Date Huber Acosta DO PCP - General 07/08/06 10/24/12 Maria Dolores Shearer MD PCP - General Internal Medicine 10/25/12 10/29/23 Roger Walker MD [address] [place] [address] PCP - General Family Medicine 10/30/23 Andreea Herron OD In Class Special Education Teacher Optometry 02/20/17 documented as of this encounter
--- OUTSIDE RECORDS SUMMARY | 2025-06-23 19:05 | XMS_ITS | Encounter Summary ---
Author Organization [facility] Address [address] [place] [address] Care Team Providers Care Gut Snatcher Name Role Phone Huber Acosta DO Primary Care Provider [phone] Maria Dolores Shearer MD Primary Care Provider [phone] Andreea Herron OD Unavailable Roger Walker MD Primary Care Provider [phone] Encounter Details Date Type Department Care Team (Late st Contact Info) Description 10/18/2009 Orders Only [facility] [address] [place] [phone] Huber Acosta DO [facility] [address] [place] [address] Social History Tobacco Use Types Packs/Day Years [...] Description 07/15/2025 12:25 PM EDT Consult (Initial) [facility] [address] [place] [address] Edi Flaherty MD [address] [address] - consult for Hypertension, benign 07/19/2025 1:30 PM EDT Office Visit [address] [phone] Roger Walker MD [address] [place] [place] [address] diabetic follow up 10/24/2025 9:00 AM EST Office Visit [facility]. Optometry [address] [place] [phone] UnderOlya carlton, OD [address] [place] [address] new pt,DM,noCL,verifie d via EM,elig 10/13/24,10/24,$0copa y,aodv,aoir 01/17/2026 2:00 PM EDT CPE - Comprehensive Physical Exam [address] [address] Roger Walker MD [address] [place] [address] CPE documented as of this encounter Procedures * Due to [place] state law, this organization might not be sharing negative HIV tests. Procedure Name Priority Date/Time Associated Diagnosis Comments BASIC METABOLIC PANEL W/GLOMERULAR FILTRATION RATE (EGFR) Routine 10/18/2009 Hyperlipidemia LIPID PANEL + CARDIAC RISK WITH REFLEX TO LDL DIRECT Routine 10/18/2009 Hyperlipidemia CBC 5 PART DIFF Routine 10/18/2009 Hyperlipidemia CK, CREATINE KINASE (CPK, TOTAL) Routine 10/18/2009 Hyperlipidemia VITAMIN D, 25-HYDROXY, LC/MS/MS Routine 10/18/2009 Arthralgia HEPATIC FUNCTION PANEL Routine 10/18/2009 Hyperlipidemia documented in this encounter Results * Due to [place] state law, this organization might not be sharing negative HIV tests. * (ABNORMAL) VITAMIN D, 25-HYDROXY, LC/MS/MS (10/18/2009) Vitamin D, 25-OH, Total 7(L) 20 - 100 NG/ML [facility] VITAMIN D, 25-OH, D3 (CHOLECALCIFEROL ) 7 NG/ML [facility] VITAMIN D, 25-OH, D2 (CALCIFEROL) <4 NG/ML [facility] Comment: 25-OHD3 INDICATES BOTH ENDOGENOUS PRODUCTION AND SUPPLEMENTATION. 25-OHD2 IS AN INDICATOR OF EXOGENOUS SOURCES SUCH DIET OR SUPPLEMENTATION. THERAPY IS BASED ON MEASUREMENT OF TOTAL 25-OHD, WITH LEVELS <20 NG/ML INDICATIVE OF VITAMIN D DEFICIENCY WHILE LEVELS BETWEEN 20 NG/ML AND 30 NG/ML SUGGEST INSUFFICIENCY. OPTIMAL LEVELS ARE >30 NG/ML. 10/18/2009 10/18/2009 6:4 7 PM EST us Huber Acosta DO LABORATORY Final Result Performing Organization Address City/State/[facility] Co de Phone Number [facility] [address] [place] [address] * HEPATIC FUNCTION PANEL (10/18/2009) Total Protein 7.3 6.2 - 8.3 G/DL [facility] ALBUMIN 4.5 3.7 - 5.1 G/DL [facility] GLOBULIN 2.8 2.1 - 3.7 G/DL [facility] ALBUMIN/GLOBULIN RATIO 1.6 1.0 - 2.1 [facility] BILIRUBIN TOTAL 0.3 0.2 - 1.2 MG/DL [facility] BILIRUBIN DIRECT 0.1 0 - 0.3 MG/DL [facility] ALKALINE PHOSPHATASE 64 40 - 115 U/L [facility] AST (SGOT) 21 10 - 40 U/L [facility] ALT (SGPT) 43 9 - 60 U/L [facility] 10/18/2009 10/18/2009 6:4 7 PM EST us Huber Acosta DO LABORATORY Final Result [facility] [address] [place] [address] * (ABNORMAL) CK, CREATINE KINASE (CPK, TOTAL) (10/18/2009) Pathologist [facility] CK (CREATINE KINASE) 324(H) 44 - 196 U/L [facility] 10/18/2009 10/18/2009 6:4 7 PM EST us Huber G [employer] DO LAB SAME DAY RESULT Final Result [facility] [address] [place] [address] * (ABNORMAL) CBC 5 PART DIFF (10/18/2009) Pathologist [facility] WHITE BLOOD COUNT 7.3 3.8 - 10.8 THOUS/UL [facility] RBC 5.31 4.20 - 5.80 MIL/UL [facility] Hemoglobin 12.8(L) 13.2 - 17.1 G/DL [facility] HCT (HEMATOCRIT) 40.0 38.5 - 50.0 % [facility] MCV 75.3(L) 80.0 - 100.0 FL [facility] MCH 24.1(L) 27.0 - 33.0 PG [facility] MCHC 32.1 32.0 - 36.0 G/DL [facility] BAND % 0 0 - 5 % [facility] NEUTROPHIL % 61 48 - 75 % [facility] LYMPHOCYTE % 28 17 - 40 % [facility] MONOCYTE % 9 0 - 14 % [facility] EOSINOPHIL % 2 0 - 5 % [facility] BASOPHIL % 0 0 - 3 % [facility] ATYPICAL LYMPHOCYTE % 0 0 - 5 % [facility] PLATELETS 316 140 - 400 THOUS/UL [facility] BANDS # 0 0 - 750 CELLS/MCL [facility] NEUTROPHILS # 4453 1500 - 7800 CELLS/MCL [facility] LYMPHOCYTES # 2044 850 - 3900 CELLS/MCL [facility] MONOCYTES # 657 200 - 950 CELLS/MCL [facility] EOSINOPHILS # 146 15 - 550 CELLS/MCL [facility] BASOPHILS # 0 0 - 200 CELLS/MCL [facility] ATYPICAL LYMPHOCYTES # 0 0 - 200 CELLS/MCL [facility] RDW 13.7 11.0 - 15.0 % [facility] MPV 8.7 7.5 - 11.5 FL [facility] 10/18/2009 10/18/2009 6:4 7 PM EST us Huber Acosta DO LAB SAME DAY RESULT Final Result Performing Organization Address [facility] de Phone Number [facility] [address] [place] [address] * (ABNORMAL) BASIC METABOLIC PANEL W/GLOMERULAR FILTRATION RATE (EGFR) (10/18/2009) CALCIUM 9.4 8.6 - 10.2 MG/DL [facility] BUN 17 7 - 25 MG/DL [facility] CREATININE 1.06 0.79 - 1.33 MG/DL [facility] Glucose 110(H) 65 - 99 MG/DL [facility] SODIUM 142 135 - 146 MMOL/L [facility] POTASSIUM 4.4 3.5 - 5.3 MMOL/L [facility] CHLORIDE 101 98 - 110 MMOL/L [facility] CARBON DIOXIDE 28 21 - 33 MMOL/L [facility] GFR > 60 60 AND ABOVE [facility] Comment:UNITS: ML/MIN/1.73 S Q METERS EGFR > 60 60 AND ABOVE [facility] Comment:UNITS: ML/MIN/1.73 S Q METERS 10/18/2009 10/18/2009 6:4 7 PM EST Narrative [facility] - 10/19/2009 2:49 AM EST Please note that this estimated GFR [...] LABORATORY Final Result Performing Organization Address [facility] Co de Phone Number [facility] [address] [place] [address] * (ABNORMAL) LIPID PANEL + CARDIAC RISK WITH REFLEX TO LDL DIRECT (10/18/2009) CHOLESTEROL, TOTAL 161 125 - 200 MG/DL [facility] TRIGLYCERIDES 204(H) 30 - 149 MG/DL [facility] HDL-CHOLESTEROL 25(L) 40 - 77 MG/DL [facility] LDL-CHOLESTEROL 95 62 - 130 MG/DL [facility] Comment: RISK CATEGORY: LDL-CHOLESTEROL GOAL CHD AND CHD RISK EQUIVALENTS: <100 MULTIPLE (2+) FACTORS: <130 ZERO TO ONE RISK FACTOR: <160 CHD RELATIVE RISK RATIO (TOTAL/HDL) 6.44(H) 0.0 - 5.0 [facility] Comment:(1.3 X AVERAGE) 10/18/2009 10/18/2009 6:4 7 PM EST us Huber Acosta DO LABORATORY Final Result Performing Organization Address City/State/[facility] Co de Phone Number [facility] [address] [place] [address] documented in this encounter Visit Diagnoses Diagnosis Hyperlipidemia Other and unspecified hyperlipidemia Arthralgia Pain in joint, site unspecified documented in this encounter Additional Health Concerns Infection Onset Date Last Indicated Resolved Time COVID-19 Rule-Out 07/18/2020 07/18/2020 07/20/2020 11:31 AM EDT COVID-19 Rule-Out 09/18/2020 09/18/2020 09/21/2020 1:43 PM EST COVID-19 Confirmed 09/18/2020 09/18/2020 1 8:12 PM EST documented as of this encounter Care Teams Gut Snatcher Relationship Specialty Start Date End Date Huber Acosta DO PCP - General 07/08/06 10/24/12 Maria Dolores Shearer MD PCP - General Internal Medicine 10/25/12 10/29/23 Roger Walker MD [address] [place] [address] PCP - General Family Medicine 10/30/23 Andreea Herron OD [facility] 02/20/17 documented as of this encounter
--- OUTSIDE RECORDS SUMMARY | 2025-06-23 19:05 | XMS_ITS | Encounter Summary ---
Author Organization [facility] Address [address] [place] [address] Care Team Providers Care Lead Consultant Name Role Phone Huber Acosta DO Primary Care Provider [phone] Maria Dolores Shearer MD Primary Care Provider [phone] Andreea Herron OD Unavailable Roger Walker MD Primary Care Provider [phone] Encounter Details Date Type Department Care Team (Late st Contact Info) Description 04/02/2010 Orders Only [facility] [address] [place] [phone] Huber Acosta DO [facility] [address] [place] [address] Social History Tobacco Use Types Packs/Day Years [...] as of this encounter Progress Notes * Melony Butler - 04/05/2010 9:51 AM EDTQuick Note: The patients lab results are at a abnormal level by the protocol guidelines. Please review and advise. and No Letter was generated. documented in this encounter Plan of Treatment Upcoming Encounters Date Type Department Care Team (Latest Contact Info) Description 07/15/2025 12:25 PM EDT Consult (Initial) [facility] [address] [place] [address] Edi Flaherty MD [address] [facility] [address] [place] [address] - consult for Hypertension, benign 07/19/2025 1:30 PM EDT Office Visit [address] [phone] Roger Walker MD [address] [place] [address] diabetic follow up 10/24/2025 9:00 AM EST Office Visit [facility]. Optometry [address] [place] [address] UnderOlya carlton, OD [address] [place] [address] new pt,DM,noCL,verifie d via EM,elig 10/13/24,10/24,$0copa y,aodv,aoir 01/17/2026 2:00 PM EDT CPE - Comprehensive Physical Exam [address] [phone] Roger Walker MD [address] [place] [address] CPE documented as of this encounter Procedures * Due to [place] state law, this organization might not be sharing negative HIV tests. Procedure Name Priority Date/Time Associated Diagnosis Comments BASIC METABOLIC PANEL W/GLOMERULAR FILTRATION RATE (EGFR) Routine 04/02/2010 Hyperlipidemia LIPID PANEL + CARDIAC RISK WITH REFLEX TO LDL DIRECT Routine 04/02/2010 Hyperlipidemia CBC 5 PART DIFF Routine 04/02/2010 Hyperlipidemia CK, CREATINE KINASE (CPK, TOTAL) Routine 04/02/2010 Hyperlipidemia VITAMIN D, 25-HYDROXY, LC/MS/MS Routine 04/02/2010 Hypovitaminosis D HEPATIC FUNCTION PANEL Routine 04/02/2010 Hyperlipidemia documented in this encounter Results * Due to [place] state law, this organization might not be sharing negative HIV tests. * VITAMIN D, 25-HYDROXY, LC/MS/MS (04/02/2010) Vitamin D, 25-OH, Total 44 30 - 100 NG/ML [facility] VITAMIN D, 25-OH, D3 (CHOLECALCIFEROL ) 5 NG/ML [facility] VITAMIN D, 25-OH, D2 (CALCIFEROL) 39 NG/ML [facility] Comment: 25-OHD3 INDICATES BOTH ENDOGENOUS PRODUCTION AND SUPPLEMENTATION. 25-OHD2 IS AN INDICATOR OF EXOGENOUS SOURCES SUCH DIET OR SUPPLEMENTATION. THERAPY IS BASED ON MEASUREMENT OF TOTAL 25-OHD, WITH LEVELS <20 NG/ML INDICATIVE OF VITAMIN D DEFICIENCY WHILE LEVELS BETWEEN 20 NG/ML AND 30 NG/ML SUGGEST INSUFFICIENCY. OPTIMAL LEVELS ARE > OR = 30NG/ML. 04/02/2010 04/02/2010 6:0 2 PM EDT Narrative [facility] - 04/04/2010 6:57 PM EDT Report Comments: RBC'S PRESENT, CHEMISTRY RESULT(S) MAY BE AFFECTED us Huber Acosta DO LABORATORY Final Result [facility] [address] [place] [address] * HEPATIC FUNCTION PANEL (04/02/2010) Total Protein 6.7 6.2 - 8.3 G/DL [facility] ALBUMIN 4.5 3.7 - 5.1 G/DL [facility] GLOBULIN 2.2 2.1 - 3.7 G/DL [facility] ALBUMIN/GLOBULIN RATIO 2.0 1.0 - 2.1 [facility] BILIRUBIN TOTAL 0.6 0.2 - 1.2 MG/DL [facility] BILIRUBIN DIRECT 0.1 0 - 0.3 MG/DL [facility] ALKALINE PHOSPHATASE 58 40 - 115 U/L [facility] AST (SGOT) 19 10 - 40 U/L [facility] ALT (SGPT) 28 9 - 60 U/L [facility] 04/02/2010 04/02/2010 6:0 2 PM EDT Narrative [facility] - 04/03/2010 2:24 AM EDT Report Comments: RBC'S PRESENT, CHEMISTRY RESULT(S) MAY BE AFFECTED us Huber Acosta DO LABORATORY Final Result [facility] [address] [place] [address] * (ABNORMAL) CBC 5 PART DIFF (04/02/2010) WHITE BLOOD COUNT 6.4 3.8 - 10.8 THOUS/UL [facility] RBC 5.07 4.20 - 5.80 MIL/UL [facility] Hemoglobin 12.6(L) 13.2 - 17.1 G/DL [facility] HCT (HEMATOCRIT) 38.8 38.5 - 50.0 % [facility] MCV 76.6(L) 80.0 - 100.0 FL [facility] MCH 24.8(L) 27.0 - 33.0 PG [facility] MCHC 32.3 32.0 - 36.0 G/DL [facility] BAND % 0 0 - 5 % [facility] NEUTROPHIL % 59 48 - 75 % [facility] LYMPHOCYTE % 32 17 - 40 % [facility] MONOCYTE % 8 0 - 14 % [facility] EOSINOPHIL % 1 0 - 5 % [facility] BASOPHIL % 0 0 - 3 % [facility] ATYPICAL LYMPHOCYTE % 0 0 - 5 % [facility] PLATELETS 200 140 - 400 THOUS/UL [facility] BANDS # 0 0 - 750 CELLS/MCL [facility] NEUTROPHILS # 3776 1500 - 7800 CELLS/MCL [facility] LYMPHOCYTES # 2048 850 - 3900 CELLS/MCL [facility] MONOCYTES # 512 200 - 950 CELLS/MCL [facility] EOSINOPHILS # 64 15 - 550 CELLS/MCL [facility] BASOPHILS # 0 0 - 200 CELLS/MCL [facility] ATYPICAL LYMPHOCYTES # 0 0 - 200 CELLS/MCL [facility] RDW 15.3(H) 11.0 - 15.0 % [facility] MPV 8.4 7.5 - 11.5 FL [facility] 04/02/2010 04/02/2010 6:0 2 PM EDT us Huber Kingb DO LAB SAME DAY RESULT Final Result Performing Organization Address [facility] de Phone Number [facility] [address] [place] [address] * (ABNORMAL) CK, CREATINE KINASE (CPK, TOTAL) (04/02/2010) CK (CREATINE KINASE) 232(H) 44 - 196 U/L [facility] 04/02/2010 04/02/2010 6:0 2 PM EDT Narrative [facility] - 04/03/2010 2:24 AM EDT Report Comments: RBC'S PRESENT, CHEMISTRY RESULT(S) MAY BE AFFECTED us Huber G Fernandob DO LAB SAME DAY RESULT Final Result Performing Organization Address [facility] de Phone Number [facility] [address] [place] [address] * BASIC METABOLIC PANEL W/GLOMERULAR FILTRATION RATE (EGFR) (04/02/2010) CALCIUM 9.4 8.6 - 10.2 MG/DL [facility] BUN 13 7 - 25 MG/DL [facility] CREATININE 1.20 0.79 - 1.33 MG/DL [facility] Glucose 93 65 - 99 MG/DL [facility] SODIUM 140 135 - 146 MMOL/L [facility] POTASSIUM 3.8 3.5 - 5.3 MMOL/L [facility] CHLORIDE 105 98 - 110 MMOL/L [facility] CARBON DIOXIDE 27 21 - 33 MMOL/L [facility] GFR > 60 60 AND ABOVE [facility] Comment:UNITS: ML/MIN/1.73 S Q METERS EGFR > 60 60 AND ABOVE [facility] Comment:UNITS: ML/MIN/1.73 S Q METERS 04/02/2010 04/02/2010 6:0 2 PM EDT Narrative [facility] - 04/03/2010 2:24 AM EDT Please note that this estimated [...] precise needs for GFR calculation. Report Comments: RBC'S PRESENT, CHEMISTRY RESULT(S) MAY BE AFFECTED us Huber Acosta DO LABORATORY Final Result Performing Organization Address [facility] de Phone Number [facility] [address] [place] [address] * (ABNORMAL) LIPID PANEL + CARDIAC RISK WITH REFLEX TO LDL DIRECT (04/02/2010) CHOLESTEROL, TOTAL 169 125 - 200 MG/DL [facility] TRIGLYCERIDES 206(H) 30 - 149 MG/DL [facility] HDL-CHOLESTEROL 30(L) 40 - 77 MG/DL [facility] LDL-CHOLESTEROL 98 62 - 130 MG/DL [facility] Comment: RISK CATEGORY: LDL-CHOLESTEROL GOAL CHD AND CHD RISK EQUIVALENTS: <100 MULTIPLE (2+) FACTORS: <130 ZERO TO ONE RISK FACTOR: <160 CHD RELATIVE RISK RATIO (TOTAL/HDL) 5.63(H) 0.0 - 5.0 [facility] Comment:(1.2 X AVERAGE) 04/02/2010 04/02/2010 6:0 2 PM EDT Narrative [facility] - 04/03/2010 2:24 AM EDT Report Comments: RBC'S PRESENT, CHEMISTRY RESULT(S) MAY BE AFFECTED Huber Acosta DO LABORATORY Final Result Performing Organization Address [facility] de Phone Number [facility] [address] [place] [address] documented in this encounter Visit Diagnoses Diagnosis Hyperlipidemia Other and unspecified hyperlipidemia Hypovitaminosis D Unspecified vitamin D deficiency documented in this encounter Additional Health Concerns Infection Onset Date Last Indicated Resolved Time COVID-19 Rule-Out 07/18/2020 07/18/2020 07/20/2020 11:31 AM EDT COVID-19 Rule-Out 09/18/2020 09/18/2020 09/21/2020 1:43 PM EST COVID-19 Confirmed 09/18/2020 09/18/2020 1 8:12 PM EST documented as of this encounter Care Teams Lead Consultant Relationship Specialty Start Date End Date Huber Acosta DO PCP - General 07/08/06 10/24/12 Maria Dolores Shearer MD PCP - General Internal Medicine 10/25/12 10/29/23 Roger Walker MD [address] [place] [address] PCP - General Family Medicine 10/30/23 Andreea Herron OD [facility] 02/20/17 documented as of this encounter
--- OUTSIDE RECORDS SUMMARY | 2025-06-23 19:05 | XMS_ITS | Encounter Summary ---
Author Organization [facility] Address [address] [place] [address] Care Team Providers Care Family Day Carer Name Role Phone Huber Acosta DO Primary Care Provider [phone] Maria Dolores Shearer MD Primary Care Provider [phone] Andreea Herron OD Unavailable Roger Walker MD Primary Care Provider [phone] Encounter Details Date Type Department Care Team (Late st Contact Info) Description 06/19/2012 Orders Only [facility] [address] [place] [phone] Huber Acosta DO [facility] [address] [place] [address] Social History Tobacco Use Types Packs/Day Years [...] as of this encounter Progress Notes * Jolene Tristan - 06/22/2012 7:57 AM EDTQuick Note: PRINTED documented in this encounter Plan of Treatment Upcoming Encounters Date Type Department Care Team (Latest Contact Info) Description 07/15/2025 12:25 PM EDT Consult (Initial) [facility] [address] [place] [address] Edi Flaherty MD [address] [place] [address] - consult for Hypertension, benign 07/19/2025 1:30 PM EDT Office Visit [address] [phone] Roger Walker MD [address] [place] [address] diabetic follow up 10/24/2025 9:00 AM EST Office Visit [facility]. Optometry [address] [place] [phone] Olya Schultz, OD [address] [place] [address] new pt,DM,noCL,verifie d via EM,elig 10/13/24,10/24,$0copa y,aodv,aoir 01/17/2026 2:00 PM EDT CPE - Comprehensive Physical Exam [address] [phone] Roger Walker MD [address] [place] [address] CPE documented as of this encounter Procedures * Due to [place] state law, this organization might not be sharing negative HIV tests. Procedure Name Priority Date/Time Associated Diagnosis Comments CHOLESTEROL, LDL (DIRECT) Routine 06/19/2012 7:24 AM EDT CBC INCLUDES DIFFERENTIAL AND PLATELET COUNT Routine 06/19/2012 7:24 AM EDT Hyperlipidemia CREATINE KINASE (CK), SERUM Routine 06/19/2012 7:24 AM EDT Hyperlipidemia VITAMIN D, 25-HYDROXY, TOTAL, IMMUNOASSAY Routine 06/19/2012 7:24 AM EDT Hypovitaminosis D HEPATIC FUNCTION PANEL (ALT,AST,ALK PH,BILI'S,TP,ALB) Routine 06/19/2012 7:24 AM EDT Hyperlipidemia LIPID PANEL WITH REFLEX TO DIRECT LDL Routine 06/19/2012 7:24 AM EDT Hyperlipidemia BASIC METABOLIC PANEL WITH (GFR) Routine 06/19/2012 7:24 AM EDT Hyperlipidemia documented in this encounter Results * Due to [place] state law, this organization might not be sharing negative HIV tests. * CHOLESTEROL, LDL (DIRECT) (06/19/2012 7:24 AM EDT) LDL, Direct Measure 78 <130 mg/dL [facility] Comment: {DIRECT LDL {[id number]) Desirable range <100 mg/dL for patients with CHD or diabetes and <70 mg/dL for diabetic patients with known heart disease. 06/19/2012 7:24 AM EDT 06/19/2012 4:39 PM EDT us Huber Acosta DO LABORATORY Final Result Performing Organization Address City/State/[facility] Co de Phone Number [facility] [address] [place] [address] * (ABNORMAL) VITAMIN D, 25-HYDROXY, LC/MS/MS (06/19/2012 7:24 AM EDT) Vitamin D, 25-OH, Total 21(L) 30 - 100 ng/mL [facility] Comment:{VITAMIN D, 25 OH, T OTAL {[id number]) Vitamin D, D3 (Cholecalciferol ) 13 ng/mL [facility] Comment:{VITAMIN D, 25 OH, D 3 {[id number]) Vitamin D, 25-OH, D2 (Calciferol) 8 ng/mL [facility] Comment: {VITAMIN D, 25 OH, D2 {[id number]) 25-OHD3 indicates both endogenous production and supplementation. 25-OHD2 is an indicator of exogenous sources such as diet or supplementation. Therapy is based on measurement of Total 25-OHD, with levels <20 ng/mL indicative of Vitamin D deficiency, while levels between 20 ng/mL and 30 ng/mL suggest insufficiency. Optimal levels are > or = 30 ng/mL. 06/19/2012 7:24 AM EDT 06/19/2012 4:39 PM EDT Narrative Resulting Agency Comment [id number] us Huber Acosta DO LABORATORY Final Result [facility] [address] [place] [address] * HEPATIC FUNCTION PANEL (06/19/2012 7:24 AM EDT) Protein Total (Serum) 7.1 6.2 - 8.3 g/dL [facility] Comment:{PROTEIN, TOTAL {[id number]) Albumin 4.7 3.6 - 5.1 g/dL [facility] Comment:{ALBUMIN {[id number]) Globulin 2.4 2.1 - 3.7 g/dL (calc) [facility] Comment:{GLOBULIN {[id number]) Albumin/Globulin 2.0 1.0 - 2.1 (calc) [facility] Comment:{ALBUMIN/GLOBULIN RA ROSALINA {[id number]) Bilirubin Total 0.5 0.2 - 1.2 mg/dL [facility] Comment:{BILIRUBIN, TOTAL {[id number]) Bilirubin Direct 0.1 < OR = 0.2 mg/dL [facility] Comment:{BILIRUBIN, DIRECT { [id number]) Bilirubin Indirect 0.4 0.2 - 1.2 mg/dL (calc) [facility] Comment:{BILIRUBIN, INDIRECT {[id number]) Alkaline phosphatase 51 40 - 115 U/L [facility] Comment:{ALKALINE PHOSPHATAS E {[id number]) AST (SGOT) 25 10 - 40 U/L [facility] Comment:{AST {[id number]) ALT (SGPT) 34 9 - 60 U/L [facility] Comment:{ALT {[id number]) 06/19/2012 7:24 AM EDT 06/19/2012 4:39 PM EDT Narrative Resulting Agency Comment [id number] us Huber G Farb DO LABORATORY Final Result Performing Organization Address [facility] Co de Phone Number [facility] [address] [place] [address] * (ABNORMAL) CREATINE KINASE (CK), SERUM (06/19/2012 7:24 AM EDT) CPK 272(H) 44 - 196 U/L [facility] Comment:{CREATINE KINASE, TO LU {[id number]) 06/19/2012 7:24 AM EDT 06/19/2012 4:39 PM EDT Narrative Resulting Agency Comment [id number] us Huber G Farb DO LAB SAME DAY RESULT Final Result Performing Organization Address [facility] de Phone Number [facility] [address] [place] [address] * (ABNORMAL) CBC INCLUDES DIFFERENTIAL AND PLATELET COUNT (06/19/2012 7:24 AM EDT) WBC 5.3 3.8 - 10.8 Thousand/ uL [facility] Comment:{WHITE BLOOD CELL CO UNT {[id number]) RBC 5.59 4.20 - 5.80 Million/u L [facility] Comment:{RED BLOOD CELL COUN T {[id number]) Hemoglobin 13.2 13.2 - 17.1 g/dL [facility] Comment:{HEMOGLOBIN {[id number]) Hematocrit 42.3 38.5 - 50.0 % [facility] Comment:{HEMATOCRIT {[id number]) MCV 75.6(L) 80.0 - 100.0 fL [facility] Comment:{MCV {[id number]) MCH 23.6(L) 27.0 - 33.0 pg [facility] Comment:{MCH {[id number]) MCHC 31.3(L) 32.0 - 36.0 g/dL [facility] Comment:{MCHC {[id number]) RDW 14.5 11.0 - 15.0 % [facility] Comment:{RDW {[id number]) PLT 194 140 - 400 Thousand/ uL [facility] Comment:{PLATELET COUNT {[id number]) MPV 9.5 7.5 - 11.5 fL [facility] Comment:{MPV {[id number]) Neutrophils # 3074 1500 - 7800 cells/uL [facility] Comment:{ABSOLUTE NEUTROPHIL S {[id number]) Lymphocytes # 1701 850 - 3900 cells/uL [facility] Comment:{ABSOLUTE LYMPHOCYTE S {[id number]) Monocytes # 424 200 - 950 cells/uL [facility] Comment:{ABSOLUTE MONOCYTES {[id number]) Eosinophils # 80 15 - 500 cells/uL [facility] Comment:{ABSOLUTE EOSINOPHIL S {[id number]) Basophils # 21 0 - 200 cells/uL [facility] Comment:{ABSOLUTE BASOPHILS {[id number]) Neutrophils % 58.0 % [facility] Comment:{NEUTROPHILS {[id number]) Lymphocytes % 32.1 % [facility] Comment:{LYMPHOCYTES {[id number]) Monocytes % 8.0 % [facility] Comment:{MONOCYTES {[id number]) Eosinophils % 1.5 % [facility] Comment:{EOSINOPHILS {[id number]) Basophils % 0.4 % [facility] Comment:{BASOPHILS {[id number]) 06/19/2012 7:24 AM EDT 06/19/2012 4:39 PM EDT Narrative Resulting Agency Comment [id number] us Huber Acosta DO LAB SAME DAY RESULT Final Result [facility] [address] [place] [address] * (ABNORMAL) BASIC METABOLIC PANEL WITH (GFR) (06/19/2012 7:24 AM EDT) Glucose 129(H) 65 - 99 mg/dL [facility] Comment: {GLUCOSE {[id number]) Fasting reference interval Urea Nitrogen Blood (BUN) 16 7 - 25 mg/dL [facility] Comment:{UREA NITROGEN (BUN) {[id number]) Creatinine 0.99 0.60 - 1.35 mg/dL [facility] Comment:{CREATININE {[id number]) GFR 97 > OR = 60 mL/min/1. 73m2 [facility] Comment:{eGFR NON-AFR. AMERI CAN {[id number]) GFR () 112 > OR = 60 mL/min/1. 73m2 [facility] Comment:{eGFR AMERIC AN {[id number]) BUN/Creatinine Ratio NOT APPLICABLE 6 - (calc) [facility] Comment:{BUN/CREATININE RATI O {[id number]) Sodium 136 135 - 146 mmol/L [facility] Comment:{SODIUM {[id number]) Potassium 4.1 3.5 - 5.3 mmol/L [facility] Comment:{POTASSIUM {[id number]) Chloride 100 98 - 110 mmol/L [facility] Comment:{CHLORIDE {[id number]) Carbon dioxide 25 21 - 33 mmol/L [facility] Comment:{CARBON DIOXIDE {[id number]) Calcium 9.6 8.6 - 10.3 mg/dL [facility] Comment:{CALCIUM {[id number]) 06/19/2012 7:24 AM EDT 06/19/2012 4:39 PM EDT Narrative [facility] - 06/19/2012 6:59 PM EDT Please note that this estimated [...] needs for GFR calculation. Resulting Agency Comment [id number] us Huber Acosta DO LABORATORY Final Result [facility] [address] [place] [address] * (ABNORMAL) LIPID PANEL WITH REFLEX TO DIRECT LDL (06/19/2012 7:24 AM EDT) Cholesterol 216(H) 125 - 200 mg/dL [facility] Comment:{CHOLESTEROL, TOTAL {[id number]) HDL Cholesterol 28(L) > OR = 40 mg/dL [facility] Comment:{HDL CHOLESTEROL {[id number]) Triglyceride 462(H) <150 mg/dL [facility] Comment:{TRIGLYCERIDES {[id number]) LDL Cholesterol SEE NOTE <130 mg/dL (calc) [facility] Comment: {LDL-CHOLESTEROL {[id number]) LDL cholesterol not calculated. Triglyceride levels greater than 400 mg/dL invalidate calculated LDL results. Desirable range <100 mg/dL for patients with CHD or diabetes and <70 mg/dL for diabetic patients with known heart disease. CHOL/HDL Ratio 7.7(H) < OR = 5.0 (calc) [facility] Comment:{CHOL/HDLC RATIO {[id number]) Cholesterol Non-HDL 188 mg/dL (calc) [facility] Comment: {NON-HDL CHOLESTEROL {[id number]) Target for non-HDL cholesterol is 30 mg/dL higher than LDL cholesterol target. 06/19/2012 7:24 AM EDT 06/19/2012 4:39 PM EDT Narrative Resulting Agency Comment [id number] us Huber Acosta DO LABORATORY Final Result [facility] [address] [place] [address] documented in this encounter Visit Diagnoses Diagnosis Hyperlipidemia Other and unspecified hyperlipidemia Hypovitaminosis D Unspecified vitamin D deficiency documented in this encounter Additional Health Concerns Infection Onset Date Last Indicated Resolved Time COVID-19 Rule-Out 07/18/2020 07/18/2020 07/20/2020 11:31 AM EDT COVID-19 Rule-Out 09/18/2020 09/18/2020 09/21/2020 1:43 PM EST COVID-19 Confirmed 09/18/2020 09/18/2020 1 8:12 PM EST documented as of this encounter Care Teams Family Day Carer Relationship Specialty Start Date End Date Huber Acosta DO PCP - General 07/08/06 10/24/12 Maria Dolores Shearer MD PCP - General Internal Medicine 10/25/12 10/29/23 Roger Walker MD [address] [place] [address] PCP - General Family Medicine 10/30/23 Andreea Herron OD [facility] 02/20/17 documented as of this encounter
--- OUTSIDE RECORDS SUMMARY | 2025-06-23 19:05 | XMS_ITS | Encounter Summary ---
Author Organization [facility] Address [address] [place] [address] Care Team Providers Care Livestock Yard Attendant Name Role Phone Huber Acosta DO Primary Care Provider Maria Dolores Shearer MD Primary Care Provider [phone] Andreea Herron OD Unavailable Roger Walker MD Primary Care Provider [phone] Encounter Details Date Type Department Care Team (Late st Contact Info) Description 08/18/2006 Orders Only [facility] [address] [place] [phone] Huber Acosta DO [facility] [address] [place] [address] Social History Tobacco Use Types Packs/Day Years Used Date Smoking Tobacco: Never Assessed Sex and Gender Information Value Date Recorded Sex Assigned at Not on file Legal Sex Male 7:05 PM EDT Gender Identity Not on file Sexual Orientation Not on file documented as of this encounter Plan of Treatment Upcoming Encounters Date Type Department Care Team (Latest Contact Info) Description 07/15/2025 12:25 PM EDT Consult (Initial) [facility] [address] [place] [address] Edi Flaherty MD [address] [facility] [address] [place] [address] - consult for Hypertension, benign 07/19/2025 1:30 PM EDT Office Visit [address] [phone] Roger Walker MD [address] [place] [address] diabetic follow up 10/24/2025 9:00 AM EST Office Visit [facility]. Optometry [address] [place] [address] Underbianka Olya, OD [address] [place] [address] new pt,DM,noCL,verifie d via EM,elig 10/13/24,10/24,$0copa y,aodv,aoir 01/17/2026 2:00 PM EDT CPE - Comprehensive Physical Exam [address] [address] Roger Walker MD [address] [place] [address] CPE documented as of this encounter Procedures * Due to [place] state law, this organization might not be sharing negative HIV tests. Procedure Name Priority Date/Time Associated Diagnosis Comments BASIC METABOLIC PANEL Routine 08/18/2006 ENCOUNTER FOR LONG-TERM (CURRENT) USE OF OTHER MEDICATIONS CBC 5 PART DIFF Routine 08/18/2006 ENCOUNTER FOR LONG-TERM (CURRENT) USE OF OTHER MEDICATIONS TSH, THYROTROPIN Routine 08/18/2006 ENCOUNTER FOR LONG-TERM (CURRENT) USE OF OTHER MEDICATIONS PSA (PROSTATE SPECIFIC AG) TOTAL DIAGNOSTIC OR FOLLOW-UP Routine 08/18/2006 ENCOUNTER FOR LONG-TERM (CURRENT) USE OF OTHER MEDICATIONS CK, CREATINE KINASE (CPK, TOTAL) Routine 08/18/2006 ENCOUNTER FOR LONG-TERM (CURRENT) USE OF OTHER MEDICATIONS HEPATIC FUNCTION PANEL Routine 08/18/2006 ENCOUNTER FOR LONG-TERM (CURRENT) USE OF OTHER MEDICATIONS CARDIAC RISK/LIPID PROFILE I Routine 08/18/2006 ENCOUNTER FOR LONG-TERM (CURRENT) USE OF OTHER MEDICATIONS documented in this encounter Results * Due to [place] state law, this organization might not be sharing negative HIV tests. * HEPATIC FUNCTION PANEL (08/18/2006) Total Protein 7.7 6.0 - 8.3 G/DL [facility] (CLIA# [id number]) ALBUMIN 4.7 3.7 - 5.1 G/DL [facility] (CLIA# [id number]) GLOBULIN 3.0 2.2 - 4.2 G/DL [facility] (CLIA# [id number]) ALBUMIN/GLOBULIN RATIO 1.6 0.8 - 2.0 [facility] (CLIA# [id number]) BILIRUBIN TOTAL 0.5 0.2 - 1.5 MG/DL [facility] (CLIA# [id number]) BILIRUBIN DIRECT 0.1 0 - 0.3 MG/DL [facility] (CLIA# [id number]) ALKALINE PHOSPHATASE 57 20 - 125 U/L [facility] (CLIA# [id number]) AST (SGOT) 26 3 - 50 U/L [facility] (CLIA# [id number]) ALT (SGPT) 43 3 - 60 U/L [facility] (CLIA# [id number]) 08/18/2006 08/18/2006 3:4 9 PM EST us Huber Acosta DO LABORATORY Final Result [facility] (CLIA# [id number]) [address] [place] [address] * TSH, THYROTROPIN (08/18/2006) TSH, THYROTROPIN 2.1 0.3 - 5.5 UIU/ML [facility] (CLIA# [id number]) 08/18/2006 08/18/2006 3:4 9 PM EST us Huber G Farb DO LABORATORY Final Result Performing Organization Address [facility]/ZIP Co de Phone Number [facility] (CLIA# [id number]) [address] [place] [address] * PSA (PROSTATE SPECIFIC AG) TOTAL (DIAGNOSTIC OR FOLLOW-UP TO SCREEN) (08/18/2006) Pathologist [facility] PSA 0.8 0 - 4.0 NG/ML [facility] (CLIA# [id number]) Comment:PSA PERFORMED BY [facility] ZipdialAULA[facility]. 08/18/2006 08/18/2006 3:4 9 PM EST us Huber G Farb DO LABORATORY Final Result Performing Organization Address [facility] Co de Phone Number [facility] (CLIA# [id number]) [address] [place] [address] * CK (CREATINE KINASE) (08/18/2006) Pathologist [facility] CK (CREATINE KINASE) 188 0 - 200 IU/L [facility] (CLIA# [id number]) 08/18/2006 08/18/2006 3:4 9 PM EST us Huber G Farb DO LAB SAME DAY RESULT Final Result Performing Organization Address City/[facility] Co de Phone Number [facility] (CLIA# [id number]) [address] [place] [address] * (ABNORMAL) CBC 5 PART DIFF (08/18/2006) Pathologist [facility] WHITE BLOOD COUNT 6.6 3.8 - 10.8 1000/UL [facility] (CLIA# [id number]) RBC 5.75 4.20 - 5.80 MIL/UL [facility] (CLIA# [id number]) Hemoglobin 13.6 13.2 - 17.1 G/DL [facility] (CLIA# [id number]) HCT (HEMATOCRIT) 42 39 - 50 % [facility] (CLIA# [id number]) MCV 74(L) 80 - 100 FL [facility] (CLIA# [id number]) MCH 24(L) 27 - 33 PG [facility] (CLIA# [id number]) MCHC 32 32 - 36 G/DL [facility] (CLIA# [id number]) BAND % 0 0 - 5 % [facility] (CLIA# [id number]) NEUTROPHIL % 59 48 - 75 % [facility] (CLIA# [id number]) LYMPHOCYTE % 32 17 - 40 % [facility] (CLIA# [id number]) MONOCYTE % 8 0 - 14 % [facility] (CLIA# [id number]) EOSINOPHIL % 1 0 - 5 % [facility] (CLIA# [id number]) BASOPHIL % 0 0 - 3 % [facility] (CLIA# [id number]) ATYPICAL LYMPHOCYTE % 0 0 - 5 % [facility] (CLIA# [id number]) PLATELETS 282 140 - 400 THOU/UL [facility] (CLIA# [id number]) BANDS # 0 0 - 500 /UL [facility] (CLIA# [id number]) NEUTROPHILS # 3894 1500 - 7800 /UL [facility] (CLIA# [id number]) LYMPHOCYTES # 2112 850 - 3900 /UL [facility] (CLIA# [id number]) MONOCYTES # 528 200 - 950 /UL [facility] (CLIA# [id number]) EOSINOPHILS # 66 50 - 550 /UL [facility] (CLIA# [id number]) BASOPHILS # 0 0 - 200 /UL [facility] (CLIA# [id number]) ATYPICAL LYMPHOCYTES # 0 0 - 200 /UL [facility] (CLIA# [id number]) RDW 13.6 11.0 - 15.0 % [facility] (CLIA# [id number]) MPV 9.2 7.5 - 11.5 FL [facility] (CLIA# [id number]) 08/18/2006 08/18/2006 3:4 9 PM EST us Huber G Farb DO LAB SAME DAY RESULT Final Result Performing Organization Address [facility]/ZIP Co de Phone Number [facility] (CLIA# [id number]) [address] [place] [address] * (ABNORMAL) CARDIAC RISK/LIPID PROFILE I (08/18/2006) CHOLESTEROL, TOTAL 305(H) 100 - 199 MG/DL [facility] (CLIA# [id number]) TRIGLYCERIDES 332(H) 30 - 149 MG/DL [facility] (CLIA# [id number]) HDL-CHOLESTEROL 30(L) 40 - 77 MG/DL [facility] (CLIA# [id number]) LDL-CHOLESTEROL 209(H) 62 - 130 MG/DL [facility] (CLIA# [id number]) Comment: RISK CATEGORY: LDL-CHOLESTEROL GOAL CHD AND CHD RISK EQUIVALENTS: <100 MULTIPLE (2+) FACTORS: <130 ZERO TO ONE RISK FACTOR: <160 CHD RELATIVE RISK RATIO (TOTAL/HDL) 10.17 [facility] (CLIA# [id number]) Comment:(2.0 X AVERAGE) 08/18/2006 08/18/2006 3:4 9 PM EST us Huber G Farb DO LABORATORY Final Result Performing Organization Address City/[facility]/ZIP Co de Phone Number [facility] ([facility]# [id number]) [address] [place] [address] * (ABNORMAL) BASIC METABOLIC PANEL (08/18/2006) CALCIUM 9.8 8.5 - 10.4 MG/DL [facility] (CLIA# [id number]) BUN 17 7 - 25 MG/DL [facility] (CLIA# [id number]) CREATININE 1.2 0.5 - 1.4 MG/DL [facility] (CLIA# [id number]) BUN/Creatinine Ratio 14 6 - 25 [facility] (CLIA# [id number]) Glucose 156(H) 65 - 99 MG/DL [facility] (CLIA# [id number]) SODIUM 140 135 - 146 MMOL/L [facility] (CLIA# [id number]) POTASSIUM 4.2 3.5 - 5.3 MMOL/L [facility] (CLIA# [id number]) CHLORIDE 102 98 - 110 MMOL/L [facility] (CLIA# [id number]) CARBON DIOXIDE 30 21 - 33 MMOL/L [facility] ([facility]# [id number]) 08/18/2006 08/18/2006 3:4 9 PM EST us Huber Acosta DO LAB SAME DAY RESULT Final Result [facility] (CLIA# [id number]) [address] [place] [address] documented in this encounter Visit Diagnoses Diagnosis ENCOUNTER FOR LONG-TERM (CURRENT) USE OF OTHER MEDICATIONS Encounter for long-term (current) use of other medications documented in this encounter Additional Health Concerns Infection Onset Date Last Indicated Resolved Time COVID-19 Rule-Out 07/18/2020 07/18/2020 07/20/2020 11:31 AM EDT COVID-19 Rule-Out 09/18/2020 09/18/2020 09/21/2020 1:43 PM EST COVID-19 Confirmed 09/18/2020 09/18/2020 1 8:12 PM EST documented as of this encounter Care Teams Livestock Yard Attendant Relationship Specialty Start Date End Date Huber Acosta DO PCP - General 07/08/06 10/24/12 Maria Dolores Shearer MD PCP - General Internal Medicine 10/25/12 10/29/23 Roger Walker MD [address] [place] [address] PCP - General Family Medicine 10/30/23 Andreea Herron OD [facility] 02/20/17 documented as of this encounter
--- OUTSIDE RECORDS SUMMARY | 2025-06-23 19:05 | XMS_ITS | Encounter Summary ---
Author Organization [facility] Address [address] [place] [address] Care Team Providers Care Poultry Hatchery Laborer Name Role Phone Huber Acosta DO Primary Care Provider [phone] Maria Dolores Shearer MD Primary Care Provider [phone] Andreea Herron OD Unavailable Roger Walker MD Primary Care Provider [phone] Encounter Details Date Type Department Care Team (Late st Contact Info) Description 08/07/2010 Orders Only [facility] Endocr[facility]ology [address] [place] [address] Stacy Mora MSN [employer]IOR [employer] Social History Tobacco Use Types Packs/Day Years [...] as of this encounter Progress Notes * Izzy Stanford - 08/13/2010 2:16 PM EDTQuick Note: 08/13/10 Oanh, sent unable to reach letter to pt, ra. * Talisha Way - 08/08/2010 1:19 PM EDTQuick Note: Work # busy, lm on home #. * BenjiStacy hensley - 08/08/2010 12:42 PM EDTQuick Note: Please book routine f/u to address. documented in this encounter Plan of Treatment Upcoming Encounters Date Type Department Care Team (Latest Contact Info) Description 07/15/2025 12:25 PM EDT Consult (Initial) [facility] [address] [place] [address] Edi Flaherty MD [address] [address] - consult for Hypertension, benign 07/19/2025 1:30 PM EDT Office Visit [address] [phone] Roger Walker MD [address] [place] [address] diabetic follow up 10/24/2025 9:00 AM EST Office Visit [facility]. Optometry [address] [place] [address] UnderOlya carlton, OD [address] [place] [address] new pt,DM,noCL,verifie d via EM,elig 10/13/24,10/24,$0copa y,aodv,aoir 01/17/2026 2:00 PM EDT CPE - Comprehensive Physical Exam [address] [phone] Roger Walker MD [address] [place] [address] CPE documented as of this encounter Procedures * Due to [place] state law, this organization might not be sharing negative HIV tests. Procedure Name Priority Date/Time Associated Diagnosis Comments HEMOGLOBIN A1C Routine 08/07/2010 DM w/o complication type II, uncontrolled (HCC) documented in this encounter Results * Due to [facility] law, this organization might not be sharing negative HIV tests. * (ABNORMAL) HEMOGLOBIN A1C (08/07/2010) Hemoglobin A1C 7.5(H) 0.0 - 5.7 % [facility] GLUCOSE MEAN VALUE 190 MG/DL [facility] 08/07/2010 08/07/2010 5:4 7 PM EDT Stacy Mora MSN [facility] Final Result Performing Organization Address City/State/[facility] Co de Phone Number [facility] [address] [place] [address] documented in this encounter Visit Diagnoses Diagnosis [...] documented as of this encounter Care Teams [employer] Relationship Specialty Start Date End Date Huber Acosta DO PCP - General 07/08/06 10/24/12 Maria Dolores Shearer MD PCP - General Internal Medicine 10/25/12 10/29/23 Roger Walker MD [address] [place] [address] PCP - General Family Medicine 10/30/23 Andreea Herron OD [employer] Opt[facility] 02/20/17 documented as of this encounter
--- OUTSIDE RECORDS SUMMARY | 2025-06-23 19:05 | XMS_ITS | Encounter Summary ---
Author Organization [facility] Address [address] [place] [address] Care Team Providers Care Acoustic Warfare Analyst Name Role Phone Maria Dolores Shearer MD Primary Care Provider [phone] Andreea Herron OD Unavailable Roger Walker MD Primary Care Provider [phone] Reason for Visit * Reason Comments E-prescribing Refill Request Encounter Details Date Type Department Care Team (Late st Contact Info) Description 06/22/2015 Refill [facility] [address] [place] [phone] Maria Dolores Shearer MD [address] [place] [address] E-prescribing Refill Request Social History Tobacco Use Types Packs/Day [...] encounter Miscellaneous Notes * Telephone Encounter - Kadi Tristanhryn - 06/23/2015 7:59 AM EDT Any special requests or concerns? Please review pending labs Faxed/E-prescribed medication renewal request(s) for Benson Monte 40 y.o. male received from pharmacy. Verified and Confirmed pharmacy for patient. Last CPE with this specialty: 07/22/2014 Last OV with this specialty: 11/03/2014 Next OV: Future Appointments Date Time Provider Department Center 08/17/2015 8:30 AM ELIZABETH Mcghee 09/18/2015 10:15 AM Stacy Mora, ABEL HAM PASSER PLAEND [facility]ER[facility] Pertinent lab results: Lab Results Component Value Date SODIUM 137 06/09/2015 POTASSIUM 3.8 06/09/2015 CHLOR 103 06/09/2015 CO2 27 06/09/2015 BUN 15 06/09/2015 CREATININE 1.10 06/09/2015 GLUCOSE 95 06/09/2015 BRIAN 9.2 06/09/2015 An open order for Basic does not exist. Lab Results Component Value Date MICROALBUMIN 40 04/02/2010 ALBCRRU 6 06/09/2015 An open order for MALB does not exist. Lab Results Component Value Date CHOLESTEROL 234* 06/09/2015 HDL 28* 06/09/2015 LDL 132* 06/09/2015 LDLDIR 100 11/27/2012 TRIGLYCERIDE 370* 06/09/2015 An open order for Lipids does not exist. Lab Results Component Value Date A1C 8.5* 06/09/2015 An open order for A1C exists. Lipid, Basic, MALB yearly and A1C every 6 months recommended as minimum for chronic therapy. Based on last lab testing intervals, 6 month supply suggested for diabetic medications. Lab Results Component Value Date AST 23 06/09/2015 ALT 43 07/21/2014 An open order for AST, ALT or LFT exists. Allergies: No known drug allergy BP Readings from Last 1 Encounters: 06/12/15 125/86 Patient Active Problem List Diagnosis Date Noted ??? HTN (hypertension) 07/22/2014 ??? Microcytosis 03/04/2013 ??? Obesity 06/22/2012 ??? Patient noncompliance 08/08/2010 ??? Hypovitaminosis D 10/19/2009 , ??? Diabetes mellitus type I ??? Mixed Hyperlipidemia 10/21/2006 10/21/2006 HONG PRATER DO Current Outpatient Prescriptions on File Prior to Visit Medication Sig Dispense Refill ??? ONETOUCH DELICA LANCETS 33G Misc USE TO TEST BLOOD SUGARS FOUR TIMES A DAY OR DIRECTED 200 Each 1 ??? Insulin Glargine (LANTUS) 100 UNIT/ML Solution SQ inj 50 units at night 3 Vial 3 ??? MetFORMIN HCl 1000 MG Tab 1 by mouth twice daily with a meal 60 Tab 11 ??? Atorvastatin Calcium 20 MG Tab 1 TABLET AT BEDTIME ??? Dundee-3 Fatty Acids (FISH OIL) 1000 MG Cap 1 CAPSULES DAILY WITH BREAKFAST documented in this encounter Plan of Treatment Upcoming Encounters Date Type Department Care Team (Latest Contact Info) Description 07/15/2025 12:25 PM EDT Consult (Initial) [facility] [address] [place] [address] Edi Flaherty MD [address] [address] - consult for Hypertension, benign 07/19/2025 1:30 PM EDT Office Visit [address] [address] Roger Walker MD [address] [place] [address] diabetic follow up 10/24/2025 9:00 AM EST Office Visit [facility]. Optometry [address] [place] [address] Olya Schultz, OD [address] [place] [address] new pt,DM,noCL,verifie d via EM,elig 10/13/24,10/24,$0copa y,aodv,aoir 01/17/2026 2:00 PM EDT CPE - Comprehensive Physical Exam [address] [address] Roger Walker MD [address] [place] [address] CPE documented as of this encounter Goals Goal Patient Goal Type Associated Problems Recent Progress Patient-Stated? Author Blood Pressure < 140/80 Blood Pressure 94/62( 025 11:51 AM EDT) No Maria Dolores Shearer HEMOGLOBIN A1C % < 7 Result Component 8.6( 5 1:13 PM EDT) No Jolene Tristan CMA documented as of this encounter Visit Diagnoses Not on filedocumented in this encounter Additional Health Concerns Infection Onset Date Last Indicated Resolved Time COVID-19 Rule-Out 07/18/2020 07/18/2020 07/20/2020 11:31 AM EDT COVID-19 Rule-Out 09/18/2020 09/18/2020 09/21/2020 1:43 PM EST COVID-19 Confirmed 09/18/2020 09/18/2020 1 8:12 PM EST documented as of this encounter Care Teams Acoustic Warfare Analyst Relationship Specialty Start Date End Date Maria Dloores Shearer MD PCP - General Internal Medicine 10/25/12 10/29/23 Roger Walker MD [address] [place] [address] PCP - General Family Medicine 10/30/23 Andreea Herron OD Knife Machine Operator Optometry 02/20/17 documented as of this encounter
--- OUTSIDE RECORDS SUMMARY | 2025-06-23 19:05 | XMS_ITS | Encounter Summary ---
Author Organization [facility] Address [address] [place] [address] Care Team Providers Care Rock Loader Name Role Phone Roger Walker MD Primary Care Provider Encounter Details Date Type Department Care Team (Late st Contact Info) Description 06/14/2025 Orders Only [facility] Entrance B Interventional Radiology [address] [place] [address] Tania Mcmanus PA [address] [place] [address] Social History Tobacco Use Types Packs/Day Years Used Date Smoking Tobacco: Never Smokeless Tobacco: Never Alcohol Use Standard Drinks/Week Comments Never 0 (1 standard drink = 0.6 oz pur e alcohol) [facility] Utilities Answer Date Recorded In the past 12 months has e [employer], gas, oil, or water [email or web address] threatened to shut off services in your [...] Info) Description 06/24/2025 11:40 AM EDT Follow-Up [facility] [address] [place] [address] Emily Toussaint PA [address] [place] [address] 08/16/2025 11:15 AM EST Office Visit [facility] Neurology [address] [facility] [address] [facility] [place] [address] Josh Kraft MD [address] [place] [address] documented as of this encounter Visit Diagnoses Not on filedocumented in this encounter Additional Health Concerns Infection Onset Date Last Indicated Resolved Time 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2024 documented as of this encounter Care Teams Rock Loader Relationship Specialty Start Date End Date Roger Walker MD [address] [place] [address] PCP - General Family Medicine 05/04/25 documented as of this encounter
--- OUTSIDE RECORDS SUMMARY | 2025-06-23 19:05 | XMS_ITS | Encounter Summary ---
Author Organization [facility] Address [address] [place] [address] Care Team Providers Care Optical Engineer Name Role Phone Huber Acosta DO Primary Care Provider Maria Dolores Shearer MD Primary Care Provider [phone] Andreea Herron OD Unavailable Roger Walker MD Primary Care Provider [phone] Encounter Details Date Type Department Care Team (Late st Contact Info) Description 10/21/2006 Orders Only [facility] [address] [place] [phone] Huber Acosta DO [facility] [address] [place] [address] Social History Tobacco Use Types Packs/Day Years [...] Description 07/15/2025 12:25 PM EDT Consult (Initial) [facility] [address] [place] [address] Edi Flaherty MD 123 [facility] [address] [place] [address] - consult for Hypertension, benign 07/19/2025 1:30 PM EDT Office Visit [address] [phone] Roger Walker MD [address] [place] [address] diabetic follow up 10/24/2025 9:00 AM EST Office Visit [facility]. Optometry 5 [place] [address] UnderkoffjenniferOlya, OD [address] [place] [address] new pt,DM,noCL,verifie d via EM,elig 10/13/24,10/24,$0copa y,aodv,aoir 01/17/2026 2:00 PM EDT CPE - Comprehensive Physical Exam [address] [address] Roger Walker MD [address] [place] [address] CPE documented as of this encounter Procedures * Due to [place] law, this organization might not be sharing negative HIV tests. Procedure Name Priority Date/Time Associated Diagnosis Comments COMP METABOLIC PANEL Routine 10/21/2006 MIXED HYPERLIPIDEMIA CK, CREATINE KINASE (CPK, TOTAL) Routine 10/21/2006 MIXED HYPERLIPIDEMIA CARDIAC RISK/LIPID PROFILE I Routine 10/21/2006 MIXED HYPERLIPIDEMIA documented in this encounter Results * Due to [place] state law, this organization might not be sharing negative HIV tests. * (ABNORMAL) CK (CREATINE KINASE) (10/21/2006) CK (CREATINE KINASE) 230(H) 0 - 200 IU/L [facility] (CLIA# [id number]) 10/21/2006 10/21/2006 3:4 2 PM EST us Huber Acosta DO LAB SAME DAY RESULT Final Result Performing Organization Address [facility] de Phone Number [facility] (CLIA# [id number]) [address] [place] [address] * (ABNORMAL) CARDIAC RISK/LIPID PROFILE I (10/21/2006) CHOLESTEROL, TOTAL 317(H) 100 - 199 MG/DL [facility] (CLIA# [id number]) TRIGLYCERIDES 550(H) 30 - 149 MG/DL [facility] (CLIA# [id number]) HDL-CHOLESTEROL 30(L) 40 - 77 MG/DL [facility] (CLIA# [id number]) LDL-CHOLESTEROL SEE TEXT 62 - 130 MG/DL [facility] (CLIA# [id number]) Comment: INVALID, TRIG GREATER THAN 400 RISK CATEGORY: LDL-CHOLESTEROL GOAL CHD AND CHD RISK EQUIVALENTS: <100 MULTIPLE (2+) FACTORS: <130 ZERO TO ONE RISK FACTOR: <160 CHD RELATIVE RISK RATIO (TOTAL/HDL) 10.57 [facility] (CLIA# [id number]) Comment:(2.0 X AVERAGE) 10/21/2006 10/21/2006 3:4 2 PM EST us Huber Acosta DO LABORATORY Final Result Performing Organization Address [facility] de Phone Number [facility] (CLIA# [id number]) [address] [place] [address] * (ABNORMAL) COMPREHENSIVE METABOLIC (10/21/2006) CALCIUM 10.0 8.5 - 10.4 MG/DL [facility] (CLIA# [id number]) BUN 19 7 - 25 MG/DL [facility] (CLIA# [id number]) CREATININE 1.3 0.5 - 1.4 MG/DL [facility] (CLIA# [id number]) BUN/Creatinine Ratio 15 6 - 25 [facility] (CLIA# [id number]) Total Protein 7.5 6.0 - 8.3 G/DL [facility] (CLIA# [id number]) ALBUMIN 4.8 3.7 - 5.1 G/DL [facility] (CLIA# [id number]) GLOBULIN 2.7 2.2 - 4.2 G/DL [facility] (CLIA# [id number]) ALBUMIN/GLOBULIN RATIO 1.8 0.8 - 2.0 [facility] (CLIA# [id number]) BILIRUBIN TOTAL 0.3 0.2 - 1.5 MG/DL [facility] (CLIA# [id number]) Glucose 170(H) 65 - 99 MG/DL [facility] (CLIA# [id number]) ALKALINE PHOSPHATASE 69 20 - 125 U/L [facility] (CLIA# [id number]) AST (SGOT) 25 3 - 50 U/L [facility] (CLIA# [id number]) ALT (SGPT) 45 3 - 60 U/L [facility] (CLIA# [id number]) SODIUM 139 135 - 146 MMOL/L [facility] (CLIA# [id number]) POTASSIUM 4.1 3.5 - 5.3 MMOL/L [facility] (CLIA# [id number]) CHLORIDE 103 98 - 110 MMOL/L [facility] (CLIA# [id number]) CARBON DIOXIDE 27 21 - 33 MMOL/L [facility] (CLIA# [id number]) 10/21/2006 10/21/2006 3:4 2 PM EST us Huber Acosta DO LABORATORY Final Result [facility] (CLIA# [id number]) [address] [place] [address] documented in this encounter Visit Diagnoses Diagnosis MIXED HYPERLIPIDEMIA Mixed hyperlipidemia documented in this encounter Additional Health Concerns Infection Onset Date Last Indicated Resolved Time COVID-19 Rule-Out 07/18/2020 07/18/2020 07/20/2020 11:31 AM EDT COVID-19 Rule-Out 09/18/2020 09/18/2020 09/21/2020 1:43 PM EST COVID-19 Confirmed 09/18/2020 09/18/2020 1 8:12 PM EST documented as of this encounter Care Teams Optical Engineer Relationship Specialty Start Date End Date Huber Acosta DO PCP - General 07/08/06 10/24/12 Maria Dolores Shearer MD PCP - General Internal Medicine 10/25/12 10/29/23 Roger Walker MD [address] [place] [address] PCP - General Family Medicine 10/30/23 Andreea Herron OD [employer] Optometry 02/20/17 documented as of this encounter
--- OUTSIDE RECORDS SUMMARY | 2025-06-23 19:05 | XMS_ITS | Encounter Summary ---
Author Organization [facility] Address [address] [place] [address] Care Team Providers Care Stroboroma Operator Name Role Phone Hong Acosta DO Primary Care Provider [phone] Maria Dolores Shearer MD Primary Care Provider [phone] Andreea Herron OD Unavailable Roger Walker MD Primary Care Provider [phone] Encounter Details Date Type Department Care Team (Late st Contact Info) Description 08/21/2009 Orders Only [facility] [address] [place] [phone] Hong Acosta DO [address] [address] Social History Tobacco Use Types Packs/Day Years [...] as of this encounter Miscellaneous Notes * Letter - Hong Acosta - 05/10/2010 11:52 AM EDT Aug 21, 2009 BENSON [id number] [address] [place] [address], [address] Dear BENSON DESPINOSSE HONG G FARB, DO has ordered the following lab tests: BASIC METABOLIC PANEL W/GLOMERULAR FILTRATION RATE (EGFR) CBC 5 PART DIFF LIPID PANEL + CARDIAC RISK WITH REFLEX TO LDL DIRECT CK, CREATINE KINASE (CPK, TOTAL) HEPATIC FUNCTION PANEL VITAMIN D, 25-HYDROXY, LC/MS/MS The results of this testing will help us monitor you more closely. You may have these tests performed at any of the [facility] labs, anytime during the hours of normal operation. A specific appointment day or time is no longer required. Please bring this letter with you to the lab. If you have recently been to the laboratory and had these studies performed, please disregard this letter. Sincerely, [facility] documented in this encounter Plan of Treatment Upcoming Encounters Date Type Department Care Team (Latest Contact Info) Description 07/15/2025 12:25 PM EDT Consult (Initial) [facility] [address] [place] [address] Edi Flaherty MD 123 [facility] [address] [place] [address] - consult for Hypertension, benign 07/19/2025 1:30 PM EDT Office Visit [facility] [address] [place] [address] Roger Walker MD [address] [place] [address] diabetic follow up 10/24/2025 9:00 AM EST Office Visit [facility]. Optometry [address] [place] [address] Olya Schultz, MIGNON [address] [place] [address] new pt,DM,noCL,verifie d via EM,elig 10/13/24,10/24,$0copa y,aodv,aoir 01/17/2026 2:00 PM EDT CPE - Comprehensive Physical Exam [facility] [address] [place] [address] Roger Walker MD [address] [place] [address] CPE documented as of this encounter Procedures * Due to [facility] law, this organization might not be sharing negative HIV tests. Procedure Name Priority Date/Time Associated Diagnosis Comments BASIC METABOLIC PANEL W/GLOMERULAR FILTRATION RATE (EGFR) Routine 08/21/2009 Hyperlipidemia LIPID PANEL + CARDIAC RISK WITH REFLEX TO LDL DIRECT Routine 08/21/2009 Hyperlipidemia CBC 5 PART DIFF Routine 08/21/2009 Hyperlipidemia CK, CREATINE KINASE (CPK, TOTAL) Routine 08/21/2009 Hyperlipidemia VITAMIN D, 25-HYDROXY, LC/MS/MS Routine 08/21/2009 Arthralgia HEPATIC FUNCTION PANEL Routine 08/21/2009 Hyperlipidemia documented in this encounter Results * Due to [place] [employer] law, this organization might not be sharing negative HIV tests. * (ABNORMAL) BASIC METABOLIC PANEL W/GLOMERULAR FILTRATION RATE (EGFR) (08/21/2009) CALCIUM 9.6 8.6 - 10.2 MG/DL [facility] BUN 15 7 - 25 MG/DL [facility] CREATININE 1.20 0.79 - 1.33 MG/DL [facility] Glucose 123(H) 65 - 99 MG/DL [facility] SODIUM 137 135 - 146 MMOL/L [facility] POTASSIUM 4.1 3.5 - 5.3 MMOL/L [facility] CHLORIDE 102 98 - 110 MMOL/L [facility] CARBON DIOXIDE 28 21 - 33 MMOL/L [facility] GFR > 60 60 AND ABOVE [facility] Comment:UNITS: ML/MIN/1.73 S Q METERS EGFR > 60 60 AND ABOVE [facility] Comment:UNITS: ML/MIN/1.73 S Q METERS 08/21/2009 08/21/2009 4:1 8 PM EST Narrative [facility] - 08/21/2009 8:58 PM EST Please note that this estimated [...] with more precise needs for GFR calculation. Hong Acosta DO LABORATORY Final Result [facility] [address] [place] [address] * (ABNORMAL) CBC 5 PART DIFF (08/21/2009) WHITE BLOOD COUNT 6.6 3.8 - 10.8 THOUS/UL [facility] RBC 5.44 4.20 - 5.80 MIL/UL [facility] Hemoglobin 13.0(L) 13.2 - 17.1 G/DL [facility] HCT (HEMATOCRIT) 41.2 38.5 - 50.0 % [facility] MCV 75.7(L) 80.0 - 100.0 FL [facility] MCH 23.8(L) 27.0 - 33.0 PG [facility] MCHC 31.5(L) 32.0 - 36.0 G/DL [facility] BAND % 0 0 - 5 % [facility] NEUTROPHIL % 59 48 - 75 % [facility] LYMPHOCYTE % 31 17 - 40 % [facility] MONOCYTE % 9 0 - 14 % [facility] EOSINOPHIL % 1 0 - 5 % [facility] BASOPHIL % 0 0 - 3 % [facility] ATYPICAL LYMPHOCYTE % 0 0 - 5 % [facility] PLATELETS 214 140 - 400 THOUS/UL [facility] BANDS # 0 0 - 750 CELLS/MCL [facility] NEUTROPHILS # 3894 1500 - 7800 CELLS/MCL [facility] LYMPHOCYTES # 2046 850 - 3900 CELLS/MCL [facility] MONOCYTES # 594 200 - 950 CELLS/MCL [facility] EOSINOPHILS # 66 15 - 550 CELLS/MCL [facility] BASOPHILS # 0 0 - 200 CELLS/MCL [facility] ATYPICAL LYMPHOCYTES # 0 0 - 200 CELLS/MCL [facility] RDW 13.9 11.0 - 15.0 % [facility] MPV 8.9 7.5 - 11.5 FL [facility] 08/21/2009 08/21/2009 4:1 8 PM EST [employer] Hong Acosta DO LAB SAME DAY RESULT Final Result Performing Organization Address [facility] de Phone Number [facility] [address] [place] [address] * (ABNORMAL) LIPID PANEL + CARDIAC RISK WITH REFLEX TO LDL DIRECT (08/21/2009) CHOLESTEROL, TOTAL 219(H) 125 - 200 MG/DL [facility] TRIGLYCERIDES 299(H) 30 - 149 MG/DL [facility] HDL-CHOLESTEROL 32(L) 40 - 77 MG/DL [facility] LDL-CHOLESTEROL 127 62 - 130 MG/DL [facility] Comment: RISK CATEGORY: LDL-CHOLESTEROL GOAL CHD AND CHD RISK EQUIVALENTS: <100 MULTIPLE (2+) FACTORS: <130 ZERO TO ONE RISK FACTOR: <160 CHD RELATIVE RISK RATIO (TOTAL/HDL) 6.84(H) 0.0 - 5.0 [facility] Comment:(1.4 X AVERAGE) 08/21/2009 08/21/2009 4:1 8 PM EST [employer] Hong Acosta DO LABORATORY Final Result Performing Organization Address [facility] de Phone Number [facility] [address] [place] [address] * (ABNORMAL) CK, CREATINE KINASE (CPK, TOTAL) (08/21/2009) CK (CREATINE KINASE) 202(H) 44 - 196 U/L [facility] 08/21/2009 08/21/2009 4:1 8 PM EST [employer] Hong Kingb DO LAB SAME DAY RESULT Final Result Performing Organization Address [facility] de Phone Number [facility] [address] [place] [address] * HEPATIC FUNCTION PANEL (08/21/2009) Total Protein 7.0 6.2 - 8.3 G/DL [facility] ALBUMIN 4.5 3.7 - 5.1 G/DL [facility] GLOBULIN 2.5 2.1 - 3.7 G/DL [facility] ALBUMIN/GLOBULIN RATIO 1.8 1.0 - 2.1 [facility] BILIRUBIN TOTAL 0.6 0.2 - 1.2 MG/DL [facility] BILIRUBIN DIRECT 0.1 0 - 0.3 MG/DL [facility] ALKALINE PHOSPHATASE 56 40 - 115 U/L [facility] AST (SGOT) 17 10 - 40 U/L [facility] ALT (SGPT) 23 9 - 60 U/L [facility] 08/21/2009 08/21/2009 4:1 8 PM EST Hong Acosta DO LABORATORY Final Result Performing Organization Address [facility] de Phone Number [facility] [address] [place] [address] * (ABNORMAL) VITAMIN D, 25-HYDROXY, LC/MS/MS (08/21/2009) Vitamin D, 25-OH, Total 11(L) 20 - 100 NG/ML [facility] VITAMIN D, 25-OH, D3 (CHOLECALCIFEROL ) 11 NG/ML [facility] VITAMIN D, 25-OH, D2 (CALCIFEROL) <4 NG/ML [facility] Comment: 25-OHD3 INDICATES BOTH ENDOGENOUS PRODUCTION AND SUPPLEMENTATION. 25-OHD2 IS AN INDICATOR OF EXOGENOUS SOURCES SUCH DIET OR SUPPLEMENTATION. THERAPY IS BASED ON MEASUREMENT OF TOTAL 25-OHD, WITH LEVELS <20 NG/ML INDICATIVE OF VITAMIN D DEFICIENCY WHILE LEVELS BETWEEN 20 NG/ML AND 30 NG/ML SUGGEST INSUFFICIENCY. OPTIMAL LEVELS ARE >30 NG/ML. 08/21/2009 08/21/2009 4:1 8 PM EST Hong Acosta DO LABORATORY Final Result Performing Organization Address [facility] de Phone Number [facility] [address] [place] [address] documented in this encounter Visit Diagnoses Diagnosis Arthralgia Pain in joint, site unspecified Hyperlipidemia Other and unspecified hyperlipidemia documented in this encounter Additional Health Concerns Infection Onset Date Last Indicated Resolved Time COVID-19 Rule-Out 07/18/2020 07/18/2020 07/20/2020 11:31 AM EDT COVID-19 Rule-Out 09/18/2020 09/18/2020 09/21/2020 1:43 PM EST COVID-19 Confirmed 09/18/2020 09/18/2020 1 8:12 PM EST documented as of this encounter Care Teams Stroboroma Operator Relationship Specialty Start Date End Date Hong Acosta DO PCP - General 07/08/06 10/24/12 Maria Dolores Shearer MD PCP - General Internal Medicine 10/25/12 10/29/23 Roger Walker MD [address] [place] [address] PCP - General Family Medicine 10/30/23 Andreea Herron OD Knowledge Manager Optometry 02/20/17 documented as of this encounter
--- OUTSIDE RECORDS SUMMARY | 2025-06-23 19:05 | XMS_ITS | Encounter Summary ---
Author Organization [facility] Address [address] [place] [address] Care Team Providers Care [employer] Guidance Counselor Name Role Phone Roger Walker MD Primary Care Provider [phone] Reason for Visit * Reason Onset Date Comments PAC Patient Request Call Back 06/07/2025 Encounter Details Date Type Department Care Team (Late st Contact Info) Description 06/07/2025 Telephone [facility] Disease Clinic [address] [place], [place] [id number] Roll Wrapper: Hanny Deleon, OLAMIDE PAC Patient Request Call Back Social History Tobacco Use Types Packs/Day Years Used Date Smoking Tobacco: Never Smokeless Tobacco: Never Alcohol Use Standard Drinks/Week Comments Never 0 (1 standard drink = 0.6 oz pur e alcohol) [facility] Utilities Answer Date Recorded In the past 12 months has [employer], gas, oil, or water [employer] threatened to shut off services in your [...] encounter Miscellaneous Notes * Telephone Encounter - OLAMIDE Gaviria - 06/07/2025 11:30 AM EDT Pt calling to follow up on set up IV Please advise documented in this encounter Plan of Treatment Upcoming Encounters Date Type Department Care Team (Late st Contact Info) Description 06/24/2025 11:40 AM EDT Follow-Up [facility]le [facility] [address] [place] [address] Emily Toussaint PA [address] [place] [address] 08/16/2025 11:15 AM EST Office Visit [facility] Neurology [address] [place] [address] [address] [facility] [place] [address] Josh Kraft MD [address] [place] [address] documented as of this encounter Visit Diagnoses Not on filedocumented in this encounter Additional Health Concerns Infection Onset Date Last Indicated Resolved Time 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2024 documented as of this encounter Care Teams [employer] Guidance Counselor Relationship Specialty Start Date End Date Roger Walker MD [address] [place] [address] PCP - General Family Medicine 05/04/25 documented as of this encounter
--- OUTSIDE RECORDS SUMMARY | 2025-06-23 19:05 | XMS_ITS | Encounter Summary ---
Author Organization [facility] Address [address] [place] [address] Care Team Providers Care Body Piercer Name Role Phone Huber Acosta DO Primary Care Provider [phone] Maria Dolores Shearer MD Primary Care Provider [phone] Andreea Herron OD Unavailable Roger Walker MD Primary Care Provider [phone] Encounter Details Date Type Department Care Team (Late st Contact Info) Description 06/13/2011 Orders Only [facility] Endocrinology [address] [place] [phone] Stacy Mora MSN FIRST LINE SUPERVISOR Social History Tobacco Use Types Packs/Day Years [...] Description 07/15/2025 12:25 PM EDT Consult (Initial) [facility] [address] [place] [address] Edi Flaherty MD [address] [address] - consult for Hypertension, benign 07/19/2025 1:30 PM EDT Office Visit [address] [address] Roger Walker MD [address] [place] [address] diabetic follow up 10/24/2025 9:00 AM EST Office Visit [facility]. Optometry [address] [place] [address] UnderOlya carlton, OD [address] [place] [address] new pt,DM,noCL,verifie d via EM,elig 10/13/24,10/24,$0copa y,aodv,aoir 01/17/2026 2:00 PM EDT CPE - Comprehensive Physical Exam [address] [address] Roger Walker MD [address] [place] [address] CPE documented as of this encounter Procedures * Due to [place] state law, this organization might not be sharing negative HIV tests. Procedure Name Priority Date/Time Associated Diagnosis Comments HEMOGLOBIN A1C Routine 06/13/2011 7:07 AM EDT DM w/o complication type II, uncontrolled (HCC) Mixed hyperlipidemia Overweight GLUTAMIC ACID DECARBOXYLASE-65 AUTOANTIBODIES Routine 06/13/2011 7:07 AM EDT DM w/o complication type II, uncontrolled (HCC) Mixed hyperlipidemia Overweight MICROALBUMIN (RANDOM URINE) Routine 06/13/2011 7:07 AM EDT DM w/o complication type II, uncontrolled (HCC) Mixed hyperlipidemia Overweight C-PEPTIDE (FASTING) Routine 06/13/2011 7 :07 AM EDT DM w/o complication type II, uncontrolled (HCC) Mixed hyperlipidemia Overweight THYROID CASCADE Routine 06/13/2011 7:07 AM EDT DM w/o complication type II, uncontrolled (HCC) Mixed hyperlipidemia Overweight GLUCOSE (BLOOD) Routine 06/13/2011 7:07 AM EDT DM w/o complication type II, uncontrolled (HCC) Mixed hyperlipidemia Overweight documented in this encounter Results * Due to [place] state law, this organization might not be sharing negative HIV tests. * THYROID CASCADE (06/13/2011 7:07 AM EDT) TSH 1.73 0.40 - 4.50 mIU/L [facility] Comment:{TSH, 3RD GENERATION {[id number]) INTERPRETATION SEE NOTE [facility] Comment: {INTERPRETATION {[id number]) TSH within normal range. Consistent with euthyroid patient. 06/13/2011 7:07 AM EDT 06/14/2011 2:20 AM EDT Narrative [facility] - 06/14/2011 10:59 AM EDT Report Comments: FASTING Resulting Agency Comment [id number] Stacy ROMAN FIRST LINE SUPERVISOR LABORATORY Final Result Performing Organization Address [facility] Co de Phone Number [facility] [address] [place] [address] * (ABNORMAL) GLUCOSE (BLOOD) (06/13/2011 7:07 AM EDT) Glucose 106(H) 65 - 99 mg/dL [facility] Comment: {GLUCOSE {[id number]) Fasting reference interval 06/13/2011 7:07 AM EDT 06/14/2011 2:20 AM EDT Narrative [facility] - 06/14/2011 4:08 AM EDT Report Comments: FASTING Resulting Agency Comment [id number] Stacy ROMAN FIRST LINE SUPERVISOR LAB SAME DAY RESULT Final Res ult Performing Organization Address [facility] Co de Phone Number [facility] [address] [place] [address] * C-PEPTIDE (FASTING) (06/13/2011 7:07 AM EDT) C peptide 0.82 0.80 - 3.10 ng/mL [facility] Comment:{C-PEPTIDE {[id number]) 06/13/2011 7:07 AM EDT 06/14/2011 2:20 AM EDT Narrative [facility] - 06/18/2011 11:28 AM EDT Report Comments: FASTING Resulting Agency Comment [id number] Stacy Mora MSN FIRST LINE SUPERVISOR LABORATORY Final Result Performing Organization Address [facility] Co de Phone Number [facility] [address] [place] [address] * GLUTAMIC ACID DECARBOXYLASE-65 AUTOANTIBODIES (06/13/2011 7:07 AM EDT) Pathologist [facility] Glutamate Decarboxylase 65 Ab <1.0 <=1.0 U/mL [facility] Comment:{GLUTAMIC ACID DECAR BOXYLASE 65 AB {[id number]) 06/13/2011 7:07 AM EDT 06/14/2011 2:20 AM EDT Narrative [facility] - 06/18/2011 10:57 PM EDT Report Comments: FASTING Resulting Agency Comment [id number] Stacy Mora [facility] FIRST LINE SUPERVISOR LABORATORY Final Result Performing Organization Address [facility] de Phone Number [facility] [address] [place] [address] * (ABNORMAL) HEMOGLOBIN A1C (06/13/2011 7:07 AM EDT) Pathologist [facility] Hemoglobin A1C 8.5(H) <5.7 % of total Hgb [facility] Comment: {HEMOGLOBIN A1c {[id number]) Consistent with diabetes <5.7 Decreased risk of diabetes 5.7-6.0 Increased risk of diabetes 6.1-6.4 Higher risk of diabetes > or = 6.5 Consistent with diabetes Standards of Medical Care in Diabetes-2010. Diabetes Care, 33(Supp 1): S1-S61,2010. Estimated Average Glucose 225 mg/dL (calc) [facility] Comment:{MEAN PLASMA GLUCOSE {[id number]) 06/13/2011 7:07 AM EDT 06/14/2011 2:20 AM EDT Narrative [facility] - 06/14/2011 10:59 AM EDT Report Comments: FASTING Resulting Agency Comment [id number] Stacy Mora MSN FIRST LINE SUPERVISOR LABORATORY Final Result Performing Organization Address [facility] de Phone Number [facility] [address] [place] [id number] * MICROALBUMIN (RANDOM URINE) (06/13/2011 7:07 AM EDT) Creatinine (Urine) NOT DONE mg/dL [facility] Comment: {CREATININE, RANDOM URINE {[id number]) * Test not performed. * * No urine received. * Albumin (Urine) NOT DONE mg/dL [facility] Comment: {MICROALBUMIN {[id number]) * Test not performed. * * No urine received. * 06/13/2011 7:07 AM EDT 06/14/2011 2:20 AM EDT Narrative [facility] - 06/14/2011 10:59 AM EDT Report Comments: FASTING Resulting Agency Comment [id number] Stacy ROMAN FIRST LINE SUPERVISOR LABORATORY Final Result Performing Organization Address [facility] de Phone Number [facility] [address] [place] [address] documented in this encounter Visit Diagnoses Diagnosis [...] documented as of this encounter Care Teams Body Piercer Relationship Specialty Start Date End Date Huber Acosta DO PCP - General 07/08/06 10/24/12 Maria Dolores Shearer MD PCP - General Internal Medicine 10/25/12 10/29/23 Roger Walker MD [address] [place] [address] PCP - General Family Medicine 10/30/23 Andreea Herron OD Phys Therapist Optometry 02/20/17 documented as of this encounter
--- OUTSIDE RECORDS SUMMARY | 2025-06-23 19:05 | XMS_ITS | Encounter Summary ---
Author Organization [facility] Address [address] [place] [address] Care Team Providers Care Checkering Machine Adjuster Name Role Phone Roger Walker MD Primary Care Provider [phone] Reason for Visit * Reason Comments PAC Clinical Questions Encounter Details Date Type Department Care Team (Late st Contact Info) Description 06/20/2025 Telephone [facility]ious Disease Clinic [address] [place], [place] [id number] Supervisor Microfilm Duplicating Unit: Melva Arnold Telephone Intake, Staff PAC Clinical Questions Social History Tobacco Use Types Packs/Day Years Used Date Smoking Tobacco: Never Smokeless Tobacco: Never Alcohol Use Standard Drinks/Week Comments Never 0 (1 standard drink = 0.6 oz pur e alcohol) [facility] Utilities Answer Date Recorded In the past 12 months has th e [employer], gas, oil, or water giddy threatened to shut off services in your [...] encounter Miscellaneous Notes * Telephone Encounter - Mary Mireles - 06/20/2025 2:36 PM EDT Copied from [facility] #[id number]. Topic: Clinical - Messages for Clinical Team >> Jun 20, 2025 2:33 PM Mary Toro wrote: Pt requesting a call back from clinical team. Please call pt at [phone]. documented in this encounter Plan of Treatment Upcoming Encounters Date Type Department Care Team (Late st Contact Info) Description 06/24/2025 11:40 AM EDT Follow-Up [facility] [address] [place] [address] Emily Toussaint PA [address] [place] [address] 08/16/2025 11:15 AM EST Office Visit [facility] Neurology [address] [facility] [address] [place] [address] Josh Kraft MD [address] [place] [address] documented as of this encounter Visit Diagnoses Not on filedocumented in this encounter Additional Health Concerns Infection Onset Date Last Indicated Resolved Time 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2024 documented as of this encounter Care Teams Checkering Machine Adjuster Relationship Specialty Start Date End Date Roger Walker MD [address] [place] [address] PCP - General Family Medicine 05/04/25 documented as of this encounter
--- OUTSIDE RECORDS SUMMARY | 2025-06-23 19:05 | XMS_ITS | Encounter Summary ---
Author Organization [facility] Address [address] [place] [address] Care Team Providers Care Gas Regulator Repairer Helper Name Role Phone Huber Acosta DO Primary Care Provider [phone] Maria Dolores Shearer MD Primary Care Provider [phone] Andreea Herron OD Unavailable Roger Walker MD Primary Care Provider [phone] Encounter Details Date Type Department Care Team (Late st Contact Info) Description 06/19/2012 Orders Only [facility] Endocrinology [address] [place] [phone] Stacy Mora MSN NP Social History Tobacco [...] Description 07/15/2025 12:25 PM EDT Consult (Initial) [facility] [address] [place] [address] Edi Flaherty MD [address] [address] - consult for Hypertension, benign 07/19/2025 1:30 PM EDT Office Visit [address] [address] Roger Walker MD [address] [place] [address] diabetic follow up 10/24/2025 9:00 AM EST Office Visit [facility]. Optometry [address] [place] [address] UnderOlya carlton, OD [address] [place] [address] new pt,DM,noCL,verifie d via EM,elig 10/13/24,10/24,$0copa y,aodv,aoir 01/17/2026 2:00 PM EDT CPE - Comprehensive Physical Exam [address] [address] Roger Walker MD [address] [place] [address] CPE documented as of this encounter Procedures * Due to [place] state law, this organization might not be sharing negative HIV tests. Procedure Name Priority Date/Time Associated Diagnosis Comments ALANINE AMINOTRANSFERASE (ALT), SERUM Routine 06/19/2012 7:22 AM EDT Uncontrolled type II diabetes mellitus Elevated blood pressure Mixed hyperlipidemia Overweight ASPARTATE AMINOTRANSFERASE (AST), SERUM Routine 06/19/2012 7:22 AM EDT Uncontrolled type II diabetes mellitus Elevated blood pressure Mixed hyperlipidemia Overweight HEMOGLOBIN A1C Routine 06/19/2012 7:22 AM EDT Uncontrolled type II diabetes mellitus Elevated blood pressure Mixed hyperlipidemia Overweight CREATININE WITH GLOMERULAR FILTRATION RATE, ESTIMATED (EGFR) Routine 06/19/2012 7:22 AM EDT Uncontrolled type II diabetes mellitus Elevated blood pressure Mixed hyperlipidemia Overweight documented in this encounter Results * Due to [place] state law, this organization might not be sharing negative HIV tests. * (ABNORMAL) HEMOGLOBIN A1C (06/19/2012 7:22 AM EDT) Hemoglobin A1C 8.6(H) <5.7 % of total Hgb [facility] Comment: {HEMOGLOBIN A1c {[id number]) Consistent with diabetes <5.7 Decreased risk of diabetes 5.7-6.0 Increased risk of diabetes 6.1-6.4 Higher risk of diabetes > or = 6.5 Consistent with diabetes Standards of Medical Care in Diabetes-2010. Diabetes Care, 33(Supp 1): S1-S61,2010. Estimated Average Glucose 229 mg/dL (calc) [facility] Comment:{MEAN PLASMA GLUCOSE {[id number]) 06/19/2012 7:22 AM EDT 06/19/2012 4:38 PM EDT Narrative Resulting Agency Comment [id number] Stacy Mora MSN PRESS OPERATOR [employer] [facility] Final Result [facility] [address] [place] [address] * CREATININE WITH GLOMERULAR FILTRATION RATE, ESTIMATED (EGFR) (06/19/2012 7:22 AM EDT) Creatinine 1.03 0.60 - 1.35 mg/dL [facility] Comment:{CREATININE {[id number]) GFR 92 > OR = 60 mL/min/1.7 3m2 [facility] Comment:{eGFR NON-AFR. AMERI CAN {[id number]) GFR () 107 > OR = 60 mL/min/1.7 3m2 [facility] Comment:{eGFR AMERIC AN {[id number]) 06/19/2012 7:22 AM EDT 06/19/2012 4:38 PM EDT Narrative [facility] - 06/19/2012 [...] needs for GFR calculation. Resulting Agency Comment [id number] Stacy Mora MSN PRESS OPERATOR [employer] [facility] SAME DAY RESULT Final Res ult Performing Organization Address [facility] de Phone Number [facility] [address] [place] [address] * ASPARTATE AMINOTRANSFERASE (AST), SERUM (06/19/2012 7:22 AM EDT) AST (SGOT) 24 10 - 40 U/L [facility] Comment:{AST {[id number]) 06/19/2012 7:22 AM EDT 06/19/2012 4:38 PM EDT Narrative Resulting Agency Comment [id number] Stacy ROMAN PRESS OPERATOR [employer] [facility] SAME DAY RESULT Final Res ult Performing Organization Address [facility] de Phone Number [facility] [address] [place] [address] * ALANINE AMINOTRANSFERASE (ALT), SERUM (06/19/2012 7:22 AM EDT) ALT (SGPT) 34 9 - 60 U/L [facility] Comment:{ALT {[id number]) 06/19/2012 7:22 AM EDT 06/19/2012 4:38 PM EDT Narrative Resulting Agency Comment [id number] Stacy Mora MSN PRESS OPERATOR [employer] [facility] SAME DAY RESULT Final Res ult Performing Organization Address [facility] de Phone Number [facility] [address] [place] [address] documented in this encounter Visit Diagnoses Diagnosis [...] documented as of this encounter Care Teams Gas Regulator Repairer Helper Relationship Specialty Start Date End Date Huber AcostaDO PCP - General 07/08/06 10/24/12 Maria Dolores Shearer MD PCP - General Internal Medicine 10/25/12 10/29/23 Roger Walker MD [address] [place] [address] PCP - General Family Medicine 10/30/23 Andreea Herron OD Endodontic Assistant Optometry 02/20/17 documented as of this encounter
--- OUTSIDE RECORDS SUMMARY | 2025-06-23 19:05 | XMS_ITS | Encounter Summary ---
Author Organization [facility] Address [address] [place] [address] Care Team Providers Care Public Health Clinical Nurse Specialist Name Role Phone Huber Acosta DO Primary Care Provider [phone] Maria Dolores Shearer MD Primary Care Provider [phone] Andreea Herron OD Unavailable Roger Walker MD Primary Care Provider [phone] Encounter Details Date Type Department Care Team (Late st Contact Info) Description 07/15/2011 Orders Only [facility] [address] [place] [phone] Huber Acosta DO [facility] [address] [place] [address] Social History Tobacco Use Types Packs/Day Years [...] as of this encounter Progress Notes * Kathy Cadet - 07/17/2011 1:49 PM EDTQuick Note: PRINTED documented in this encounter Plan of Treatment Upcoming Encounters Date Type Department Care Team (Latest Contact Info) Description 07/15/2025 12:25 PM EDT Consult (Initial) [facility] [address] [place] [address] Edi Flaherty MD [address] [facility] [address] [place] [address] - consult for Hypertension, benign 07/19/2025 1:30 PM EDT Office Visit [address] [phone] Roger Walker MD [address] [place] [address] diabetic follow up 10/24/2025 9:00 AM EST Office Visit [facility]. Optometry [address] [place] [phone] Olya Schultz, OD [address] [place] [address] new pt,DM,noCL,verifie d via EM,elig 10/13/24,10/24,$0copa y,aodv,aoir 01/17/2026 2:00 PM EDT CPE - Comprehensive Physical Exam [address] [phone] Roger Walker MD [address] [place] [address] CPE documented as of this encounter Procedures * Due to [place] state law, this organization might not be sharing negative HIV tests. Procedure Name Priority Date/Time Associated Diagnosis Comments CHOLESTEROL, LDL (DIRECT) Routine 07/15/2011 7:09 AM EDT LIPID PANEL + CARDIAC RISK WITH REFLEX TO LDL DIRECT Routine 07/15/2011 7:09 AM EDT Hyperlipidemia CBC 5 PART DIFF Routine 07/15/2011 7:09 AM EDT Hyperlipidemia CK, CREATINE KINASE (CPK, TOTAL) Routine 07/15/2011 7:09 AM EDT Hyperlipidemia VITAMIN D, 25-HYDROXY, LC/MS/MS Routine 07/15/2011 7:09 AM EDT Hypovitaminosis D HEPATIC FUNCTION PANEL Routine 07/15/2011 7:09 AM EDT Hyperlipidemia documented in this encounter Results * Due to [place] state law, this organization might not be sharing negative HIV tests. * CHOLESTEROL, LDL (DIRECT) (07/15/2011 7:09 AM EDT) LDL, Direct Measure 71 <130 mg/dL [facility] Comment: {DIRECT LDL {[id number]) Desirable range <100 mg/dL for patients with CHD or diabetes and <70 mg/dL for diabetic patients with known heart disease. 07/15/2011 7:09 AM EDT 07/15/2011 7:17 PM EDT us Huber Acosta DO LABORATORY Final Result Performing Organization Address City/State/[facility] Co de Phone Number [facility] [address] [place] [address] * (ABNORMAL) VITAMIN D, 25-HYDROXY, LC/MS/MS (07/15/2011 7:09 AM EDT) Vitamin D, 25-OH, Total 27(L) 30 - 100 ng/mL [facility] Comment:{VITAMIN D, 25 OH, T OTAL {[id number]) Vitamin D, D3 (Cholecalciferol ) 11 ng/mL [facility] Comment:{VITAMIN D, 25 OH, D 3 {[id number]) Vitamin D, 25-OH, D2 (Calciferol) 16 ng/mL [facility] Comment: {VITAMIN D, 25 OH, D2 {[id number]) 25-OHD3 indicates both endogenous production and supplementation. 25-OHD2 is an indicator of exogenous sources such as diet or supplementation. Therapy is based on measurement of Total 25-OHD, with levels <20 ng/mL indicative of Vitamin D deficiency, while levels between 20 ng/mL and 30 ng/mL suggest insufficiency. Optimal levels are > or = 30 ng/mL. 07/15/2011 7:09 AM EDT 07/15/2011 7:17 PM EDT Narrative Resulting Agency Comment [id number] us Huber Acosta DO LABORATORY Final Result [facility] [address] [place] [address] * HEPATIC FUNCTION PANEL (07/15/2011 7:09 AM EDT) Protein Total (Serum) 6.7 6.2 - 8.3 g/dL [facility] Comment:{PROTEIN, TOTAL {[id number]) Albumin 4.3 3.6 - 5.1 g/dL [facility] Comment:{ALBUMIN {[id number]) Globulin 2.4 2.1 - 3.7 g/dL (calc) [facility] Comment:{GLOBULIN {[id number]) Albumin/Globulin 1.8 1.0 - 2.1 (calc) [facility] Comment:{ALBUMIN/GLOBULIN RA ROSALINA {[id number]) Bilirubin Total 0.4 0.2 - 1.2 mg/dL [facility] Comment:{BILIRUBIN, TOTAL {[id number]) Bilirubin Direct 0.1 < OR = 0.2 mg/dL [facility] Comment:{BILIRUBIN, DIRECT { [id number]) Bilirubin Indirect 0.3 0.2 - 1.2 mg/dL (calc) [facility] Comment:{BILIRUBIN, INDIRECT {[id number]) Alkaline phosphatase 55 40 - 115 U/L [facility] Comment:{ALKALINE PHOSPHATAS E {[id number]) AST (SGOT) 21 10 - 40 U/L [facility] Comment:{AST {[id number]) ALT (SGPT) 38 9 - 60 U/L [facility] Comment:{ALT {[id number]) 07/15/2011 7:09 AM EDT 07/15/2011 7:17 PM EDT Narrative Resulting Agency Comment [id number] us Huber G Farb DO LABORATORY Final Result Performing Organization Address City/[facility]/ZIP Co de Phone Number [facility] [address] [place] [address] * CK, CREATINE KINASE (CPK, TOTAL) (07/15/2011 7:09 AM EDT) CPK 196 44 - 196 U/L [facility] Comment:{CREATINE KINASE, TO LU {[id number]) 07/15/2011 7:09 AM EDT 07/15/2011 7:17 PM EDT Narrative Resulting Agency Comment [id number] us Huber G Farb DO LAB SAME DAY RESULT Final Result Performing Organization Address [facility] de Phone Number [facility] [address] [place] [address] * (ABNORMAL) CBC 5 PART DIFF (07/15/2011 7:09 AM EDT) WBC 5.9 3.8 - 10.8 Thousand/ uL [facility] Comment:{WHITE BLOOD CELL CO UNT {[id number]) RBC 5.39 4.20 - 5.80 Million/u L [facility] Comment:{RED BLOOD CELL COUN T {[id number]) Hemoglobin 13.0(L) 13.2 - 17.1 g/dL [facility] Comment:{HEMOGLOBIN {[id number]) Hematocrit 40.8 38.5 - 50.0 % [facility] Comment:{HEMATOCRIT {[id number]) MCV 75.8(L) 80.0 - 100.0 fL [facility] Comment:{MCV {[id number]) MCH 24.0(L) 27.0 - 33.0 pg [facility] Comment:{MCH {[id number]) MCHC 31.7(L) 32.0 - 36.0 g/dL [facility] Comment:{MCHC {[id number]) RDW 14.3 11.0 - 15.0 % [facility] Comment:{RDW {[id number]) PLT 216 140 - 400 Thousand/ uL [facility] Comment:{PLATELET COUNT {[id number]) MPV 9.6 7.5 - 11.5 fL [facility] Comment:{MPV {[id number]) Neutrophils # 3593 1500 - 7800 cells/uL [facility] Comment:{ABSOLUTE NEUTROPHIL S {[id number]) Lymphocytes # 1823 850 - 3900 cells/uL [facility] Comment:{ABSOLUTE LYMPHOCYTE S {[id number]) Monocytes # 366 200 - 950 cells/uL [facility] Comment:{ABSOLUTE MONOCYTES {[id number]) Eosinophils # 94 15 - 500 cells/uL [facility] Comment:{ABSOLUTE EOSINOPHIL S {[id number]) Basophils # 24 0 - 200 cells/uL [facility] Comment:{ABSOLUTE BASOPHILS {[id number]) Neutrophils % 60.9 % [facility] Comment:{NEUTROPHILS {[id number]) Lymphocytes % 30.9 % [facility] Comment:{LYMPHOCYTES {[id number]) Monocytes % 6.2 % [facility] Comment:{MONOCYTES {[id number]) Eosinophils % 1.6 % [facility] Comment:{EOSINOPHILS {[id number]) Basophils % 0.4 % [facility] Comment:{BASOPHILS {[id number]) 07/15/2011 7:09 AM EDT 07/15/2011 7:17 PM EDT Narrative Resulting Agency Comment [id number] us Huber Acosta DO LAB SAME DAY RESULT Final Result [facility] [address] [place] [address] * (ABNORMAL) LIPID PANEL + CARDIAC RISK WITH REFLEX TO LDL DIRECT (07/15/2011 7:09 AM EDT) Cholesterol 226(H) 125 - 200 mg/dL [facility] Comment:{CHOLESTEROL, TOTAL {[id number]) HDL Cholesterol 29(L) > OR = 40 mg/dL [facility] Comment:{HDL CHOLESTEROL {[id number]) Triglyceride 507(H) <150 mg/dL [facility] Comment:{TRIGLYCERIDES {[id number]) LDL Cholesterol SEE NOTE <130 mg/dL (calc) [facility] Comment: {LDL-CHOLESTEROL {[id number]) LDL cholesterol not calculated. Triglyceride levels greater than 400 mg/dL invalidate calculated LDL results. Desirable range <100 mg/dL for patients with CHD or diabetes and <70 mg/dL for diabetic patients with known heart disease. CHOL/HDL Ratio 7.8(H) < OR = 5.0 (calc) [facility] Comment:{CHOL/HDLC RATIO {[id number]) 07/15/2011 7:09 AM EDT 07/15/2011 7:17 PM EDT Narrative Resulting Agency Comment [id number] us Huber Acosta DO LABORATORY Final Result Performing Organization Address City/State/[facility] Co de Phone Number [facility] [address] [place] [address] documented in this encounter Visit Diagnoses Diagnosis Hyperlipidemia Other and unspecified hyperlipidemia Hypovitaminosis D Unspecified vitamin D deficiency documented in this encounter Additional Health Concerns Infection Onset Date Last Indicated Resolved Time COVID-19 Rule-Out 07/18/2020 07/18/2020 07/20/2020 11:31 AM EDT COVID-19 Rule-Out 09/18/2020 09/18/2020 09/21/2020 1:43 PM EST COVID-19 Confirmed 09/18/2020 09/18/2020 1 8:12 PM EST documented as of this encounter Care Teams Public Health Clinical Nurse Specialist Relationship Specialty Start Date End Date Huber Acosta DO PCP - General 07/08/06 10/24/12 Maria Dolores Shearer MD PCP - General Internal Medicine 10/25/12 10/29/23 Roger Walker MD [address] [place] [address] PCP - General Family Medicine 10/30/23 Andreea Herron OD Emergency Department Coordinator Optometry 02/20/17 documented as of this encounter
--- OUTSIDE RECORDS SUMMARY | 2025-06-23 19:05 | XMS_ITS | Encounter Summary ---
Author Organization [facility] Address [address] [place] [address] Care Team Providers Care Vp Outcomes Name Role Phone Hong Acosta DO Primary Care Provider [phone] Maria Dolores Shearer MD Primary Care Provider [phone] Andreea Herron OD Unavailable Roger Walker MD Primary Care Provider [phone] Reason for Visit * Reason Comments E-prescribing Refill Request Encounter Details Date Type Department Care Team (Late st Contact Info) Description 07/12/2011 Refill [facility] [address] [place] [address] Hong Acosta DO [address] [address] E-prescribing Refill Request Social History Tobacco Use [...] encounter Miscellaneous Notes * Telephone Encounter - Edie Rowleyandra - 07/12/2011 12:09 PM EDT Faxed medication renewal request(s) for Benson Despinosse 36 y.o. male received from pharmacy. Entered this pharmacy as preferred pharmacy for patient. Special Concerns: Covering provider filled 1 month supply of medication. Last CPE with this specialty: 08/04/2006 Last OV with this specialty: 01/10/2011 Next OV: Future Appointments Date Time Provider Department Center 07/18/2011 10:00 AM 1554-HONG ACOSTA MAUROJEANETTE KONG 07/25/2011 9:00 AM [id number]-EAHFLASHLEY KWON PLAEND KERRI 06/02/2012 9:00 AM [id number]-ZUNNLANDREEA HERRON FITOPT FIT Pertinent lab results: na Allergies: No known drug allergy BP Readings from Last 1 Encounters: 02/28/11 122/96 Patient Active Problem List Diagnoses Date Noted ??? Patient noncompliance [V15.81S] 08/08/2010 ??? Hypovitaminosis D [268.9P] 10/19/2009 ??? SOMATIC DYSFUNCTION OF CERVICAL REGION [739.1A] 05/14/2007 ??? SOMATIC DYSFUNCTION OF THORACIC REGION [739.2A] 05/14/2007 ??? SOMATIC DYSFUNCTION OF LUMBAR REGION [739.3A] 05/14/2007 ??? Diabetes mellitus type I [250.01AQ] ??? Hyperlipidemia [272.4R] 10/28/2006 09/02/2006 HONG ACOSTA DO ??? Mixed Hyperlipidemia [272.2] 10/21/2006 10/21/2006 HONG ACOSTA DO documented in this encounter Plan of Treatment Upcoming Encounters Date Type Department Care Team (Latest Contact Info) Description 07/15/2025 12:25 PM EDT Consult (Initial) [facility] [address] [place] [address] Edi Flaherty MD [address] [address] - consult for Hypertension, benign 07/19/2025 1:30 PM EDT Office Visit [facility] [address] [place] [address] Roger Walker MD [address] [place] [address] diabetic follow up 10/24/2025 9:00 AM EST Office Visit [facility]. Optometry [address] [place] [address] Underbianka Olya, OD [address] [place] [address] new pt,DM,noCL,verifie d via EM,elig 10/13/24,10/24,$0copa y,aodv,aoir 01/17/2026 2:00 PM EDT CPE - Comprehensive Physical Exam [address] [address] Roger Walker MD [address] [place] [address] CPE documented as of this encounter Visit Diagnoses Not on filedocumented in this encounter Additional Health Concerns Infection Onset Date Last Indicated Resolved Time COVID-19 Rule-Out 07/18/2020 07/18/2020 07/20/2020 11:31 AM EDT COVID-19 Rule-Out 09/18/2020 09/18/2020 09/21/2020 1:43 PM EST COVID-19 Confirmed 09/18/2020 09/18/2020 1 8:12 PM EST documented as of this encounter Care Teams Vp Outcomes Relationship Specialty Start Date End Date Hong Acosta DO PCP - General 07/08/06 10/24/12 Maria Dolores Shearer MD PCP - General Internal Medicine 10/25/12 10/29/23 Roger Walker MD [address] [place] [address] PCP - General Family Medicine 10/30/23 Andreea Herron OD [facility] 02/20/17 documented as of this encounter
--- OUTSIDE RECORDS SUMMARY | 2025-06-23 19:05 | XMS_ITS | Encounter Summary ---
Author Organization [facility] Address [address] [place] [address] Care Team Providers Care Market Manager Name Role Phone Andreea Herron OD Unavailable Roger Walker MD Primary Care Provider [phone] Reason for Visit * Reason Onset Date Comments Refill Request 06/20/2025 Encounter Details Date Type Department Care Team (Late Contact Info) Description 06/20/2025 Refill [facility] [address] [place] [address] Roger Walker MD [address] [place] [address] Refill Request Social History Tobacco Use Types Packs/Day Years Used Date Smoking Tobacco: Never Passive Smoke Exposure: Never Smokeless Tobacco: Never Comments:nonsmoker Alcohol Use Standard Drinks/Week Comments Yes 0 (1 standard drink = 0.6 oz pure alcohol) Very very rarely - only 1 if drinking PHQ-2 Answer Date Recorded Patient Health Questionnaire-2 Score 0 01/25/2025 [facility] of Occupat ional Health - Occupational Stress [...] thr ee times a week 01/25/2025 Attend orthodoxy services Never 2024 Club Membership No 01/25/2025 [...] any clubs o r organizations such as faith groups, unions, athletic groups, or school groups? [...] encounter Miscellaneous Notes * Telephone Encounter - Angela Souza, Pharmacy Navigator - 06/20/2025 1:54 PM EDT None Pharmacy Confirmed? The most recent pharmacy on file was used. When is the medication needed? within 48 hours, will send routine message Past and Future Appointments: Recent Visits Date Type Provider Dept 05/26/25 Office Visit Roger Walker MD [facility] 04/13/25 Office Visit Angela Myrick, DRY CLEANER APPRENTICE [facility] 01/24/25 Office Visit Roger Walker MD [facility] Showing recent visits within past 720 days in an active department and meeting all other requirements Future Appointments Date Type Provider Dept 07/19/25 Appointment Roger Walker MD [facility] 01/17/26 Appointment Roger Walker MD [facility] Showing future appointments within next 450 days in an active department and meeting all other requirements Last Visit in Primary Care: Date: 05/26/2025 Department: [facility] Provider: ROGER WALKER Visit Type: Office Visit Next Scheduled Visit in Primary Care Date: 07/19/2025 Department: [facility] Provider: ROGER WALKER Visit Type: Office Visit Requested Medication Details Requested 12-Month Protocol Medications: Clopidogrel Bisulfate (PLAVIX) 75 MG tablet, Take one tablet (75 mg total) by mouth 1 (one) time each day. Note: Clinical/Laboratory/Days Supply Review is still required. Further information may be available in the Non-Protocol Section. Visit Needs: None CPE Needs: None. Patient is not overdue for CPE based on age group or has a upcoming, scheduled CPE. Last Billed CPE Details: None Next Scheduled CPE Details: Date: 01/17/2026 Department: [facility] Provider: ROGER WALKER Visit Type: Physical Exam Requested Off-Protocol Medications: Clopidogrel Bisulfate (PLAVIX) 75 MG tablet, Take one tablet (75 mg total) by mouth 1 (one) time each day. Pertinent lab results: No labs suggested for any medication orders signed or pended in this encounter. Refresh if any orders changed. BP Readings from Last 1 Encounters: 05/26/25 94/62 Outstanding Lab Orders (Orders in bold are overdue or due now and should be done as soon as possible) Test Expected Date Ordering Provider CLOSTRIDIUM DIFFICILE TOXIN/GDH WITH REFLEX TO PCR 04/13/2025 Angela Myrick, DRY CLEANER APPRENTICE Pertinent Lab Results and Recommendations Pended medication order(s) and sent to provider. Patient expects medication renewal unless notifiedotherwise. documented in this encounter Plan of Treatment Upcoming Encounters Date Type Department Care Team (Latest Contact Info) Description 07/15/2025 12:25 PM EDT Consult (Initial) [facility] [address] [place] [address] Edi Flaherty MD [address] [facility] [address] [place] [address] - consult for Hypertension, benign 07/19/2025 1:30 PM EDT Office Visit [address] [phone] Roger Walker MD [address] [place] [address] diabetic follow up 10/24/2025 9:00 AM EST Office Visit [facility]. Optometry [address] [place] [address] Olya Schultz, OD [address] [place] [address] new pt,DM,noCL,verruperto d via EM,elig 10/13/24,10/24,$0copa y,aodv,aoir 01/17/2026 2:00 PM EDT CPE - Comprehensive Physical Exam [address] [address] Roger Walker MD [address] [place] [address] CPE documented as of this encounter Goals Goal Patient Goal Type Associated Problems Recent Progress Patient-Stated? Author Blood Pressure < 140/80 Blood Pressure 94/62( 025 11:51 AM EDT) No Maria Dolores Shearer HEMOGLOBIN A1C % < 7 Result Component 8.6( 5 1:13 PM EDT) No Jolene Tristan CMA documented as of this encounter Visit Diagnoses Diagnosis PVD (peripheral vascular disease) Peripheral vascular disease, unspecified documented in this encounter Care Teams Market Manager Relationship Specialty Start Date End Date Roger Walker MD [address] [place] [address] PCP - General Family Medicine 10/30/23 Andreea Herron OD Instructional Support Assistant Optometry 02/20/17 documented as of this encounter
--- OUTSIDE RECORDS SUMMARY | 2025-06-23 19:05 | XMS_ITS | Encounter Summary ---
Author Organization [facility] Address [address] [place] [address] Care Team Providers Care Technology Recruiter Name Role Phone Roger Walker MD Primary Care Provider [phone] Reason for Visit * Reason Comments PAC Clinical Questions Encounter Details Date Type Department Care Team (Late st Contact Info) Description 06/17/2025 Telephone [facility] [address] [place], [place] [phone] Advanced Manufacturing Technician: Melva Arnold Telephone Intake, Staff PAC Clinical Questions Social History Tobacco Use Types Packs/Day Years Used Date Smoking Tobacco: Never Smokeless Tobacco: Never Alcohol Use Standard Drinks/Week Comments Never 0 (1 standard drink = 0.6 oz pur e alcohol) [facility] Utilities Answer Date Recorded In the past 12 months has th e [employer], gas, oil, or water [employer] threatened to shut off services in your [...] encounter Miscellaneous Notes * Telephone Encounter - Romy Turnerenas - 06/17/2025 3:42 PM EDT Copied from [facility] #[id number]. Topic: Clinical - Messages for Clinical Team >> Jun 17, 2025 3:39 PM Romy Gottlieb wrote: Pt called in to let the Dr know that he has had his pic line inserted today and would like to know what nursing service is coming to see him and when. Please call pt and advise @ [phone]. Thank you documented in this encounter Plan of Treatment Upcoming Encounters Date Type Department Care Team (Late st Contact Info) Description 06/24/2025 11:40 AM EDT Follow-Up [facility] [address] [place] [address] Emily Toussaint PA [address] [place] [address] 08/16/2025 11:15 AM EST Office Visit [facility] [address] [place] [address] [address] [place] [address] Josh Kraft MD [address] [place] [address] documented as of this encounter Visit Diagnoses Not on filedocumented in this encounter Additional Health Concerns Infection Onset Date Last Indicated Resolved Time 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2024 documented as of this encounter Care Teams Technology Recruiter Relationship Specialty Start Date End Date Roger Walker MD [address] [place] [address] PCP - General Family Medicine 05/04/25 documented as of this encounter
--- OUTSIDE RECORDS SUMMARY | 2025-06-23 19:05 | XMS_ITS | Encounter Summary ---
Author Organization [facility] Address [address] [place] [address] Care Team Providers Care Saw Operator Name Role Phone Maria Dolores Shearer MD Primary Care Provider [phone] Andreea Herron OD Unavailable Roger Walker MD Primary Care Provider [phone] Encounter Details Date Type Department Care Team (Late st Contact Info) Description 06/09/2015 Orders Only [facility] [address] [place] [phone] Maria Dolores Shearer MD [address] [place] [address] Social History Tobacco Use Types Packs/Day Years [...] Description 07/15/2025 12:25 PM EDT Consult (Initial) [facility] [address] [place] [address] Edi Flaherty MD 123 [facility] [address] [place] [address] - consult for Hypertension, benign 07/19/2025 1:30 PM EDT Office Visit [address] [address] Roger Walker MD [address] [place] [address] diabetic follow up 10/24/2025 9:00 AM EST Office Visit [facility]. Optometry [address] [place] [address] UnderOlya carlton, OD [address] [place] [address] new pt,DM,noCL,verifie d via EM,elig 10/13/24,10/24,$0copa y,aodv,aoir 01/17/2026 2:00 PM EDT CPE - Comprehensive Physical Exam [address] [address] Roger Walker MD [address] [place] [address] CPE documented as of this encounter Goals Goal Patient Goal Type Associated Problems Recent Progress Patient-Stated? Author Blood Pressure < 140/80 Blood Pressure 94/62( 025 11:51 AM EDT) No Maria Dolores Shearer HEMOGLOBIN A1C % < 7 Result Component 8.6( 1:13 PM EDT) No Jolene Tristan, OWEN documented as of this encounter Procedures * Due to [place] state law, this organization might not be sharing negative HIV tests. Procedure Name Priority Date/Time Associated Diagnosis Comments ASPARTATE AMINOTRANSFERASE (AST), SERUM Routine 06/09/2015 7:07 AM EDT Type 2 diabetes mellitus TSH, 3RD GENERATION Routine 06/09/2015 7 :07 AM EDT Routine general medical examination at a [facility] facility T4, FREE, SERUM Routine 06/09/2015 7:07 AM EDT Routine general medical examination at a health care facility HEMOGLOBIN A1C Routine 06/09/2015 7:07 AM EDT Diabetes mellitus without complication ALBUMIN (MICROALBUMIN), RANDOM URINE, WITH CREATININE Routine 06/09/2015 7:07 AM EDT Diabetes mellitus without complication LIPID PANEL WITH REFLEX TO DIRECT LDL Routine 06/09/2015 7:07 AM EDT Type 2 diabetes mellitus BASIC METABOLIC PANEL WITH (GFR) Routine 06/09/2015 7:07 AM EDT Type 2 diabetes mellitus documented in this encounter Results * Due to [place] state law, this organization might not be sharing negative HIV tests. * (ABNORMAL) HEMOGLOBIN A1C (06/09/2015 7:07 AM EDT) Hemoglobin A1C 8.5(H) <5.7 % of total Hgb [facility] Comment: {HEMOGLOBIN A1c {[id number]) According to ADA guidelines, hemoglobin A1c <7.0% [...] of diabetes for children. Estimated Average Glucose 225 mg/dL (calc) [facility] Comment:{MEAN PLASMA GLUCOSE {[id number]) 06/09/2015 7:07 AM EDT 06/09/2015 12:32 PM EDT Narrative Resulting Agency Comment [id number] us Maria Dolores Shearer MD LABORATORY Final Result [facility] [address] [place] [address] * ALBUMIN (MICROALBUMIN), RANDOM URINE, WITH CREATININE (06/09/2015 7:07 AM EDT) Creatinine (Urine) 252 20 - 370 mg/dL [facility] Comment:{CREATININE, RANDOM URINE {[id number]) Albumin (Urine) 1.4 mg/dL [facility] Comment: {MICROALBUMIN {[id number]) Reference Range Not established Albumin/Creatinine (Urine) 6 <30 mcg/mg creat [facility] Comment: {MICROALBUMIN/CREATININE RATIO, RANDOM URINE {[id number]) The ADA defines abnormalities in albumin excretion as follows: Category Result (mcg/mg creatinine) Normal <30 Microalbuminuria 30-299 Clinical albuminuria > OR = 300 The ADA recommends that at least two of three specimens collected within a 3-6 month period be abnormal before considering a patient to be within a diagnostic category. 06/09/2015 7:07 AM EDT 06/09/2015 12:32 PM EDT Narrative Resulting Agency Comment [id number] us Maria Dolores Shearer MD LABORATORY Final Result Performing Organization Address City/[facility] Co de Phone Number [facility] [address] [place] [address] * TSH, 3RD GENERATION (06/09/2015 7:07 AM EDT) TSH 1.63 0.40 - 4.50 mIU/L [facility] Comment:{TSH {[id number]) 06/09/2015 7:07 AM EDT 06/09/2015 12:32 PM EDT Narrative Resulting Agency Comment [id number] us Maria Dolores Shearer MD LABORATORY Final Result Performing Organization Address City/[facility] Co de Phone Number [facility] [address] [place] [phone] * T4, FREE, SERUM (06/09/2015 7:07 AM EDT) FT4 0.9 0.8 - 1.8 ng/dL [facility] Comment:{T4, FREE {[id number]) 06/09/2015 7:07 AM EDT 06/09/2015 12:32 PM EDT Narrative Resulting Agency Comment [id number] us Maria Dolores Shearer MD LABORATORY Final Result [facility] [address] [place] [address] * BASIC METABOLIC PANEL WITH (GFR) (06/09/2015 7:07 AM EDT) Glucose 95 65 - 99 mg/dL [facility] Comment: {GLUCOSE {[id number]) Fasting reference interval Urea Nitrogen Blood (BUN) 15 7 - 25 mg/dL [facility] Comment:{UREA NITROGEN (BUN) {[id number]) Creatinine 1.10 0.60 - 1.35 mg/dL [facility] Comment:{CREATININE {[id number]) GFR 84 > OR = 60 mL/min/1. 73m2 [facility] Comment:{eGFR NON-AFR. AMERI CAN {[id number]) GFR () 97 > OR = 60 mL/min/1. 73m2 [facility] Comment:{eGFR AMERIC AN {[id number]) BUN/Creatinine Ratio NOT APPLICABLE 6 - (calc) [facility] Comment:{BUN/CREATININE RATI O {[id number]) Sodium 137 135 - 146 mmol/L [facility] Comment:{SODIUM {[id number]) Potassium 3.8 3.5 - 5.3 mmol/L [facility] Comment:{POTASSIUM {[id number]) Chloride 103 98 - 110 mmol/L [facility] Comment:{CHLORIDE {[id number]) Carbon dioxide 27 19 - 30 mmol/L [facility] Comment:{CARBON DIOXIDE {[id number]) Calcium 9.2 8.6 - 10.3 mg/dL [facility] Comment:{CALCIUM {[id number]) 06/09/2015 7:07 AM EDT 06/09/2015 12:32 PM EDT Narrative [facility] - 06/09/2015 1:51 PM EDT Please note that this estimated [...] needs for GFR calculation. Resulting Agency Comment [id number] us Maria Dolores Shearer MD LABORATORY Final Result Performing Organization Address [facility] Co de Phone Number [facility] [address] [place] [address] * ASPARTATE AMINOTRANSFERASE (AST), SERUM (06/09/2015 7:07 AM EDT) AST (SGOT) 23 10 - 40 U/L [facility] Comment:{AST {[id number]) 06/09/2015 7:07 AM EDT 06/09/2015 12:32 PM EDT Narrative Resulting Agency Comment [id number] us Maria Dolores Shearer MD LAB SAME DAY RESULT Final Result Performing Organization Address [facility] Co de Phone Number [facility] [address] [place] [address] * (ABNORMAL) LIPID PANEL WITH REFLEX TO DIRECT LDL (06/09/2015 7:07 AM EDT) Cholesterol 234(H) 125 - 200 mg/dL [facility] Comment:{CHOLESTEROL, TOTAL {[id number]) HDL Cholesterol 28(L) > OR = 40 mg/dL [facility] Comment:{HDL CHOLESTEROL {[id number]) Triglyceride 370(H) <150 mg/dL [facility] Comment:{TRIGLYCERIDES {[id number]) LDL Cholesterol 132(H) <130 mg/dL (calc) [facility] Comment: {LDL-CHOLESTEROL {[id number]) Desirable range <100 mg/dL for patients with CHD or diabetes and <70 mg/dL for diabetic patients with known heart disease. CHOL/HDL Ratio 8.4(H) < OR = 5.0 (calc) [facility] Comment:{CHOL/HDLC RATIO {[id number]) Cholesterol Non-HDL 206(H) mg/dL (calc) [facility] Comment: {NON HDL CHOLESTEROL {[id number]) Target for non-HDL cholesterol is 30 mg/dL higher than LDL cholesterol target. 06/09/2015 7:07 AM EDT 06/09/2015 12:32 PM EDT Narrative Resulting Agency Comment [id number] us Maria Dolores Shearer MD LABORATORY Final Result [facility] [address] [place] [address] documented in this encounter Visit Diagnoses Diagnosis Type 2 diabetes mellitus (HCC) Type II or unspecified type diabetes mellitus without mention of complication, not stated as uncontrolled Routine general medical examination at a health care facility Diabetes mellitus without complication (HCC) Type II [...] documented as of this encounter Care Teams Saw Operator Relationship Specialty Start Date End Date Maria Dolores Shearer MD PCP - General Internal Medicine 10/25/12 10/29/23 Roger Walker MD [address] [place] [address] PCP - General Family Medicine 10/30/23 Andreea Herron OD [facility] 02/20/17 documented as of this encounter
--- OUTSIDE RECORDS SUMMARY | 2025-06-23 19:05 | XMS_ITS | Encounter Summary ---
Author Organization [facility] Address [address] [place] [address] Care Team Providers Care Progressive Care Nurse Name Role Phone Huber Acosta DO Primary Care Provider [phone] Maria Dolores Shearer MD Primary Care Provider [phone] Andreea Herron OD Unavailable Roger Walker MD Primary Care Provider [phone] Encounter Details Date Type Department Care Team (Late st Contact Info) Description 08/21/2009 Orders Only [facility] Endocrinology [address] [place] [phone] Stacy Mora MSN NP Social History Tobacco [...] Description 07/15/2025 12:25 PM EDT Consult (Initial) [facility] [address] [place] [address] Edi Flaherty MD [address] [address] - consult for Hypertension, benign 07/19/2025 1:30 PM EDT Office Visit [address] [address] Roger Walker MD [address] [place] [address] diabetic follow up 10/24/2025 9:00 AM EST Office Visit [facility]. Optometry [address] [place] [address] UnderkoffOlya rodriguez, OD [address] [place] [address] new pt,DM,noCL,verifie d via EM,elig 10/13/24,10/24,$0copa y,aodv,aoir 01/17/2026 2:00 PM EDT CPE - Comprehensive Physical Exam [address] [address] Roger Walker MD [address] [place] [address] CPE documented as of this encounter Procedures * Due to [place] [email or web address] law, this organization might not be sharing negative HIV tests. Procedure Name Priority Date/Time Associated Diagnosis Comments HEMOGLOBIN A1C Routine 08/21/2009 DM w/o complication type II, uncontrolled (HCC) Overweight Mixed hyperlipidemia ALANINE AMINOTRANSFERASE (ALT), SERUM Routine 08/21/2009 DM w/o complication type II, uncontrolled (HCC) Overweight Mixed hyperlipidemia ASPARTATE AMINOTRANSFERASE (AST), SERUM Routine 08/21/2009 DM w/o complication type II, uncontrolled (HCC) Overweight Mixed hyperlipidemia documented in this encounter Results * Due to [place] [email or web address] law, this organization might not be sharing negative HIV tests. * ALANINE AMINOTRANSFERASE (ALT), SERUM (08/21/2009) ALT (SGPT) 23 9 - 60 U/L [facility] 08/21/2009 08/21/2009 4:1 8 PM EST Stacy Mora MSN COMPLIANCE INVESTIGATOR LAB SAME DAY RESULT Final Res ult Performing Organization Address [facility] Co de Phone Number [facility] [address] [place] [phone] * ASPARTATE AMINOTRANSFERASE (AST), SERUM (08/21/2009) AST (SGOT) 16 10 - 40 U/L [facility] 08/21/2009 08/21/2009 4:1 8 PM EST Stacy ROMAN COMPLIANCE INVESTIGATOR LAB SAME DAY RESULT Final Res ult Performing Organization Address [facility] Co de Phone Number [facility] [address] [place] [phone] * (ABNORMAL) HEMOGLOBIN A1C (08/21/2009) Hemoglobin A1C 7.6(H) 0.0 - 5.9 % [facility] GLUCOSE MEAN VALUE 193 MG/DL [facility] 08/21/2009 08/21/2009 4:1 8 PM EST Stacy Mora MSN COMPLIANCE INVESTIGATOR LABORATORY Final Result Performing Organization Address [facility] de Phone Number [facility] [address] [place] [address] documented in this encounter Visit Diagnoses Diagnosis Type II or unspecified type diabetes mellitus without mention of complication, uncontrolled Overweight(278.02) Overweight Mixed hyperlipidemia documented in this encounter Additional Health Concerns Infection Onset Date Last Indicated Resolved Time COVID-19 Rule-Out 07/18/2020 07/18/2020 07/20/2020 11:31 AM EDT COVID-19 Rule-Out 09/18/2020 09/18/2020 09/21/2020 1:43 PM EST COVID-19 Confirmed 09/18/2020 09/18/2020 1 8:12 PM EST documented as of this encounter Care Teams Progressive Care Nurse Relationship Specialty Start Date End Date Huber Acosta DO PCP - General 07/08/06 10/24/12 Maria Dolores Shearer MD PCP - General Internal Medicine 10/25/12 10/29/23 Roger Walker MD [address] [place] [address] PCP - General Family Medicine 10/30/23 Andreea Herron OD [facility] 02/20/17 documented as of this encounter
--- OUTSIDE RECORDS SUMMARY | 2025-06-23 19:05 | XMS_ITS | Encounter Summary ---
Author Organization [facility] Address [address] [place] [address] Care Team Providers Care Licensed Veterinary Technician Name Role Phone Huber Acosta DO Primary Care Provider [phone] Maria Dolores Shearer MD Primary Care Provider [phone] Andreea Herron OD Unavailable Roger Walker MD Primary Care Provider [phone] Encounter Details Date Type Department Care Team (Late st Contact Info) Description 03/18/2007 Orders Only [facility] [address] [place] [phone] Juana Ríos, NESTOR PhD Social History Tobacco Use Types Packs/Day Years Used Date Smoking Tobacco: Never Alcohol Use Standard Drinks/Week Comments Not Asked 0 (1 standard drink = 0.6 oz [...] Description 07/15/2025 12:25 PM EDT Consult (Initial) [facility] [address] [place] [address] Edi Flaherty MD [address] [address] - consult for Hypertension, benign 07/19/2025 1:30 PM EDT Office Visit [address] [address] Roger Walker MD [address] [place] [address] diabetic follow up 10/24/2025 9:00 AM EST Office Visit [facility]. Optometry [address] [place] [address] UnderOlya carlton, OD [address] [place] [address] new pt,DM,noCL,verifie d via EM,elig 10/13/24,10/24,$0copa y,aodv,aoir 01/17/2026 2:00 PM EDT CPE - Comprehensive Physical Exam [address] [address] Roger Walker MD [address] [place] [address] CPE documented as of this encounter Procedures * Due to [place] [employer] law, this organization might not be sharing negative HIV tests. Procedure Name Priority Date/Time Associated Diagnosis Comments BASIC METABOLIC PANEL Routine 03/18/2007 DIABETES WEIGHT LOSS CBC 5 PART DIFF Routine 03/18/2007 DIABETES WEIGHT LOSS documented in this encounter Results * Due to [place] [employer] law, this organization might not be sharing negative HIV tests. * (ABNORMAL) CBC 5 PART DIFF (03/18/2007) WHITE BLOOD COUNT 8.4 3.8 - 10.8 THOUS/UL [facility] (CLIA# [id number]) RBC 6.03(H) 4.20 - 5.80 MIL/UL [facility] (CLIA# [id number]) Hemoglobin 14.2 13.2 - 17.1 G/DL [facility] (CLIA# [id number]) HCT (HEMATOCRIT) 45 38.5 - 50.0 % [facility] (CLIA# [id number]) MCV 74(L) 80.0 - 100.0 FL [facility] (CLIA# [id number]) MCH 24(L) 27.0 - 33.0 PG [facility] (CLIA# [id number]) MCHC 32 32.0 - 36.0 G/DL [facility] (CLIA# [id number]) BAND % 0 0 - 5 % [facility] (CLIA# [id number]) NEUTROPHIL % 80(H) 48 - 75 % [facility] (CLIA# [id number]) LYMPHOCYTE % 15(L) 17 - 40 % [facility] (CLIA# [id number]) MONOCYTE % 5 0 - 14 % [facility] (CLIA# [id number]) EOSINOPHIL % 0 0 - 5 % [facility] (CLIA# [id number]) BASOPHIL % 0 0 - 3 % [facility] (CLIA# [id number]) ATYPICAL LYMPHOCYTE % 0 0 - 5 % [facility] (CLIA# [id number]) PLATELETS 213 140 - 400 THOUS/UL [facility] (CLIA# [id number]) BANDS # 0 0 - 750 CELLS/MCL [facility] (CLIA# [id number]) NEUTROPHILS # 6720 1500 - 7800 CELLS/MCL [facility] (CLIA# [id number]) LYMPHOCYTES # 1260 850 - 3900 CELLS/MCL [facility] (CLIA# [id number]) MONOCYTES # 420 200 - 950 CELLS/MCL [facility] (CLIA# [id number]) EOSINOPHILS # 0(L) 15 - 550 CELLS/MCL [facility] (CLIA# [id number]) BASOPHILS # 0 0 - 200 CELLS/MCL [facility] (CLIA# [id number]) ATYPICAL LYMPHOCYTES # 0 0 - 200 /UL [facility] (CLIA# [id number]) RDW 13.5 11.0 - 15.0 % [facility] (CLIA# [id number]) MPV 11.8(H) 7.5 - 11.5 FL [facility] (CLIA# [id number]) 03/18/2007 03/18/2007 8:1 2 PM EDT Narrative [facility] (CLIA# [id number]) - 03/18/2007 11:13 PM EDT Report Comments: LIPEMIA PRESENT, CHEMISTRY RESULT(S) MAY BE AFFECTED Juana Ríos NP PhD LAB SAME DAY RESULT Final Result [facility] (CLIA# [id number]) [address] [place] [address] * (ABNORMAL) BASIC METABOLIC PANEL (03/18/2007) CALCIUM 10.5(H) 8.6 - 10.2 MG/DL [facility] (CLIA# [id number]) BUN 20 7 - 25 MG/DL [facility] (CLIA# [id number]) CREATININE 1.5(H) 0.5 - 1.3 MG/DL [facility] (CLIA# [id number]) BUN/Creatinine Ratio 13 6 - 25 [facility] (CLIA# [id number]) Glucose 792(HH) 65 - 99 MG/DL [facility] (CLIA# [id number]) SODIUM 128(L) 135 - 146 MMOL/L [facility] (CLIA# [id number]) POTASSIUM 5.3 3.5 - 5.3 MMOL/L [facility] (CLIA# [id number]) CHLORIDE 86(L) 98 - 110 MMOL/L [facility] (CLIA# [id number]) CARBON DIOXIDE 21 21 - 33 MMOL/L [facility] (CLIA# [id number]) 03/18/2007 03/18/2007 8:1 2 PM EDT Narrative [facility] (CLIA# [id number]) - 03/18/2007 11:13 PM EDT Report Comments: LIPEMIA PRESENT, CHEMISTRY RESULT(S) MAY BE AFFECTED Juana íRos NP PhD LAB SAME DAY RESULT Final Result [facility] (CLIA# [id number]) [address] [place] [address] documented in this encounter Visit Diagnoses Diagnosis DIABETES Type II or unspecified type diabetes mellitus without mention of complication, not stated as uncontrolled WEIGHT LOSS Loss of weight documented in this encounter Additional Health Concerns Infection Onset Date Last Indicated Resolved Time COVID-19 Rule-Out 07/18/2020 07/18/2020 07/20/2020 11:31 AM EDT COVID-19 Rule-Out 09/18/2020 09/18/2020 09/21/2020 1:43 PM EST COVID-19 Confirmed 09/18/2020 09/18/2020 1 8:12 PM EST documented as of this encounter Care Teams Licensed Veterinary Technician Relationship Specialty Start Date End Date Huber Acosta DO PCP - General 07/08/06 10/24/12 Maria Dolores Shearer MD PCP - General Internal Medicine 10/25/12 10/29/23 Roger Walker MD [address] [place] [address] PCP - General Family Medicine 10/30/23 Andreea Herron OD [employer] Super[employer] Optometry 02/20/17 documented as of this encounter
--- OUTSIDE RECORDS SUMMARY | 2025-06-23 19:05 | XMS_ITS | Encounter Summary ---
Author Organization [facility] Address [address] [place] [address] Care Team Providers Care Sheet Metal Roofer Name Role Phone Huber Acosta DO Primary Care Provider [phone] Maria Dolores Shearer MD Primary Care Provider [phone] Andreea Herron OD Unavailable Roger Walker MD Primary Care Provider [phone] Encounter Details Date Type Department Care Team (Late st Contact Info) Description 12/22/2009 Orders Only [facility] Endocrinology [address] [place] [id number] Stacy Mora MSN NP Social History Tobacco [...] Description 07/15/2025 12:25 PM EDT Consult (Initial) [facility] [address] [place] [address] Edi Flaherty MD [address] [address] - consult for Hypertension, benign 07/19/2025 1:30 PM EDT Office Visit [address] [phone] Roger Walker MD [address] [place] [address] diabetic follow up 10/24/2025 9:00 AM EST Office Visit [facility]. Optometry [address] [place] [address] UnderOlya carlton, OD [address] [place] [address] new pt,DM,noCL,verifie d via EM,elig 10/13/24,10/24,$0copa y,aodv,aoir 01/17/2026 2:00 PM EDT CPE - Comprehensive Physical Exam [address] [phone] Roger Walker MD [address] [place] [id number] CPE documented as of this encounter Procedures * Due to [place] state law, this organization might not be sharing negative HIV tests. Procedure Name Priority Date/Time Associated Diagnosis Comments HEMOGLOBIN A1C Routine 12/22/2009 Mixed hyperlipidemia DM w/o complication type II, uncontrolled (HCC) Vaccin strep pneumoniae Elevated BP CREATININE WITH GLOMERULAR FILTRATION RATE, ESTIMATED (EGFR) Routine 12/22/2009 Mixed hyperlipidemia DM w/o complication type II, uncontrolled (HCC) Vaccin strep pneumoniae Elevated BP MICROALBUMIN (RANDOM URINE) Routine 12/22/2009 Mixed hyperlipidemia DM w/o complication type II, uncontrolled (HCC) Vaccin strep pneumoniae Elevated BP ALANINE AMINOTRANSFERASE (ALT), SERUM Routine 12/22/2009 Mixed hyperlipidemia DM w/o complication type II, uncontrolled (HCC) Vaccin strep pneumoniae Elevated BP ASPARTATE AMINOTRANSFERASE (AST), SERUM Routine 12/22/2009 Mixed hyperlipidemia DM w/o complication type II, uncontrolled (HCC) Vaccin strep pneumoniae Elevated BP documented in this encounter Results * Due to [place] state law, this organization might not be sharing negative HIV tests. * MICROALBUMIN (RANDOM URINE) (12/22/2009) CREATININE (URINE) TNP MG/DL [facility] Microalbumin (Urine) TNP [facility] MICROALBUMIN/CREA T RATIO (URINE) TNP [facility] Comment:UNITS: MCG/MG CREATI NINE 12/22/2009 12/22/2009 6:3 3 PM EST Narrative [facility] - 12/22/2009 6:34 PM EST Report Comments: MICROR CANCELLED, PT UNABLE TO VOID Stacy ROMAN CIRCULAR SAW OPERATOR LABORATORY Final Result Performing Organization Address City/[facility] Co de Phone Number [facility] [address] [place] [address] * (ABNORMAL) HEMOGLOBIN A1C (12/22/2009) Hemoglobin A1C 7.6(H) 0.0 - 5.9 % [facility] GLUCOSE MEAN VALUE 193 MG/DL [facility] 12/22/2009 12/22/2009 6:3 3 PM EST Narrative [facility] - 12/23/2009 7:09 AM EST Report Comments: MICROR CANCELLED, PT UNABLE TO VOID Stacy ROMAN CIRCULAR SAW OPERATOR LABORATORY Final Result Performing Organization Address [facility] Co de Phone Number [facility] [address] [place] [phone] * CREATININE WITH GLOMERULAR FILTRATION RATE, ESTIMATED (EGFR) (12/22/2009) CREATININE 1.09 0.79 - 1.33 MG/DL [facility] GFR > 60 60 AND ABOVE [facility] Comment:UNITS: ML/MIN/1.73 S Q METERS EGFR > 60 60 AND ABOVE [facility] Comment:UNITS: ML/MIN/1.73 S Q METERS 12/22/2009 12/22/2009 6:3 3 PM EST Narrative [facility] - 12/22/2009 8:50 PM EST Please note that this estimated [...] precise needs for GFR calculation. Report Comments: MICROR CANCELLED, PT UNABLE TO VOID Stacy Mora MSN CIRCULAR SAW OPERATOR LAB SAME DAY RESULT Final Res ult Performing Organization Address [facility] de Phone Number [facility] [address] [place] [address] * ASPARTATE AMINOTRANSFERASE (AST), SERUM (12/22/2009) AST (SGOT) 23 10 - 40 U/L [facility] 12/22/2009 12/22/2009 6:3 3 PM EST Narrative [facility] - 12/22/2009 8:50 PM EST Report Comments: MICROR CANCELLED, PT UNABLE TO VOID Stacy ROMAN CIRCULAR SAW OPERATOR LAB SAME DAY RESULT Final Res ult Performing Organization Address [facility] de Phone Number [facility] [address] [place] [address] * ALANINE AMINOTRANSFERASE (ALT), SERUM (12/22/2009) ALT (SGPT) 28 9 - 60 U/L [facility] 12/22/2009 12/22/2009 6:3 3 PM EST Narrative [facility] - 12/22/2009 8:50 PM EST Report Comments: MICROR CANCELLED, PT UNABLE TO VOID Stacy ROMAN CIRCULAR SAW OPERATOR LAB SAME DAY RESULT Final Res ult Performing Organization Address [facility] de Phone Number [facility] [address] [place] [address] documented in this encounter Visit Diagnoses Diagnosis Mixed hyperlipidemia Type II or unspecified type diabetes mellitus without mention of complication, uncontrolled Need for prophylactic vaccination against Streptococcus pneumoniae (pneumococcus) Need for prophylactic vaccination against streptococcus pneumoniae (pneumococcus) Elevated BP Elevated blood pressure reading without diagnosis of hypertension documented in this encounter Additional Health Concerns Infection Onset Date Last Indicated Resolved Time COVID-19 Rule-Out 07/18/2020 07/18/2020 07/20/2020 11:31 AM EDT COVID-19 Rule-Out 09/18/2020 09/18/2020 09/21/2020 1:43 PM EST COVID-19 Confirmed 09/18/2020 09/18/2020 1 8:12 PM EST documented as of this encounter Care Teams Sheet Metal Roofer Relationship Specialty Start Date End Date Huber Acosta DO PCP - General 07/08/06 10/24/12 Maria Dolores Shearer MD PCP - General Internal Medicine 10/25/12 10/29/23 Roger Walker MD [address] [place] [id number] PCP - General Family Medicine 10/30/23 Andreea Herron OD [facility] 02/20/17 documented as of this encounter
--- OUTSIDE RECORDS SUMMARY | 2025-06-23 19:05 | XMS_ITS | Encounter Summary ---
Author Organization [facility] Address [address] [place] [address] Care Team Providers Care Strip Mill Operator Name Role Phone Maria Dolores Shearer MD Primary Care Provider [phone] Andreea Herron OD Unavailable Roger Walker MD Primary Care Provider [phone] Encounter Details Date Type Department Care Team (Late st Contact Info) Description 07/17/2018 Orders Only [facility] [address] [place] [address] Maria Dolores Shearer MD [address] [place] [phone] Social History Tobacco Use Types Packs/Day Years [...] as of this encounter Progress Notes * Laura Molina - 07/20/2018 11:51 AM EDT Reviewed today medications changes made, see OV note * Maria Dolores Shearer - 07/18/2018 3:37 PM EDT Pt will see you on 07/20. You can book a f/u with me. Thanks. documented in this encounter Plan of Treatment Upcoming Encounters Date Type Department Care Team (Latest Contact Info) Description 07/15/2025 12:25 PM EDT Consult (Initial) [facility] [address] [place] [address] Edi Flaherty MD [address] [address] - consult for Hypertension, benign 07/19/2025 1:30 PM EDT Office Visit [address] [address] Roger Walker MD [address] [place] [address] diabetic follow up 10/24/2025 9:00 AM EST Office Visit [facility]. Optometry [address] [place] [phone] Olya Schultz, OD [address] [place] [address] new pt,DM,noCL,verifie d via EM,elig 10/13/24,10/24,$0copa y,aodv,aoir 01/17/2026 2:00 PM EDT CPE - Comprehensive Physical Exam [address] [phone] Roger Walker MD [address] [place] [address] CPE documented as of this encounter Goals Goal Patient Goal Type Associated Problems Recent Progress Patient-Stated? Author Blood Pressure < 140/80 Blood Pressure 94/62( 025 11:51 AM EDT) No Maria Dolores Shearer HEMOGLOBIN A1C % < 7 Result Component 8.6( 5 1:13 PM EDT) No Jolene Tristan CMA documented as of this encounter Procedures * Due to [place] [employer] law, this organization might not be sharing negative HIV tests. Procedure Name Priority Date/Time Associated Diagnosis Comments HEMOGLOBIN A1C Routine 07/17/2018 7:34 AM EDT Diabetes mellitus without complication ALBUMIN (MICROALBUMIN), RANDOM URINE, WITH CREATININE Routine 07/17/2018 7:34 AM EDT Diabetes mellitus without complication LIPID PANEL WITH REFLEX TO DIRECT LDL Routine 07/17/2018 7:34 AM EDT Diabetes mellitus without complication BASIC METABOLIC PANEL WITH (GFR) Routine 07/17/2018 7:34 AM EDT Diabetes mellitus without complication documented in this encounter Results * Due to [place] [employer] law, this organization might not be sharing negative HIV tests. * ALBUMIN (MICROALBUMIN), RANDOM URINE, WITH CREATININE (07/17/2018 7:34 AM EDT) Creatinine (Urine) 44 20 - 320 mg/dL [facility] Albumin (Urine) 0.2 mg/dL [facility] Comment: Reference Range [...] patient to be within a diagnostic category. 07/17/2018 7:34 AM EDT 07/17/2018 2:45 PM EDT Narrative Resulting Agency Comment [id number] us Maria Dolores Shearer MD LABORATORY Final Result [facility] [address] [place] [address] * (ABNORMAL) LIPID PANEL WITH REFLEX TO DIRECT LDL (07/17/2018 7:34 AM EDT) Cholesterol 230(H) <200 mg/dL [facility] HDL Cholesterol 40(L) >40 mg/dL [facility] Triglyceride 146 <150 mg/dL [facility] LDL Cholesterol 161(H) mg/dL (calc) [facility] Comment: Reference range: [...] LDL-C. Surya SS et al. MIYA. 2013;310(19): 7705-1380 (http://education.Hipmunk/faq/QNX759) CHOL/HDL Ratio 5.8(H) <5.0 (calc) [facility] Cholesterol Non-HDL 190(H) <130 mg/dL (calc) [facility] Comment: For patients with diabetes plus 1 major ASCVD risk factor, treating to a non-HDL-C goal of <100 mg/dL (LDL-C of <70 mg/dL) is considered a therapeutic option. 07/17/2018 7:34 AM EDT 07/17/2018 2:45 PM EDT Narrative Resulting Agency Comment [id number] us Maria Dolores Shearer MD LABORATORY Final Result [facility] [address] [place] [address] * (ABNORMAL) BASIC METABOLIC PANEL WITH (GFR) (07/17/2018 7:34 AM EDT) Glucose 426(H) 65 - 99 mg/dL [facility] Comment: Verified by repeat analysis. Fasting reference interval For someone without known diabetes, a glucose value >125 mg/dL indicates that they may have diabetes and this should be confirmed with a follow-up test. Urea Nitrogen Blood (BUN) 12 7 - 25 mg/dL [facility] Creatinine 0.96 0.60 - 1.35 mg/dL [facility] GFR 96 > OR = 60 mL/min/1. 73m2 [facility] GFR () 112 > OR = 60 mL/min/1. 73m2 [facility] BUN/Creatinine Ratio NOT APPLICABLE (calc) [facility] Sodium 137 135 - 146 mmol/L [facility] Potassium 4.2 3.5 - 5.3 mmol/L [facility] Chloride 100 98 - 110 mmol/L [facility] Carbon dioxide 29 20 - 32 mmol/L [facility] Calcium 9.8 8.6 - 10.3 mg/dL [facility] 07/17/2018 7:34 AM EDT 07/17/2018 2:45 PM EDT Narrative [facility] - 07/17/2018 8:56 PM EDT Please note that this estimated [...] needs for GFR calculation. Resulting Agency Comment [id number] us Maria Dolores Shearer MD LABORATORY Final Result Performing Organization Address City/State/[facility] Co de Phone Number [facility] [address] [place] [address] * (ABNORMAL) HEMOGLOBIN A1C (07/17/2018 7:34 AM EDT) Hemoglobin A1C >14.0(H) <5.7 % of total Hgb [facility] Comment: Verified by repeat analysis. For someone without known diabetes, a hemoglobin [...] of diabetes for children. Estimated Average Glucose SEE NOTE mg/dL (calc) [facility] Comment: MPG cannot be calculated. Hemoglobin A1c result exceeds the linearity of the assay. 07/17/2018 7:34 AM EDT 07/17/2018 2:45 PM EDT Narrative Resulting Agency Comment [id number] us Maria Dolores Shearer MD LABORATORY Final Result [facility] [address] [place] [address] documented in this encounter Visit Diagnoses Diagnosis Diabetes mellitus without complication (HCC) Type II [...] documented as of this encounter Care Teams Strip Mill Operator Relationship Specialty Start Date End Date Maria Dolores Shearer MD PCP - General Internal Medicine 10/25/12 10/29/23 Roger Walker MD [address] [place] [id number] PCP - General Family Medicine 10/30/23 Andreea Herron OD [facility] 02/20/17 documented as of this encounter
--- OUTSIDE RECORDS SUMMARY | 2025-06-23 19:05 | XMS_ITS | Clinical Summary ---
Author Organization [facility] Address [address] [place] [address] Care Team Providers Care Trailer Body Assembler Name Role Phone Andreea Herron OD Unavailable Roger Walker MD Primary Care Provider [phone] Allergies No known active allergies Medications ONETOUCH DELICA LANCETS 33G Misc USE TO TEST BLOOD SUGARS FOUR TIMES A DAY OR DIRECTED 200 Each 1 015 Active ONETOUCH VERIO Strip check four times a day before each meal and bedtime 150 Strip 11 018 Active Ferrous Gluconate (FERGON) 240 (27 Fe) MG tablet Take one tablet (240 mg total) by mouth 1 (one) time each day with breakfast. 30 tablet Active Glucose (Value Plus Glucose) 40 % Gel Take 15 g by mouth if needed for low blood sugar. 5 each Active Blood Glucose Monitoring Suppl (Assure Prism multi Meter) Device Use as directed. 1 each Active Blood Glucose Monitoring Suppl (OneTouch Verio Flex System) w/Device KitIndications:Typ e 2 diabetes mellitus with right eye affected by mild nonproliferative retinopathy and macular edema, with long-term current use of insulin (HCC) 1 Device - Use as directed for monitoring of diabetes. 1 kit 025 04/09 Active Glucose Blood (OneTouch Verio) test stripIndications:T ype 2 diabetes mellitus with right eye affected by mild nonproliferative retinopathy and macular edema, with long-term current use of insulin (HCC) one each by Other route 4 (four) times a day Use as directed. 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 100 each 025 04/09 Active Losartan Potassium (COZAAR) 100 MG tablet TAKE 1 TABLET BY MOUTH EVERY DAY 90 tablet Active Insulin Pen Needle 32G X 4 MM Pen Needle Use a new pen needle with each Insulin Glargine (Lantus) injection.. 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, without long-term current use of insulin ([facility]),DM (diabetes mellitus), type 2 with complications ([facility]) Inject 3 (three) Units under the skin 3 (three) times a day before meals 45 mL 025 Active Insulin Glargine (Lantus SoloStar) 100 UNIT/ML Pen-InjectorIndica tions: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 30 tablet 3 025 Active Labetalol HCl (NORMODYNE) 300 MG tablet Take 150 mg by mouth 2 (two) times a day. Active Rosuvastatin Calcium (Crestor) 40 MG tabletIndications: Type 2 diabetes mellitus with hyperosmolarity without coma, without long-term current use of insulin ([facility]),Type 2 diabetes mellitus with diabetic peripheral angiopathy and gangrene, with long-term current use of insulin ([facility]),Dyslipidemia Take one tablet (40 mg total) by mouth 1 (one) time each day. 90 tablet 3 025 09/03 Active Clopidogrel Bisulfate (PLAVIX) 75 MG tabletIndications: PVD (peripheral vascular disease) Take one tablet (75 mg total) by mouth 1 (one) time each day. 90 tablet 3 025 Active [place]-3 Fatty Acids (FISH OIL) 1000 MG CapIndications:Mix ed hyperlipidemia Take by mouth. Discontinued Triamcinolone Acetonide 0.1 % CreamIndications:T inea pedis of both feet Apply between toes and to bottom of feet twice a day for 1 month 45 g 5 017 05/26 Discontinued Clopidogrel Bisulfate (PLAVIX) 75 MG tablet Take one tablet (75 mg total) by mouth 1 (one) time each day. 30 tablet 025 05/26 Discontinued( Reorder (No Cancel Rx)) amLODIPine Besylate (NORVASC) 10 MG tablet Take one half tablet (5 mg total) by mouth 1 (one) time each day. 30 tablet 025 05/26 Discontinued Labetalol HCl (NORMODYNE) 300 MG tablet Take one tablet (300 mg total) by mouth 3 (three) times a day. 270 tablet 3 025 05/26 Discontinued Continuous Glucose Major General (FreeStyle Di 3 [place]) DeviceIndications: Diabetes 2 Peripheral Vascular Disease (E11.51) ([facility]),Diabetes 2 Ulceration (Foot and/or Lower Extremity) (E11.621/L97.909) ([facility]) Use as directed. 1 each 025 05/26 Discontinued Continuous Glucose Sensor (FreeStyle Di 3 Sensor) DeviceIndications: Diabetes 2 Peripheral Vascular Disease (E11.51) ([facility]),Diabetes 2 Ulceration (Foot and/or Lower Extremity) (E11.621/L97.909) ([facility]) Use as directed. 1 each 025 05/26 Discontinued Vitamin D3 (VITAMIN D-3) 1.25 MG (66948 UT) capsule Take one capsule (50,000 Units total) by mouth 1 (one) time per week. 12 capsule 3 025 05/26 Discontinued hydrALAZINE HCl (APRESOLINE) 25 MG tabletIndications: Hypertension, benign Take one half tablet (12.5 mg total) by mouth 3 (three) times a day. 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 025 06/04 Clopidogrel Bisulfate (PLAVIX) 75 MG tabletIndications: PVD (peripheral vascular disease) Take one tablet (75 mg total) by mouth 1 (one) time each day. 30 tablet 025 06/20 Discontinued( Reorder (No Cancel Rx)) Labetalol HCl (NORMODYNE) 200 MG tabletIndications: Hypertension, benign Take one tablet (200 mg total) by mouth 2 (two) times a day. 180 tablet 3 025 05/26 Discontinued Active Problems Patient Care Coordination No te Formatting of this note migh t be different from the original. Re: Care Management Dear Benson Monte, As part of our Care Management Program efforts to help you manage your health and feel better, please reference the enclosed Self-Management Action Plan. Display this plan where it will remind you daily of your actions to progress toward your goals. Please call me if you have any questions, or if I can assist you with achieving your personal health goals. Sincerely, Anna Hebert RN Care Management Program Enclosure: Self-Management Action Plan Self-Management Action Plan for: [x] Eat Better [] Manage My Weight [x] Take My Medicine [] [place] with Stress [x] Exercise More [] Reduce Unhealthy Habits My Prioritized Goal(s): (What I want to do - example: start exercising) Note: #1 most important, #4 least important. 1.Monitor leg wound for infection daily 2.Decrease carbohydrates daily 3.Keep leg elevated 4.Exercise daily My Action Plan: (How I will do this - example: walking) 1.Pt./family recognizes skin condition changes that require medical attention by being able to report redness, open areas, drainage or swelling to wound area to left foot over next several weeks. 2.Take all medications as ordered, avoid concentrated sweets in your diet, check blood sugars as directed by your doctor's office, watch for signs and symptoms of high or low blood sugars which could be blurred vision, dizziness, sweats, confusion, shakiness. Call Rosa/Barb.Jesse. If any symptoms appear or if blood sugars <90 or > 250 consistently. 3.Continue to exercise daily for strengthening My Field Placement Director is: Anna Yee R.N My PCP's Phone Number is: [phone] Problem Noted Date Diagnosed Date Hospital discharge follow-up 05/26/2025 Overview (05/26/2025): 05/26/2025 patient was at the hospital over the weekend but left prior to seeing the doctor as got tired of waiting as was there over 5 hours. I am addressing issues today. It is around weakness in the setting of recent infections/hospitalizations from amputations of toes with osteomyelitis, hypotension in the setting of prior hypertension and recently his amlodipine and hydralazine were stopped by the patient. And continue him on losartan 100 mg daily and labetalol but lower than labetalol to 150 mg twice daily patient to closely monitor blood pressure. If blood pressure is going below 100 systolic blood pressure he should contact the office right away. Hypotension 05/26/2025 Overview (05/26/2025): 05/26/2025 lower labetalol to 300mg 1/2 tab bid, continue losartan 100mg. Address anemia, infx with close monitoring. Check labs. 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 To Endocrinology & push compliance. Restart Insulins, to Linseed Oil Press Tender. Referral with in house clinical pharmacist as well to help with dm control via Insulin titration to goal A1c<7. continue statin , arb, metrformin as well. Recommend better dm control 04/13/2025: Last A1c 02/2025 = 10.2. Now on glargine 18 units HS, lispro 3 units TID, and insuline sliding scale after recent hospitalization. Metformin d/c due to diarrhea. Has not scheduled endo consult yet -- pt aware and will reach out to schedule appt. Weakness 01/30/2025 Overview (05/26/2025): 01/24/25 related to poor dm control clinically. Address. Monitor. 05/26/2025 multifactorial with patient having infection/osteomyelitis, low blood pressure today on multiple blood pressure meds. So what we will do is lower his labetalol to 300 mg half tab twice daily from 300 mg 3 times daily, continue his losartan 100 mg daily and patient to monitor his blood pressure daily. Also am checking labs patient to continue antibiotics and follow-up with vascular around the infection in his toes. Patient is looking pale today so we will follow-up on the labs close [place]. Diabetes mellitus 01/24/2025 Type 2 diabetes mellitus wit h diabetic peripheral angiopathy and gangrene, with long-term current use of insulin 01/24/2025 Overview (05/26/2025): 05/26/2025 is better controlled recently with last A1c 11.1 so we will check another A1c. He is on multiple insulins and history of multiple toes amputated followed by vascular surgery and now sugars reported check and check 3 times daily are 100-1 20s. Congratulated on changing diet and better sugars but we need to keep a close monitor on given his recent surgeries/vasculopathies. Also restart statin and blood thinner Plavix. Diabetes 2 Peripheral Vascular Disease (E11.51) 01/24/2025 Overview (04/13/2025): 01/24/25 recent amputations L foot. Get better dm control, continue with Vascular & Podiatry. 04/13/2025: s/p left 3rd transmetatarsal amputation with Dr. Ramos on 02/14/2025 and left further transmetatarsal resection of metatarsals 1 through 4, with delayed primary advancement plastics flap closure performed by Dr. Yung on 02/21/2025. Followed by podiatry for wound care mgmt Diabetes 2 Ulceration (Foot and/or Lower Extremity) (E11.621/L97.909) 01/24/2025 Overview (04/13/2025): 01/24/25 recent amputations L foot. Get better dm control, continue with Vascular & Podiatry. 04/13/2025: s/p left 3rd transmetatarsal amputation with Dr. Ramos on 02/14/2025 and left further transmetatarsal resection of metatarsals 1 through 4, with delayed primary advancement plastics flap closure performed by Dr. Yung on 02/21/2025. Followed by podiatry for wound care mgmt Microalbuminuria due to type 2 diabetes mellitus 01/24/2025 Overview (01/30/2025): 01/24/25 get better dm control. Continue ARB Microcytic anemia 01/24/2025 Overview (05/26/2025): 04/13/2025: On iron supplement. Repeat labs ordered 05/26/2025 ? Related to blood loss from multiple surgeries this year around his toes. Patient with low blood pressures on lowering blood pressure medication and checking his labs. He has had transfusions this year and possibly may need another. Continue his iron. Wheelchair dependent 01/24/2025 Weight loss 01/24/2025 Overview (01/30/2025): 01/24/25 related with poor dm control by hx. Monitior better dm control. PVD (peripheral vascular disease) 12/14/2024 Overview (05/26/2025): 12/14/2024 s/p angioplasty and rotating arthrectomy yesterday. Continues on simvastatin and started on plavix 75mg daily for next 45 days. Ok to dc enoxaparin. 12/27/24: Plavix 75 mg daily and simvastatin 40 mg daily, stable 01/24/25 having amputations. Address dm better & continue current meds. 05/26/2025 patient stopped his blood thinners and is high risk of more blood clots in the setting of having multiple toes amputated poorly controlled insulin- dependent diabetes. Will restart the Plavix 75 mg daily and simvastatin 40 mg at bedtime and patient to continue with vascular surgery and continue with diabetes controlled (diabetes is better controlled recently). Check labs Diarrhea 11/24/2024 Overview (04/13/2025): 11/24: Patient started on Vanco 125 mg po daily thru 11/26 while waiting for Cdiff culture, will need dose increase if sttool is pos for cdiff, add psyllium 1 tsb daily to bulk up stool, imodium prn until cdiff confirm, consider cholestyramine 4 gm daily if cdiff negative. Consider lactose free diet, recommend game warden assess diet and symptoms for further recommendations. 11/30/2024 continues with 2-3 loose stools daily. Change to lactose-free. Recheck for cdiff and fecal yeast growth. 12/27/24: Diarrhea resolved, monster lactobacillus, may have imodium prn 04/13/2025: Having ongoing diarrhea since recent hospitalization. Will check cdiff to r/o infectious etiology for symptoms. Advised probiotic supplement and imodium PRN Diabetic foot ulcer 11/23/2024 Overview (01/30/2025): 11/24: Silvadene dressing dc'd by wound team, patient started on santyl treatment to left foot wound covered with island dressing daily. Removed abd pad and Kerlix wrap form dressing today. No pain. Recommend facility contact Dr. Melchor (vasc surg) to clarify WB and off loading for LLE. Reviewed orders for WBAT with off loading to Left foot. Continue cefazolin 2 gm IV q 8 thru 12/25, FU Dr. Weber then he will schedule Podiatry FU, Weekly CMP/CBC/d. Fax results to ID Dr. Perez weekly. 11/30/2024 yesterday weightbearing on the left lower extremity as tolerated in a postop shoe able to walk 140 feet with a rolling walker x 2.. Continue IV cefazolin. Increase Santyl dressing change to twice daily. Wash foot daily and add Resta cream to intact skin. 12/14/2024 vascular referred to podiatry at [place]. Starting to learn how to do the dressing change this week. Ok to return to work once IV therapy completed if able to maintain weight bearing restrictions. 12/22/24: Wound teaching on going. Wound cleaned with NS. Santyl applied to left foot, covered with abds pad and wrapped with kerlex. Plan amp of left toe #5 on 12/22 with Podiatry, Dr. Lombardi. ABX completed. 12/27/24: Cleanse left 5 th metatarsal with NS, pat dry, cover with ABD pad, kerlex and kiera wrap. WBAT with surgical boot, monitor for reedness or drainage, keep dressing clean and dry, FU Dr. Lombardi. DC PIC line today. Mod I with ambulation. Supervised on stairs. 01/24/25 get better dm control & continue with Podiatry & Vascular surgery. Get more compliant. 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 Willing to start check fs and giving insulin shots to himself. Continue lantus 20u qhs and ssi and Start prandial insulin 4u before each meal. 12/03/2024 encourage ambulation around facility several times a day. Continue to self check fs and give insulin 12/14/2024 continues on glargine and ssi. Discussed diet choices and activity. Referred to specialty Diabetes [facility] Dr. Brooks [place]. 12/22/24: No change in current medication. Humalog 4 units before meals, humalog SSI, lantus 20 uits and metformin 500 mg BID. Monitor FSBS. 12/25/24: No med changes, see 12/22/24 meds above, FSBS 90-198. Patient needs to be monitored for compliance with insulin and monitoring FSBS at home. He remains high risk for further infection to left foot and possible further amputation if DM is poorly controlled. Lab Results Component Value Date A1C 17.3 (H) 11/15/2024 01/24/25 poor control related to non- compliance. To Endocrinology & push compliance. Restart Insulins, to Linseed Oil Press Tender. Referral with in house clinical pharmacist as well to help with dm control via Insulin titration to goal A1c<7. continue statin , arb, metrformin as well. Recommend better dm control 04/13/2025: Last A1c 02/2025 = 10.2. Now on glargine 18 units HS, lispro 3 units TID, and insuline sliding scale after recent hospitalization. Metformin d/c due to diarrhea. Has not scheduled endo consult yet -- pt aware and will reach out to schedule appt. HTN (hypertension) 07/22/2014 Overview (05/26/2025): 11/30/2024 Hospital reports has not been taking antihypertensives in the community. Currently on amlodipine 10 mg daily, Cozaar 100 mg daily, hydralazine 25 mg 3 times a day and as needed -no PRNs needed, and labetalol 300 mg every 8 hours. Blood pressures have been 120-128/68-84. No dizziness. Continue current scheduled regimen. Will DC as needed hydralazine. 12/27/24: decrease Norvasc from 10 mg to 5 mg, continue labetalol 300 mg TID, hydralazine 25 mg TID, losartan 100 mg daily. BP running on low side 97-100/60-70. No dizziness. 01/24/25 stable clinically on multiple med. - Weight reduction (maintaining BMI between 18.5 to 24.9 kg/m2) DASH diet (eating fruits, vegetables, and low-fat dairy products with reduced content of saturated and total fat) Decrease in dietary sodium (2.4 grams sodium daily max) Increase in physical activity (for 30 minutes per day) 04/13/2025: Was seen at the ER last week after his BP was 75/50 and pt was symptomatic. Pt having dizziness with positional changes after recent hospitalization. Will decrease hydralazine dose to 12.5mg TID. Continue on losartan 100mg daily, amlodipine 5mg daily, and labetalol 100mg TID. Advised pt to check BP at home daily and call with home readings in 1 week. If readings still low and pt continues to have dizziness, will d/c hydralazine. Pt also requesting nephrology referral for BP mgmt - ordered 05/26/2025 lower labetalol to 300mg 1/2 tab bid, continue losartan 100mg. Address anemia, infx with close monitoring. Check labs. Microcytosis 03/04/2013 Overview (04/13/2025): 11/12/2024 iron 11 TIBC 118 iron saturation 7% 11/29/2024 H/H 8.8/28.2 MCV 70 11/30/2024 add daily iron. Denies fhx of anemia. 12/27/24: Continue ferrous gluconate 240 mg daily and vit C 500 mg daily and MVI daily. Last H/H was 8.6 and 27.3 04/13/2025: Continues on iron supplement. Repeat labs ordered Obesity 06/22/2012 Patient noncompliance 08/08/2010 Overview (01/30/2025): 01/24/25 try to engage more. Work with [facility], close f/u. Work on BH Hypovitaminosis D 10/19/2009 Overview (01/30/2025): 11/24/24: patient started on Vit d 50,000 units daily po q week x 12 weeks, Vit D 6.6 12/27/24, 01/24/25 Continue vit D 50,000 unit tab weekly x 12 weeks, initiated on 11/24/24 Dyslipidemia 10/21/2006 Overview (04/13/2025): 10/21/2006 HONG ACOSTA DO 11/30/2024 not on a statin but willing to start simvastatin 40mg daily 12/27/24, 01/24/25: continue simvastatin 40 mg daily, monitor lipid panel LDL Cholesterol Date Value Ref Range Status 01/24/2025 113 (H) mg/dL (calc) Final Comment: Reference range: <100 Desirable range <100 mg/dL for primary prevention; <70 mg/dL for patients with CHD or diabetic patients with > or = 2 CHD risk factors. LDL-C is now calculated using the Surya-Jasmyne calculation, which is a validated novel method providing better accuracy than the Friedewald equation in the estimation of LDL-C. Surya FARLEY et al. MIYA. 2013;310(19): 8718-8287 (http://education.[employer] [place].Sensorflare PC/faq/RTX917) 04/13/2025: Simvastatin d/c after recent hospitalization. Await repeat labs to discuss next steps Resolved Problems Problem Noted Date Diagnosed Date Resolved Date DM w/o Complication Type II, Uncontrolled 10/28/2006 03/26/2007 Overview (03/17/2007): 10/28/2006 HONG ACOSTA DO Mixed Hyperlipidemia 10/21/2006 007 Overview (03/26/2007): 10/21/2006 HONG ACOSTA DO Encounters Date Type Department Care Team Description 06/20/[address] [phone] Roger Walker MD Refill Request 06/14/2025 Telephone [facility] [address] [place] [phone] Ene Little CORPORATE FINANCIAL ANALYST Care Coordination Communication 06/09/2025 Patient Outreach [facility] [address] [place] [phone] Anna Nuñez, ELIZABETH 06/01/2025 Telephone [facility] [address] [place] [phone] Anna Nuñez, RN Care Coordination Communication 05/27/2025 Results Follow-Up [address] [phone] Angela Myrick, NESTOR CBC INCLUDES DIFFERENTIAL AND PLATELET COUNT, FERRITIN, IRON PROFILE (IRON/TIBC), SERUM, Additional followed-up results: 9 05/26/2025 11:30 AM EDT Office Visit [address] [phone] Roger Walker MD Type 2 diabetes mellitus with hyperosmolarity without coma, without long-term current use of insulin (HCC) (Primary Dx); Type 2 diabetes mellitus with diabetic peripheral angiopathy and gangrene, with long-term current use of insulin (HCC); PVD (peripheral vascular disease); HTN (hypertension); Dyslipidemia; Patient noncompliance; Weakness; Microcytic anemia; Hospital discharge follow-up; Hypotension, unspecified hypotension type 05/26/2025 Orders Only [address] [phone] Roger Walker MD 05/24/[address] [phone] Roger Walker MD [facility] Communication 05/24/[address] [phone] Roger Walker MD Appointment ; Labs/orders 05/20/[address] [phone] Roger Walker MD Shortness of Breath (/) 04/21/2025 Patient Outreach [facility] [address] [place] [phone] Anna Nuñez RN 04/15/[address] [phone] Roger Walker MD E-prescribing Refill Request 04/13/2025 3:00 PM EDT Office Visit [address] [phone] Angela Myrick, NESTOR Type 2 diabetes mellitus with diabetic peripheral angiopathy and gangrene, with long-term current use of insulin ([facility]) (Primary Dx); Microcytic anemia; Diarrhea of presumed infectious origin; HTN (hypertension); 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, with long-term current use of insulin ([facility]); Microcytosis; 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, without long-term current use of insulin ([facility]); DM (diabetes mellitus), type 2 with complications ([facility]); Dyslipidemia; Diabetes 2 Peripheral Vascular Disease (E11.51) ([facility]); Diabetes 2 Ulceration (Foot and/or Lower Extremity) (E11.621/L97.909) ([facility]); Immunodeficiency due to diabetes type 2 with hyperglycemia ([facility]); Diarrhea, unspecified type 04/04/[address] [phone] Roger Walker MD Referral Request 04/04/[address] [phone] Roger Walker MD Hospital F/U from Last 3 Months Immunizations Immunization Administration Dates Next Due Covid-19, Vector-nr (Chepe), 0.5 Ml 02/22/2021 Flu Vac Purchased 36 mos and older Preserv Free 08/22/2009 Influenza,injectable,quad,Prsrv Fr 07/20/2018,,07/22/2014 PPV23 (Pneumovax) 08/22/2009 Tdap 07/20/2018 Family History Medical History Relation Name Comments Cancer (?Type) Father Colon diagnos ed in 60's. Diabetes Father Diabetes Mother Hypertension Mother Relation Name Status Comments Father Alive Mother Alive Social History Tobacco Use Types Packs/Day Years Used Date Smoking Tobacco: Never Passive Smoke Exposure: Never Smokeless Tobacco: Never Comments:nonsmoker Alcohol Use Standard Drinks/Week Comments Yes 0 (1 standard drink = 0.6 oz pure alcohol) Very very rarely - only 1 if drinking PHQ-2 Answer Date Recorded Patient Health Questionnaire-2 Score 0 01/25/2025 [facility] - Occupational Stress [...] thr ee times a week 01/25/2025 Attend mormonism services Never 2024 Club Membership No 01/25/2025 [...] any clubs o r organizations such as mosque groups, unions, athletic groups, or school groups? [...] Sign Reading Time Taken Comments Blood Pressure 94/62 05/26/2025 11:51 AM EDT Pulse 91 05/26/2025 11:51 AM EDT Temperature 36.4 C (97.6 F) 12/22/2024 3:20 PM EDT Respiratory Rate 20 12/27/2024 6:57 AM EDT Oxygen Saturation 99% 01/24/2025 9:46 AM EDT Inhaled Oxygen Concentration - - Weight 72.6 kg (160 lb) 05/26/2025 11:51 AM EDT Height 177.8 cm (5' 10 ) 07/20/2018 9:27 AM EDT Body Mass Index 22.96 07/20/2018 9:27 AM EDT Plan of Treatment Upcoming Encounters Date Type Department Care Team (Latest Contact Info) Description 07/15/2025 12:25 PM EDT Consult (Initial) [facility] [address] [place] [address] Edi Flaherty MD [address] [place] [address] - consult for Hypertension, benign 07/19/2025 1:30 PM EDT Office Visit [address] [phone] Roger Walker MD [address] [place] [address] diabetic follow up 10/24/2025 9:00 AM EST Office Visit [facility]. Optometry [address] [place] [address] UnderOlya carlton, OD [address] [place] [address] new pt,DM,noCL,verifie d via EM,elig 10/13/24,10/24,$0copa y,aodv,aoir 01/17/2026 2:00 PM EDT CPE - Comprehensive Physical Exam [address] [phone] Roger Walker MD [address] [place] [address] CPE Health Maintenance Due Date Last Done Comments Parathyroid Hormone Screening 1975 Hep B (1 of 3 - 19+ 3-dose series) 1994 Pneumococcal 50+ years (2 of 2 - PCV) 08/22/2010 08/22/2009 Eye/Retina Exam 09/16/2019 09/16/2018, 02/2018, 09/16/2018, Additional history exists Colon Cancer Screening 2020 Zoster (Shingrix) (1 of 2) 2025 COVID-19 Vaccine (2 - season) 2025 02/22/2021 Influenza (#1) 2025 07/20/2018, 07/14, 07/22/2014, Additional history exists HA1C 11/26/2025 05/26/2025, 04/2025, 01/24/2025, Additional history exists GFR 05/26/2026 05/26/2025, 06/2025, 04/06/2025, Additional history exists LDL Cholesterol 05/26/2026 05/26/2025, 01/11, 11/24/2018, Additional history exists Microalbumin 05/26/2026 05/26/2025, 11/13, 07/17/2018, Additional history exists DTaP/Tdap/Td (2 - Td or Tdap) 07/20/2028 07/20/2018 PSA Discontinued 08/18/2006 Physical Discontinued 07/20/2018, 07/13, 08/04/2006 Hepatitis C Screening Completed 01/24/2025 Chest Imaging Discontinued 04/06/2025, 03/14, 02/13/2025, Additional history exists HPV Vaccine (No Doses Required) Completed Hep A Aged Out No longer eligi ble based on patient's age to complete this topic Hib Aged Out No longer eligi ble based on patient's age to complete this topic Meningococcal ACWY Aged Out No longer eligible based on patient's age to complete this topic Goals Goal Patient Goal Type Associated Problems Recent Progress Patient-Stated? Author Blood Pressure < 140/80 Blood Pressure 94/62( 025 11:51 AM EDT) No Maria Dolores Shearer HEMOGLOBIN A1C % < 7 Result Component 8.6( 1:13 PM EDT) No Jolene Tristan CMA Procedures * Due to [place] state law, this organization might not be sharing negative HIV tests. 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, with long-term current use of insulin ([facility]) IRON PROFILE (IRON/TIBC), SERUM Routine 05/26/2025 1:13 PM EDT Weakness Microcytic anemia HEMOGLOBIN A1C Routine 05/26/2025 1:13 PM EDT 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, with long-term current use of insulin ([facility]) FOLATE, SERUM Routine 05/26/2025 1:13 PM EDT Weakness Microcytic anemia FERRITIN Routine 05/26/2025 1:13 PM EDT Weakness Microcytic anemia COMPREHENSIVE METABOLIC PANEL WITH GFR Routine 05/26/2025 1:13 PM EDT HTN (hypertension) Weakness CBC INCLUDES DIFFERENTIAL AND PLATELET COUNT Routine 05/26/2025 1:13 PM EDT Weakness Microcytic anemia ALBUMIN (MICROALBUMIN), RANDOM URINE, WITH CREATININE Routine 05/26/2025 1:13 PM EDT Diabetes mellitus, stable (HCC) HEPATITIS C AB WITH REFLEX TO RNA PCR, SERUM Routine 01/24/2025 10:56 AM EDT Need for hepatitis C screening test COMPUTERIZED OPHTHALMIC DIAGNOSTIC IMAGING (EG, OCT), POSTERIOR SEGMENT, WITH INTERPRETATION AND REPORT, UNILATERAL OR BILATERAL; RETINA Routine 09/16/2018 Type 2 diabetes mellitus with both eyes affected by mild nonproliferative retinopathy without macular edema, with long-term current use of insulin XRAY CHEST 2 VIEWS PA & LAT 03/19/2007 12:00 AM EDT PSA (PROSTATE SPECIFIC AG) TOTAL DIAGNOSTIC OR FOLLOW-UP Routine 08/18/2006 ENCOUNTER FOR LONG-TERM (CURRENT) USE OF OTHER MEDICATIONS from Last 3 Months or Most Recently Relevant to Health Maintenance Results * Due to [place] state law, this organization might not be sharing negative HIV tests. * (ABNORMAL) RETICULOCYTE COUNT (05/26/2025 1:13 PM EDT) Reticulocytes/100 erythrocytes (RBC) 0.5 % [facility] Reticulocytes (RBC) 27721(L) 74514 - 74852 cells/uL [facility] 05/26/2025 1:13 PM EDT 05/27/2025 2:10 AM EDT Narrative Resulting Agency Comment [id number] us Roger Walker MD LABORATORY Final Resu lt [facility] [address] [place] [address] * (ABNORMAL) CBC INCLUDES DIFFERENTIAL AND PLATELET [...] 2:10 AM EDT Narrative Resulting Agency Comment [id number] Roger Walker MD LAB SAME DAY RESULT Final Result Performing Organization Address [facility] Co de Phone Number [facility] [address] [place] [address] * THYROID CASCADING REFLEX (05/26/2025 1:13 PM EDT) Pathologist [facility] TSH 1.06 0.40 - 4.50 mIU/L [facility] 05/26/2025 1:13 PM EDT 05/27/2025 2:10 AM EDT Narrative Resulting Agency Comment [id number] Roger Walker MD LABORATORY Final Resu lt Performing Organization Address [facility] Co de Phone Number [facility] [address] [place] [address] * IRON PROFILE (IRON/TIBC), SERUM (05/26/2025 1:13 PM EDT) Pathologist [facility] Iron 113 50 - 180 mcg/dL [facility] Iron binding capacity 286 250 - 425 mcg/dL (calc) [facility] Iron saturation 40 20 - 48 % (calc) [facility] 05/26/2025 1:13 PM EDT 05/27/2025 2:10 AM EDT Narrative Resulting Agency Comment [id number] us Roger Walker MD LABORATORY Final Resu lt Performing Organization Address [facility] Co de Phone Number [facility] [address] [place] [address] * (ABNORMAL) HEMOGLOBIN A1C (05/26/2025 1:13 PM [...] 2:10 AM EDT Narrative Resulting Agency Comment [id number] us Roger Walker MD LABORATORY Final Resu lt Performing Organization Address [facility] Co de Phone Number [facility] [address] [place] [address] * FOLATE, SERUM (05/26/2025 1:13 PM EDT) Folate 12.9 ng/mL [facility] Comment: Reference Range Low: <3.4 Borderline: 3.4-5.4 Normal: >5.4 05/26/2025 1:13 PM EDT 05/27/2025 2:10 AM EDT Narrative Resulting Agency Comment [id number] us Roger Walker MD LABORATORY Final Resu lt Performing Organization Address [facility] Co de Phone Number [facility] [address] [place] [address] * FERRITIN (05/26/2025 1:13 PM EDT) Ferritin 169 38 - 380 ng/mL [facility] 05/26/2025 1:13 PM EDT 05/27/2025 2:10 AM EDT Narrative Resulting Agency Comment [id number] Roger Walker MD LABORATORY Final Resu lt Performing Organization Address City/[facility] Co de Phone Number [facility] [address] [place] [address] * VITAMIN B12 (CYANOCOBALAMIN), SERUM (05/26/2025 1:13 PM EDT) Vitamin B12 (Cobalamins) 428 200 - 1100 pg/mL [facility] 05/26/2025 1:13 PM EDT 05/27/2025 2:10 AM EDT Narrative Resulting Agency Comment [id number] Roger Walker MD LABORATORY Final Resu lt Performing Organization Address [facility] Co de Phone Number [facility] [address] [place] [address] * VITAMIN D, 25-HYDROXY, TOTAL, IMMUNOASSAY (05/26/2025 [...] D, (D2,D3), LC/MS/MS is recommended: order code [id number] (patients >2yrs). See Note 1 Note 1 For additional information, please refer to http://education.[employer]faq/WSN491 (This link is being provided for informational/ educational purposes only.) 05/26/2025 1:13 PM EDT 05/27/2025 2:10 AM EDT Narrative Resulting Agency Comment [id number] Roger Walker MD LABORATORY Final Resu lt Performing Organization Address [facility] de Phone Number [facility] [address] [place] [address] * (ABNORMAL) ALBUMIN (MICROALBUMIN), RANDOM URINE, WITH [...] 2:10 AM EDT Narrative Resulting Agency Comment [id number] Roger Walker MD LABORATORY Final Resu lt Performing Organization Address [facility] de Phone Number [facility] [address] [place] [address] * (ABNORMAL) LIPID PANEL WITH REFLEX TO DIRECT LDL (05/26/2025 1:13 PM EDT) Cholesterol 174 <200 mg/dL [facility] HDL [...] LDL-C. Surya SS et al. MIYA. 2013;310(19): 8737-4674 (http://education.[employer]/faq/KTY609) CHOL/HDL Ratio 3.7 <5.0 (calc) [facility] Cholesterol Non-HDL 127 <130 mg/dL (calc) [facility] Comment: For patients with diabetes plus 1 major ASCVD risk factor, treating to a non-HDL-C goal of <100 mg/dL (LDL-C of <70 mg/dL) is considered a therapeutic option. 05/26/2025 1:13 PM EDT 05/27/2025 2:10 AM EDT Narrative Resulting Agency Comment [id number] us Roger Walker MD LABORATORY Final Resu lt [facility] [address] [place] [address] * (ABNORMAL) COMPREHENSIVE METABOLIC PANEL WITH GFR [...] needs for GFR calculation. Resulting Agency Comment [id number] Roger Walker MD LABORATORY Final Resu lt Performing Organization Address [facility] de Phone Number [facility] [address] [place] [address] * HEPATITIS C AB WITH REFLEX TO RNA PCR, SERUM (01/24/2025 10:56 AM EDT) Hepatitis C virus Ab NON-REACT MATTHEW NON-REACT MATTHEW [facility] Comment: HCV antibody was non-reactive. There is no laboratory evidence of HCV infection. In most cases, no further action is required. However, if recent HCV exposure is suspected, a test for HCV RNA (test code 35354) is suggested. For additional information please refer to http://education.[employer]/faq/KLK37v7 (This link is being provided for informational/ educational purposes only.) 01/24/2025 10:5 6 AM EDT 01/25/2025 2:08 AM EDT Narrative Resulting Agency Comment [id number] Roger Walker MD LABORATORY Final Resu lt Performing Organization Address [facility] Co de Phone Number [facility] [address] [place] [address] * SCANNING COMPUTERIZED OPHTHALMIC DX IMAGING, POSTERIOR SEGMENT/RETINA, W/ INTERP/REPORT, UNI/BILAT (09/16/2018) us Andreea Herron OD PROCEDURES Final Result * PSA (PROSTATE SPECIFIC AG) TOTAL (DIAGNOSTIC OR FOLLOW-UP TO SCREEN) (08/18/2006) PSA 0.8 0 - 4.0 NG/ML [facility] (CLIA# [id number]) Comment:PSA PERFORMED BY [facility]. 08/18/2006 08/18/2006 3:4 9 PM EST us Hong Acosta DO LABORATORY Final Result [facility] (CLIA# [id number]) [address] [place] [address] from Last 3 Months or Most Recently Relevant to Health Maintenance Insurance [facility] [employer] ACCESS [place] Advance Directives * Full Code (Latest Code Status on File) Date Activated Date Inactivated Comments 01/25/2025 9:38 AM Care Teams Trailer Body Assembler Relationship Specialty Start Date End Date Roger Walker MD [address] [place] [address] PCP - General Family Medicine 10/30/23 Andreea Herron OD Head Of Store Operations Optometry 02/20/17
--- OUTSIDE RECORDS SUMMARY | 2025-06-23 19:05 | XMS_ITS | Encounter Summary ---
Author Organization [facility] Address [address] [place] [address] Care Team Providers Care Electric Transfer Operator Name Role Phone Roger Walker MD Primary Care Provider [phone] Reason for Visit * Reason Onset Date Comments PAC Order Request_Altabatabaee 05/26/2025 Encounter Details Date Type Department Care Team (Late st Contact Info) Description 05/26/2025 Telephone [facility] [address] [place] [phone] Telephone Intake, Staff PAC Order Request_[facility] Social History Tobacco Use Types Packs/Day Years Used Date Smoking Tobacco: Never Smokeless Tobacco: Never Alcohol Use Standard Drinks/Week Comments Never 0 (1 standard drink = 0.6 oz pur e alcohol) [facility] Utilities Answer Date Recorded In the past 12 months has [employer], gas, oil, or water [employer] threatened to shut off services in your [...] encounter Miscellaneous Notes * Telephone Encounter - Zhanna Dinorah - 05/26/2025 10:13 AM EDT Pt had surgery with Dr. 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 Please Fax to sister at number below, andcall her with any questions at [phone]. Sisters documented in this encounter Plan of Treatment Upcoming Encounters Date Type Department Care Team (Late st Contact Info) Description 06/24/2025 11:40 AM EDT Follow-Up [facility] [address] [place] [address] Emily Toussaint PA [address] [place] [address] 08/16/2025 11:15 AM EST Office Visit [facility] Neurology [address] [place] [address] [address] Medical [place] [address] Josh Kraft MD [address] [place] [address] documented as of this encounter Visit Diagnoses Not on filedocumented in this encounter Additional Health Concerns Infection Onset Date Last Indicated Resolved Time 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2024 documented as of this encounter Care Teams Electric Transfer Operator Relationship Specialty Start Date End Date Roger Walker MD [address] [place] [address] PCP - General Family Medicine 05/04/25 documented as of this encounter
[2025-06-23 19:48] LABS: Hematocrit 28.1 % (42.0-52.0); Hemoglobin 8.7 g/dl (14.0-18.0); Imm Gran Abs Auto 0.03 X10*3/uL (0.00-0.03); Imm Gran Pct Auto 0.3 % (0.0-0.4); Lymphocytes Absolute Auto 1.3 X10*3/uL (1.2-4.9); Mean Corpuscular HGB Conc 31.0 g/dl (31.0-36.0); Mean Corpuscular Hemoglobin 21.8 pg (27.0-33.0); Mean Corpuscular Volume 70.4 fL (80.0-98.0); NRBC Abs Auto 0.000 X10*3/uL (0.0-0.012); NRBC Pct Auto 0.0 /100WBC (0.0-0.2); Platelet Count 322 X10*3/uL (160-400); Red Blood Count 3.99 X10*6/uL (4.60-5.80); White Blood Count 9.5 X10*3/uL (4.8-10.8)
[2025-06-23 20:01] LABS: Alanine Aminotransferase 19 U/L (0-40); Albumin Level 3.9 g/dL (3.5-5.0); Alkaline Phosphatase 111 U/L (39-117); Anion Gap 17 (12-20); Aspartate Amino Transferase 20 U/L (5-37); Blood Urea Nitrogen 16 mg/dL (9-16); Calcium 9.4 mg/dL (8.4-10.2); Carbon Dioxide 27 mmol/L (22-29); Chloride 101 mmol/L (96-108); Estimated Glomerular Filt Rate > 60; Potassium 4.8 mmol/L (3.3-5.1); Sodium 140 mmol/L (135-145); Total Protein 6.7 g/dL (6.5-8.0)
== END 2025-06-23 18:40 | disposition home or self-care (01) ==
LOC: HO.LNP 18:39
PROVIDERS: Visit Provider Internal Medicine
DX: E11.621 Type 2 diabetes mellitus with foot ulcer (principal); L97.509 Non-pressure chronic ulcer of other part of unspecified foot with unspecified severity; M86.172 Other acute osteomyelitis, left ankle and foot
CPT/HCPCS: 80048; 80076; 82550; 85025